=== PATIENT | female | born 1970 | race Caucasian/White ===

== ENCOUNTER → 2016-10-23 | Outpatient (CLI) | payer BC ==
[~2016-10-23] MED LIST: AMIL5TA PO; ATOR1TAB19 PO; CHLO25TA PO; CIPR500T89 PO; FLOM5CAP PO; KLOR1TAB69 PO; METF500T PO; NUCY75TA8 PO; OMEP20CA3 PO; PERCOCET PO; POTA10TAB PO; VENL100T PO; VENL150T PO
--- NOTE | 2016-10-23 16:07 | REP ---
PET/CT: History: Restaging lymphoma. Increasing right anterior chest wall discomfort. Comparison: Comparison PET-CT study is from March 21, 2016. TECHNIQUE: 77 minutes following the intravenous injection of a 8.4 mCi dose of F-18 FDG, three-dimensional PET scintigraphy is acquired from the skull base to the proximal thighs. Triplanar noncontrast CT scanning is acquired through the same anatomic range for attenuation correction, and image registration with scan parameters optimized to minimize radiation exposure to the patient. PET scintigraphy and CT datasets were fused and displayed on a workstation with multiplanar and projection display capability. PET/CT Findings: There is new hypermetabolic uptake in a left axillary lymph node. This measures 1.6 x 0.9 cm. It is larger than on prior PET/CT. The FDG accumulation is new. Maximum SUV value is 8.0. No other hypermetabolic axillary lymph node uptake is seen. No hilar or mediastinal hypermetabolic uptake is seen. Head and neck soft tissues are unremarkable. In the abdomen and pelvis, normal hepatic, splenic, gastrointestinal, and genitourinary FDG accumulation is seen. No abnormal hypermetabolic uptake is seen in the abdomen or pelvis. The patient is status post prior cholecystectomy. No pulmonary parenchymal nodule or mass lesion is observed. Impression: New finding of a suspicious hypermetabolic but small left axillary lymph node. No lymph nodes are visible in the axilla on recent mammography from July 17, 2016. Left axillary ultrasound could be performed in an attempt to localize this lymph node for needle biopsy if desired. Signed by Jonathan Guillen MD 10/23/2016 04:53 P
== END ==
LOC: M RAD 09:27
PROVIDERS: ATTEND Nurse Practitioner Family
DX: R07.89 Other chest pain (principal); Z85.79 Personal history of other malignant neoplasms of lymphoid, hematopoietic and related tissues
CPT/HCPCS: 78815; A9552

== ENCOUNTER → 2016-11-04 | Outpatient (REF) | payer BC ==
[2016-11-04 18:16] LABS: INR 0.89
== END ==
LOC: M LAB REF 17:26
PROVIDERS: ATTEND Internal Medicine Medical Oncology
DX: C85.90 Non-Hodgkin lymphoma, unspecified, unspecified site (principal)

== ENCOUNTER → 2016-11-14 | Outpatient (CLI) | payer BC ==
[~2016-11-14] MED LIST changes: +ATOR1TAB21 PO; +CVS20TAB PO; +K-TA10TA2 PO; +LIDOCAINE 1% MDV 20ML VIAL As Ordered ONE; +METF850T PO; +ZOLO100T PO
--- NOTE | 2016-11-19 08:56 | REP ---
ULTRASOUND GUIDED LEFT AXILLARY LYMPH NODE BIOPSY: The procedure was performed under the direct supervision of Dr. Guillen. The patient has a history of a suspicious hypermetabolic but small left axillary lymph node seen on a previous PET scan performed on 10/23/2016. The risks and benefits of the procedure were explained to the patient and informed consent was obtained. The left axillary lymph node was localized using ultrasound guidance. The skin was prepped and draped in a sterile fashion. 1% Xylocaine was used as a local anesthetic. Using ultrasound guidance, a 13-gauge suction assisted Mammotome needle was inserted and six core biopsy samples were obtained. The patient tolerated the procedure well and there were no immediate complications. After the appropriate amount of monitored convalescence, the patient was discharged from the department. Reviewed by IRA Suh 11/19/2016 04:51 PEdited and Signed by Jonathan Guillen MD 11/20/2016 02:58 P
== END | disposition home or self-care (01) ==
LOC: M RADPRO 10:08
PROVIDERS: ATTEND Nurse Practitioner Family
DX: C82.90 Follicular lymphoma, unspecified, unspecified site (principal)

== ENCOUNTER → 2017-01-15 | Outpatient (CLI) | payer BC ==
[~2017-01-15] VITALS: Ht 154.9 cm; Wt 86.6 kg
[~2017-01-15] MED LIST changes: +CHLO125TA PO; -LIDOCAINE 1% MDV 20ML VIAL As Ordered ONE; +LIDOCAINE 2% INJ 100 MG/5 ML SDV (FOR ANES.) As Ordered ONE; +NS 1,000 ML IV SCH; +OMEP40CA2 PO; +PROPOFOL 200 MG/20 ML VIAL As Ordered ONE; +RAPA8CAP PO; +ZANTTAB PO; +ZOFR4SOL PO
--- NOTE | 2017-01-15 13:29 | ROOR ---
Patient Name: Jodi Francois Procedure Date: 01/15/2017 1:10 PM Date of : 1970 Age: 46 Room: [facility] Gender: Female Note Status: Finalized Procedure: Upper GI endoscopy Indications: Heartburn, Suspected esophageal reflux Providers: DO Fern Palomino MD: DARIA SOLIS MD Requesting Provider: Medicines: Propofol per Anesthesia Complications: No immediate complications. Procedure: Pre-Anesthesia Assessment: - Prior to the procedure, a History and Physical was performed, and patient medications and allergies were reviewed. The patient is competent. The risks and benefits of the procedure and the sedation options and risks were discussed with the patient. All questions were answered and informed consent was obtained. Patient identification and proposed procedure were verified by the physician, the nurse, the anesthesiologist and the poultry field service technician in the endoscopy suite. Mental Status Examination: alert and oriented. Airway Examination: normal oropharyngeal airway and neck mobility. Respiratory Examination: clear to auscultation. CV Examination: normal. Prophylactic Antibiotics: The patient does not require prophylactic antibiotics. Prior Anticoagulants: The patient has taken no previous anticoagulant or antiplatelet agents. ASA Grade Assessment: II - A patient with mild systemic disease. After reviewing the risks and benefits, the patient was deemed in satisfactory condition to undergo the procedure. The anesthesia plan was to use monitored anesthesia care (MAC). Immediately prior to administration of medications, the patient was re-assessed for adequacy to receive sedatives. The heart rate, respiratory rate, oxygen saturations, blood pressure, adequacy of pulmonary ventilation, and response to care were monitored throughout the procedure. The physical status of the patient was re-assessed after the procedure. The Endoscope was introduced through the mouth, and advanced to the second part of duodenum. The upper GI endoscopy was accomplished without difficulty. The patient tolerated the procedure well. Findings: A small hiatal hernia was present. The prepyloric region of the stomach was normal. Biopsies were taken with a cold forceps for Helicobacter pylori testing. The exam was otherwise without abnormality. Impression: - Small hiatal hernia. - Normal prepyloric region of the stomach. Biopsied. - The examination was otherwise normal. Recommendation: - Patient has a contact number available for emergencies. The signs and symptoms of potential delayed complications were discussed with the patient. Return to normal activities tomorrow. Written discharge instructions were provided to the patient. - Telephone my office for pathology results in 1 week. Jared Kothari DO 01/15/2017 1:29:14 PM This report has been signed electronically. Number of Addenda: 0 Note Initiated On: 01/15/2017 1:10 PM Estimated Blood Loss: Estimated blood loss was minimal.
[2017-01-15 14:10] VITALS: BP 120/57
== END | disposition home or self-care (01) ==
LOC: M OPP 12:07
PROVIDERS: ATTEND Surgery
DX: R12 Heartburn (principal); K44.9 Diaphragmatic hernia without obstruction or gangrene; R10.13 Epigastric pain; C85.90 Non-Hodgkin lymphoma, unspecified, unspecified site; Z92.21 Personal history of antineoplastic chemotherapy; E11.9 Type 2 diabetes mellitus without complications; F41.9 Anxiety disorder, unspecified; F32.9 Major depressive disorder, single episode, unspecified; Z78.0 Asymptomatic menopausal state; Z87.442 Personal history of urinary calculi; Z91.041 Radiographic dye allergy status; Z79.84 Long term (current) use of oral hypoglycemic drugs; Z79.899 Other long term (current) drug therapy

== ENCOUNTER 2017-02-09 15:01 | Emergency (ER) | payer BC ==
[~2017-02-09] VITALS: Ht 154.9 cm; Wt 89.8 kg
[~2017-02-09 15:01] MED LIST changes: -LIDOCAINE 2% INJ 100 MG/5 ML SDV (FOR ANES.) As Ordered ONE; -NS 1,000 ML IV SCH; -PROPOFOL 200 MG/20 ML VIAL As Ordered ONE
[2017-02-09] MEDS ORDERED: DEXI60CA PO (15:21)
[2017-02-09] MEDS ORDERED: NS 1,000 ML IV ONE (17:00)
[2017-02-09] MEDS ORDERED: KETOROLAC 30 MG/ML VIAL (J1885) IV ONE (17:00)
[2017-02-09] MEDS ORDERED: ONDANSETRON 4MG/2ML VIAL (J2405) IV ONE (17:00)
[2017-02-09 17:24] LABS: BASO % 0.3 % (0.0-1.0); EOS # 0.4 K/mm3 (0.0-0.50); EOS % 2.8 % (0.0-3.0); LARGE UNSTAINED CELL # 0.1 K/mm3 (0.0-0.4); LARGE UNSTAINED CELL % 0.5 % (0.0-4.0); LYMPH % 7.3 % (24.0-44.0); MEAN CORPUSCULAR HEMOGLOBIN 29.3 pg (27.0-33.0); MEAN CORPUSCULAR HGB CONC 34.3 g/dl (32.0-36.5); MEAN CORPUSCULAR VOLUME 85.2 fl (80.0-96.0); MONO # 0.4 K/mm3 (0.0-0.8); MONO % 2.8 % (0.0-5.0); NEUTROPHILS # 11.9 K/mm3 (1.8-7.7); NEUTROPHILS % 86.4 % (36.0-66.0); PLATELET COUNT, AUTOMATED 284 k/mm3 (150-450); RED CELL DISTRIBUTION WIDTH 12.7 % (11.5-14.5); WHITE BLOOD COUNT 13.8 K/mm3 (4.0-10.0)
[2017-02-09 17:31] LABS: CONTROL LINE UCG INT CTR LINE PRESENT
[2017-02-09 17:43] LABS: CALCIUM LEVEL 8.5 MG/DL (8.5-10.1); CREATININE FOR GFR 1.17 MG/DL (0.55-1.02); POTASSIUM SERUM 3.9 MEQ/L (3.5-5.1)
[2017-02-09] MEDS ORDERED: FLOM5CAP PO (18:20)
[2017-02-09] MEDS ORDERED: CIPR500T89 PO (18:20)
[2017-02-09] MEDS ORDERED: ZOFR4TAB3 PO (18:20)
[2017-02-09] MEDS ORDERED: PERC5TAB6 PO (18:20)
[2017-02-09 18:27] VITALS: BP 107/61
[2017-02-09] MEDS ORDERED: TAMSULOSIN 0.4 MG CAP PO ONE (18:30)
[2017-02-09] MEDS ORDERED: OXYCODONE/APAP 5MG/325MG(BULK FOR ED) 1 TABLET PO ONE (18:30)
[2017-02-09] MEDS ORDERED: CIPROFLOXACIN 500 MG TAB PO ONE (18:30)
--- NOTE | 2017-02-10 07:35 | REP ---
Clinical: Left flank pain. Findings: Mild left-sided acute obstructive uropathy with perinephric and periureteral stranding as well as hydroureteronephrosis is secondary to a 2.5 mm calculus in the distal left ureter (images 110 - 111). Significant bilateral medullary nephrocalcinosis noted. Hepatomegaly and fatty infiltration of the liver noted without focal hepatic lesion. Spleen, pancreas, and bilateral adrenal glands are normal. The patient is status post cholecystectomy. The enteric system is without obstruction or acute inflammatory process. There is a 4 cm fat containing periumbilical hernia. Normal terminal ileum and appendix identified in the right lower quadrant. Pelvis demonstrates normal bladder and age-appropriate uterus/adnexa. No free fluid. No free air. No adenopathy. Abdominal aorta without aneurysm. Surrounding musculoskeletal structures are intact. Lung bases are clear. Impression: 1. Mild acute left-sided obstructive uropathy with 2.5 mm calculus in the distal left ureter. Bilateral medullary nephrocalcinosis. 2. 4 cm fat containing periumbilical hernia. Signed by Carl Coates MD 02/10/2017 07:28 A
== END 2017-02-09 18:41 | disposition home or self-care (01) ==
LOC: M ED 17:04
DX: N20.1 Calculus of ureter (principal); F32.9 Major depressive disorder, single episode, unspecified; E11.9 Type 2 diabetes mellitus without complications; N25.89 Other disorders resulting from impaired renal tubular function; Z87.442 Personal history of urinary calculi; C85.90 Non-Hodgkin lymphoma, unspecified, unspecified site; K42.9 Umbilical hernia without obstruction or gangrene; Z79.84 Long term (current) use of oral hypoglycemic drugs; Z79.899 Other long term (current) drug therapy; Z91.041 Radiographic dye allergy status
CPT/HCPCS: 74176; 80048; 81001; 81025; 84703; 85025; 87086; 96374; 96375; 99283; J1885; J2405

== ENCOUNTER → 2018-09-08 | Outpatient (CLI) | payer BC | LOC: M PLARAD 08:48 | DX: C85.90 Non-Hodgkin lymphoma, unspecified, unspecified site (principal) | CPT/HCPCS: 78815 ==

== ENCOUNTER → 2018-12-29 | Outpatient (CLI) | payer BC ==
[~2018-12-29] MED LIST changes: -AMIL5TA PO; +AMIL5TAB4 PO; +ATEN50TA9 PO; +CIPR-249 PO; -CIPR500T89 PO; +DEXI60CA2 PO; +FLOM0.4C39 PO; -FLOM5CAP PO; +FLUO40CA PO; -METF500T PO; +METF500T13 PO; -METF850T PO; +METF850T4 PO; +NUCY75TA11 PO; -NUCY75TA8 PO; +PERC5TAB12 PO; +POTA10808 PO; -POTA10TAB PO; +ZOFR4TAB14 PO
--- NOTE | 2018-12-30 08:25 | REP ---
PET/CT: History: Restaging follicular lymphoma. Comparisons: Comparison PET/CTs are reviewed from September 08, 2018 and October 21, 2017. TECHNIQUE: 49 minutes following the intravenous injection of a 9.69 mCi dose of F-18 FDG, three-dimensional PET scintigraphy is acquired from the skull base to the proximal thighs. Triplanar noncontrast CT scanning is acquired through the same anatomic range for attenuation correction, and image registration with scan parameters optimized to minimize radiation exposure to the patient. PET scintigraphy and CT datasets were fused and displayed on a workstation with multiplanar and projection display capability. PET/CT Findings: The two largest of the previously noted left axillary and left subclavian hypermetabolic lymph nodes may be very slightly larger since the relatively recent prior study. Today these measure 3.1 x 2.0 cm and 3.2 x 2.0 cm. Previously these two lymph node dimensions were 3.4 x 1.7 and 2.9 x 1.8 cm. They remain hypermetabolic today, maximum standard uptake value 8.92. Hypermetabolic left subclavian adenopathy persists with maximum standard uptake value 7.2 today. Previously, SUV value was 5.4. The previously noted slightly hypermetabolic lymph node in the right axilla is not apparent today. No hypermetabolic adenopathy is seen in the head and neck soft tissues. No intrathoracic hypermetabolic adenopathy is seen. No abnormal hypermetabolic uptake is seen in the upper abdomen. In the pelvis, previously noted right iliac hypermetabolic adenopathy persists. Morphologically, the most rostral of these looks slightly larger measuring 1.8 x 1.4 cm, previously 1.6 x 1.2 cm. Its maximum standard uptake value is 8.39, previously maximum SUV value is 12.7. The more inferior enlarged lymph node remains hypermetabolic and unchanged in size. Maximum SUV value is 8.15. There is a small focus of soft tissue uptake in or adjacent to the right piriformis muscle. Maximum standard uptake value is 4.4. No observable mass or lymph node is seen. This was present previously and thought to be a normal variant skeletal muscle uptake since there was no observable mass or node. Its presence in the same location today raises a concern of a additional tiny focus of disease. Impression: Several of the involved lymph nodes which were noted previously may be very slightly larger since the relatively recent prior study. They remain hypermetabolic. Electronically Signed by Jonathan Guillen MD 12/30/2018 09:51 A
== END ==
LOC: M PLARAD 13:14
PROVIDERS: ATTEND Internal Medicine Hematology & Oncology
DX: C82.90 Follicular lymphoma, unspecified, unspecified site (principal)
CPT/HCPCS: 78815; A9552

== ENCOUNTER → 2019-04-29 | Outpatient (CLI) | payer BC ==
[~2019-04-29] MED LIST changes: +AMOX875T2 PO; -CHLO25TA PO; -CVS20TAB PO; -OMEP20CA3 PO; +OMEP20CA4 PO; +OMEP20TA9 PO; -RAPA8CAP PO; +RAPA8CAP4 PO; -VENL150T PO; +VENL150T14 PO; +ZANT150T40 PO; -ZANTTAB PO
--- NOTE | 2019-05-04 11:37 | RADONC ---
RADIATION ONCOLOGY CONSULTATION DATE: 04/29/2019 CHART NUMBER: [id number] DIAGNOSIS: Non-Hodgkin's follicular lymphoma. STAGE: IV. ECOG PERFORMANCE STATUS: 0 CONSULTATION NOTE: Ms. Francois is a delightful 48-year-old white female with a long history of a grade 2 follicular non-Hodgkin's lymphoma who is presenting to us today for discussion of possible palliative radiation therapy to her left axilla. HISTORY OF PRESENT ILLNESS: The patient's history dates back to December 2010 when she was initially diagnosed with a moderately differentiated non-Hodgkin's follicular lymphoma. At that time she presented with bulky cervical lymphadenopathy. A bone marrow biopsy done 03/14/2011 showed positive B-cell population consistent with involvement by follicular lymphoma. The patient was treated with R-CHOP chemotherapy. This was followed by maintenance rituximab for 2 years. Maintenance rituximab was completed in September 2013 and the patient was found to be in complete remission. The patient remained in remission until a PET scan done in September 2016 showed a small hypermetabolic focus in the left axilla. Biopsy of the left axillary lymph node done 11/20/2016 revealed recurrent grade 2 follicular lymphoma. The patient was asymptomatic with no bulky disease. She has therefore been observed. A restaging PET scan done 09/08/2018 was undertaken and showed progressive axillary hypermetabolic adenopathy. There was also a mild right axillary lymphadenopathy and a right internal iliac pelvic lymphadenopathy, which was hypermetabolic. Repeat PET scan done 12/29/2018 showed that the left axillary and subclavian hypermetabolic lymph node region might be very slightly larger when compared with the one in August. The lymph node in the right axilla was not visible on the new PET scan. So basically, the patient is being presented to me for a slight increase in her axillary region. The patient is asymptomatic and reports that in June a new PET scan is scheduled. PAST MEDICAL HISTORY: The patient's past medical history is positive for kidney stones, a cholecystectomy and tonsillectomy. She had two C-sections. SOCIAL HISTORY: The patient has never smoked cigarettes. She does not drink alcohol. FAMILY HISTORY: The patient's family history is negative for lymphoma or other malignancies. REVIEW OF SYSTEMS: The patient's review of systems is noncontributory. She denies nausea, vomiting, fevers, chills, night sweats, diplopia, headaches, anxiety or depression, anorexia, weight loss, visual disturbances, chest pain, urinary or bowel difficulties, bone pain, or neurological problems. PHYSICAL EXAMINATION: The patient is a well-developed, well-nourished white female in no acute distress. HEENT exam is normocephalic, atraumatic. Extraocular movements are intact. There is no palpable cervical, supraclavicular, infraclavicular or inguinal lymphadenopathy. There is no right-sided axillary lymphadenopathy. There is what appears to be 3 cm mobile left axillary lymph node, which is firm but nontender. Lungs are clear to auscultation and percussion. Heart has a regular rate and rhythm. Abdomen is benign with no hepatosplenomegaly, masses, or tenderness. Skeletal examination reveals no tenderness to pressure or percussion of the bony skeleton. Extremities reveal no clubbing, cyanosis, or edema. Neurologic exam is grossly intact, as is the remainder of the physical examination. ASSESSMENT: I had a very lengthy discussion with this patient and her . She is aware that the role of radiation is palliative at this point. Indeed there are other sites of disease for which she is being followed. I did let her know that the dose of radiation would be quite low and I expect a very high chance of local control. She should respond nicely with minimal side effects. As I said, the dose is very low and the axillary area should cause her no problems with treatment. I also discussed a very long history of this disease and the fact that we could treat this at anytime. Indeed, this is not a curative treatment and we are here purely for quality of life. The patient and her wish to hold off on treatment at this point and would rather wait until June when a new PET scan is undertaken. I have given the patient and her family my cell phone number as well as office number. I let them know we can jump in at anytime to deliver radiation if she should develop symptoms or simply change her mind and want treatment. In light of the fact that she is asymptomatic at this time, and she has had this disease for 8 years, I think her desire to wait the next few weeks is reasonable. I have tentatively set her up for a follow-up consultation in my office for the end of June following her PET scan. Once again, she has been instructed to contact me should she become symptomatic or wish to initiate radiation. In the meantime, she will keep her close follow-up with her medical oncologist, Dr. Zonia Myers. cc: Zonia Myers MD
== END ==
LOC: M ONCR 12:53
PROVIDERS: ATTEND Radiology Radiation Oncology
DX: C82.90 Follicular lymphoma, unspecified, unspecified site (principal)

== ENCOUNTER → 2019-07-06 | Outpatient (CLI) | payer BC ==
--- NOTE | 2019-07-06 15:31 | REP ---
PET/CT: HISTORY: Restaging lymphoma. COMPARISONS: Comparison is made with previous PET/CT, the most recent which is from December 29, 2018. TECHNIQUE: 50 minutes following the intravenous injection of a 8.74 mCi dose of F-18 FDG, three-dimensional PET scintigraphy is acquired from the skull base to the proximal thighs. Triplanar noncontrast CT scanning is acquired through the same anatomic range for attenuation correction, and image registration with scan parameters optimized to minimize radiation exposure to the patient. PET scintigraphy and CT datasets were fused and displayed on a workstation with multiplanar and projection display capability. PET/CT FINDINGS: Head and neck soft tissues remain unremarkable. There is fairly bulky hypermetabolic uptake in the left axillary lymphadenopathy. This lymphadenopathy extends upward to the subclavicular level. Maximum standard uptake value ranges up to 11.5. It appears mildly increased in size from the most recent prior PET/CT study 12/29/2018. There is no abnormal intrathoracic hypermetabolic uptake. There is hypermetabolic left periaortic retroperitoneal adenopathy with maximum standard uptake value of 4.0 in a lymph node measuring 1.4 cm. In addition, there are multiple small mesenteric lymph nodes in the small bowel mesentery. These are slightly larger than on prior study. One or two of these appear hypermetabolic. The most active shows a maximum standard uptake value of 4.44. This lymph node measures 1.2 cm. There is a slightly larger, 16 mm lymph node which is not definitely hypermetabolic. There is right internal iliac lymphadenopathy along the right posterior pelvic sidewall. This is similar to the prior study. Maximum standard uptake value in these javier foci ranges up to 12.91. There is a small hypermetabolic nodule again seen along the course of the piriformis muscle on the right with maximum standard uptake value 8.49. IMPRESSION: There is evidence of gradual progression in adenopathy in the axilla and subclavian nodes on the left, in the small bowel mesenteric and left periaortic lymph nodes. The right pelvic adenopathy remains hypermetabolic and morphologically unchanged. Electronically Signed by Jonathan Guillen MD 07/06/2019 04:09 P
== END ==
LOC: M PLARAD 10:24
PROVIDERS: ATTEND Internal Medicine Hematology & Oncology
DX: C82.94 Follicular lymphoma, unspecified, lymph nodes of axilla and upper limb (principal)

== ENCOUNTER → 2019-07-14 | Outpatient (CLI) | payer BC ==
--- NOTE | 2019-07-15 13:54 | RADONC ---
RADIATION ONCOLOGY PROGRESS NOTE DATE: 07/14/2019 CHART #: [id number] DIAGNOSIS: Non-Hodgkin's follicular lymphoma. STAGE: IV. ECOG PERFORMANCE STATUS: 0. PROGRESS NOTE: Ms. Francois is a delightful 48-year-old white female with a long history of grade 2 follicular non-Hodgkin's lymphoma over the past 8 years who initially presented to me on 04/29/2019 for consideration of palliative radiation therapy to her left axilla in attempt to achieve local control in that area. At that point, she had been treated with R-CHOP chemotherapy and was noted to appear to be in clinical remission except for the axillary region. When I saw the patient, she was scheduled to have a PET scan and requested that we do absolutely nothing until the PET scan is done and she is able to speak with her medical oncologist, Dr. Zonia Myers. Since my last consultation, the patient did have her PET scan on 07/06/2019 which now shows evidence of gradual progression of the adenopathy in the axilla and nodes on the left which were the reason for our initial consultation. Of note, however, there is some slight progression of left periaortic retroperitoneal adenopathy as well. There is also a hypermetabolic foci with a SUV value of 12.91 in the right internal iliac region. Due to scheduling issues, the patient has not yet spoken with Dr. Myers about this PET scan and any future plans. She is scheduled to see Dr. Myers on 07/16/2019. REVIEW OF SYSTEMS: The patient's review of systems is noncontributory. Denies nausea, vomiting, fevers, chills, night sweats, diplopia, headaches, anxiety or depression, anorexia, weight loss, visual disturbances, chest pain, urinary or bowel difficulties, bone pain, or neurological problems. PHYSICAL EXAMINATION: The patient's physical exam remains unchanged. The patient is a well-developed, well-nourished white female in no acute distress. HEENT: Exam is normocephalic, atraumatic. Extraocular movements are intact. There is no palpable cervical, supraclavicular, infraclavicular or inguinal lymphadenopathy present. There continues to be no right-sided axillary lymphadenopathy. There is still a mobile left axillary lymph node which I do not appreciate much change in. The patient's lungs are clear to auscultation and percussion. Heart has a regular rate and rhythm. Her abdomen is benign with no hepatosplenomegaly, masses or tenderness. Skeletal examination reveals no tenderness to pressure or percussion of the bony skeleton. Extremities: Reveal no clubbing, cyanosis or edema. Neurologic exam is grossly intact as is the remainder of the examination. Once again, I let the patient know that we are available to her and I did discuss the potential benefits as well as possible acute and chronic sequelae of external beam radiation therapy. The patient is scheduled to see Dr. Myers on Friday at 2 o'clock. I let the patient know I am available and I can see her with Dr. Myers if she would like or she can walk right across the stover when she sees Dr. Myers and come in and see me at anytime. If she wishes to undergo radiation, I can then schedule her for simulation and initiation of treatment planning. In light of the progression in other sites, we await Dr. Myers's expert opinion. There is only slight progression at this time and the dose of radiation would be quite low and should not be very toxic. Therefore, we are open to discussion with regards to her various options. Once again, the patient is scheduled to see her medical oncologist on Friday and will come over and see me following that or during that visit. Further discussion will be undertaken at that time.
== END ==
LOC: M ONCR 13:53
PROVIDERS: ATTEND Radiology Radiation Oncology
DX: C85.90 Non-Hodgkin lymphoma, unspecified, unspecified site (principal)

== ENCOUNTER → 2019-08-02 | Outpatient (CLI) | payer BC ==
[~2019-08-02] MED LIST changes: +INCR1INH INH; +LIDOCAINE 1% MDV 20ML VIAL As Ordered ONE; -OMEP40CA2 PO; +OMEP40CA97 PO
[2019-08-02 14:24] VITALS: BP 131/71
--- NOTE | 2019-08-03 16:59 | REP ---
Ultrasound-guided left axillary lymph node biopsy This procedure was performed by IRA Cantu, under the direct supervision of Dr. Sweeney. The patient has a history of fairly bulky hypermetabolic uptake in the left axilla region on a PET scan dated 07/06/2019. The risks and the benefits of the procedure were explained to the patient and informed consent was obtained both verbally and written. Directly prior to the start of the procedure, a formal time out was completed in the procedure room. The left axilla lymph node was localized using ultrasound guidance. The skin was prepped and draped in a sterile fashion. 6 ml of 1% lidocaine was used as a local anesthetic. Using ultrasound guidance a 19/20 gauge coaxial needle biopsy system was inserted and advanced to the lymph node. Eight core biopsy samples were obtained and sent to the lab for further analysis. The patient tolerated the procedure well and there were no immediate complications. After the appropriate amount of monitored convalescence the patient was discharged from the department. Reviewed by IRA Cantu 08/02/2019 02:49 P Electronically Signed by Jared Sweeney MD 08/03/2019 04:51 P
== END ==
LOC: M IRPRO 12:37
PROVIDERS: ATTEND Internal Medicine Hematology & Oncology
DX: C82.94 Follicular lymphoma, unspecified, lymph nodes of axilla and upper limb (principal)

== ENCOUNTER 2019-12-20 05:56 | Day surgery (SDC) | payer BC ==
[~2019-12-20] VITALS: Ht 154.9 cm; Wt 91.6 kg
[~2019-12-20 05:56] MED LIST changes: -LIDOCAINE 1% MDV 20ML VIAL As Ordered ONE; +OMEP1CAP73 PO; -OMEP20CA4 PO; +ONDA4TAB6 PO; +PEPC1TAB5 PO
[2019-12-20] MEDS ORDERED: LR 1,000 ML IV ONE (06:00)
[2019-12-20] MEDS ORDERED: LIDOCAINE 1% MDV 20ML VIAL SQ PRN (06:00)
[2019-12-20] MEDS ORDERED: ceFAZolin SOD 2 GM in IV 1 EA IV ONE (06:00)
[2019-12-20 06:23] LABS: HEMATOCRIT 39.4 % (36.0-47.0); HEMOGLOBIN 12.7 g/dl (12.0-15.5); MEAN CORPUSCULAR HEMOGLOBIN 26.7 pg (27.0-33.0); MEAN CORPUSCULAR HGB CONC 32.2 g/dl (32.0-36.5); MEAN CORPUSCULAR VOLUME 82.8 fl (80.0-96.0); PLATELET COUNT, AUTOMATED 301 10^3/uL (150-450); RED BLOOD COUNT 4.76 10^6/uL (4.00-5.40); WHITE BLOOD COUNT 6.6 10^3/uL (4.0-10.0)
[2019-12-20 06:51] LABS: BLOOD UREA NITROGEN 17 MG/DL (7-18); CALCIUM LEVEL 9.1 MG/DL (8.5-10.1); CARBON DIOXIDE LEVEL 26 MEQ/L (21-32); CHLORIDE LEVEL 106 MEQ/L (98-107); CREATININE FOR GFR 0.97 MG/DL (0.55-1.30); GLOMERULAR FILTRATION RATE > 60.0 (>58); GLUCOSE, FASTING 165 MG/DL (70-100); POTASSIUM SERUM 4.2 MEQ/L (3.5-5.1); SODIUM LEVEL 139 MEQ/L (136-145)
[2019-12-20] MEDS ORDERED: LIDOCAINE 2% INJ 100 MG/5 ML SDV (FOR ANES.) As Ordered ONE (07:02)
[2019-12-20] MEDS ORDERED: ONDANSETRON 4MG/2ML VIAL (J2405) As Ordered ONE (07:02)
[2019-12-20] MEDS ORDERED: KETOROLAC 60 MG/2 ML VIAL (J1885) As Ordered ONE (07:02)
[2019-12-20] MEDS ORDERED: dexameTHASONE 4 MG/ML 1ML VIAL (J1100) As Ordered ONE (07:02)
[2019-12-20] MEDS ORDERED: propofoL 200 MG/20 ML VIAL As Ordered ONE (07:02)
[2019-12-20] MEDS ORDERED: ROCURONIUM BROMIDE 50 MG/5 ML VIAL As Ordered ONE (07:02)
[2019-12-20] MEDS ORDERED: MIDAZOLAM INJ 2 MG/2 ML VIAL (J2250) As Ordered ONE (07:05)
[2019-12-20] MEDS ORDERED: fentaNYL 250 MCG/5 ML INJECTION (J3010) As Ordered ONE (07:05)
[2019-12-20] MEDS ORDERED: BUPIVACAINE/EPIN 0.25% 30 ML VIAL As Ordered ONE (07:14)
[2019-12-20] MEDS ORDERED: ACETAMINOPHEN 1000MG 100ML IV BTL (OFIRMEV) (J0131 PER 10MG) As Ordered ONE (07:47)
[2019-12-20] MEDS ORDERED: SUGAMMADEX SODIUM 500 MG/5 ML VIAL (BRIDION) As Ordered ONE (07:51)
[2019-12-20] MEDS ORDERED: LACRILUBE (AKWA TEARS) OPHTH OINT 3.5 GM As Ordered ONE (08:11)
[2019-12-20] MEDS ORDERED: oxyCODONE 5MG TAB PO PRN (09:30)
[2019-12-20] MEDS ORDERED: ONDANSETRON 4MG/2ML VIAL (J2405) IV PRN (09:30)
[2019-12-20] MEDS ORDERED: HYDROMORPHONE HCL 0.5 MG/ 0.5 ML SYRINGE (J1170 PER 1) IV PRN (09:30)
[2019-12-20] MEDS ORDERED: fentaNYL 100 MCG/2 ML INJECTION (J3010) IV PRN (09:30)
[2019-12-20] MEDS ORDERED: LR 1,000 ML IV SCH (09:30)
[2019-12-20] MEDS ORDERED: NORCO, ANEXSIA 5/325MG TABLET (HYDROcodone/ACETAMINOPHEN) PO PRN (09:30)
[2019-12-20] MEDS ORDERED: METOCLOPRAMIDE INJ 10MG/2ML VIAL (J2765) As Ordered ONE (10:04)
[2019-12-20] MEDS ORDERED: METOCLOPRAMIDE INJ 10MG/2ML VIAL (J2765) IV PRN (10:30)
[2019-12-20 11:45] VITALS: BP 141/65
--- NOTE | 2019-12-21 12:44 | RO ---
DATE OF PROCEDURE: 12/20/2019 PREOPERATIVE DIAGNOSES: Incarcerated incisional and umbilical hernias. POSTOPERATIVE DIAGNOSES: Incarcerated incisional and umbilical hernias. PROCEDURE: Robotic repair of incarcerated incisional and umbilical hernias. SURGEON: Jared Kothari DO ASSIST: None. ANESTHESIA: General. ESTIMATED BLOOD LOSS (EBL): 5. COMPLICATION: None. INDICATION FOR PROCEDURE: The patient is a 49-year-old female status post laparoscopic cholecystectomy and laparoscopic abdominal exploration with lymph node biopsies. Presents with pain around her umbilicus with a large hernia. She was found to have two separate defects on her CT scan right next to each other in the midline periumbilically. Recommendation is to pursue repair. Risks and benefits of the procedure not limited but including bleeding, infection, hernia recurrence, hernia formation, damage to surrounding structures, need for further surgery discussed in detail with the patient. Informed consent was obtained, and procedure was planned. DESCRIPTION OF PROCEDURE: The patient brought back to operating room #7. After sufficient sedation, the abdomen was sterilely prepped and draped. Next, time-out was done to confirm proper patient and proper procedure. Following that, 8 mm incision made in the left lower quadrant, Veress needle inserted, and the abdomen was insufflated to 15 mmHg. Veress needle was then removed. An 8 mm Optiview robotic port was used to gain access to the abdomen. Once the abdomen was entered, the hernia was identified at the umbilicus with a large amount of omentum within it. Another port was then placed epigastric just to the left of midline. Another port in the right upper quadrant. The robot was then connected to the ports. Next, from the console, the omentum was first dissected free and reduced. Once that was completed, a horizontal incision was made through the peritoneal surface superior to that defect. Upon entering the preperitoneal space, there were three hernias identified superior to the one at the umbilicus that are then reduced. These three were all dissected free and reduced. Continuing with dissection inferiorly through the preperitoneal plane, I was able to dissect free the entire hernia sac that was at the umbilicus, as well. Once that was completed, the preperitoneal space was completely dissected free. A 0 Stratafix suture was used to reapproximate the fascia along the midline, encompassing all four of those hernia defects. Once that was completed, 2-0 V-Loc was used to close the defect in the peritoneum from where the umbilical hernia was. Once that was closed, a 5 cm round ProGrip mesh was placed into the preperitoneal space and gently smoothed out to cover the fascia. The 2-0 V-Loc was then used to close the rest of the peritoneal defect, closing the rest of the preperitoneal space. Once that was completed, the abdomen was desufflated. Skin incisions were closed with 4-0 Vicryl subcuticular sutures. The abdomen cleaned and dried. Steri-Strips, 4x4, and tape were applied, thus ending the procedure.
== END 2019-12-20 12:45 | disposition home or self-care (01) ==
LOC: M SDC 05:56
PROVIDERS: ATTEND Surgery
DX: K43.0 Incisional hernia with obstruction, without gangrene (principal); K42.0 Umbilical hernia with obstruction, without gangrene; F41.9 Anxiety disorder, unspecified; F32.9 Major depressive disorder, single episode, unspecified; E11.9 Type 2 diabetes mellitus without complications; I10 Essential (primary) hypertension; K21.9 Gastro-esophageal reflux disease without esophagitis; N25.89 Other disorders resulting from impaired renal tubular function; Z85.72 Personal history of non-Hodgkin lymphomas; Z92.21 Personal history of antineoplastic chemotherapy; F03.90 Unspecified dementia, unspecified severity, without behavioral disturbance, psychotic disturbance, mood disturbance, and anxiety; Z91.041 Radiographic dye allergy status; Z79.899 Other long term (current) drug therapy; Z79.84 Long term (current) use of oral hypoglycemic drugs; Z79.891 Long term (current) use of opiate analgesic
CPT/HCPCS: 36415; 49653; 49655; 80048; 85027; C1781; J0131; J0690; J1100; J1885; J2250; J2405; J2765; J3010

== ENCOUNTER → 2019-12-28 | Outpatient (CLI) | payer BC ==
--- NOTE | 2019-12-28 17:02 | REP ---
PET/CT: History: Restaging follicular lymphoma. Comparisons: Comparison PET-CT study July 06, 2019 and December 29, 2018. TECHNIQUE: 62 minutes following the intravenous injection of a 8.77 mCi dose of F-18 FDG, three-dimensional PET scintigraphy is acquired from the skull base to the proximal thighs. Triplanar noncontrast CT scanning is acquired through the same anatomic range for attenuation correction, and image registration with scan parameters optimized to minimize radiation exposure to the patient. PET scintigraphy and CT datasets were fused and displayed on a workstation with multiplanar and projection display capability. PET/CT Findings: Compared to the most recent prior study of July 06, 2019, there is improvement noted in the size and avidity of the left axillary and left supraclavicular lymphadenopathy. Maximum standard uptake value in the left supraclavicular nodes is 8.08. Maximum SUV value in the left axillary adenopathy ranges up to 7.07. Previously 8.92. The axillary nodes are smaller. There is very slightly increased uptake in a small left periaortic lymph node, maximum SUV 2.13. Previously 4.01. Left small bowel mesenteric lymph node remains hypermetabolic, 3.20. Previously 4.44. There is mild javier hypermetabolic uptake in common iliac nodes, 4.75 and 5.05. There is right internal iliac adenopathy which remains hypermetabolic, maximum standard uptake value 10.08. Previously 8.15. There is a focus of hypermetabolic uptake again seen in the right piriformis muscle with similar avidity, 4.22 versus previously 4.39. No new hypermetabolic javier focus is seen. The patient appears to be status post recent surgical correction of umbilical hernia. There is some postoperative hypermetabolic uptake in the anterior abdominal wall at the herniorrhaphy site, maximum standard uptake value 4.60. This may be postoperative change. Impression: The left axillary adenopathy is smaller and somewhat less avid. There is slightly decreased avidity in a left periaortic and in mesenteric lymph node. Otherwise hypermetabolic javier uptake is essentially unchanged from the most recent prior study. Electronically Signed by Jonathan Guillen MD 12/29/2019 07:49 A
== END ==
LOC: M PLARAD 10:16
PROVIDERS: ATTEND Internal Medicine Hematology
DX: C82.94 Follicular lymphoma, unspecified, lymph nodes of axilla and upper limb (principal)
CPT/HCPCS: 78815; A9552

== ENCOUNTER 2020-01-19 15:29 | Emergency (ER) | payer BC ==
[~2020-01-19] VITALS: Ht 154.9 cm; Wt 89.6 kg
[2020-01-19 15:29] VITALS: BP 151/70
[~2020-01-19 15:29] MED LIST changes: +KLOR10TA76 PO
[2020-01-19] MEDS ORDERED: JANU100T (15:36)
[2020-01-19] MEDS ORDERED: CEPH500C (15:36)
[2020-01-19] MEDS ORDERED: PRED20TA PO (16:41)
[2020-01-20] MEDS ORDERED: HYDR-3713 (13:14)
== END 2020-01-19 16:43 | disposition home or self-care (01) ==
LOC: M ED 15:29
DX: J02.0 Streptococcal pharyngitis (principal); C82.90 Follicular lymphoma, unspecified, unspecified site; I10 Essential (primary) hypertension; E78.5 Hyperlipidemia, unspecified; F03.90 Unspecified dementia, unspecified severity, without behavioral disturbance, psychotic disturbance, mood disturbance, and anxiety; F32.9 Major depressive disorder, single episode, unspecified; K21.9 Gastro-esophageal reflux disease without esophagitis; Z79.84 Long term (current) use of oral hypoglycemic drugs; Z79.899 Other long term (current) drug therapy

== ENCOUNTER 2020-01-20 13:02 | Emergency (ER) | payer BC ==
[~2020-01-20] VITALS: Ht 154.9 cm; Wt 88.0 kg
[~2020-01-20 13:02] MED LIST changes: +CEPH500C; +JANU100T; +PRED20TA PO
[2020-01-20 13:03] VITALS: BP 136/71
[2020-01-20] MEDS ORDERED: HYDR-3713 (13:14)
== END 2020-01-20 13:46 | disposition home or self-care (01) ==
LOC: M ED 13:02
DX: J02.0 Streptococcal pharyngitis (principal); Z91.041 Radiographic dye allergy status; Z79.84 Long term (current) use of oral hypoglycemic drugs; Z79.899 Other long term (current) drug therapy

== ENCOUNTER → 2020-03-14 | Outpatient (CLI) | payer BC ==
[~2020-03-14] MED LIST changes: +HYDR-3713
--- NOTE | 2020-03-14 17:37 | REP ---
Clinical: Nephrolithiasis. Technique: Single supine view of the abdomen and pelvis. Findings: Bilateral intrarenal calculi are identified (left greater than right) having suggestions for underlying medullary nephrocalcinosis/sponge kidney. A 1 cm ovoid calcification is identified overlying the left side of the sacrum which is of uncertain etiology or clinical significance and may represent ingested material as this is not identified on recent CT dated 01/27/2020. 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 Ovoid calcification in the left jack pelvis of uncertain clinical significance. Electronically Signed by Carl Coates MD 03/14/2020 05:27 P
== END ==
LOC: M RAD 15:35
PROVIDERS: ATTEND Urology
DX: N20.0 Calculus of kidney (principal)

== ENCOUNTER → 2020-06-29 | Outpatient (CLI) | payer BC ==
[~2020-06-29] MED LIST changes: +MYRB50TA PO; +READI-CAT 2 As Ordered ONE
--- NOTE | 2020-07-12 08:37 | REP ---
NONCONTRAST CHEST CT CLINICAL: History of lymphoma. TECHNIQUE: Axial noncontrast images from the thoracic inlet to the upper abdomen with coronal and sagittal reformations. COMPARISON: None available. FINDINGS: The bilateral lung lam are well-aerated and clear. No consolidation, nodule, or mass lesion is appreciated. No effusion or pneumothorax identified. Tracheobronchial tree is patent. Evaluation of the mediastinum demonstrates normal thoracic aorta, pulmonary vasculature, and heart/pericardium. No mediastinal or hilar adenopathy is appreciated. Solitary left axillary lymph node measuring 18 mm and solitary right axillary lymph node measuring 15 mm are identified and nonspecific. Surrounding musculoskeletal structures are intact and without acute osseous abnormality. IMPRESSION: * Solitary bilateral axillary lymph nodes measuring 17 and 18 mm in diameter are otherwise nonspecific in appearance. No further mediastinal, hilar, or thoracic adenopathy appreciated. * No acute pleural parenchymal process. MTDD
--- NOTE | 2020-07-18 08:37 | REP ---
CONTRAST ENHANCED CT OF THE ABDOMEN AND PELVIS CLINICAL: History of non-Hodgkin's lymphoma. TECHNIQUE: Axial contrast enhanced images from the lung bases to the pubic symphysis using oral (per protocol) and 100 mL Isovue-370 intravenous contrast material with coronal and sagittal reformations. COMPARISON: 01/27/2020. FINDINGS: Diffuse fatty infiltration to the liver again noted. Spleen, pancreas, and bilateral adrenal glands are normal. Evidence for prior cholecystectomy. The kidneys demonstrate medullary calcifications consistent with medullary sponge kidney and without perinephric stranding, or hydroureteronephrosis. The enteric system is without obstruction or acute inflammatory process. Mesenteric adenopathy is again noted and essentially unchanged. Largest lymph nodes within the small bowel mesentery measure up to approximately 17 mm. Pelvis demonstrates normal bladder and age appropriate uterus/adnexa. No pelvic fluid or ascites. No free air. Abdominal aorta without aneurysm. Musculoskeletal structures are intact and without interosseous abnormality. IMPRESSION: * Mesenteric lymph nodes measuring up to approximately 17 mm essentially unchanged from prior examination. * Hepatosteatosis. * Medullary sponge kidney. MTDD
== END ==
LOC: M RAD 11:02
PROVIDERS: ATTEND Internal Medicine Hematology
DX: C85.90 Non-Hodgkin lymphoma, unspecified, unspecified site (principal); K76.0 Fatty (change of) liver, not elsewhere classified; Q61.5 Medullary cystic kidney

== ENCOUNTER 2020-10-24 12:43 | Emergency (ER) | payer BC ==
[~2020-10-24] VITALS: Ht 154.9 cm; Wt 89.3 kg
[~2020-10-24 12:43] MED LIST changes: -READI-CAT 2 As Ordered ONE
--- OUTSIDE RECORDS SUMMARY | 2020-10-24 12:51 | CCD | Continuity of Care Document ---
Author Author Jodi RODRIGUEZ M.D. Organization Unknown Address [address] [address] Phone [phone] Problems Active Problems Provider Date Type 2 diabetes mellitus Ryna Rodriguez M.D. Onset: 08/13 Hyperlipidemia Ryan Rodriguez M.D. Onset: 3 Malignant lymphoma of intrapelvic lymph nodes Walker Rodriguez M.D. Onset: 08/31/2013 Acidosis Ryan Rodriguez M.D. Onset: 3 Note: renal tubular Medullary sponge kidney Ryan Rodriguez M.D. Onset: 01/15 Social History Type Date Description Comments Sex Unknown Tobacco Use Start: Unknown Patient has never smoked Allergies, Adverse Reactions, Alerts Active Allergies Reaction Severity Comments Date NKDA 06/17/2014 IVP Urticaria 12/06/2013 Medications Active Medications SIG Qnty Indications Ordering Provide r Date Atenolol-Chlorthalidone 50-25mg Ta blets Take 1/2 Tablet By Mouth Once Daily 45tabs Ayaz Rodriguez M.D. 06/12/2020 Oxycodone-Acetaminophen 5-325mg Ta blets take one tablet by mouth every eight hours as needed for pain (max daily dose three) [id number] 30tabs Ryan Rodriguez M.D. 020 Januvia 100mg Tablets 1 by mouth every day 90tabs Ryan Rodriguez M.D. 01/12/20 20 Famotidine 20mg Tablets 1 by mouth twice a day 60tabs Ryan Rodriguez M.D. 10/25/19 20 Ondansetron HCL 4mg Tablets take one tablet by mouth every 6 hours as needed for nausea 90tabs Ryan Rodriguez M.D. 06/28/[address] take one capsule by mouth every day 90Ryan Chowdary M.D. 03/11 Atorvastatin Calcium 20mg Tablets Take One Tablet By Mouth Every Day Ryan Haas M.D . 01/02/2016 Metformin HCL 850mg Tablets take one tablet by mouth three times a day Walker Haas M.D. 06/17/2014 Potassium Citrate 10 Meq (1080 mg) Tablets ER 2 po bid 90Ryan Hodges M.D. 11/14 Rapaflo 8mg Capsules 1 po qd prn Unknown Amiloride HCL 5mg Tablets 1 p o qd Unknown Potassium Chloride ER 10Meq Capsul es ER 1 by mouth every day Unknown Myrbetriq 50mg Tablets ER 24HR 1 by mouth every day Unknown Medications Administered in Office Medication SIG Qnty Indications Ordering Provider Date Injection (SC)/(Im) Injection Ryan Rodriguez M.D. 01/19/2020 Immunizations CPT Code Status Date Vaccine Lot # 27836 Given 06/21/2020 Influenza Virus Vaccine, Quadrivalent, Slit Virus, Im Use 3Y & Up [id number] 61721 Given 07/10/2018 Influenza Virus Vaccine, Quadrivalent, Slit Virus, Im Use 3Y & Up [id number] 24345 Given 06/25/2017 Influenza Virus Vaccine, Quadrivalent, Slit Virus, Im Use 3Y & Up [id number] 65230 Given 07/01/2016 Influenza Virus Vaccine, Quadrivalent, Slit Virus, Im Use 3Y & Up 41395 Given 07/01/2016 Influenza Virus Vaccine, Quadrivalent, Slit Virus, Im Use 3Y & Up [id number] 97657 Given 07/11/2015 Influenza Virus Vac. Split Virus Individuals 3 Years And Above [id number] 47877 Given 07/15/2014 Influenza Virus Vac. Split Virus Individuals 3 Years And Above [id number] Vital Signs Date Vital Result Comment 08/07/2020 3:56pm BP Systolic 124 mmHg BP Diastolic 76 mmHg Body Temperature 97.6 F Heart Rate 92 /min Respiratory Rate 16 /min Height 61 inches 5'1" Weight 199.00 lb [place] Body Weight 105 lb BMI (Body Mass Index) 37.6 kg/m2 O2 % BldC Oximetry 99 % 04/26/2020 3:13pm BP Systolic 124 mmHg BP Diastolic 80 mmHg Body Temperature 97.9 F Heart Rate 80 /min Respiratory Rate 14 /min Height 61 inches 5'1" Weight 193.00 lb [place] Body Weight 105 lb BMI (Body Mass Index) 36.5 kg/m2 O2 % BldC Oximetry 97 % Results Test Acquired Date Facility Test Result H/L Range Note CBC With Auto Differential OB 10/20/2020 [facility]) [phone] White Blood Count 7.0 10 Normal 4.0-10.0 Red Blood Count 4.78 10 Normal 4.00-5.40 Hemoglobin 12.7 g/dL Normal 12.0-15.5 Hematocrit 39.1 % Normal 36.0-47.0 Mean Corpuscular Volume 81.8 fl Normal 80.0-96.0 Mean Corpuscular Hemoglobin 26.6 pg Low 27.0-33.0 Mean Corpuscular HGB Conc 32.5 g/dL Normal 32.0-36.5 Red Cell Distribution Width 14.3 % Normal 11.5-14.5 Platelet Count, Automated 300 10 Normal 150-450 Neutrophils % 59.3 % Normal 36.0-66.0 Lymph % 29.2 % Normal 24.0-44.0 [place] % 7.3 % High 0.0-5.0 Eos % 3.0 % Normal 0.0-3.0 Baso % 0.6 % Normal 0.0-1.0 Immature Granulocyte % 0.6 % Normal 0-3.0 Nucleated Red Blood Cell % 0.0 % Normal 0-0 Neutrophils # 4.2 10 Normal 1.5-8.5 Lymph # 2.1 10 Normal 1.5-5.0 [place] # 0.5 10 Normal 0.0-0.8 Eos # 0.2 10 Normal 0.0-0.5 Baso # 0.0 10 Normal 0.0-0.2 Comprehensive Metabolic Profil 10/20/2020 [facility]) [phone] Glucose, Fasting 105 mg/dL High 70-100 Blood Urea Nitrogen 15 mg/dL Normal 7-18 Creatinine For GFR 0.96 mg/dL Normal 0.55-1.30 Glomerular Filtration Rate > 60.0 Normal >51 1 Sodium Level 139 mEq/L Normal 136-145 Potassium Serum 4.1 mEq/L Normal 3.5-5.1 Chloride Level 109 mEq/L High 98-107 Carbon Dioxide Level 21 mEq/L Normal 21-32 Anion Gap 9 mEq/L Normal 8-16 Calcium Level 9.1 mg/dL Normal 8.5-10.1 Ast/Sgot 47 U/L High 7-37 Alt/SGPT 66 U/L Normal 12-78 Alkaline Phosphatase 123 U/L High 45-117 Bilirubin,Total 0.6 mg/dL Normal 0.2-1.0 Total Protein 6.9 GM/DL Normal 6.4-8.2 Albumin 4.0 GM/DL Normal 3.2-5.2 Albumin/Globulin Ratio 1.4 Normal 1.2-2.2 Laboratory test finding 10/20/2020 [facility] (Interface) [phone] LDH Lactate Dehydrogenase 135 U/L Normal 84-246 Immunoglobulin G,A,M 10/20/2020 [facility] ( Interface) [phone] Immunoglobulin A 47.3 mg/dL Low 70-400 Immunoglobulin G 291 mg/dL Low [phone] Immunoglobulin M 12.7 mg/dL Low 40-230 Laboratory test finding 07/27/2020 [facility] Hemoglobin A1c 6.9 % High 4.50-6.20 CMP 07/27/2020 [facility] Glu 128 mg/dL High 70 - 110 2 BUN 12 mg/dL 8 - 23 Creat 0.8 mg/dL 0.5 - 1.0 BUN/Creatinine Ratio 15.5 CALC Na 140 mmol/L 136 - 145 K 4.5 mmol/L 3.5 - 5.1 CL 105.0 mmol/L 98.0 - 107.0 Co2 21.4 mmol/L Low 22.0 - 29.0 CA 9.6 mg/dL 8.6 - 10.2 TP 5.9 g/dL Low 6.6 - 8.7 Alb 4.3 g/dL 3.4 - 4.8 A/G Ratio 2.8 CALC Globulin 1.6 CALC Alp 118.9 U/L 35 - 129 Alt (SGPT) 43 U/L High 0 - 41 Ast (Sgot) 34 U/L 0 - 40 Tbili 0.44 mg/dL 0.0 - 1.2 Osmolality-Calculated 280.7 CALC Anion Gap 18 mmol/L eGFR 100 # Calc 3 eGFR Non-Afr. [place] 86 # Calc 4 Lipid Panel 07/27/2020 [facility] Chol 160 mg/dL 0 - 200 Trig 154 mg/dL 40 - 200 HDL 42 mg/dL Low 45 - 65 LDL_C 87 Calc 75 - 129 Cho/HDL Ratio 3.8 Calc Immunoglobulin G,A,M 07/06/2020 [facility]) [phone] Immunoglobulin A 47.0 mg/dL Low 70-400 Immunoglobulin G 311 mg/dL Low [phone] Immunoglobulin M 22.6 mg/dL Low 40-230 CBC With Differential 07/06/2020 [facility]) [phone] White Blood Count 7.7 10 Normal 4.0-10.0 Red Blood Count 4.77 10 Normal 4.00-5.40 Hemoglobin 12.7 g/dL Normal 12.0-15.5 Hematocrit 39.9 % Normal 36.0-47.0 Mean Corpuscular Volume 83.6 fl Normal 80.0-96.0 Mean Corpuscular Hemoglobin 26.6 pg Low 27.0-33.0 Mean Corpuscular HGB Conc 31.8 g/dL Low 32.0-36.5 Red Cell Distribution Width 14.0 % Normal 11.5-14.5 Platelet Count, Automated 298 10 Normal 150-450 Neutrophils % 57.4 % Normal 36.0-66.0 Lymph % 31.1 % Normal 24.0-44.0 [place] % 7.7 % High 0.0-5.0 Eos % 3.0 % Normal 0.0-3.0 Baso % 0.4 % Normal 0.0-1.0 Immature Granulocyte % 0.4 % Normal 0-3.0 Nucleated Red Blood Cell % 0.0 % Normal 0-0 Neutrophils # 4.4 10 Normal 1.5-8.5 Lymph # 2.4 10 Normal 1.5-5.0 [place] # 0.6 10 Normal 0.0-0.8 Eos # 0.2 10 Normal 0.0-0.5 Baso # 0.0 10 Normal 0.0-0.2 Comprehensive Metabolic Profil 07/06/2020 [facility]) [phone] Glucose, Fasting 116 mg/dL High 70-100 Blood Urea Nitrogen 17 mg/dL Normal 7-18 Creatinine For GFR 0.89 mg/dL Normal 0.55-1.30 Glomerular Filtration Rate > 60.0 Normal >58 5 Sodium Level 138 mEq/L Normal 136-145 Potassium Serum 3.9 mEq/L Normal 3.5-5.1 Chloride Level 108 mEq/L High 98-107 Carbon Dioxide Level 25 mEq/L Normal 21-32 Anion Gap 5 mEq/L Low 8-16 Calcium Level 9.0 mg/dL Normal 8.5-10.1 Ast/Sgot 40 U/L High 7-37 Alt/SGPT 50 U/L Normal 12-78 Alkaline Phosphatase 113 U/L Normal 45-117 Bilirubin,Total 0.6 mg/dL Normal 0.2-1.0 Total Protein 7.0 GM/DL Normal 6.4-8.2 Albumin 3.9 GM/DL Normal 3.2-5.2 Albumin/Globulin Ratio 1.3 Normal 1.2-2.2 Laboratory test finding 07/06/2020 [facility] (Interface) [phone] LDH Lactate Dehydrogenase 143 U/L Normal 84-246 1 Units are mL/min/1.73 m2 Chronic Kidney Disease Staging per NKF: Stage I & II GFR >=60 Normal to Mildly Decreased Stage III GFR 30-59 Moderately Decreased Stage IV GFR 15-29 Severely Decreased Stage V GFR <15 Very Little GFR Left ESRD GFR <15 on DOUBLE HEAD MACHINE OPERATOR 2 CHRONIC KIDNEY DISEASE STAGI NG PER NKF: MALE GFR INTERPRETATION: 20-49 YRS: >60 mL/min Normal 50-59 YRS: >56 mL/min Normal 60-69 YRS: >49 mL/min Normal 70-79 YRS: >42 mL/min Normal 80 and above >35 mL/min Normal FEMALE GRF INTERPRETATION: 20-39 YRS: >60 mL/min Normal 40-49 YRS: >58 mL/min Normal 50-59 YRS: >51 mL/min Normal 60-69 YRS: >45 mL/min Normal 70-79 YRS: >39 mL/min Normal 80 and above >32 mL/min NormalCLASSIFICATION CHOLESTEROL FOR ADULTS CHILDREN/ADOLESCENTS* DESIRABLE: <200 MG/DL <170 MG/DL BORDER-LINE HIGH RISK: 200-239 MG/DL 170-199 MG/DL HIGH RISK: >240 MG/DL >200 MG/DL CLASS. FOR PRIMARY LDL CHOL PREVENTION: LDL CHOL-CHILD/ADOLESCENTS* DESIRABLE: <130 MG/DL <110 MG/DL BORDERLINE-HIGH RISK: 130-159 MG/DL 110-129 MG/DL HIGH RISK: >160 MG/DL >130 MG/DL *CHILDREN AND ADOLESCENTS REPRESENTS INDIVIDUALA AGED 2-19 YEARS EXCLUSIVE. 3 CKD-EPI 4 CKD-EPI 5 Units are mL/min/1.73 m2 Chronic Kidney Disease Staging per NKF: Stage I & II GFR >=60 Normal to Mildly Decreased Stage III GFR 30-59 Moderately Decreased Stage IV GFR 15-29 Severely Decreased Stage V GFR <15 Very Little GFR Left ESRD GFR <15 on DOUBLE HEAD MACHINE OPERATOR Procedures Description No Information Available Medical Devices Description No Information Available Encounters Type Date Location Provider Dx Diagnosis Office Visit 08/07/2020 4:00p [facility] Ryan Rodriguez M. D. E11.9 Type 2 diabetes mellitus without complications E78.5 Hyperlipidemia, unspecified Office Visit 04/26/2020 3:20p [facility] Ryan Rodriguez M. D. E11.9 Type 2 diabetes mellitus without complications E78.5 Hyperlipidemia, unspecified Assessments Date Code Description Provider 08/07/2020 E11.9 Type 2 diabetes mellitus without complications Ryan Rodriguez M.D. 08/07/2020 E78.5 Hyperlipidemia, unspecified [facility] Ryan peguero M.D. 07/27/2020 E11.9 Type 2 diabetes mellitus without complications Ryan Rodriguez M.D. 07/27/2020 E11.9 Type 2 diabetes mellitus without complications Laboratory [place] Schedule 07/27/2020 E78.5 Hyperlipidemia, unspecified [facility] Ryan peguero M.D. 06/21/2020 Z23 Encounter for immunization Ryan Matthews M.D. 04/26/2020 E11.9 Type 2 diabetes mellitus without complications Ryan Rodriguez M.D. 04/26/2020 E78.5 Hyperlipidemia, unspecified [facility] Ryan peguero M.D. Plan of Treatment Future Appointment(s):* 11/02/2020 9:00 am - Laboratory [place] Schedule at [facility] * 11/07/2020 3:40 pm - Ryan Rodriguez M.D. at [facility] Functional Status Description No Information Available Mental Status Description No Information Available Referrals Description No Information Available
--- OUTSIDE RECORDS SUMMARY | 2020-10-24 12:51 | CCD | Continuity of Care Document ---
Author Author Jodi RODRIGUEZ M.D. Organization Unknown Address [address] [address] Phone [phone] Problems Active Problems Provider Date Type 2 diabetes mellitus Ryan Rodriguez M.D. Onset: 08/13 Hyperlipidemia Ryan Rodriguez [...] needed for pain (max daily dose three) [id number] 30tabs Ryan Rodriguez M.D. 020 Januvia 100mg [...] by mouth three times a day Walker aHas M.D. 06/17/2014 Potassium Citrate 10 Meq (1080 [...] CPT Code Status Date Vaccine Lot # [id number] Given 06/21/2020 Influenza Virus Vaccine, Quadrivalent, Slit Virus, Im Use 3Y & Up [id number] 09168 Given 07/10/2018 Influenza Virus Vaccine, Quadrivalent, Slit Virus, Im Use 3Y & Up [id number] 05039 Given 06/25/2017 Influenza Virus Vaccine, Quadrivalent, Slit Virus, Im Use 3Y & Up [id number] 80129 Given 07/01/2016 Influenza Virus Vaccine, Quadrivalent, Slit Virus, Im Use 3Y & Up 07652 Given 07/01/2016 Influenza Virus Vaccine, Quadrivalent, Slit Virus, Im Use 3Y & Up [id number] 15773 Given 07/11/2015 Influenza Virus Vac. Split Virus Individuals 3 Years And Above [id number] 33925 Given 07/15/2014 Influenza Virus Vac. Split Virus Individuals 3 Years And Above [id number] Vital Signs Date Vital Result Comment 08/07/2020 3:56pm BP Systolic 124 mmHg BP Diastolic 76 mmHg Body Temperature 97.6 F Heart Rate 92 /min Respiratory Rate 16 /min Height 61 inches 5'1" Weight 199.00 lb [place] Body Weight 105 lb BMI (Body Mass Index) 37.6 kg/m2 O2 % BldC Oximetry 99 % 04/26/2020 3:13pm BP Systolic 124 mmHg BP Diastolic 80 mmHg Body Temperature 97.9 F Heart Rate 80 /min Respiratory Rate 14 /min Height 61 inches 5'1" Weight 193.00 lb [place] Body Weight 105 lb BMI (Body Mass Index) 36.5 kg/m2 O2 % BldC Oximetry 97 % Results Test Acquired Date Facility Test Result H/L Range Note CBC With Auto Differential OB 10/20/2020 [facility]) [phone] White Blood Count 7.0 10 Normal 4.0-10.0 [...] 36.0-66.0 Lymph % 29.2 % Normal 24.0-44.0 [place] % 7.3 % High 0.0-5.0 Eos % 3.0 % Normal 0.0-3.0 Baso % 0.6 % Normal 0.0-1.0 Immature Granulocyte % 0.6 % Normal 0-3.0 Nucleated Red Blood Cell % 0.0 % Normal 0-0 Neutrophils # 4.2 10 Normal 1.5-8.5 Lymph # 2.1 10 Normal 1.5-5.0 [place] # 0.5 10 Normal 0.0-0.8 Eos # 0.2 10 Normal 0.0-0.5 Baso # 0.0 10 Normal 0.0-0.2 Comprehensive Metabolic Profil 10/20/2020 [facility]) [phone] Glucose, Fasting 105 mg/dL High 70-100 Blood [...] Ratio 1.4 Normal 1.2-2.2 Laboratory test finding 07/27/2020 [facility] [place] Hem[place] A1c 6.9 % High 4.50-6.20 CMP [...] eGFR 100 # Calc 3 eGFR Non-Afr. [place] 86 # Calc 4 Lipid Panel 07/27/2020 [facility] Chol 160 mg/dL 0 - 200 Trig 154 mg/dL 40 - 200 HDL 42 mg/dL Low 45 - 65 LDL_C 87 Calc 75 - 129 Cho/HDL Ratio 3.8 Calc Immunoglobulin G,A,M 07/06/2020 [facility]) [phone] Immunoglobulin A 47.0 mg/dL Low 70-400 Immunoglobulin G 311 mg/dL Low [phone] Immunoglobulin M 22.6 mg/dL Low 40-230 CBC With Differential 07/06/2020 [facility]) [phone] White Blood Count 7.7 10 Normal 4.0-10.0 [...] 36.0-66.0 Lymph % 31.1 % Normal 24.0-44.0 [place] % 7.7 % High 0.0-5.0 Eos % 3.0 % Normal 0.0-3.0 Baso % 0.4 % Normal 0.0-1.0 Immature Granulocyte % 0.4 % Normal 0-3.0 Nucleated Red Blood Cell % 0.0 % Normal 0-0 Neutrophils # 4.4 10 Normal 1.5-8.5 Lymph # 2.4 10 Normal 1.5-5.0 [place] # 0.6 10 Normal 0.0-0.8 Eos # 0.2 10 Normal 0.0-0.5 Baso # 0.0 10 Normal 0.0-0.2 Comprehensive Metabolic Profil 07/06/2020 [facility]) [phone] Glucose, Fasting 116 mg/dL High 70-100 Blood [...] 1.3 Normal 1.2-2.2 Laboratory test [facility] [phone] LDH Lactate Dehydrogenase 143 U/L Normal 84-246 Laboratory test finding 04/20/2020 [facility] [place] Hemoglobin A1c 6.8 % High 4.50-6.20 CMP 04/20/2020 [facility] Glu 132 mg/dL High 70 - 110 BUN 14 mg/dL 8 - 23 Creat 0.9 mg/dL 0.5 - 1.0 BUN/Creatinine Ratio 15.9 CALC Na 139 mmol/L 136 - 145 K 4.2 mmol/L 3.5 - 5.1 CL 102.9 mmol/L 98.0 - 107.0 Co2 21.3 mmol/L Low 22.0 - 29.0 CA 9.6 mg/dL 8.6 - 10.2 TP 6.4 g/dL Low 6.6 - 8.7 Alb 4.5 g/dL 3.4 - 4.8 A/G Ratio 2.3 CALC Globulin 2.0 CALC Alp 118.8 U/L 35 - 129 Alt (SGPT) 36 U/L 0 - 41 Ast (Sgot) 22 U/L 0 - 40 Tbili 0.51 mg/dL 0.0 - 1.2 Osmolality-Calculated 279.5 CALC Anion Gap 19 mmol/L eGFR 86 # Calc 6 eGFR Non-Afr. Georgian 75 # Calc 7 Lipid Panel 04/20/2020 [facility] Chol 153 mg/dL 0 - 200 Trig 157 mg/dL 40 - 200 HDL 40 mg/dL Low 45 - 65 LDL_C 82 Calc 75 - 129 Cho/HDL Ratio 3.8 CALC 1 Units are mL/min/1.73 m2 Chronic Kidney Disease Staging per NKF: Stage I & II GFR >=60 Normal to Mildly Decreased Stage III GFR 30-59 Moderately Decreased Stage IV GFR 15-29 Severely Decreased Stage V GFR <15 Very Little GFR Left ESRD GFR <15 on CHEMICAL ETCH OPERATOR 2 CHRONIC KIDNEY DISEASE STAGI NG [...] Little GFR Left ESRD GFR <15 on CHEMICAL ETCH OPERATOR 6 CKD-EPI 7 CKD-EPI Procedures Description No Information Available Medical Devices Description No Information Available Encounters Type Date Location Provider Dx Diagnosis Office Visit 08/07/2020 4:00p [facility] Ryan Rodriguez M. D. E11.9 Type 2 diabetes mellitus without complications E78.5 Hyperlipidemia, unspecified Office Visit 04/26/2020 3:20p [facility] Ryan Rodriguez M. D. E11.9 Type 2 diabetes mellitus without complications E78.5 Hyperlipidemia, unspecified Assessments Date Code Description Provider 08/07/2020 E11.9 Type 2 diabetes mellitus without complications Ryan Rodriguez M.D. 08/07/2020 E78.5 Hyperlipidemia, unspecified [facility] Ryan peguero M.D. 07/27/2020 E11.9 Type 2 diabetes mellitus without complications Ryan Rodriguez M.D. 07/27/2020 E11.9 Type 2 diabetes mellitus without complications Laboratory [place] 07/27/2020 E78.5 Hyperlipidemia, unspecified [facility] Ryna peguero M.D. 06/21/2020 Z23 Encounter for immunization Ryan Matthews M.D. 04/26/2020 E11.9 Type 2 diabetes mellitus without complications Ryan Rodriguez M.D. 04/26/2020 E78.5 Hyperlipidemia, unspecified [facility] Ryan peguero M.D. 04/20/2020 E11.9 Type 2 diabetes mellitus without complications Ryan Rodriguez M.D. 04/20/2020 E11.9 Type 2 diabetes mellitus without complications Laboratory [place] Schedule 04/20/2020 E78.5 Hyperlipidemia, unspecified [facility] Ryan peguero M.D. Plan of Treatment Future Appointment(s):* 11/02/2020 9:00 am - Laboratory [place] Schedule at [facility] * 11/07/2020 3:40 pm - Ryan Rodriguez M.D. at [facility] Functional Status Description No Information Available Mental Status Description No Information Available Referrals Description No Information Available
--- OUTSIDE RECORDS SUMMARY | 2020-10-24 12:51 | CCD | Continuity of Care Document ---
Author Author Jodi TOWNSEND PA Organization Unknown Address [address] [place] [address] [address] [place] [address] Phone [phone] Care Team Providers Care Assistant Store Manager Trainee Name Role Phone Ryan Rodriguez M.D. AUTM [phone] Maximino Dean M.D. AUTM [phone] Problems Active Problems Provider Date Ureteric stone Joe Hwang MD Onset: 12/2012 Kidney stone Joe Hwang MD Onset: 06/13 Hydronephrosis DIOMEDES Farooq MD Onset: 06/29/2015 Renal colic DIOMEDES Farooq MD Onset: 06/29/2015 Social History Type Date Description Comments Sex Unknown Tobacco Use Reviewed: 10/19/20 Never Smoked Cigarettes Smoking Status Reviewed: 10/19/20 Never Smoked Cigarettes Tobacco Use Start: Unknown Never Smoked Cigars Tobacco Use Start: Unknown Never Smoked A Pipe ETOH Use Patient denies alcohol use Allergies, Adverse Reactions, Alerts Active Allergies Reaction Severity Comments Date Contrast Dye 03/09/2013 Medications Active Medications SIG Qnty Indications Ordering Provide r Date Myrbetriq 50mg Tablets ER 24HR 1 by mouth every day 30tabs R35.0 Adolph Chan MD 05/03/2020 Atorvastatin Calcium 10mg Tablets Unknown Metformin HCL 500mg Tablets b id Unknown Ondansetron HCL 4mg Tablets 1 tab sl every 6 hours as needed nausea Unknown 0 000 Amiloride HCL 5mg Tablets 1 by mouth every day Unknown Dexilant 60mg Capsules DR Unknown Klor-Con M10 10Meq Tablets ER Unknown Rapaflo 8mg Capsules one by mouth every day after dinner Unknown Atenolol-Chlorthalidone 50-25mg Ta blets Take 1/2 Tablet By Mouth Once Daily Unknown Famotidine Unknown Januvia Unknown Potassium Citrate Granules 50grams twice daily by mouth Unknown History Medications Vesicare 5mg Tablets 1 by mouth every day 90tabs N32.81 Adolph Chan MD 08/18/2020 - 021 Immunizations Description No Information Available Vital Signs Date Vital Result Comment 10/19/2020 3:41pm Height 61 inches 5'1" Weight 190.00 lb Weight 86.184 kg BMI (Body Mass Index) 35.9 kg/m2 BP Systolic 119 mmHg BP Diastolic 83 mmHg Heart Rate 76 /min 05/03/2020 3:18pm Height 61 inches 5'1" Weight 195.00 lb Weight 88.452 kg BMI (Body Mass Index) 36.8 kg/m2 BP Systolic 105 mmHg BP Diastolic 72 mmHg Heart Rate 87 /min Body Temperature 95.4 F Results Test Acquired Date Facility Test Result H/L Range Note Laboratory test finding 10/19/2020 Laboratory [facility] [place] [address] [phone] Urine Culture SPECIMEN DESCRIP <SEE NOTE> 1 230 Ua Routine 10/19/2020 [facility] REF TO DR ADDRESS ON ORDER FOR (252)- - Ua Glucose Negative Ua Protein Negative Ua Nitrite Negative Ua Leuko Trace Ua Blood Negative Ua Color Not Entered Ua Ketones Negative Ua Clarity Not Entered Ua Specific [place] 1.015 1.003-1.030 Ua PH 6.5 5.0-7.5 Ua Bilirubin Negative Ua Urobilinogen 0.2 E.U./dL 0.0-1.0 1 SPECIMEN DESCRIPTION URINE, COLLECTION METHOD NOT SPECIFIED CULTURE RESULTS NO GROWTH REPORT STATUS FINAL 10/20/2020 Procedures Description No Information Available Medical Devices Description No Information Available Encounters Type Date Location Provider Dx Diagnosis Office Visit 10/19/2020 3:45p [facility] JOSÉ MIGUEL Esparza N32.81 Overactive bladder N20.0 Calculus of kidney R82.998 Other abnormal findings in u rine Office Visit 08/11/2020 12:00p [facility] Adolph Chan MD N32.81 Overactive bladder Office Visit 05/03/2020 3:30p [facility] Adolph Chan MD N39.43 Post-void dribbling N95.2 Postmenopausal atrophic vagi nitis R35.0 Frequency of micturition Assessments Date Code Description Provider 10/19/2020 N32.81 Overactive bladder JOSÉ MIGUEL Zaragoza 10/19/2020 N20.0 Calculus of kidney JOSÉ MIGUEL Zaragoza 10/19/2020 R82.998 Other abnormal findings in urine JOSÉ MIGUEL Patel 08/18/2020 N32.81 Overactive bladder Adloph Chan MD 08/11/2020 N32.81 Overactive bladder Adolph Chan MD 05/03/2020 N39.43 Post-void dribbling Adolph richmond MD 05/03/2020 N95.2 Postmenopausal atrophic vaginiti s Adolph Chan MD 05/03/2020 R35.0 Frequency of micturition Adolph Chan MD Plan of Treatment Future Appointment(s):* 04/19/2021 3:45 pm - JOSÉ MIGUEL Patel at [facility] * 03/22/2021 3:20 pm - Carlos Alberto Chen MD at [facility] 10/19/2020 - JOSÉ MIGUEL Patel* N32.81 Overactive bladder* Comments:* She has not had a significant improvement in her urinary symptomsWe discussed tertiary treatment options including Botox, InterStim and PTNS. She is unsure if she is interested in any third line therapies at this time.We also discussed geovanna nging her medications She prefers to continue the myrbetriq and stop the vesicare.I also gave her pelvic floor exercises and information. She will be followed up in 6 months. She will call sooner if she would like to change medications, interested in third line agents or wishes to schedule a video visit with * N20.0 Calculus of kidney* Comments:* Per her records she has a history of medullary sponge kidney.She has an appointment with Dr. Chen in March and should keep this appointment. * R82.998 Other abnormal findings in urine* Comments:* Urine sent for culture. Treat based on results * All * Comments:* Call with any questions, concerns or problems prior to follow up. I recommend that she follow-up with her primary care physician regarding her epigastric discomfort. If she develops worsening pain, chest pain or shortness of breath she needs to go to the ER. Patient verbalizes understanding * Follow up:* 6 months Functional Status Functional Condition Comment Date Status Negative for Bipap 08/11/2020 Inactive Negative for C-Pap 08/11/2020 Inactive Negative for Oxygen Therapy 08/11/2020 Inac tive Mental Status Description No Information Available Referrals Description No Information Available
--- OUTSIDE RECORDS SUMMARY | 2020-10-24 12:52 | CCD | Continuity of Care Document ---
Author Author Jodi CHAN MD Organization Unknown Address [address] [place] [address] Phone [phone] Care Team Providers Care Toe Puller Name Role Phone Ryan Rodriguez M.D. AUTM [phone] Maximino Dean M.D. AUTM [phone] Problems Active Problems Provider Date Ureteric stone Joe Hwang MD Onset: 12/2012 Kidney stone Joe Hwang MD Onset: 06/13 Hydronephrosis DIOMEDES Farooq MD Onset: 06/29/2015 Renal colic DIOMEDES Farooq MD Onset: 06/29/2015 Social History Type Date Description Comments Sex Unknown Tobacco Use Reviewed: 08/11/20 Never Smoked Cigarettes Smoking Status Reviewed: 08/11/20 Never Smoked Cigarettes Tobacco Use Start: Unknown Never Smoked Cigars Tobacco Use Start: Unknown Never Smoked A Pipe ETOH Use Patient denies alcohol use Allergies, Adverse Reactions, Alerts Active Allergies Reaction Severity Comments Date Contrast Dye 03/09/2013 Medications Active Medications SIG Qnty Indications Ordering Provide r Date Vesicare 5mg Tablets 1 by mouth every day 90tabs N32.81 Adolph Chan MD 08/18/2020 Myrbetriq 50mg Tablets ER 24HR 1 by mouth every day 30tabs R35.0 Adolph Chan MD 05/03/2020 Atorvastatin Calcium 10mg Tablets Unknown Metformin HCL 500mg Tablets b id Unknown Ondansetron HCL 4mg Tablets 1 tab sl every 6 hours as needed nausea Unknown 000 Amiloride HCL 5mg Tablets 1 by mouth every day Unknown Dexilant 60mg Capsules DR Unknown Klor-Con M10 10Meq Tablets ER Unknown Rapaflo 8mg Capsules one by mouth every day after dinner Unknown Atenolol-Chlorthalidone 50-25mg Ta blets Take 1/2 Tablet By Mouth Once Daily Unknown Famotidine Unknown Januvia Unknown Potassium Citrate Granules 50grams twice daily by mouth Unknown Immunizations Description No Information Available Vital Signs Date Vital Result Comment 05/03/2020 3:18pm Height 61 inches 5'1" Weight 195.00 lb Weight 88.452 kg BMI (Body Mass Index) 36.8 kg/m2 BP Systolic 105 mmHg BP Diastolic 72 mmHg Heart Rate 87 /min Body Temperature 95.4 F 03/20/2020 2:56pm Height 61 inches 5'1" Weight 200.00 lb Weight 90.720 kg BMI (Body Mass Index) 37.8 kg/m2 Body Temperature 96.3 F Results Test Acquired Date Facility Test Result H/L Range Note 230 Ua Routine 03/20/2020 [facility] REF TO DR ADDRESS ON ORDER FOR (315)- - Ua Glucose Negative Ua Protein Negative Ua Nitrite Negative Ua Leuko Trace Ua Blood Negative Ua Color Not Entered Ua Ketones Negative Ua Clarity Not Entered Ua Specific [place] 1.025 1.003-1.030 Ua PH 7.0 5.0-7.5 Ua Bilirubin Negative Ua Urobilinogen 0.2 E.U./dL 0.0-1.0 Procedures Description No Information Available Medical Devices Description No Information Available Encounters Type Date Location Provider Dx Diagnosis Office Visit 08/11/2020 12:00p [facility] Adolph Chan MD N32.81 Overactive bladder Office Visit 05/03/2020 3:30p 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 Carlos Alberto Chen MD N20.0 Calculus of kidney Assessments Date Code Description Provider 08/18/2020 N32.81 Overactive bladder Adolph Chan MD 08/11/2020 N32.81 Overactive bladder Adolph Chan MD 05/03/2020 N39.43 Post-void dribbling Adolph richmond MD 05/03/2020 N95.2 Postmenopausal atrophic vaginiti s Adolph Chan MD 05/03/2020 R35.0 Frequency of micturition Adolph Chan MD 03/20/2020 N20.0 Calculus of kidney Carlos Alberto anton MD Plan of Treatment Future Appointment(s):* 10/19/2020 3:45 pm - JOSÉ MIGUEL Patel at [facility] * 03/22/2021 3:20 pm - Carlos Alberto Chen MD at [facility]/ .. Urology 08/18/2020 - Adolph Chan MD* N32.81 Overactive bladder* New Medication:* Vesicare 5 mg - 1 by mouth every day * Comments:* She has seen modest improvement using Myrbetriq. We discussed adding another medication. I will start her on Vesicare. If she sees improved efficacy on dual therapy will keep her on this regimen. If she has intolerable side effects or poor efficacy then she should be counseled on advanced therapies for overactive bladder. Functional Status Functional Condition Comment Date Status Negative for Bipap 08/11/2020 Inactive Negative for C-Pap 08/11/2020 Inactive Negative for Oxygen Therapy 08/11/2020 Inac tive Mental Status Description No Information Available Referrals Description No Information Available
--- OUTSIDE RECORDS SUMMARY | 2020-10-24 12:52 | CCD | Continuity of Care Document ---
Author Author Jodi RODRIGUEZ M.D. Organization Unknown Address [address] [address] Phone [phone] Problems Active Problems Provider Date Type 2 [...] needed for pain (max daily dose three) [id number] 30tabs Ryan Rodriguez M.D. 020 Januvia 100mg [...] Take One Tablet By Mouth Every Day 90Ryan Hodges M.D . 01/02/2016 Metformin HCL 850mg Tablets take one tablet by mouth three times a day 90Walker Hodges M.D. 06/17/2014 Potassium Citrate 10 Meq (1080 mg) Tablets ER 2 po bid 90taRyan Quinones M.D. 11/14 Rapaflo 8mg Capsules 1 po [...] CPT Code Status Date Vaccine Lot # [id number] Given 06/21/2020 Influenza Virus Vaccine, Quadrivalent, Slit Virus, Im Use 3Y & Up [id number] 28648 Given 07/10/2018 Influenza Virus Vaccine, Quadrivalent, Slit Virus, Im Use 3Y & Up [id number] 15980 Given 06/25/2017 Influenza Virus Vaccine, Quadrivalent, Slit Virus, Im Use 3Y & Up [id number] 75296 Given 07/01/2016 Influenza Virus Vaccine, Quadrivalent, Slit Virus, Im Use 3Y & Up 39644 Given 07/01/2016 Influenza Virus Vaccine, Quadrivalent, Slit Virus, Im Use 3Y & Up [id number] 22421 Given 07/11/2015 Influenza Virus Vac. Split Virus Individuals 3 Years And Above [id number] 90638 Given 07/15/2014 Influenza Virus Vac. Split Virus Individuals 3 Years And Above [id number] Vital Signs Date Vital Result Comment 08/07/2020 3:56pm BP Systolic 124 mmHg BP Diastolic 76 mmHg Body Temperature 97.6 F Heart Rate 92 /min Respiratory Rate 16 /min Height 61 inches 5'1" Weight 199.00 lb [facility] Body Weight 105 lb BMI (Body Mass Index) 37.6 kg/m2 O2 % BldC Oximetry 99 % 04/26/2020 3:13pm BP Systolic 124 mmHg BP Diastolic 80 mmHg Body Temperature 97.9 F Heart Rate 80 /min Respiratory Rate 14 /min Height 61 inches 5'1" Weight 193.00 lb [facility] Body Weight 105 lb BMI (Body Mass Index) 36.5 kg/m2 O2 % BldC Oximetry 97 % Results Test Acquired Date Facility Test Result H/L Range Note Laboratory test finding 07/27/2020 [facility] Hemoglobin A1c 6.9 % High 4.50-6.20 CMP 07/27/2020 [facility] Glu 128 mg/dL High 70 - 110 1 BUN 12 mg/dL 8 - 23 Creat [...] Gap 18 mmol/L eGFR 100 # Calc 2 eGFR Non-Afr. Tanzanian 86 # Calc 3 Lipid Panel 07/27/2020 [facility] Chol 160 mg/dL 0 - 200 Trig 154 mg/dL 40 - 200 HDL 42 mg/dL Low 45 - 65 LDL_C 87 Calc 75 - 129 Cho/HDL Ratio 3.8 Calc Immunoglobulin G,A,M 07/06/2020 [facility] ( Interface) [phone] Immunoglobulin A 47.0 mg/dL Low 70-400 Immunoglobulin G 311 mg/dL Low [phone] Immunoglobulin M 22.6 mg/dL Low 40-230 CBC With Differential 07/06/2020 [facility] (Interface) [phone] White Blood Count 7.7 10 Normal 4.0-10.0 [...] 36.0-66.0 Lymph % 31.1 % Normal 24.0-44.0 [place] % 7.7 % High 0.0-5.0 Eos % 3.0 % Normal 0.0-3.0 Baso % 0.4 % Normal 0.0-1.0 Immature Granulocyte % 0.4 % Normal 0-3.0 Nucleated Red Blood Cell % 0.0 % Normal 0-0 Neutrophils # 4.4 10 Normal 1.5-8.5 Lymph # 2.4 10 Normal 1.5-5.0 [place] # 0.6 10 Normal 0.0-0.8 Eos # 0.2 10 Normal 0.0-0.5 Baso # 0.0 10 Normal 0.0-0.2 Comprehensive Metabolic Profil 07/06/2020 [facility] ([facility]) [phone] Glucose, Fasting 116 mg/dL High 70-100 Blood Urea Nitrogen 17 mg/dL Normal 7-18 Creatinine For GFR 0.89 mg/dL Normal 0.55-1.30 Glomerular Filtration Rate > 60.0 Normal >58 4 Sodium Level 138 mEq/L Normal 136-145 Potassium [...] 1.3 Normal 1.2-2.2 Laboratory test finding 07/06/2020 [facility] (Interface) [phone] LDH Lactate Dehydrogenase 143 U/L Normal 84-246 Laboratory test finding 04/20/2020 [facility] Hemoglobin A1c 6.8 % High 4.50-6.20 CMP [...] Gap 19 mmol/L eGFR 86 # Calc 5 eGFR Non-Afr. [place] 75 # Calc 6 Lipid Panel 04/20/2020 [facility] Chol 153 mg/dL 0 - 200 Trig 157 mg/dL 40 - 200 HDL 40 mg/dL Low 45 - 65 LDL_C 82 Calc 75 - 129 Cho/HDL Ratio 3.8 CALC CBC With Differential 04/05/2020 [facility] (Interface) [phone] White Blood Count 7.7 10 Normal 4.0-10.0 Red Blood Count 4.71 10 Normal 4.00-5.40 Hemoglobin 12.7 g/dL Normal 12.0-15.5 Hematocrit 39.3 % Normal 36.0-47.0 Mean Corpuscular Volume 83.4 fl Normal 80.0-96.0 Mean Corpuscular Hemoglobin 27.0 pg Normal 27.0-33.0 Mean Corpuscular HGB Conc 32.3 g/dL Normal 32.0-36.5 Red Cell Distribution Width 14.6 % High 11.5-14.5 Platelet Count, Automated 304 10 Normal 150-450 Neutrophils % 59.5 % Normal 36.0-66.0 Lymph % 28.0 % Normal 24.0-44.0 [place] % 8.6 % High 0.0-5.0 Eos % 2.5 % Normal 0.0-3.0 Baso % 0.7 % Normal 0.0-1.0 Immature Granulocyte % 0.7 % Normal 0-3.0 Nucleated Red Blood Cell % 0.0 % Normal 0-0 Neutrophils # 4.6 10 Normal 1.5-8.5 Lymph # 2.2 10 Normal 1.5-5.0 [place] # 0.7 10 Normal 0.0-0.8 Eos # 0.2 10 Normal 0.0-0.5 Baso # 0.1 10 Normal 0.0-0.2 Comprehensive Metabolic Profil 04/05/2020 [facility] (Interface) [phone] Glucose, Fasting 122 mg/dL High 70-100 Blood Urea Nitrogen 16 mg/dL Normal 7-18 Creatinine For GFR 0.94 mg/dL Normal 0.55-1.30 Glomerular Filtration Rate > 60.0 Normal >58 7 Sodium Level 141 mEq/L Normal 136-145 Potassium Serum 4.1 mEq/L Normal 3.5-5.1 Chloride Level 109 mEq/L High 98-107 Carbon Dioxide Level 24 mEq/L Normal 21-32 Anion Gap 8 mEq/L Normal 8-16 Calcium Level 9.4 mg/dL Normal 8.5-10.1 Ast/Sgot 37 U/L Normal 7-37 Alt/SGPT 54 U/L Normal 12-78 Alkaline Phosphatase 110 U/L Normal 45-117 Bilirubin,Total 0.7 mg/dL Normal 0.2-1.0 Total Protein 6.9 GM/DL Normal 6.4-8.2 Albumin 3.8 GM/DL Normal 3.2-5.2 Albumin/Globulin Ratio 1.2 Normal 1.2-2.2 Laboratory test finding 04/05/2020 [facility] (Interface) [phone] Beta 2 Microglobulin 1.9 mg/L Normal 0.6-2.4 8 1 CHRONIC KIDNEY DISEASE STAGI NG PER NKF: [...] ADOLESCENTS REPRESENTS INDIVIDUALA AGED 2-19 YEARS EXCLUSIVE. 2 CKD-EPI 3 CKD-EPI 4 Units are mL/min/1.73 m2 Chronic Kidney Disease Staging per NKF: Stage I & II GFR >=60 Normal to Mildly Decreased Stage III GFR 30-59 Moderately Decreased Stage IV GFR 15-29 Severely Decreased Stage V GFR <15 Very Little GFR Left ESRD GFR <15 on FORM BUILDER HELPER 5 CKD-EPI 6 CKD-EPI 7 Units are mL/min/1.73 m2 Chronic Kidney Disease Staging per NKF: Stage I & II GFR >=60 Normal to Mildly Decreased Stage III GFR 30-59 Moderately Decreased Stage IV GFR 15-29 Severely Decreased Stage V GFR <15 Very Little GFR Left ESRD GFR <15 on FORM BUILDER HELPER 8 Siemens Immulite 2000 Immuno chemiluminometric assay (ICMA) . Values obtained with different assay methods or kits cannot be used interchangeably. Results cannot be interpreted as absolute evidence of the presence or absence of malignant disease. Performed at: [address] [id number] 61 Tar Distillation Supervisor: Kevin Ascencio MD, Phone: [phone] Procedures Description No Information Available Medical Devices Description No Information Available Encounters Type Date Location Provider Dx Diagnosis Office Visit 08/07/2020 4:00p [facility] Ryan Rodriguez M. D. E11.9 Type 2 diabetes mellitus without complications E78.5 Hyperlipidemia, unspecified Office Visit 04/26/2020 3:20p [facility] Ryan Rodriguez M. D. E11.9 Type 2 diabetes mellitus without complications E78.5 Hyperlipidemia, unspecified Assessments Date Code Description Provider 08/07/2020 E11.9 Type 2 diabetes mellitus without complications Ryan Rodriguez M.D. 08/07/2020 E78.5 Hyperlipidemia, unspecified [facility] Ryan peguero M.D. 07/27/2020 E11.9 Type 2 diabetes mellitus without complications Ryan Rodriguez M.D. 07/27/2020 E11.9 Type 2 diabetes mellitus without complications Laboratory [place] Schedule 07/27/2020 E78.5 Hyperlipidemia, unspecified [facility] Ryan peguero M.D. 06/21/2020 Z23 Encounter for immunization Ryan Matthews M.D. 04/26/2020 E11.9 Type 2 diabetes mellitus without complications Ryan Rodriguez M.D. 04/26/2020 E78.5 Hyperlipidemia, unspecified [facility] Ryan peguero M.D. 04/20/2020 E11.9 Type 2 diabetes mellitus without complications Ryan Rodriguez M.D. 04/20/2020 E11.9 Type 2 diabetes mellitus without complications Laboratory [place] Schedule 04/20/2020 E78.5 Hyperlipidemia, unspecified [facility] Ryan peguero M.D. Plan of Treatment Future Appointment(s):* 11/02/2020 9:00 am - Laboratory [facility] at [facility] * 11/07/2020 3:40 pm - Ryan Rodriguez M.D. at [facility] Functional Status Description No Information Available Mental Status Description No Information Available Referrals Description No Information Available
--- OUTSIDE RECORDS SUMMARY | 2020-10-24 12:52 | CCD | Continuity of Care Document ---
Author Author Jodi CHAN MD Organization Unknown Address [address] [place] [address] Phone [phone] Care Team Providers Care Asphalt Machine Operator Name Role Phone Ryan Rodriguez M.D. AUTM [phone] Maximino Dean M.D. AUTM [phone] Problems Active Problems Provider Date Ureteric stone [...] Negative Ua Clarity Not Entered Ua Specific [place] 1.025 1.003-1.030 Ua PH 7.0 5.0-7.5 Ua Bilirubin Negative Ua Urobilinogen 0.2 E.U./dL 0.0-1.0 Procedures Description No Information Available Medical Devices Description No Information Available Encounters Type Date Location Provider Dx Diagnosis Office Visit 05/03/2020 3:30p [facility] miguelangel Chan MD N39.43 Post-void dribbling N95.2 Postmenopausal atrophic vagi nitis R35.0 Frequency of micturition Office Visit 03/20/2020 3:10p [facility]/ [facility] Urol miguelangel Chen MD N20.0 Calculus of kidney Assessments Date Code Description Provider 05/03/2020 N39.43 Post-void dribbling Adolph richmond MD 05/03/2020 N95.2 Postmenopausal atrophic vaginiti s Adolph Chan MD 05/03/2020 R35.0 Frequency of micturition Adolph Chan MD 03/20/2020 N20.0 Calculus of kidney Carlos Alberto anton MD Plan of Treatment Future Appointment(s):* 03/22/2021 3:20 pm - Carlos Alberto Chen MD at [facility]/ [facility] Urology 05/03/2020 - Adolph Chan MD* N39.43 Post-void dribbling* Comments:* We discussed that this could be vaginal voiding, and I recommended a wide legged voiding posture and tipping her pelvis forward to take care of it if this is the case. Could also be that her post void dribbling is due to OAB. The OAB care pathway was reviewed with the patient today. Behavioral therapies were discussed. These include minimizing irritating beverages such as coffee, tea and soda; good bowel management; and timing of any relevant medications such as diuretics. The role of pelvic floor PT was reviewed and a handout was provided. We discussed that pelvic floor PT provides a very low risk therapeutic option to manage overactive bladder, while avoiding potential side effects of other therapies. Medications were also discussed. Anticholinergics can cause dry mouth, constipation, dry eye, blurry vision, and have also been shown to increase her risk of dementia when used in the long-term. Alpha adrenergics (Myrbetriq) have the potential side effects of headache/sensation of sinus congestion, as well as a low risk of mildly elevating blood pressure. It was recommended that the patient check their blood pressure while on this medication. A relevant handout was provided today. She would like to try Myrbetriq * N95.2 Postmenopausal atrophic vaginitis* Comments:* She admits to some vaginal dryness but denies any dyspareunia or bother related to it. 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
--- OUTSIDE RECORDS SUMMARY | 2020-10-24 12:52 | CCD | Continuity of Care Document ---
Author Author Jodi RODRIGUEZ M.D. Organization Unknown Address [address] [address] Phone [phone] Problems Active Problems Provider Date Type 2 [...] needed for pain (max daily dose three) [id number] 30tabs Ryan Rodriguez M.D. 020 Januvia 100mg Tablets 1 by mouth every day 90tabs Ryan Rodriguez M.D. 01/12/20 20 Famotidine 20mg Tablets 1 by mouth twice a day 60tabs Ryan Rodriguez M.D. 10/25/19 20 Ondansetron HCL 4mg Tablets Take One Tablet By Mouth Every 6 Hours as Needed For Nausea 90tabs Ryan Rodriguez M.D. 06/28/[address] take one capsule by mouth every day 90Ryan Chowdary M.D. 03/11 Atorvastatin Calcium 20mg Tablets Take One Tablet By Mouth Every Day 90Ryan Hodges M.D . 01/02/2016 Metformin HCL 850mg Tablets Take One Tablet By Mouth Three Times A Day 90Walker Hodges M.D. 06/17/2014 Potassium Citrate 10 Meq (1080 mg) Tablets ER 2 po bid 90taRyan Quinones M.D. 11/14 Rapaflo 8mg Capsules 1 po qd prn Unknown Amiloride HCL 5mg Tablets 1 p o qd Unknown Potassium Chloride ER 10Meq Capsul es ER 1 by mouth every day Unknown Medications Administered in Office Medication SIG Qnty Indications Ordering Provider Date Injection (SC)/(Im) Injection Ryan Rodriguez M.D. 01/19/2020 Immunizations CPT Code Status Date Vaccine Lot # [id number] Given 06/21/2020 Influenza Virus Vaccine, Quadrivalent, Slit Virus, Im Use 3Y & Up [id number] 23824 Given 07/10/2018 Influenza Virus Vaccine, Quadrivalent, Slit Virus, Im Use 3Y & Up [id number] 05685 Given 06/25/2017 Influenza Virus Vaccine, Quadrivalent, Slit Virus, Im Use 3Y & Up [id number] 63311 Given 07/01/2016 Influenza Virus Vaccine, Quadrivalent, Slit Virus, Im Use 3Y & Up 39500 Given 07/01/2016 Influenza Virus Vaccine, Quadrivalent, Slit Virus, Im Use 3Y & Up [id number] 51638 Given 07/11/2015 Influenza Virus Vac. Split Virus Individuals 3 Years And Above [id number] 66801 Given 07/15/2014 Influenza Virus Vac. Split Virus Individuals 3 Years And Above [id number] Vital Signs Date Vital Result Comment 04/26/2020 3:13pm BP Systolic 124 mmHg BP Diastolic 80 mmHg Body Temperature 97.9 F Heart Rate 80 /min Respiratory Rate 14 /min Height 61 inches 5'1" Weight 193.00 lb [facility] Body Weight 105 lb BMI (Body Mass Index) 36.5 kg/m2 O2 % BldC Oximetry 97 % 01/26/2020 11:27am BP Systolic 128 mmHg BP Diastolic 82 mmHg Body Temperature 97.5 F Heart Rate 70 /min Respiratory Rate 14 /min Height 61 inches 5'1" [facility] Body Weight 105 lb O2 % BldC Oximetry 98 % Results Test Acquired Date Facility Test Result H/L Range Note Laboratory test finding 07/27/2020 [facility] Hemoglobin A1c 6.9 % High 4.50-6.20 [...] eGFR 100 # Calc 2 eGFR Non-Afr. Fijian 86 # Calc 3 Lipid Panel 07/27/2020 [facility] Chol 160 mg/dL 0 - 200 Trig 154 mg/dL 40 - 200 HDL 42 mg/dL Low 45 - 65 LDL_C 87 Calc 75 - 129 Cho/HDL Ratio 3.8 Calc Immunoglobulin G,A,M 07/06/2020 [facility] ( Interface) [phone] Immunoglobulin A 47.0 mg/dL Low 70-400 Immunoglobulin G 311 mg/dL Low [phone] Immunoglobulin M 22.6 mg/dL Low 40-230 CBC With Differential 07/06/2020 [facility] (Interface) [phone] White Blood Count 7.7 10 Normal 4.0-10.0 [...] 36.0-66.0 Lymph % 31.1 % Normal 24.0-44.0 [place] % 7.7 % High 0.0-5.0 Eos % 3.0 % Normal 0.0-3.0 Baso % 0.4 % Normal 0.0-1.0 Immature Granulocyte % 0.4 % Normal 0-3.0 Nucleated Red Blood Cell % 0.0 % Normal 0-0 Neutrophils # 4.4 10 Normal 1.5-8.5 Lymph # 2.4 10 Normal 1.5-5.0 [place] # 0.6 10 Normal 0.0-0.8 Eos # 0.2 10 Normal 0.0-0.5 Baso # 0.0 10 Normal 0.0-0.2 Comprehensive Metabolic Profil 07/06/2020 [facility] ([facility]) [phone] Glucose, Fasting 116 mg/dL High 70-100 Blood [...] 1.3 Normal 1.2-2.2 Laboratory test finding 07/06/2020 [facility] (Interface) [phone] LDH Lactate Dehydrogenase 143 U/L Normal 84-246 Laboratory test finding 04/20/2020 [facility] Hemoglobin A1c 6.8 % High 4.50-6.20 CMP [...] eGFR 86 # Calc 5 eGFR Non-Afr. Fijian 75 # Calc 6 Lipid Panel 04/20/2020 [facility] Chol 153 mg/dL 0 - 200 Trig 157 mg/dL 40 - 200 HDL 40 mg/dL Low 45 - 65 LDL_C 82 Calc 75 - 129 Cho/HDL Ratio 3.8 CALC CBC With Differential 04/05/2020 [facility] (Interface) [phone] White Blood Count 7.7 10 Normal 4.0-10.0 [...] 36.0-66.0 Lymph % 28.0 % Normal 24.0-44.0 [place] % 8.6 % High 0.0-5.0 Eos % 2.5 % Normal 0.0-3.0 Baso % 0.7 % Normal 0.0-1.0 Immature Granulocyte % 0.7 % Normal 0-3.0 Nucleated Red Blood Cell % 0.0 % Normal 0-0 Neutrophils # 4.6 10 Normal 1.5-8.5 Lymph # 2.2 10 Normal 1.5-5.0 [place] # 0.7 10 Normal 0.0-0.8 Eos # 0.2 10 Normal 0.0-0.5 Baso # 0.1 10 Normal 0.0-0.2 Comprehensive Metabolic Profil 04/05/2020 [facility] (Interface) [phone] Glucose, Fasting 122 mg/dL High 70-100 Blood [...] 1.2 Normal 1.2-2.2 Laboratory test finding 04/05/2020 [facility] (Interface) [phone] Beta 2 Microglobulin 1.9 mg/L Normal 0.6-2.4 [...] Little GFR Left ESRD GFR <15 on CAGE OPERATOR 5 CKD-EPI 6 CKD-EPI 7 Units are mL/min/1.73 m2 Chronic Kidney Disease Staging per NKF: Stage I & II GFR >=60 Normal to Mildly Decreased Stage III GFR 30-59 Moderately Decreased Stage IV GFR 15-29 Severely Decreased Stage V GFR <15 Very Little GFR Left ESRD GFR <15 on CAGE OPERATOR 8 Siemens Immulite 2000 Immuno chemiluminometric assay (ICMA) . Values obtained with different assay methods or kits cannot be used interchangeably. Results cannot be interpreted as absolute evidence of the presence or absence of malignant disease. Performed at: [address] [id number] Nuclear Test Technician: Kevin Ascencio MD, Phone: [phone] Procedures Description No Information Available Medical Devices Description No Information Available Encounters Type Date Location Provider Dx Diagnosis Office Visit 08/07/2020 4:00p [facility] Ryan Rodriguez M. D. E11.9 Type 2 diabetes mellitus without complications E78.5 Hyperlipidemia, unspecified Office Visit 04/26/2020 3:20p [facility] Ryan Rodriguez M. D. E11.9 Type 2 diabetes mellitus without complications E78.5 Hyperlipidemia, unspecified Assessments Date Code Description Provider 08/07/2020 E11.9 Type 2 diabetes mellitus without complications Ryan Rodriguez M.D. 08/07/2020 E78.5 Hyperlipidemia, unspecified [facility] Ryan peguero M.D. 07/27/2020 E11.9 Type 2 diabetes mellitus without complications Ryan Rodriguez M.D. 07/27/2020 E11.9 Type 2 diabetes mellitus without complications Laboratory [place] Schedule 07/27/2020 E78.5 Hyperlipidemia, unspecified [facility] Ryan peguero M.D. 06/21/2020 Z23 Encounter for immunization Ryan Matthews M.D. 04/26/2020 E11.9 Type 2 diabetes mellitus without complications Ryan Rodriguez M.D. 04/26/2020 E78.5 Hyperlipidemia, unspecified [facility] Ryan peguero M.D. 04/20/2020 E11.9 Type 2 diabetes mellitus without complications Ryan Rodriguez M.D. 04/20/2020 E11.9 Type 2 diabetes mellitus without complications Laboratory [place] Schedule 04/20/2020 E78.5 Hyperlipidemia, [facility] [facility] Plan of Treatment No Information Available Functional Status Description No Information Available Mental Status Description No Information Available Referrals Description No Information Available
--- OUTSIDE RECORDS SUMMARY | 2020-10-24 12:52 | CCD | Continuity of Care Document ---
Author Author Jodi Reis [facility] Unknown Address [address] [facility] [address] [place] [address] Phone [phone] Problems Active Problems Provider Date Type 2 [...] needed for pain (max daily dose three) [id number] 30tabs Ryan Rodriguez M.D. 020 Keflex 500mg Capsules 1 by mouth three times a day 30caps Ryan Rodriguez M.D. 01/18/20 20 Januvia 100mg Tablets 1 by mouth every day 90tabs Ryan Rodriguez M.D. 01/12/20 20 Famotidine 20mg Tablets 1 by mouth twice a day 60tabs Ryan Rodriguez M.D. 01/13/20 20 Ondansetron HCL 4mg Tablets Take One Tablet By Mouth Every 6 Hours as Needed For Nausea 90Ryan Hodges M.D. 06/28/[address] take [...] CPT Code Status Date Vaccine Lot # [id number] Given 06/21/2020 Influenza Virus Vaccine, Quadrivalent, Slit Virus, Im Use 3Y & Up [id number] 75879 Given 07/10/2018 Influenza Virus Vaccine, Quadrivalent, Slit Virus, Im Use 3Y & Up [id number] 49685 Given 06/25/2017 Influenza Virus Vaccine, Quadrivalent, Slit Virus, Im Use 3Y & Up [id number] 83787 Given 07/01/2016 Influenza Virus Vaccine, Quadrivalent, Slit Virus, Im Use 3Y & Up 83294 Given 07/01/2016 Influenza Virus Vaccine, Quadrivalent, Slit Virus, Im Use 3Y & Up [id number] 24197 Given 07/11/2015 Influenza Virus Vac. Split Virus Individuals 3 Years And Above [id number] 78191 Given 07/15/2014 Influenza Virus Vac. Split Virus Individuals 3 Years And Above [id number] Vital Signs Date Vital Result Comment 04/26/2020 3:13pm BP Systolic 124 mmHg BP Diastolic 80 mmHg Body Temperature 97.9 F Heart Rate 80 /min Respiratory Rate 14 /min Height 61 inches 5'1" Weight 193.00 lb [place] Body Weight 105 lb BMI (Body Mass Index) 36.5 kg/m2 O2 % BldC Oximetry 97 % 01/26/2020 11:27am BP Systolic 128 mmHg BP Diastolic 82 mmHg Body Temperature 97.5 F Heart Rate 70 /min Respiratory Rate 14 /min Height 61 inches 5'1" [place] Body Weight 105 lb O2 % BldC Oximetry 98 % Results Test Acquired Date Facility Test Result H/L Range Note Laboratory test finding 07/27/2020 [facility] Hemoglobin A1c 6.9 % [...] eGFR 100 # Calc 2 eGFR Non-Afr. Gabonese 86 # Calc 3 Lipid Panel 07/27/2020 [facility] Chol 160 mg/dL 0 - 200 Trig 154 mg/dL 40 - 200 HDL 42 mg/dL Low 45 - 65 LDL_C 87 Calc 75 - 129 Cho/HDL Ratio 3.8 Calc Immunoglobulin G,A,M 07/06/2020 [facility] ( Interface) [phone] Immunoglobulin A 47.0 mg/dL Low 70-400 Immunoglobulin G 311 mg/dL Low [phone] Immunoglobulin M 22.6 mg/dL Low 40-230 CBC With Differential 07/06/2020 [facility] (Interface) [phone] White Blood Count 7.7 10 Normal 4.0-10.0 [...] 36.0-66.0 Lymph % 31.1 % Normal 24.0-44.0 [place] % 7.7 % High 0.0-5.0 Eos % 3.0 % Normal 0.0-3.0 Baso % 0.4 % Normal 0.0-1.0 Immature Granulocyte % 0.4 % Normal 0-3.0 Nucleated Red Blood Cell % 0.0 % Normal 0-0 Neutrophils # 4.4 10 Normal 1.5-8.5 Lymph # 2.4 10 Normal 1.5-5.0 [place] # 0.6 10 Normal 0.0-0.8 Eos # 0.2 10 Normal 0.0-0.5 Baso # 0.0 10 Normal 0.0-0.2 Comprehensive Metabolic Profil 07/06/2020 [facility] ([facility]) [phone] Glucose, Fasting 116 mg/dL High 70-100 Blood [...] 1.3 Normal 1.2-2.2 Laboratory test finding 07/06/2020 [facility] (Interface) [phone] LDH Lactate Dehydrogenase 143 U/L Normal 84-246 Laboratory test finding 04/20/2020 [facility] Hemoglobin A1c 6.8 % High 4.50-6.20 CMP [...] eGFR 86 # Calc 5 eGFR Non-Afr. [place]e 75 # Calc 6 Lipid Panel 04/20/2020 [facility] Chol 153 mg/dL 0 - 200 Trig 157 mg/dL 40 - 200 HDL 40 mg/dL Low 45 - 65 LDL_C 82 Calc 75 - 129 Cho/HDL Ratio 3.8 CALC CBC With Differential 04/05/2020 [facility] (Interface) [phone] White Blood Count 7.7 10 Normal 4.0-10.0 [...] 36.0-66.0 Lymph % 28.0 % Normal 24.0-44.0 [place] % 8.6 % High 0.0-5.0 Eos % 2.5 % Normal 0.0-3.0 Baso % 0.7 % Normal 0.0-1.0 Immature Granulocyte % 0.7 % Normal 0-3.0 Nucleated Red Blood Cell % 0.0 % Normal 0-0 Neutrophils # 4.6 10 Normal 1.5-8.5 Lymph # 2.2 10 Normal 1.5-5.0 [place] # 0.7 10 Normal 0.0-0.8 Eos # 0.2 10 Normal 0.0-0.5 Baso # 0.1 10 Normal 0.0-0.2 Comprehensive Metabolic Profil 04/05/2020 [facility] (Interface) [phone] Glucose, Fasting 122 mg/dL High 70-100 Blood [...] 1.2 Normal 1.2-2.2 Laboratory test finding 04/05/2020 [facility] (Interface) [phone] Beta 2 Microglobulin 1.9 mg/L Normal 0.6-2.4 [...] Little GFR Left ESRD GFR <15 on LIGHT ARM[employer]ED [employer] 5 CKD-EPI 6 CKD-EPI 7 Units are mL/min/1.73 m2 Chronic Kidney Disease Staging per NKF: Stage I & II GFR >=60 Normal to Mildly Decreased Stage III GFR 30-59 Moderately Decreased Stage IV GFR 15-29 Severely Decreased Stage V GFR <15 Very Little GFR Left ESRD GFR <15 on LIGHT ARMORED [employer]ER 8 Siemens Immulite 2000 Immuno chemiluminometric assay (ICMA) . Values obtained with different assay methods or kits cannot be used interchangeably. Results cannot be interpreted as absolute evidence of the presence or absence of malignant disease. Performed at: [address] [id number] Technical Maintenance Specialist: Kevin Ascencio MD, Phone: [phone] Procedures Description No Information Available Medical Devices Description No Information Available Encounters Type Date Location Provider Dx Diagnosis Office Visit 04/26/2020 3:20p [place] [facility] Ryan Rodriguez M. D. E11.9 Type 2 diabetes mellitus without complications E78.5 Hyperlipidemia, unspecified Assessments Date Code Description Provider 07/27/2020 E11.9 Type 2 diabetes mellitus without complications Ryan Rodriguez M.D. 07/27/2020 E11.9 Type 2 diabetes mellitus without complications Laboratory [place] Schedule 07/27/2020 E78.5 Hyperlipidemia, unspecified [facility] Ryan peguero M.D. 06/21/2020 Z23 Encounter for immunization Ryan Matthews M.D. 04/26/2020 E11.9 Type 2 diabetes mellitus without complications Rayn Rodriguez M.D. 04/26/2020 E78.5 Hyperlipidemia, unspecified [facility] Ryan peguero M.D. 04/20/2020 E11.9 Type 2 diabetes mellitus without complications Ryan Rodriguez M.D. 04/20/2020 E11.9 Type 2 diabetes mellitus without complications Laboratory [place] Schedule 04/20/2020 E78.5 Hyperlipidemia, unspecified [facility] Ryan peguero M.D. Plan of Treatment Future Appointment(s):* 08/07/2020 4:00 pm - Ryan Rodriguez M.D. at [facility] Functional Status Description No Information Available Mental Status Description No Information Available Referrals Description No Information Available
--- OUTSIDE RECORDS SUMMARY | 2020-10-24 12:52 | CCD | Continuity of Care Document ---
Author Author Jodi RODRIGUEZ M.D. Organization Unknown Address [address] [address] Phone [phone] Problems Active Problems Provider Date Type 2 [...] needed for pain (max daily dose three) [id number] 30tabs Ryan Rodriguez M.D. 020 Januvia 100mg [...] Ordering Provider Date Injection (SC)/(Im) Injection Ryan oRdriguez M.D. 01/19/2020 Immunizations CPT Code Status Date Vaccine Lot # [id number] Given 06/21/2020 Influenza Virus Vaccine, Quadrivalent, Slit Virus, Im Use 3Y & Up [id number] 70534 Given 07/10/2018 Influenza Virus Vaccine, Quadrivalent, Slit Virus, Im Use 3Y & Up [id number] 58041 Given 06/25/2017 Influenza Virus Vaccine, Quadrivalent, Slit Virus, Im Use 3Y & Up [id number] 95175 Given 07/01/2016 Influenza Virus Vaccine, Quadrivalent, Slit Virus, Im Use 3Y & Up 40403 Given 07/01/2016 Influenza Virus Vaccine, Quadrivalent, Slit Virus, Im Use 3Y & Up [id number] 51873 Given 07/11/2015 Influenza Virus Vac. Split Virus Individuals 3 Years And Above [id number] 24076 Given 07/15/2014 Influenza Virus Vac. Split Virus Individuals 3 Years And Above [id number] Vital Signs Date Vital Result Comment 08/07/2020 3:56pm BP Systolic 124 mmHg BP Diastolic 76 mmHg Body Temperature 97.6 F Heart Rate 92 /min Respiratory Rate 16 /min Height 61 inches 5'1" Weight 199.00 lb [place] Body Weight 105 lb BMI (Body Mass Index) 37.6 kg/m2 O2 % BldC Oximetry 99 % 04/26/2020 3:13pm BP Systolic 124 mmHg BP Diastolic 80 mmHg Body Temperature 97.9 F Heart Rate 80 /min Respiratory Rate 14 /min Height 61 inches 5'1" Weight 193.00 lb [place] Body Weight 105 lb BMI (Body Mass Index) 36.5 kg/m2 O2 % BldC Oximetry 97 % Results Test Acquired Date Facility Test Result H/L Range Note CBC With Auto Differential OB 10/20/2020 [facility] (Interface) [phone] White Blood Count 7.0 10 Normal 4.0-10.0 [...] 36.0-66.0 Lymph % 29.2 % Normal 24.0-44.0 [place] % 7.3 % High 0.0-5.0 Eos % 3.0 % Normal 0.0-3.0 Baso % 0.6 % Normal 0.0-1.0 Immature Granulocyte % 0.6 % Normal 0-3.0 Nucleated Red Blood Cell % 0.0 % Normal 0-0 Neutrophils # 4.2 10 Normal 1.5-8.5 Lymph # 2.1 10 Normal 1.5-5.0 [place] # 0.5 10 Normal 0.0-0.8 Eos # 0.2 10 Normal 0.0-0.5 Baso # 0.0 10 Normal 0.0-0.2 Laboratory test finding 07/27/2020 [facility] [...] eGFR 100 # Calc 2 eGFR Non-Afr. [place] 86 # Calc 3 Lipid Panel 07/27/2020 [facility] Chol 160 mg/dL 0 - 200 Trig 154 mg/dL 40 - 200 HDL 42 mg/dL Low 45 - 65 LDL_C 87 Calc 75 - 129 Cho/HDL Ratio 3.8 Calc Immunoglobulin G,A,M 07/06/2020 [facility] ( Interface) [phone] Immunoglobulin A 47.0 mg/dL Low 70-400 Immunoglobulin G 311 mg/dL Low [phone] Immunoglobulin M 22.6 mg/dL Low 40-230 CBC With Differential 07/06/2020 [facility] (Interface) [phone] White Blood Count 7.7 10 Normal 4.0-10.0 [...] 36.0-66.0 Lymph % 31.1 % Normal 24.0-44.0 [place] % 7.7 % High 0.0-5.0 Eos % 3.0 % Normal 0.0-3.0 Baso % 0.4 % Normal 0.0-1.0 Immature Granulocyte % 0.4 % Normal 0-3.0 Nucleated Red Blood Cell % 0.0 % Normal 0-0 Neutrophils # 4.4 10 Normal 1.5-8.5 Lymph # 2.4 10 Normal 1.5-5.0 [place] # 0.6 10 Normal 0.0-0.8 Eos # 0.2 10 Normal 0.0-0.5 Baso # 0.0 10 Normal 0.0-0.2 Comprehensive Metabolic Profil 07/06/2020 [facility] (Interface) [phone] Glucose, Fasting 116 mg/dL High 70-100 Blood [...] 1.3 Normal 1.2-2.2 Laboratory test finding 07/06/2020 [facility] (Interface) [phone] LDH Lactate Dehydrogenase 143 U/L Normal 84-246 Laboratory test finding 04/20/2020 [facility] Hemoglobin A1c 6.8 % High 4.50-6.20 CMP [...] eGFR 86 # Calc 5 eGFR Non-Afr. [place] 75 # Calc 6 Lipid Panel 04/20/2020 [facility] Chol 153 mg/dL 0 - 200 Trig 157 mg/dL 40 - 200 HDL 40 mg/dL Low 45 - 65 LDL_C 82 Calc 75 - 129 Cho/HDL Ratio 3.8 CALC 1 CHRONIC KIDNEY DISEASE STAGI NG PER [...] Little GFR Left ESRD GFR <15 on [employer] FO[employer] 5 CKD-EPI 6 CKD-EPI Procedures Description No Information Available Medical Devices Description No Information Available Encounters Type Date Location Provider Dx Diagnosis Office Visit 08/07/2020 4:00p [place] [facility] Ryan Rodriguez M. D. E11.9 Type 2 diabetes mellitus without complications E78.5 Hyperlipidemia, unspecified Office Visit 04/26/2020 3:20p [place] [facility] Ryan Rodriguez M. D. E11.9 Type 2 diabetes mellitus without complications E78.5 Hyperlipidemia, unspecified Assessments Date Code Description Provider 08/07/2020 E11.9 Type 2 diabetes mellitus without complications Ryan Rodriguez M.D. 08/07/2020 E78.5 Hyperlipidemia, unspecified [facility] Ryan peguero M.D. 07/27/2020 E11.9 Type 2 diabetes mellitus without complications Ryan Rodriguez M.D. 07/27/2020 E11.9 Type 2 diabetes mellitus without complications Laboratory [place] Schedule 07/27/2020 E78.5 [facility]lipidemia, [facility] 06/21/2020 Z23 Encounter for immunization Ryan Matthews M.D. 04/26/2020 E11.9 Type 2 diabetes mellitus without complications Ryan Rodriguez M.D. 04/26/2020 E78.5 [place], unspecified [facility] Ryan peguero M.D. 04/20/2020 E11.9 Type 2 diabetes mellitus without complications Ryan Rodriguez M.D. 04/20/2020 E11.9 Type 2 diabetes mellitus without complications Laboratory [place] Schedule 04/20/2020 E78.5 Hyperlipidemia, unspecified [facility] Ryan peguero M.D. Plan of Treatment Future Appointment(s):* 11/02/2020 9:00 am - Laboratory [place] Schedule at [facility] [place] * 11/07/2020 3:40 pm - Ryan Rodriguez M.D. at [place] [facility] Functional Status Description No Information Available Mental Status Description No Information Available Referrals Description No Information Available
--- OUTSIDE RECORDS SUMMARY | 2020-10-24 12:52 | CCD | Continuity of Care Document ---
Author Author Jodi Reis [facility] Unknown Address [address] [facility] [address] [place] [address] Phone [phone] Problems Active Problems Provider Date Type 2 [...] needed for pain (max daily dose three) [id number] 30tabs Ryan Rodriguez M.D. 020 Keflex 500mg [...] CPT Code Status Date Vaccine Lot # [id number] Given 06/21/2020 Influenza Virus Vaccine, Quadrivalent, Slit Virus, Im Use 3Y & Up [id number] 55547 Given 07/10/2018 Influenza Virus Vaccine, Quadrivalent, Slit Virus, Im Use 3Y & Up [id number] 55579 Given 06/25/2017 Influenza Virus Vaccine, Quadrivalent, Slit Virus, Im Use 3Y & Up [id number] 40442 Given 07/01/2016 Influenza Virus Vaccine, Quadrivalent, Slit Virus, Im Use 3Y & Up 72248 Given 07/01/2016 Influenza Virus Vaccine, Quadrivalent, Slit Virus, Im Use 3Y & Up [id number] 49880 Given 07/11/2015 Influenza Virus Vac. Split Virus Individuals 3 Years And Above [id number] 70897 Given 07/15/2014 Influenza Virus Vac. Split Virus Individuals 3 Years And Above [id number] Vital Signs Date Vital Result Comment 04/26/2020 3:13pm BP Systolic 124 mmHg BP Diastolic 80 mmHg Body Temperature 97.9 F Heart Rate 80 /min Respiratory Rate 14 /min Height 61 inches 5'1" Weight 193.00 lb [place] Body Weight 105 lb BMI (Body Mass Index) 36.5 kg/m2 O2 % BldC Oximetry 97 % 01/26/2020 11:27am BP Systolic 128 mmHg BP Diastolic 82 mmHg Body Temperature 97.5 F Heart Rate 70 /min Respiratory Rate 14 /min Height 61 inches 5'1" [place] Body Weight 105 lb O2 % BldC Oximetry 98 % Results Test Acquired Date Facility Test Result H/L Range Note Immunoglobulin G,A,M [facility] [phone] Immunoglobulin A 47.0 mg/dL Low 70-400 Immunoglobulin G 311 mg/dL Low 681-1648 Immunoglobulin M 22.6 mg/dL Low 40-230 CBC With Differential 07/06/2020 [facility]) [phone] White Blood Count 7.7 10 Normal 4.0-10.0 [...] 36.0-66.0 Lymph % 31.1 % Normal 24.0-44.0 [place] % 7.7 % High 0.0-5.0 Eos % 3.0 % Normal 0.0-3.0 Baso % 0.4 % Normal 0.0-1.0 Immature Granulocyte % 0.4 % Normal 0-3.0 Nucleated Red Blood Cell % 0.0 % Normal 0-0 Neutrophils # 4.4 10 Normal 1.5-8.5 Lymph # 2.4 10 Normal 1.5-5.0 [place] # 0.6 10 Normal 0.0-0.8 Eos # 0.2 10 Normal 0.0-0.5 Baso # 0.0 10 Normal 0.0-0.2 Comprehensive Metabolic Profil 07/06/2020 [facility]) [phone] Glucose, Fasting 116 mg/dL High 70-100 Blood Urea Nitrogen 17 mg/dL Normal 7-18 Creatinine For GFR 0.89 mg/dL Normal 0.55-1.30 Glomerular Filtration Rate > 60.0 Normal >58 1 Sodium Level 138 mEq/L Normal 136-145 Potassium [...] 1.3 Normal 1.2-2.2 Laboratory test finding 07/06/2020 [facility] (Interface) [phone] LDH Lactate Dehydrogenase 143 U/L Normal 84-246 Laboratory test finding 04/20/2020 [facility] Hemoglobin A1c 6.8 % High 4.50-6.20 CMP 04/20/2020 [facility] Glu 132 mg/dL High 70 - 110 2 BUN 14 mg/dL 8 - 23 Creat [...] Gap 19 mmol/L eGFR 86 # Calc 3 eGFR Non-Afr. [place] 75 # Calc 4 Lipid Panel 04/20/2020 [facility] Chol 153 mg/dL 0 - 200 Trig 157 mg/dL 40 - 200 HDL 40 mg/dL Low 45 - 65 LDL_C 82 Calc 75 - 129 Cho/HDL Ratio 3.8 CALC CBC With Differential 04/05/2020 [facility] (Interface) [phone] White Blood Count 7.7 10 Normal 4.0-10.0 [...] 36.0-66.0 Lymph % 28.0 % Normal 24.0-44.0 [place] % 8.6 % High 0.0-5.0 Eos % 2.5 % Normal 0.0-3.0 Baso % 0.7 % Normal 0.0-1.0 Immature Granulocyte % 0.7 % Normal 0-3.0 Nucleated Red Blood Cell % 0.0 % Normal 0-0 Neutrophils # 4.6 10 Normal 1.5-8.5 Lymph # 2.2 10 Normal 1.5-5.0 [place] # 0.7 10 Normal 0.0-0.8 Eos # 0.2 10 Normal 0.0-0.5 Baso # 0.1 10 Normal 0.0-0.2 Comprehensive Metabolic Profil 04/05/2020 [facility] (Interface) [phone] Glucose, Fasting 122 mg/dL High 70-100 Blood Urea Nitrogen 16 mg/dL Normal 7-18 Creatinine For GFR 0.94 mg/dL Normal 0.55-1.30 Glomerular Filtration Rate > 60.0 Normal >58 5 Sodium Level 141 mEq/L Normal 136-145 Potassium [...] 1.2 Normal 1.2-2.2 Laboratory test finding 04/05/2020 [facility] (Interface) [phone] Beta 2 Microglobulin 1.9 mg/L Normal 0.6-2.4 6 1 Units are mL/min/1.73 m2 Chronic Kidney Disease Staging per NKF: Stage I & II GFR >=60 Normal to Mildly Decreased Stage III GFR 30-59 Moderately Decreased Stage IV GFR 15-29 Severely Decreased Stage V GFR <15 Very Little GFR Left ESRD GFR <15 on PROJECT ASST 2 CHRONIC KIDNEY DISEASE STAGI NG PER [...] Little GFR Left ESRD GFR <15 on PROJECT ASST 6 Siemens Immulite 2000 Immuno chemiluminometric assay (ICMA) . Values obtained with different assay methods or kits cannot be used interchangeably. Results cannot be interpreted as absolute evidence of the presence or absence of malignant disease. Performed at: [address] [id number] School Director: Kevin Ascencio MD, Phone: [phone] Procedures Description No Information Available Medical Devices Description No Information Available Encounters Type Date Location Provider Dx Diagnosis Office Visit 04/26/2020 3:20p [place] [facility] Ryan Rodriguez M. D. E11.9 Type 2 diabetes mellitus without complications E78.5 Hyperlipidemia, unspecified Assessments Date Code Description Provider 06/21/2020 Z23 Encounter for immunization Ryan Matthews M.D. 04/26/2020 E11.9 Type 2 diabetes mellitus without complications Ryan Rodriguez M.D. 04/26/2020 E78.5 Hyperlipidemia, unspecified [facility] Ryan peguero M.D. 04/20/2020 E11.9 Type 2 diabetes mellitus without complications Ryan Rodriguez M.D. 04/20/2020 E11.9 Type 2 diabetes mellitus without complications Laboratory [place] Schedule 04/20/2020 E78.5 Hyperlipidemia, unspecified [facility] Ryan peguero M.D. Plan of Treatment Future Appointment(s):* 08/07/2020 4:00 pm - Ryan Rodriguez M.D. at [facility] Functional Status Description No Information Available Mental Status Description No Information Available Referrals Description No Information Available
--- OUTSIDE RECORDS SUMMARY | 2020-10-24 12:54 | CCD ---
Author Author [facility] Organization [facility] Address Unknown Phone Unavailable Care Team Providers Care Paper Bundler Name Role Phone GONZALES, W PAPO PA Unavailable Unavailable GONZALES, W PAPO PA Unavailable Unavailable GONZALES, W PAPO PA Unavailable Unavailable GONZALES, W PAPO PA Unavailable Unavailable GONZALES, W PAPO PA Unavailable Unavailable GONZALES, W PAPO PA Unavailable Unavailable GONZALES, W PAPO PA Unavailable Unavailable GONZALES, W PAPO PA Unavailable Unavailable GONZALES, W PAPO PA Unavailable Unavailable GONZALES, W PAPO PA Unavailable Unavailable GONZALES, W PAPO PA Unavailable Unavailable GONZALES, W PAPO PA Unavailable Unavailable GONZALES, W PAPO PA Unavailable Unavailable GONZALES, W PAPO PA Unavailable Unavailable GONZALES, W PAPO PA Unavailable Unavailable GONZALES, W PAPO PA Unavailable Unavailable GONZALES, W PAPO PA Unavailable Unavailable GONZALES, W PAPO PA Unavailable Unavailable GONZALES, W PAPO PA Unavailable Unavailable GONZALES, W PAPO PA Unavailable Unavailable GONZALES, W PAPO PA Unavailable Unavailable GONZALES, W PAPO PA Unavailable Unavailable GONZALES, W PAPO PA Unavailable Unavailable GONZALES, W PAPO PA Unavailable Unavailable GONZALES, W PAPO PA Unavailable Unavailable GONZALES, W PAPO PA Unavailable Unavailable GONZALES, W PAPO PA Unavailable Unavailable GONZALES, W PAPO PA Unavailable Unavailable GONZALES, W PAPO PA Unavailable Unavailable GONZALES, W PAPO PA Unavailable Unavailable GONZALES, W PAPO PA Unavailable Unavailable GONZALES, W PAPO PA Unavailable Unavailable GONZALES, W PAPO PA Unavailable Unavailable GONZALES, W PAPO PA Unavailable Unavailable GONZALES, W PAPO PA Unavailable Unavailable GONZALES, W PAPO PA Unavailable Unavailable GONZALES, W PAPO PA Unavailable Unavailable GONZALES, W PAPO PA Unavailable Unavailable GONZALES, W PAPO PA Unavailable Unavailable GONZALES, W PAPO PA Unavailable Unavailable GONZALES, W PAPO PA Unavailable Unavailable GONZALES, W PAPO PA Unavailable Unavailable GONZALES, W PAPO PA Unavailable Unavailable GONZALES, W PAPO PA Unavailable Unavailable GONZALES, W PAPO PA Unavailable Unavailable GONZALES, W PAPO PA Unavailable Unavailable Zenobia SEQUEIRA MD Unavailable Unavailable Zenobia SEQUEIRA MD Unavailable Unavailable Zenobia SEQUEIRA MD Unavailable Unavailable Zenobia SEQUEIRA MD Unavailable Unavailable Zenobia SEQUEIRA MD Unavailable Unavailable Zenobia SEQUEIRA MD Unavailable Unavailable Zenobia SEQUEIRA MD Unavailable Unavailable Zenobia SEQUEIRA MD Unavailable Unavailable Zenobia SEQUEIRA MD Unavailable Unavailable Zenobia SEQUEIRA MD Unavailable Unavailable Zenobia SEQUEIRA MD Unavailable Unavailable Zenobia SEQUEIRA MD Unavailable Unavailable Zenobia SEQUEIRA MD Unavailable Unavailable Zenobia SEQUEIRA MD Unavailable Unavailable Zenobia SEQUEIRA MD Unavailable Unavailable Zenobia SEQUEIRA MD Unavailable Unavailable Zenobia SEQUEIRA MD Unavailable Unavailable Zenobia SEQUEIRA MD Unavailable Unavailable Zenobia SEQUEIRA MD Unavailable Unavailable Zenobia SEQUEIRA MD Unavailable Unavailable Zenobia SEQUEIRA MD Unavailable Unavailable Zenobia SEQUEIRA MD Unavailable Unavailable Zenobia SEQUEIRA MD Unavailable Unavailable Zenobia SEQUEIRA MD Unavailable Unavailable Zenobia SEQUEIRA MD Unavailable Unavailable Zenobia SEQUEIRA MD Unavailable Unavailable Zenobia SEQUEIRA MD Unavailable Unavailable Zenobia SEQUEIRA MD Unavailable Unavailable Zenobia SEQUEIRA MD Unavailable Unavailable Zenobia SEQUEIRA MD Unavailable Unavailable JUDITHOHZenobia Sawyer MD Unavailable Unavailable Zenobia SEQUEIRA MD Unavailable Unavailable JUDITHOHZenobia Sawyer MD Unavailable Unavailable Zenobia SEQUEIRA MD Unavailable Unavailable Zenobia SEQUEIRA MD Unavailable Unavailable Zenobia SEQUEIRA MD Unavailable Unavailable Zenobia SEQUEIRA MD Unavailable Unavailable Zenobia SEQUEIRA MD Unavailable Unavailable Zenobia SEQUEIRA MD Unavailable Unavailable Zenobia SEQUEIRA MD Unavailable Unavailable Zenobia SEQUEIRA MD Unavailable Unavailable Zenobia SEQUEIRA MD Unavailable Unavailable Zenobia SEQUEIRA MD Unavailable Unavailable Zenobia SEQUEIRA MD Unavailable Unavailable JUDITHOHZenobia Sawyer MD Unavailable Unavailable JUDITHOHZenobia Sawyer MD Unavailable Unavailable JUDITHOHZenobia Sawyer MD Unavailable Unavailable Elroy RODRIGUEZ MD Unavailable Unavailable Elroy RODRIGUEZ MD Unavailable Unavailable Elroy RODRIGUEZ MD Unavailable Unavailable Elroy RODRIGUEZ MD Unavailable Unavailable Elroy RODRIGUEZ MD Unavailable Unavailable Elroy RODRIGUEZ MD Unavailable Unavailable Elroy RODRIGUEZ MD Unavailable Unavailable Elroy RODRIGUEZ MD Unavailable Unavailable Elroy RODRIGUEZ MD Unavailable Unavailable Elroy RODRIGUEZ MD Unavailable Unavailable Elroy RODRIGUEZ MD Unavailable Unavailable Elroy RODRIGUEZ MD Unavailable Unavailable Elroy RODRIGUEZ MD Unavailable Unavailable Elroy RODRIGUEZ MD Unavailable Unavailable Elroy RODRIGUEZ MD Unavailable Unavailable Elroy RODRIGUEZ MD Unavailable Unavailable Elroy RODRIGUEZ MD Unavailable Unavailable Elroy RODRIGUEZ MD Unavailable Unavailable Elroy RODRIGUEZ MD Unavailable Unavailable Elroy RODRIGUEZ MD Unavailable Unavailable Elroy RODRIGUEZ MD Unavailable Unavailable Elroy RODRIGUEZ MD Unavailable Unavailable Elroy RODRIGUEZ MD Unavailable Unavailable Elroy RODRIGUEZ MD Unavailable Unavailable Elroy RODRIGUEZ MD Unavailable Unavailable Elroy RODRIGUEZ MD Unavailable Unavailable Elroy RODRIGUEZ MD Unavailable Unavailable Elroy RODRIGUEZ MD Unavailable Unavailable Elroy RODRIGUEZ MD Unavailable Unavailable Elroy RODRIGUEZ MD Unavailable Unavailable Elroy RODRIGUEZ MD Unavailable Unavailable Elroy RODRIGUEZ MD Unavailable Unavailable Elroy RODRIGUEZ MD Unavailable Unavailable Elroy RODRIGUEZ MD Unavailable Unavailable Elroy RODRIGUEZ MD Unavailable Unavailable Elroy RODRIGUEZ MD Unavailable Unavailable Elroy RODRIGUEZ MD Unavailable Unavailable Elroy RODRIGUEZ MD Unavailable Unavailable Elroy RODRIGUEZ MD Unavailable Unavailable Elroy RODRIGUEZ MD Unavailable Unavailable Elroy RODRIGUEZ MD Unavailable Unavailable Elroy RODRIGUEZ MD Unavailable Unavailable Elroy RODRIGUEZ MD Unavailable Unavailable Elroy RODRIGUEZ MD Unavailable Unavailable Elroy RODRIGUEZ MD Unavailable Unavailable Elroy RODRIGUEZ MD Unavailable Unavailable Elroy RODRIGUEZ MD Unavailable Unavailable Elroy RODRIGUEZ MD Unavailable Unavailable Elroy RODRIGUEZ MD Unavailable Unavailable Elroy RODRIGUEZ MD Unavailable Unavailable Elroy RODRIGUEZ MD Unavailable Unavailable Elroy RODRIGUEZ MD Unavailable Unavailable Elroy RODRIGUEZ MD Unavailable Unavailable Elroy RODRIGUEZ MD Unavailable Unavailable Elroy RODRIGUEZ MD Unavailable Unavailable Elroy RODRIGUEZ MD Unavailable Unavailable Elroy RODRIGUEZ MD Unavailable Unavailable Elroy RODRIGUEZ MD Unavailable Unavailable Elroy RODRIGUEZ MD Unavailable Unavailable Elroy RODRIGUEZ MD Unavailable Unavailable Elroy RODRIGUEZ MD Unavailable Unavailable Elroy RODRIGUEZ MD Unavailable Unavailable Elroy RODRIGUEZ MD Unavailable Unavailable Elroy RODRIGUEZ MD Unavailable Unavailable Elroy RODRIGUEZ MD Unavailable Unavailable Elroy RODRIGUEZ MD Unavailable Unavailable Elroy RODRIGUEZ MD Unavailable Unavailable Elroy RODRIGUEZ MD Unavailable Unavailable Elroy RODRIGUEZ MD Unavailable Unavailable Elroy RODRIGUEZ MD Unavailable Unavailable Elroy RODRIGUEZ MD Unavailable Unavailable Elroy RODRIGUEZ MD Unavailable Unavailable Elryo RODRIGUEZ MD Unavailable Unavailable Elroy RODRIGUEZ MD Unavailable Unavailable Elroy RODRIGUEZ MD Unavailable Unavailable Kukulski, Julianna Brandi PA Unavailable Unavailable Kukulski, Julianna Brandi PA Unavailable Unavailable Kukulski, Julianna Brandi PA Unavailable Unavailable Kukulski, Julianna Brandi PA Unavailable Unavailable Kukulski, Julianna Brandi PA Unavailable Unavailable Kukulski, Julianna Brandi PA Unavailable Unavailable Kukulski, Julianna Brandi PA Unavailable Unavailable Kukulski, Julianna Brandi PA Unavailable Unavailable Kukulski, Julianna Brandi PA Unavailable Unavailable Kukulski, Julianna Brandi PA Unavailable Unavailable Kukulski, Julianna Brandi PA Unavailable Unavailable Kukulski, Julianna Brandi PA Unavailable Unavailable Kukulski, Julianna Brandi PA Unavailable Unavailable Kukulski, Julianna Brandi PA Unavailable Unavailable Kukulski, Julianna Brandi PA Unavailable Unavailable Kukulski, Julianna Brandi PA Unavailable Unavailable Kukulski, Julianna Brandi PA Unavailable Unavailable Kukulski, Julianna Brandi PA Unavailable Unavailable Kukulski, Julianna Brandi PA Unavailable Unavailable Kukulski, Julianna Brandi PA Unavailable Unavailable Kukulski, Julianna Brandi PA Unavailable Unavailable Kukulski, Julianna Brandi PA Unavailable Unavailable Kukulski, Julianna Brandi PA Unavailable Unavailable Kukulski, Julianna Brandi PA Unavailable Unavailable Kukulski, Julianna Brandi PA Unavailable Unavailable Kukulski, Julianna Brandi PA Unavailable Unavailable Kukulski, Julianna Brandi PA Unavailable Unavailable Kukulski, Julianna Brandi PA Unavailable Unavailable Kukulski, Julianna Brandi PA Unavailable Unavailable Kukulskarmen, Julianna VALDEZ Unavailable Unavailable Kukulskarmen, Julianna VALDEZ Unavailable Unavailable Kukulski, Julianna VALDEZ Unavailable Unavailable ALBALA, Ashly JOHNSON MD Unavailable Unavailable ALBALA, Ashly JOHNSON MD Unavailable Unavailable ALBALA, Ashly JOHNSON MD Unavailable Unavailable ALBALA, Ashly JOHNSON MD Unavailable Unavailable ALBALA, Ashly JOHNSON MD Unavailable Unavailable ALBALA, Ashly JOHNSON MD Unavailable Unavailable ALBALA, Ashly JOHNSON MD Unavailable Unavailable ALBALA, Ashly JOHNSON MD Unavailable Unavailable ALBALA, Ashly JOHNSON MD Unavailable Unavailable ALBALA, Ashly JOHNSON MD Unavailable Unavailable ALBALA, Ashly JOHNSON MD Unavailable Unavailable ALBALA, Ashly JOHNSON MD Unavailable Unavailable ALBALA, Ashly JOHNSON MD Unavailable Unavailable ALBALA, Ashly JOHNSON MD Unavailable Unavailable ALBALA, Ashly JOHNSON MD Unavailable Unavailable ALBALA, Ashly JOHNSON MD Unavailable Unavailable ALBALA, Ashly JOHNSON MD Unavailable Unavailable ALBALA, Ashly JOHNSON MD Unavailable Unavailable ALBALA, Ashly JOHNSON MD Unavailable Unavailable ALBALA, Ashly JOHNSON MD Unavailable Unavailable ALBALA, Ashly JOHNSON MD Unavailable Unavailable ALBALA, Ashly JOHNSON MD Unavailable Unavailable ALBALA, Ashly JOHNSON MD Unavailable Unavailable ALBALA, Ashly JOHNSON MD Unavailable Unavailable ALBALA, Ashly JOHNSON MD Unavailable Unavailable ALBALA, Ashly JOHNSON MD Unavailable Unavailable ALBALA, Ashly JOHNSON MD Unavailable Unavailable ALBALA, Ashly JOHNSON MD Unavailable Unavailable ALBALA, Ashly JOHNSON MD Unavailable Unavailable ALBALA, Ashly JOHNSON MD Unavailable Unavailable ALBALA, Ashly JOHNSON MD Unavailable Unavailable ALBALA, Ashly JOHNSON MD Unavailable Unavailable ALBALA, Ashly JOHNSON MD Unavailable Unavailable ALBALA, Ashly JOHNSON MD Unavailable Unavailable ALBALA, Ashly JOHNSON MD Unavailable Unavailable ALBALA, Ashly JOHNSON MD Unavailable Unavailable ALBALA, Ashly JOHNSON MD Unavailable Unavailable ALBALA, Ashly JOHNSON MD Unavailable Unavailable ALBALA, Ashly JOHNSON MD Unavailable Unavailable ALBALA, Ashly JOHNSON MD Unavailable Unavailable ALBALA, Ashly JOHNSON MD Unavailable Unavailable ALBALA, Ashly JOHNSON MD Unavailable Unavailable ALBALA, Ashly JOHNSON MD Unavailable Unavailable ALBALA, Ashyl JOHNSON MD Unavailable Unavailable ALBALA, Ashly JOHNSON MD Unavailable Unavailable ALBALA, Ashly JOHNSON MD Unavailable Unavailable ALBALA, Ashly JOHNSON MD Unavailable Unavailable ALBALA, Ashly JOHNSON MD Unavailable Unavailable ALBALA, Ashly JOHNSON MD Unavailable Unavailable ALBALA, Ashly JOHNSON MD Unavailable Unavailable ALBALA, Ashly JOHNSON MD Unavailable Unavailable ALBALA, Ashly JOHNSON MD Unavailable Unavailable ALBALA, Ashly JOHNSON MD Unavailable Unavailable ALBALA, Ashly JOHNSON MD Unavailable Unavailable ALBALA, Ashly JOHNSON MD Unavailable Unavailable ALBALA, Ashly JOHNSON MD Unavailable Unavailable ALBALA, Ashly JOHNSON MD Unavailable Unavailable ALBALA, Ashly JOHNSON MD Unavailable Unavailable ALBALA, Ashly JOHNSON MD Unavailable Unavailable ALBALA, Ashly JOHNSON MD Unavailable Unavailable ALBALA, Ashly JOHNSON MD Unavailable Unavailable ALBALA, Ashly JOHNSON MD Unavailable Unavailable ALBALA, Ashly JOHNSON MD Unavailable Unavailable ALBALA, Ashly JOHNSON MD Unavailable Unavailable ALBALA, Ashly JOHNSON MD Unavailable Unavailable ALBALA, Ashly JOHNSON MD Unavailable Unavailable ALBALA, Ashly JOHNSON MD Unavailable Unavailable ALBALA, Ashly JOHNSON MD Unavailable Unavailable ALBALA, Ashly JOHNSON MD Unavailable Unavailable ALBALA, Ashly JOHNSON MD Unavailable Unavailable ALBALA, Ashly JOHNSON MD Unavailable Unavailable ALBALA, Ashly JOHNSON MD Unavailable Unavailable ALBALA, Ashly JOHNSON MD Unavailable Unavailable ALBALA, Ashly JOHNSON MD Unavailable Unavailable ALBALA, Ashly JOHNSON MD Unavailable Unavailable ALBALA, Ashly JOHNSON MD Unavailable Unavailable ALBALA, Ashly JOHNSON MD Unavailable Unavailable ALBALA, Ashly JOHNSON MD Unavailable Unavailable ALBALA, Ashly JOHNSON MD Unavailable Unavailable ALBALA, Ashly JOHNSON MD Unavailable Unavailable ALBALA, Ashly JOHNSON MD Unavailable Unavailable ALBALA, Ashly JOHNSON MD Unavailable Unavailable ALBALA, Ashly JOHNSON MD Unavailable Unavailable ALBALA, Ashly JOHNSON MD Unavailable Unavailable ALBALA, Ashly JOHNSON MD Unavailable Unavailable ALBALA, Ashly JOHNSON MD Unavailable Unavailable ALBALA, Ashly JOHNSON MD Unavailable Unavailable ALBALA, Ashly JOHNSON MD Unavailable Unavailable ALBALA, Ashly JOHNSON MD Unavailable Unavailable ALBALA, Ashly JOHNSON MD Unavailable Unavailable Elroy RODRIGUEZ MD Unavailable Unavailable Elroy RODRIGUEZ MD Unavailable Unavailable Elroy RODRIGUEZ MD Unavailable Unavailable Elroy RODRIGUEZ MD Unavailable Unavailable Elroy RODRIGUEZ MD Unavailable Unavailable Elroy RODRIGUEZ MD Unavailable Unavailable Elroy RODRIGUEZ MD Unavailable Unavailable Elroy RODRIGUEZ MD Unavailable Unavailable Elroy RODRIGUEZ MD Unavailable Unavailable Elroy RODRIGUEZ MD Unavailable Unavailable Elroy RODRIGUEZ MD Unavailable Unavailable Elroy RODRIGUEZ MD Unavailable Unavailable Elroy RODRIGUEZ MD Unavailable Unavailable Elroy RODRIGUEZ MD Unavailable Unavailable Elroy RODRIGUEZ MD Unavailable Unavailable Elroy RODRIGUEZ MD Unavailable Unavailable Elroy RODRIGUEZ MD Unavailable Unavailable Elroy RODRIGUEZ MD Unavailable Unavailable Elroy RODRIGUEZ MD Unavailable Unavailable Elroy RODRIGUEZ MD Unavailable Unavailable Elroy RODRIGUEZ MD Unavailable Unavailable Elroy RODRIGUEZ MD Unavailable Unavailable Elroy RODRIGUEZ MD Unavailable Unavailable Elroy RODRIGUEZ MD Unavailable Unavailable Elroy RODRIGUEZ MD Unavailable Unavailable Elroy RODRIGUEZ MD Unavailable Unavailable Elroy RODRIGUEZ MD Unavailable Unavailable Elroy RODRIGUEZ MD Unavailable Unavailable Elroy RODRIGUEZ MD Unavailable Unavailable Elroy RODRIGUEZ MD Unavailable Unavailable Elroy RODRIGUEZ MD Unavailable Unavailable Elroy RODRIGUEZ MD Unavailable Unavailable Elroy RODRIGUEZ MD Unavailable Unavailable WILL, H RYAN MD Unavailable Unavailable WILL, H RYAN MD Unavailable Unavailable WILL, H RYAN MD Unavailable Unavailable WILL, H RYAN MD Unavailable Unavailable WILL, H RYAN MD Unavailable Unavailable WILL, H RYAN MD Unavailable Unavailable WILL, H RYAN MD Unavailable Unavailable WILL, H RYAN MD Unavailable Unavailable WILL, H RYAN MD Unavailable Unavailable WILL, H RYAN MD Unavailable Unavailable WILL, H RYAN MD Unavailable Unavailable WILL, H RYAN MD Unavailable Unavailable WILL, H RYAN MD Unavailable Unavailable WILL, H RYAN MD Unavailable Unavailable WILL, H RYAN MD Unavailable Unavailable WILL, H RYAN MD Unavailable Unavailable WILL, H RYAN MD Unavailable Unavailable WILL, H RYAN MD Unavailable Unavailable WILL, H RYAN MD Unavailable Unavailable WILL, H RYAN MD Unavailable Unavailable WILL, H RYAN MD Unavailable Unavailable WILL, H RYAN MD Unavailable Unavailable WILL, H RYAN MD Unavailable Unavailable WILL, H RYAN MD Unavailable Unavailable WILL, H RYAN MD Unavailable Unavailable WILL, H RYAN MD Unavailable Unavailable WILL, H RYAN MD Unavailable Unavailable WILL, H RYAN MD Unavailable Unavailable WILL, H RYAN MD Unavailable Unavailable WILL, H RYAN MD Unavailable Unavailable WILL, H RYAN MD Unavailable Unavailable WILL, H RYAN MD Unavailable Unavailable WILL, H RYAN MD Unavailable Unavailable WILL, H RYAN MD Unavailable Unavailable WILL, H RYAN MD Unavailable Unavailable WILL, H RYAN MD Unavailable Unavailable WILL, H RYAN MD Unavailable Unavailable WILL, H RYAN MD Unavailable Unavailable WILL, H RYAN MD Unavailable Unavailable WILL, H RYAN MD Unavailable Unavailable WILL, H RYAN MD Unavailable Unavailable WILL, H RYAN MD Unavailable Unavailable Adolph Chan MD Unavailable Unavailable Adolph Chan MD Unavailable Unavailable Adolph Chan MD Unavailable Unavailable Adolph Chan MD Unavailable Unavailable Adolph Chan MD Unavailable Unavailable Adolph Chan MD Unavailable Unavailable Adolph Chan MD Unavailable Unavailable Adolph Chan MD Unavailable Unavailable Adolph Chan MD Unavailable Unavailable Adolph Chan MD Unavailable Unavailable NarAdolph lewis MD Unavailable Unavailable Adolph Chan MD Unavailable Unavailable Adolph Chan MD Unavailable Unavailable Adolph Chan MD Unavailable Unavailable Adolph Chan MD Unavailable Unavailable Adolph Chan MD Unavailable Unavailable Adolph Chan MD Unavailable Unavailable Adolph Chan MD Unavailable Unavailable Adolph Chan MD Unavailable Unavailable Adolph Chan MD Unavailable Unavailable Adolph Chan MD Unavailable Unavailable Adolph Chan MD Unavailable Unavailable Adolph Chan MD Unavailable Unavailable Adolph Chan MD Unavailable Unavailable Adolph Chan MD Unavailable Unavailable Narins, Durant MD Unavailable Unavailable Narins, Adolph MD Unavailable Unavailable Narins, Adolph MD Unavailable Unavailable Narins, Adolph MD Unavailable Unavailable Narins, Adolph MD Unavailable Unavailable Narins, Adolph MD Unavailable Unavailable Narins, Durant MD Unavailable Unavailable Narins, Adolph MD Unavailable Unavailable Narins, Adolph MD Unavailable Unavailable Narins, Durant MD Unavailable Unavailable Narins, Durant MD Unavailable Unavailable Narins, Durant MD Unavailable Unavailable Narins, Adolph MD Unavailable Unavailable Narins, Durant MD Unavailable Unavailable Narins, Durant MD Unavailable Unavailable Narins, Adolph MD Unavailable Unavailable Narins, Durant MD Unavailable Unavailable Narins, Durant MD Unavailable Unavailable Narins, Adolph MD Unavailable Unavailable Narins, Durant MD Unavailable Unavailable BRYDEN, A YVES DO Unavailable Unavailable BRYDEN, A YVES DO Unavailable Unavailable BRYDEN, A YVES DO Unavailable Unavailable BRYDEN, A YVES DO Unavailable Unavailable BRYDEN, A YVES DO Unavailable Unavailable BRYDEN, A YVES DO Unavailable Unavailable BRYDEN, A YVES DO Unavailable Unavailable BRYDEN, A YVES DO Unavailable Unavailable BRYDEN, A YVES DO Unavailable Unavailable BRYDEN, A YVES DO Unavailable Unavailable BRYDEN, A YVES DO Unavailable Unavailable BRYDEN, A YVES DO Unavailable Unavailable BRYDEN, A YVES DO Unavailable Unavailable BRYDEN, A YVES DO Unavailable Unavailable BRYDEN, A YVES DO Unavailable Unavailable BRYDEN, A YVES DO Unavailable Unavailable BRYDEN, A YVES DO Unavailable Unavailable BRYDEN, A YVES DO Unavailable Unavailable BRYDEN, A YVES DO Unavailable Unavailable BRYDEN, A YVES DO Unavailable Unavailable BRYDEN, A YVES DO Unavailable Unavailable BRYDEN, A YVES DO Unavailable Unavailable BRYDEN, A YVES DO Unavailable Unavailable BRYDEN, A YVES DO Unavailable Unavailable BRYDEN, A YVES DO Unavailable Unavailable BRYDEN, A YVES DO Unavailable Unavailable BRYDEN, A YVES DO Unavailable Unavailable Re-disclosure Warning The records that you are about to access may contain information from federally-assisted alcohol or drug abuse programs. If such information is present, then the following federally mandated warning applies: This information has been disclosed to you from records protected by federal confidentiality rules (42 CFR part 2). The federal rules prohibit you from making any further disclosure of this information unless further disclosure is expressly permitted by the written consent of the person to whom it pertains or as otherwise permitted by 42 CFR part 2. A general authorization for the release of medical or other information is NOT sufficient for this purpose. The Federal rules restrict any use of the information to criminally investigate or prosecute any alcohol or drug abuse patient.The records that you are about to access may contain highly sensitive health information, the redisclosure of which is protected by Article 27-F of the [facility] Public Health law. If you continue you may have access to information: Regarding HIV / AIDS; Provided by facilities licensed or operated by the [facility] Office of Mental Health; or Provided by the [facility] Office for People With Developmental Disabilities. If such information is present, then the following [facility] mandated warning applies: This information has been disclosed to you from confidential records which are protected by state law. State law prohibits you from making any further disclosure of this information without the specific written consent of the person to whom it pertains, or as otherwise permitted by law. Any unauthorized further disclosure in violation of state law may result in a fine or custodial sentence or both. A general authorization for the release of medical or other information is NOT sufficient authorization for further disc losure. Family History Family Member Name Family Member Gender Family Member Status Date o f Status Description Data Source(s) Unknown Male Problem [facility] ([facility], ) Unknown Female Problem [facility] ([facility] [place] Unknown Female Problem [facility] [place] Encounters Encounter Providers Location Date Indications Data Source(s ) Outpatient 03/28/2021 12:00:00 AM [facility] Outpatient Attender: Brandi Macias/ Narinder.MKeyonnaP. [facility]rolog y 10/19/2020 02:45:00 PM EST [facility] Outpatient Attender: Adolph Macias/ JadynPKeyonna Urolog y 08/11/2020 12:00:00 PM EDT [facility] ([facility] Outpatient Attender: RYAN RODRIGUEZ MD [facility] 04:00:00 PM EDT [facility] ([facility] Outpatient Attender: Adolph Macias/ JadynPKeyonna Urolog y 05/03/2020 03:30:00 PM EDT [facility] ([facility] [place] Outpatient Attender: RYAN Campos Office 03:20:00 PM EDT [facility] ([facility] Outpatient Referrer: RYAN RODRIGUEZ MD 04/05/2020 03:35:00 PM EDT [facility] Outpatient Referrer: RYAN RODRIGUEZ MD 03/28/2020 05:47:00 AM EDT [facility] Outpatient Referrer: RYAN RODRIGUEZ MD 03/28/2020 05:46:00 AM EDT [facility] Outpatient Attender: GUILLE SEQUEIRA MD [id number] 03/22/2020 12: 00:00 AM EDT [facility] Attender: ALEX Macias/ [facility] 03/20/2020 03:10:00 PM EDT [facility] ([facility] [place] Referrer: RYAN RODRIGUEZ MD 01/27/2020 11:49:00 AM EDT [facility] Outpatient Referrer: RYAN RODRIGUEZ MD 01/27/2020 11:48:00 AM EDT [facility] Outpatient Referrer: RYAN RODRIGUEZ MD 01/27/2020 09:39:00 AM EDT [facility] Outpatient Referrer: RYAN RODRIGUEZ MD 01/26/2020 11:50:00 AM EDT [facility] Outpatient Attender: RYAN Campos Office 11:30:00 AM EDT [facility] ([facility] Out[facility] Attender: RYAN Campos Office 05/2020 10:00:00 AM EDT [facility] ([facility] Out[facility] Attender: RYAN Campos Office 04/2020 03:00:00 PM EDT [facility] [facility] Outpatient Attender: RYAN Campos Office 10/2019 03:40:00 PM EDT [facility] ([facility] Outpatient Attender: RYAN Campos Office 01:00:00 PM EST [facility] ([facility] Outpatient Attender: YVES Shipman/Kiley/Lamont/William aldana 11/16/2019 09:10:00 AM EST [facility] ([facility] Outpatient Attender: RYAN RODRIGUEZ MD [place] Office 03:00:00 PM EST [facility] ([facility] OutpatientOFFICE/OUTPATIENT VISIT, EST 10/28/2019 Attender: NATHANIEL VALDEZ 10/28/2019 06:28:41 PM EST 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 IIV4 06/21/2020 02:33:00 PM EDT completed [facility] ([facility] Medications Medication Brand Name Start Date Product Form Dose Route Admi nistrative Instructions Pharmacy Instructions Status Indications Reaction Description Data Source(s) Metformin hydrochloride 850 MG Oral Tablet METFORMIN HCL 08/27/2020 12:00:00 AM EST tablet 90 TAKE ONE TABLET BY MOUTH THREE TIMES A DAY MAXIMUM DAILY DOSE = 3 TAKE ONE TABLET BY MOUTH THREE TIMES A DAY MAXIMUM LEONA LY DOSE = 3 SOLD: 10/23/2020 [facility] 60 mg 08/27/2020 12:00:00 AM EST capsule,biphase delayed releas 90 TAKE ONE CAPSULE BY MOUTH EVERY DAY TAKE ONE CAPSULE BY MOUTH EVERY DAY SOLD: 08/27/2020 [facility] Metformin hydrochloride 850 MG Oral Tablet METFORMIN HCL 08/27/2020 12:00:00 AM EST tablet 90 TAKE ONE TABLET BY MOUTH THREE TIMES A DAY MAXIMUM DAILY DOSE = 3 TAKE ONE TABLET BY MOUTH THREE TIMES A DAY MAXIMUM LEONA LY DOSE = 3 SOLD: 08/27/2020 [facility] Metformin hydrochloride 850 MG Oral Tablet METFORMIN HCL 08/27/2020 12:00:00 AM EST tablet 90 TAKE ONE TABLET BY MOUTH THREE TIMES A DAY MAXIMUM DAILY DOSE = 3 TAKE ONE TABLET BY MOUTH THREE TIMES A DAY MAXIMUM LEONA LY DOSE = 3 SOLD: 09/26/2020 [facility] 5 mg 08/19/2020 12:00:00 AM EST tablet 90 TAKE ONE TABLET BY MOUTH EVERY DAY TAKE ONE TABLET BY MOUTH EVERY DAY SOLD: 08/24/2020 [facility] solifenacin succinate 5 MG Oral Tablet [VESICARE] Vesicare 08/18/2020 12:00:00 AM EST ORAL completed [facility] ([facility] [place]) 4 mg 08/08/2020 12:00:00 AM EDT tablet 90 TAKE ONE TABLET BY MOUTH EVERY 6 HOURS NEEDED FOR NAUSEA TAKE ONE TABLET BY MOUTH EVERY 6 HOURS A S NEEDED FOR NAUSEA SOLD: 08/10/2020 [facility] 50-25 mg 06/12/2020 12:00:00 AM EDT tablet 45 TAKE 1/2 TABLET BY MOUTH ONCE DAILY TAKE 1/2 TABLET BY MOUTH ONCE DAILY SOLD: 06/14/2020 [facility] 50-25 mg 06/12/2020 12:00:00 AM EDT tablet 45 TAKE 1/2 TABLET BY MOUTH ONCE DAILY TAKE 1/2 TABLET BY MOUTH ONCE DAILY SOLD: 09/16/2020 [facility] Atenolol 50 MG / Chlorthalidone 25 MG Oral Tablet Atenolol-C hlorthalidone 06/12/2020 12:00:00 AM EDT active [facility] ([facility] 10 mEq (1,080 mg) 06/01/2020 12:00:00 AM EDT tablet extended release 120 TAKE TWO TABLETS BY MOUTH TWICE A DAY WITH MEALS TAKE TWO TABLETS BY MOUTH TWICE A DAY WITH MEALS SOLD: 06/01/2020 [facility] 10 mEq (1,080 mg) 06/01/2020 12:00:00 AM EDT tablet extended release 120 TAKE TWO TABLETS BY MOUTH TWICE A DAY WITH MEALS TAKE TWO TABLETS BY MOUTH TWICE A DAY WITH MEALS SOLD: 09/26/2020 [facility] 10 mEq (1,080 mg) 06/01/2020 12:00:00 AM EDT tablet extended release 120 TAKE TWO TABLETS BY MOUTH TWICE A DAY WITH MEALS TAKE TWO TABLETS BY MOUTH TWICE A DAY WITH MEALS SOLD: 08/08/2020 [facility] 50 mg 05/04/2020 12:00:00 AM EDT tablet extended release 24 hr 30 TAKE ONE TABLET BY MOUTH EVERY DAY TAKE ONE TABLET BY MOUTH EVERY DAY SOLD: 07/02/2020 [facility] 50 mg 05/04/2020 12:00:00 AM EDT tablet extended release 24 hr 30 TAKE ONE TABLET BY MOUTH EVERY DAY TAKE ONE TABLET BY MOUTH EVERY DAY SOLD: 10/23/2020 [facility] 50 mg 05/04/2020 12:00:00 AM EDT tablet extended release 24 hr 30 TAKE ONE TABLET BY MOUTH EVERY DAY TAKE ONE TABLET BY MOUTH EVERY DAY SOLD: 05/04/2020 [facility] 50 mg 05/04/2020 12:00:00 AM EDT tablet extended release 24 hr 30 TAKE ONE TABLET BY MOUTH EVERY DAY TAKE ONE TABLET BY MOUTH EVERY DAY SOLD: 07/31/2020 [facility] 50 mg 05/04/2020 12:00:00 AM EDT tablet extended release 24 hr 30 TAKE ONE TABLET BY MOUTH EVERY DAY TAKE ONE TABLET BY MOUTH EVERY DAY SOLD: 08/27/2020 [facility] 50 mg 05/04/2020 12:00:00 AM EDT tablet extended release 24 hr 30 TAKE ONE TABLET BY MOUTH EVERY DAY TAKE ONE TABLET BY MOUTH EVERY DAY SOLD: 09/26/2020 [facility] 50 mg 05/04/2020 12:00:00 AM EDT tablet extended release 24 hr 30 TAKE ONE TABLET BY MOUTH EVERY DAY TAKE ONE TABLET BY MOUTH EVERY DAY SOLD: 06/01/2020 [facility] 24 HR mirabegron 50 MG Extended Release Oral Tablet [Myrbetr iq] Myrbetriq 05/03/2020 12:00:00 AM EDT ORAL active [facility] ([facility] [place]) Famotidine 20 MG Oral Tablet FAMOTIDINE 04/27/2020 12:00:00 AM EDT tab let 60 TAKE ONE TABLET BY MOUTH TWICE A DAY TAKE ONE TABLET BY MOUTH TWICE A DAY SOLD: 08/27/2020 [facility] 20 mg 04/27/2020 12:00:00 AM EDT tablet 60 TAKE ONE TABLET BY MOUTH TWICE A DAY TAKE ONE TABLET BY MOUTH TWICE A DAY SOLD: 04/29/2020 [facility] 20 mg 04/27/2020 12:00:00 AM EDT tablet 60 TAKE ONE TABLET BY MOUTH TWICE A DAY TAKE ONE TABLET BY MOUTH TWICE A DAY SOLD: 06/24/2020 [facility] 20 mg 04/27/2020 12:00:00 AM EDT tablet 60 TAKE ONE TABLET BY MOUTH TWICE A DAY TAKE ONE TABLET BY MOUTH TWICE A DAY SOLD: 05/24/2020 [facility] 20 mg 04/27/2020 12:00:00 AM EDT tablet 60 TAKE ONE TABLET BY MOUTH TWICE A DAY TAKE ONE TABLET BY MOUTH TWICE A DAY SOLD: 10/09/2020 [facility] 20 mg 04/27/2020 12:00:00 AM EDT tablet 60 TAKE ONE TABLET BY MOUTH TWICE A DAY TAKE ONE TABLET BY MOUTH TWICE A DAY SOLD: 07/31/2020 [facility] 5 mg 04/10/2020 12:00:00 AM EDT tablet 30 TAKE ONE TABLET BY MOUTH EVERY DAY TAKE ONE TABLET BY MOUTH EVERY DAY SOLD: 08/27/2020 [facility] 5 mg 04/10/2020 12:00:00 AM EDT tablet 30 TAKE ONE TABLET BY MOUTH EVERY DAY TAKE ONE TABLET BY MOUTH EVERY DAY SOLD: 05/15/2020 [facility] 5 mg 04/10/2020 12:00:00 AM EDT tablet 30 TAKE ONE TABLET BY MOUTH EVERY DAY TAKE ONE TABLET BY MOUTH EVERY DAY SOLD: 04/10/2020 [facility] 5 mg 04/10/2020 12:00:00 AM EDT tablet 30 TAKE ONE TABLET BY MOUTH EVERY DAY TAKE ONE TABLET BY MOUTH EVERY DAY SOLD: 06/14/2020 [facility] 5 mg 04/10/2020 12:00:00 AM EDT tablet 30 TAKE ONE TABLET BY MOUTH EVERY DAY TAKE ONE TABLET BY MOUTH EVERY DAY SOLD: 09/26/2020 [facility] 5 mg 04/10/2020 12:00:00 AM EDT tablet 30 TAKE ONE TABLET BY MOUTH EVERY DAY TAKE ONE TABLET BY MOUTH EVERY DAY SOLD: 10/23/2020 [facility] 5 mg 04/10/2020 12:00:00 AM EDT tablet 30 TAKE ONE TABLET BY MOUTH EVERY DAY TAKE ONE TABLET BY MOUTH EVERY DAY SOLD: 07/12/2020 [facility] Amiloride Hydrochloride 5 MG Oral Tablet aMILoride HCl 5 MG Oral Tablet (MIDAMOR) aMILoride HCl 5 MG Oral Tablet (MIDAMOR) 03/22/2020 12:00:00 AM EDT 5 mg Oral active Take 1 tablet by mouth d [facility] Potassium Chloride Hiral ER 10 MEQ Oral Tablet Extended Release (K-DUR) 79533-522-93 03/22/2020 12:00:00 AM EDT 20 meq Oral activ e Take 2 tablets by mouth Two times daily with [facility] potassium citrate 10 MEQ Extended Releas e Oral Tablet Potassium Citrate ER 10 MEQ (1080 MG) Oral Tablet Extended Release (UROCIT-K) Potassium Citrate ER 10 MEQ (1080 MG) Oral Tablet Extended Release (UROCIT-K) 03/22/2020 12:00:00 AM EDT 20 meq Oral active Nephrolithiasis Take 2 tablets by mouth Two times daily with [facility] Nephrolithiasis 10 mEq 03/22/2020 12:00:00 AM EDT tablet,ER particles/cry stals 120 TAKE TWO TABLETS BY MOUTH TWICE A DAY TAKE TWO TABLETS BY MOUTH TWICE A DAY SOLD: 05/24/2020 [facility] 10 mEq 03/22/2020 12:00:00 AM EDT tablet,ER particles/cry stals 120 TAKE TWO TABLETS BY MOUTH TWICE A DAY TAKE TWO TABLETS BY MOUTH TWICE A DAY SOLD: 09/16/2020 [facility] 10 mEq 03/22/2020 12:00:00 AM EDT tablet,ER particles/cry stals 120 TAKE TWO TABLETS BY MOUTH TWICE A DAY TAKE TWO TABLETS BY MOUTH TWICE A DAY SOLD: 03/24/2020 [facility] 850 mg 03/18/2020 12:00:00 AM EDT tablet 90 TAKE ONE TABLET BY MOUTH THREE TIMES A DAY TAKE ONE TABLET BY MOUTH THREE TIMES A DAY SOLD: 03/18/2020 [facility] 850 mg 03/18/2020 12:00:00 AM EDT tablet 90 TAKE ONE TABLET BY MOUTH THREE TIMES A DAY TAKE ONE TABLET BY MOUTH THREE TIMES A DAY SOLD: 05/27/2020 [facility] 850 mg 03/18/2020 12:00:00 AM EDT tablet 90 TAKE ONE TABLET BY MOUTH THREE TIMES A DAY TAKE ONE TABLET BY MOUTH THREE TIMES A DAY SOLD: 05/01/2020 [facility] Metformin hydrochloride 850 MG Oral Tablet METFORMIN HCL 03/18/2020 12:00:00 AM EDT tablet 90 TAKE ONE TABLET BY MOUTH THR EE TIMES A DAY TAKE ONE TABLET BY MOUTH THREE TIMES A DAY SOLD: 07/31/2020 [facility] Metformin hydrochloride 850 MG Oral Tablet METFORMIN HCL 03/18/2020 12:00:00 AM EDT tablet 90 TAKE ONE TABLET BY MOUTH THR EE TIMES A DAY TAKE ONE TABLET BY MOUTH THREE TIMES A DAY SOLD: 06/24/2020 [facility] atorvastatin 20 MG Oral Tablet ATORVASTATIN CALCIUM 02/14/2020 1 2:00:00 AM EDT tablet 90 TAKE ONE TABLET BY MOUTH EVERY D AY TAKE ONE TABLET BY MOUTH EVERY DAY SOLD: 05/15/2020 [facility] atorvastatin 20 MG Oral Tablet ATORVASTATIN CALCIUM 02/14/2020 1 2:00:00 AM EDT tablet 90 TAKE ONE TABLET BY MOUTH EVERY D AY TAKE ONE TABLET BY MOUTH EVERY DAY SOLD: 02/19/2020 [facility] atorvastatin 20 MG Oral Tablet ATORVASTATIN CALCIUM 02/14/2020 1 2:00:00 AM EDT tablet 90 TAKE ONE TABLET BY MOUTH EVERY D AY TAKE ONE TABLET BY MOUTH EVERY DAY SOLD: 08/27/2020 [facility] 5-325 mg 01/26/2020 12:00:00 AM EDT tablet 30 TAKE ONE TABLET BY MOUTH EVERY 8 HOURS NEEDED FOR PAIN MAXIMUM DAILY DOSE = 3 TAKE ONE TABLET BY MOUTH EVERY 8 HOURS NEEDED FOR PAIN MAXIMUM DAILY DOSE = 3 SOLD: 01/26/2020 [facility] Acetaminophen 325 MG / Oxycodone Hydrochloride 5 MG Or al Tablet Oxycodone-Acetaminophen 01/26/2020 12:00:00 AM EDT ORAL active [facility] ([facility] Injection (SC)/(Im) 01/19/2020 12:00:00 AM EDT completed [facility] ([facility] Medication administered onsite 20 mg 01/19/2020 12:00:00 AM EDT tablet 10 TAKE TWO TABLETS BY MOUTH EVERY DAY TAKE TWO TABLETS BY MOUTH EVERY DAY SOLD: 01/19/2020 [facility] Cephalexin 500 MG Oral Capsule [Keflex] Keflex 01/18/2020 12:00:0 0 AM EDT ORAL active [facility] ([facility] 500 mg 01/18/2020 12:00:00 AM EDT capsule 30 TAKE ONE CAPSULE BY MOUTH THREE TIMES A DAY TAKE ONE CAPSULE BY MOUTH THREE TIMES A DAY SOLD: 01/18/2020 [facility] 100 mg 01/13/2020 12:00:00 AM EDT tablet 90 TAKE ONE TABLET BY MOUTH EVERY DAY TAKE ONE TABLET BY MOUTH EVERY DAY SOLD: 10/04/2020 [facility] 100 mg 01/13/2020 12:00:00 AM EDT tablet 90 TAKE ONE TABLET BY MOUTH EVERY DAY TAKE ONE TABLET BY MOUTH EVERY DAY SOLD: 04/10/2020 [facility] 100 mg 01/13/2020 12:00:00 AM EDT tablet 90 TAKE ONE TABLET BY MOUTH EVERY DAY TAKE ONE TABLET BY MOUTH EVERY DAY SOLD: 07/12/2020 [facility] 100 mg 01/13/2020 12:00:00 AM EDT tablet 90 TAKE ONE TABLET BY MOUTH EVERY DAY TAKE ONE TABLET BY MOUTH EVERY DAY SOLD: 01/14/2020 [facility] sitagliptin 100 MG Oral Tablet [Januvia] Januvia 01/12/2020 12:00: 00 AM EDT ORAL active [facility] ([facility] 5-325 mg 12/17/2019 12:00:00 AM EST tablet 10 TAKE ONE TABLET BY MOUTH EVERY 6 HOURS NEEDED FOR PAIN AFTER SURGERY MAXIMUM DAILY DOSE = 4 TAKE ONE TABLET BY MOUTH EVERY 6 HOURS NEEDED FOR PAIN AFTER SURGERY MAXIMUM DAILY DOSE = 4 SOLD: 12/19/2019 [facility] Acetaminophen 325 MG / Hydrocodone Bitartrate 5 MG Oral Tabl et [Mahnomen] Mahnomen 12/14/2019 12:00:00 AM EST ORAL completed [facility]ENT ([facility] ) 137 mcg (0.1 %) 10/28/2019 12:00:00 AM EST aerosol,spray 30 SPRAY TWO SPRAYS IN EACH NOSTRIL EVERY 12 HOURS NEEDED SPRAY TWO SPRAYS IN EACH NOSTRIL EVERY 12 HOURS NEEDED SOLD: 10/28/2019 [facility] benzonatate 100 MG Oral Capsule BENZONATATE 10/28/2019 12:00:00 AM EST capsule 30 TAKE ONE CAPSULE BY MOUTH THREE TIMES A DAY TAKE ONE CAPSULE BY MOUTH THREE TIMES A DAY SOLD: 10/28/2019 [facility] benzonatate 100 MG Oral Capsule [Tessalo n Perles] Tessalon Perles 100 mg capsule Tessalon Perles 100 mg capsule 10/28/2019 12:00:00 AM EST 1 completed , Take 1 capsule orally Three times a day 10/28/2019 [facility] ([facility]) 20 mg 10/28/2019 12:00:00 AM EST tablet 10 TAKE TWO TABLETS BY MOUTH EVERY DAY TAKE TWO TABLETS BY MOUTH EVERY DAY SOLD: 10/28/2019 [facility] azelastine 137 mcg (0.1 %) nasal spray aerosol 10/28/2019 12:00:00 AM EST 2 completed , Take 2 aeros ol, spray with pump (mL) nasally Every 12 hours as needed 10/28/2019 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[facility]) Prednisone 20 MG Oral Tablet predniSONE 20 mg tablet predniS ONE 20 mg tablet 10/28/2019 12:00:00 AM EST 2 completed , Take 2 tablet orally Every day 10/28/2019 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[facility]) 20 mg 10/27/2019 12:00:00 AM EST tablet 60 TAKE ONE TABLET BY MOUTH TWICE A DAY TAKE ONE TABLET BY MOUTH TWICE A DAY SOLD: 04/17/2020 [facility] Famotidine 20 MG Oral Tablet FAMOTIDINE 10/27/2019 12:00:00 AM EST tab let 60 TAKE ONE TABLET BY MOUTH TWICE A DAY TAKE ONE TABLET BY MOUTH TWICE A DAY SOLD: 02/19/2020 [facility] Famotidine 20 MG Oral Tablet FAMOTIDINE 10/27/2019 12:00:00 AM EST tab let 60 TAKE ONE TABLET BY MOUTH TWICE A DAY TAKE ONE TABLET BY MOUTH TWICE A DAY SOLD: 12/22/2019 [facility] Famotidine 20 MG Oral Tablet FAMOTIDINE 10/27/2019 12:00:00 AM EST tab let 60 TAKE ONE TABLET BY MOUTH TWICE A DAY TAKE ONE TABLET BY MOUTH TWICE A DAY SOLD: 10/28/2019 [facility] 20 mg 10/27/2019 12:00:00 AM EST tablet 60 TAKE ONE TABLET BY MOUTH TWICE A DAY TAKE ONE TABLET BY MOUTH TWICE A DAY SOLD: 11/23/2019 [facility] 20 mg 10/27/2019 12:00:00 AM EST tablet 60 TAKE ONE TABLET BY MOUTH TWICE A DAY TAKE ONE TABLET BY MOUTH TWICE A DAY SOLD: 01/24/2020 [facility] Famotidine 20 MG Oral Tablet Famotidine 10/25/2019 12:00:00 AM EST ORAL active [facility] ([facility] 850 mg 10/08/2019 12:00:00 AM EST tablet 90 TAKE ONE TABLET BY MOUTH THREE TIMES A DAY MAXIMUM DAILY DOSE = 3 TAKE ONE TABLET BY MOUTH THREE TIMES A D AY MAXIMUM DAILY DOSE = 3 SOLD: 12/10/2019 [facility] 850 mg 10/08/2019 12:00:00 AM EST tablet 90 TAKE ONE TABLET BY MOUTH THREE TIMES A DAY MAXIMUM DAILY DOSE = 3 TAKE ONE TABLET BY MOUTH THREE TIMES A D AY MAXIMUM DAILY DOSE = 3 SOLD: 10/11/2019 [facility] 850 mg 10/08/2019 12:00:00 AM EST tablet 90 TAKE ONE TABLET BY MOUTH THREE TIMES A DAY MAXIMUM DAILY DOSE = 3 TAKE ONE TABLET BY MOUTH THREE TIMES A D AY MAXIMUM DAILY DOSE = 3 SOLD: 01/09/2020 [facility] 850 mg 10/08/2019 12:00:00 AM EST tablet 90 TAKE ONE TABLET BY MOUTH THREE TIMES A DAY MAXIMUM DAILY DOSE = 3 TAKE ONE TABLET BY MOUTH THREE TIMES A D AY MAXIMUM DAILY DOSE = 3 SOLD: 11/23/2019 [facility] 850 mg 10/08/2019 12:00:00 AM EST tablet 90 TAKE ONE TABLET BY MOUTH THREE TIMES A DAY MAXIMUM DAILY DOSE = 3 TAKE ONE TABLET BY MOUTH THREE TIMES A D AY MAXIMUM DAILY DOSE = 3 SOLD: 02/19/2020 [facility] 5-325 mg 09/17/2019 12:00:00 AM EST tablet 14 TAKE ONE TABLET BY MOUTH EVERY 4 HOURS NEEDED MAXIMUM DAILY DOSE = 6 TAKE ONE TABLET BY MOUTH EVERY 4 HOURS NEEDED MAXIMUM DAILY DOSE = 6 SOLD: 09/20/2019 [facility] 60 mg 09/02/2019 12:00:00 AM EST capsule,biphase delayed releas 30 TAKE ONE CAPSULE BY MOUTH EVERY DAY TAKE ONE CAPSULE BY MOUTH EVERY DAY SOLD: 01/02/2020 [facility] 60 mg 09/02/2019 12:00:00 AM EST capsule,biphase delayed releas 30 TAKE ONE CAPSULE BY MOUTH EVERY DAY TAKE ONE CAPSULE BY MOUTH EVERY DAY SOLD: 07/02/2020 [facility] 60 mg 09/02/2019 12:00:00 AM EST capsule,biphase delayed releas 30 TAKE ONE CAPSULE BY MOUTH EVERY DAY TAKE ONE CAPSULE BY MOUTH EVERY DAY SOLD: 06/05/2020 [facility] 60 mg 09/02/2019 12:00:00 AM EST capsule,biphase delayed releas 30 TAKE ONE CAPSULE BY MOUTH EVERY DAY TAKE ONE CAPSULE BY MOUTH EVERY DAY SOLD: 10/24/2019 [facility] 60 mg 09/02/2019 12:00:00 AM EST capsule,biphase delayed releas 30 TAKE ONE CAPSULE BY MOUTH EVERY DAY TAKE ONE CAPSULE BY MOUTH EVERY DAY SOLD: 04/01/2020 [facility] 60 mg 09/02/2019 12:00:00 AM EST capsule,biphase delayed releas 30 TAKE ONE CAPSULE BY MOUTH EVERY DAY TAKE ONE CAPSULE BY MOUTH EVERY DAY SOLD: 07/31/2020 [facility] 60 mg 09/02/2019 12:00:00 AM EST capsule,biphase delayed releas 30 TAKE ONE CAPSULE BY MOUTH EVERY DAY TAKE ONE CAPSULE BY MOUTH EVERY DAY SOLD: 02/01/2020 [facility] 60 mg 09/02/2019 12:00:00 AM EST capsule,biphase delayed releas 30 TAKE ONE CAPSULE BY MOUTH EVERY DAY TAKE ONE CAPSULE BY MOUTH EVERY DAY SOLD: 11/23/2019 [facility] 60 mg 09/02/2019 12:00:00 AM EST capsule,biphase delayed releas 30 TAKE ONE CAPSULE BY MOUTH EVERY DAY TAKE ONE CAPSULE BY MOUTH EVERY DAY SOLD: 09/27/2019 [facility] 60 mg 09/02/2019 12:00:00 AM EST capsule,biphase delayed releas 30 TAKE ONE CAPSULE BY MOUTH EVERY DAY TAKE ONE CAPSULE BY MOUTH EVERY DAY SOLD: 05/01/2020 [facility] 60 mg 09/02/2019 12:00:00 AM EST capsule,biphase delayed releas 30 TAKE ONE CAPSULE BY MOUTH EVERY DAY TAKE ONE CAPSULE BY MOUTH EVERY DAY SOLD: 03/07/2020 [facility] 60 mg 09/02/2019 12:00:00 AM EST capsule,biphase delayed releas 30 TAKE ONE CAPSULE BY MOUTH EVERY DAY TAKE ONE CAPSULE BY MOUTH EVERY DAY SOLD: 09/02/2019 [facility] 4 mg 06/28/2019 12:00:00 AM EDT tablet 90 TAKE ONE TABLET BY MOUTH EVERY 6 HOURS NEEDED FOR NAUSEA TAKE ONE TABLET BY MOUTH EVERY 6 HOURS A S NEEDED FOR NAUSEA SOLD: 12/27/2019 [facility] 50-25 mg 06/08/2019 12:00:00 AM EDT tablet 15 TAKE 1/2 TABLET BY MOUTH ONCE DAILY TAKE 1/2 TABLET BY MOUTH ONCE DAILY SOLD: 11/14/2019 [facility] 50-25 mg 06/08/2019 12:00:00 AM EDT tablet 15 TAKE 1/2 TABLET BY MOUTH ONCE DAILY TAKE 1/2 TABLET BY MOUTH ONCE DAILY SOLD: 02/11/2020 [facility] 50-25 mg 06/08/2019 12:00:00 AM EDT tablet 15 TAKE 1/2 TABLET BY MOUTH ONCE DAILY TAKE 1/2 TABLET BY MOUTH ONCE DAILY SOLD: 12/10/2019 [facility] 50-25 mg 06/08/2019 12:00:00 AM EDT tablet 15 TAKE 1/2 TABLET BY MOUTH ONCE DAILY TAKE 1/2 TABLET BY MOUTH ONCE DAILY SOLD: 01/09/2020 [facility] 50-25 mg 06/08/2019 12:00:00 AM EDT tablet 15 TAKE 1/2 TABLET BY MOUTH ONCE DAILY TAKE 1/2 TABLET BY MOUTH ONCE DAILY SOLD: 10/16/2019 [facility] 50-25 mg 06/08/2019 12:00:00 AM EDT tablet 15 TAKE 1/2 TABLET BY MOUTH ONCE DAILY TAKE 1/2 TABLET BY MOUTH ONCE DAILY SOLD: 04/10/2020 [facility] 50-25 mg 06/08/2019 12:00:00 AM EDT tablet 15 TAKE 1/2 TABLET BY MOUTH ONCE DAILY TAKE 1/2 TABLET BY MOUTH ONCE DAILY SOLD: 03/13/2020 [facility] 50-25 mg 06/08/2019 12:00:00 AM EDT tablet 15 TAKE 1/2 TABLET BY MOUTH ONCE DAILY TAKE 1/2 TABLET BY MOUTH ONCE DAILY SOLD: 05/15/2020 [facility] 50-25 mg 06/08/2019 12:00:00 AM EDT tablet 15 TAKE 1/2 TABLET BY MOUTH ONCE DAILY TAKE 1/2 TABLET BY MOUTH ONCE DAILY SOLD: 09/11/2019 [facility] 850 mg 06/07/2019 12:00:00 AM EDT tablet 90 TAKE ONE TABLET BY MOUTH THREE TIMES A DAY TAKE ONE TABLET BY MOUTH THREE TIMES A DAY SOLD: 09/11/2019 [facility] cetirizine hydrochloride 10 MG Oral Tablet [Zyrtec] Zy rTEC 10 mg tablet ZyrTEC 10 mg tablet 04/02/2019 12:00:00 AM EDT 1 completed 10/28/2019 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[facility]) Flonase Allergy Relief 50 mcg/actuation nasal spray,suspensi on 04/02/2019 12:00:00 AM EDT 2 completed 2019 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[facility]) 10 mEq 03/26/2019 12:00:00 AM EDT tablet extended release 120 TAKE TWO TABLETS BY MOUTH TWICE A DAY TAKE TWO TABLETS BY MOUTH TWICE A DAY SOLD: 11/14/2019 [facility] 10 mEq 03/26/2019 12:00:00 AM EDT tablet extended release 120 TAKE TWO TABLETS BY MOUTH TWICE A DAY TAKE TWO TABLETS BY MOUTH TWICE A DAY SOLD: 12/22/2019 [facility] 10 mEq (1,080 mg) 03/26/2019 12:00:00 AM EDT tablet extended release 120 TAKE TWO TABLETS BY MOUTH TWICE A DAY TAKE TWO TABLETS BY MOUTH TWICE A DAY SOLD: 10/16/2019 [facility] 5 mg 03/26/2019 12:00:00 AM EDT tablet 30 TAKE ONE TABLET BY MOUTH EVERY DAY TAKE ONE TABLET BY MOUTH EVERY DAY SOLD: 10/24/2019 [facility] 5 mg 03/26/2019 12:00:00 AM EDT tablet 30 TAKE ONE TABLET BY MOUTH EVERY DAY TAKE ONE TABLET BY MOUTH EVERY DAY SOLD: 12/22/2019 [facility] 10 mEq (1,080 mg) 03/26/2019 12:00:00 AM EDT tablet extended release 120 TAKE TWO TABLETS BY MOUTH TWICE A DAY TAKE TWO TABLETS BY MOUTH TWICE A DAY SOLD: 03/01/2020 [facility] 5 mg 03/26/2019 12:00:00 AM EDT tablet 30 TAKE ONE TABLET BY MOUTH EVERY DAY TAKE ONE TABLET BY MOUTH EVERY DAY SOLD: 09/18/2019 [facility] 10 mEq (1,080 mg) 03/26/2019 12:00:00 AM EDT tablet extended release 120 TAKE TWO TABLETS BY MOUTH TWICE A DAY TAKE TWO TABLETS BY MOUTH TWICE A DAY SOLD: 12/27/2019 [facility] Potassium Chloride 10 MEQ Extended Relea se Oral Tablet [Klor-Con] KLOR-CON 10 10 MEQ tablet KLOR-CON 10 10 MEQ tablet 03/26/2019 12:00:00 AM EDT 20 meq Oral aborted Take 2 tablets by mouth Two Times Daily [facility] potassium citrate 10 MEQ Extended Releas e Oral Tablet potassium citrate (UROCIT- K) 10 MEQ (1080 MG) SR tablet potassium citrate (UROCIT-K) 10 MEQ (108 0 MG) SR tablet 03/26/2019 12:00:00 AM EDT 20 meq Oral aborted Nep hrolithiasis Take 2 tablets by mouth Two Times Daily [facility] Nephrolithiasis Amiloride Hydrochloride 5 MG Oral Tablet amiloride (PR DAMOR) 5 MG tablet amiloride (MIDAMOR) 5 MG tablet 03/26/2019 12:00:00 AM EDT 5 mg O ral aborted Take 1 tablet by mouth daily [facility] 5 mg 03/26/2019 12:00:00 AM EDT tablet 30 TAKE ONE TABLET BY MOUTH EVERY DAY TAKE ONE TABLET BY MOUTH EVERY DAY SOLD: 03/13/2020 [facility] 5 mg 03/26/2019 12:00:00 AM EDT tablet 30 TAKE ONE TABLET BY MOUTH EVERY DAY TAKE ONE TABLET BY MOUTH EVERY DAY SOLD: 11/23/2019 [facility] 5 mg 03/26/2019 12:00:00 AM EDT tablet 30 TAKE ONE TABLET BY MOUTH EVERY DAY TAKE ONE TABLET BY MOUTH EVERY DAY SOLD: 02/11/2020 [facility] atorvastatin 20 MG Oral Tablet ATORVASTATIN CALCIUM 02/18/2019 1 2:00:00 AM EDT tablet 30 TAKE ONE TABLET BY MOUTH EVERY D AY TAKE ONE TABLET BY MOUTH EVERY DAY SOLD: 10/11/2019 [facility] atorvastatin 20 MG Oral Tablet ATORVASTATIN CALCIUM 02/18/2019 1 2:00:00 AM EDT tablet 30 TAKE ONE TABLET BY MOUTH EVERY D AY TAKE ONE TABLET BY MOUTH EVERY DAY SOLD: 11/14/2019 [facility] atorvastatin 20 MG Oral Tablet ATORVASTATIN CALCIUM 02/18/2019 1 2:00:00 AM EDT tablet 30 TAKE ONE TABLET BY MOUTH EVERY D AY TAKE ONE TABLET BY MOUTH EVERY DAY SOLD: 09/07/2019 [facility] atorvastatin 20 MG Oral Tablet ATORVASTATIN CALCIUM 02/18/2019 1 2:00:00 AM EDT tablet 30 TAKE ONE TABLET BY MOUTH EVERY D AY TAKE ONE TABLET BY MOUTH EVERY DAY SOLD: 12/10/2019 [facility] atorvastatin 20 MG Oral Tablet ATORVASTATIN CALCIUM 02/18/2019 1 2:00:00 AM EDT tablet 30 TAKE ONE TABLET BY MOUTH EVERY D AY TAKE ONE TABLET BY MOUTH EVERY DAY SOLD: 01/09/2020 [facility] 150 mg 12/16/2018 12:00:00 AM EST tablet 60 TAKE ONE TABLET BY MOUTH TWICE A DAY MAXIMUM DAILY DOSE = 2 TAKE ONE TABLET BY MOUTH TWICE A DAY MAX IMUM DAILY DOSE = 2 SOLD: 09/27/2019 [facility] Polymyxin B 24885 UNT/ML / Trimethoprim 1 MG/ML Ophthalmic Solution [Polytrim] Polytrim 10,000 unit-1 mg/mL eye drops Polytrim 10,000 unit-1 mg/mL eye drops 07/08/2018 12:00:00 AM EDT completed 10/28/2019 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[facility]) Cephalexin 500 MG Oral Tablet cephALEXin 500 mg tablet cephA LEXin 500 mg tablet 07/08/2018 12:00:00 AM EDT 1 completed 10/28/2019 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[facility]) Insurance Providers Payer name Policy type / Coverage type Policy ID Covered libertarian ID Covered libertarian's relationship to diaz Policy Diaz Plan Information [employer] JULY CHAUDHRY PPO [phone] [id number] [employer] [place] [id number] [id number] EXCELLUS C [id number] Spouse [id number] [id number] BCBS B [id number] P [id number] ID [id number] Other In surance [id number] [employer] [id number] Blue Cross/Shield [id number] [place] [id number] VY [id number] [place] Commercial [id number] Family Dependent [id number] [place] PPO 302/307 [id number] ID IDENTIFICATION [id number] Other In surance [id number] [place] [id number] VY [id number] [place] [id number] Family Dependent [id number] [place] PPO 302/307 [id number] HU2 [id number] [employer] Health Maintenance Organization (HMO) [id number] Self [id number] [place] Commercial Family Dependent [place] Self [place] Commercial [place]CELL[place] C [id number] Spouse [id number] [employer] Commercial Family Dependent [place] PPO 302/307 [id number] HU2 [id number] BLUE CROSS O [id number] SP [id number] [place] BCBS B [id number] P VYW EXCE[employer]US BCBS B [id number] S VYW EXCELLUS BCBS [id number] Spo VYW [place] PPO 302/307 [id number] HU2 [id number] BLUE CROSS O [id number] SP [id number] BLUE CROSS [place] 1 [id number] VY [id number] SELFPAY 5 UNAVAILABLE 1 UNAVAILA BLE [place]BS [place] O [id number] U Problems, Conditions, and Diagnoses Code Display Name Description Problem Type Effective Dates Data Source(s) H61.23 Impacted cerumen, bilateral Impacted cer umen, bilateral (H61.23) 10/28/2019 [id number] 10/28/2019 06:28:41 PM EST 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[facility]) R09.81 Nasal congestion Nasal congestion (R09.81) 10/28/2019 [id number] 10/28/2019 06:28:41 PM EST 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[facility]) K43.9 Ventral hernia without obstruction or ga ngrene Ventral hernia without obstruction or gangrene (K43.9) 10/28/2019 [id number] 10/28/2019 06:28:4 1 PM EST 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[facility]) J02.9 Acute pharyngitis, unspecified Acute pha ryngitis, unspecified (J02.9) 10/28/2019 [id number] 04/02/2019 09:44:25 AM EDT - 10/28/2019 12:00:00 AM EST 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[facility]) J06.9 Acute upper respiratory infection, unspe cified Acute upper respiratory infection, unspecified (J06.9) 10/28/2019 [id number] 04/02/2019 09 :44:25 AM EDT - 10/28/2019 12:00:00 AM EST 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[facility]) L03.211 Cellulitis of face Cellulitis of face (L03.211) [id number] 07/08/2018 07:31:56 PM EDT - 10/28/2019 12:00:00 AM EST 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[facility]) H00.025 Hordeolum internum left lower eyelid Hor deolum internum left lower eyelid (H00.025) 10/28/2019 [id number] 07/08/2018 07:31:56 PM EDT - 10/28/2019 12:00:00 AM EST 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[facility]) Surgeries/Procedures Procedure Description Date Indications Data Source(s) Injection (SC)/(Im) 01/19/2020 12:00:00 AM EDT [facility] ([facility] Lap Repair Vent Umb Spig Epig W/ Mesh, Incarcerated 12/20/2019 12:00:00 AM EDT [facility] ([facility] Lap Repair Incisional Hernia W/ Mesh, Incarcerated 12/20/2019 12:00:00 AM EDT [facility] ([facility] ) Electrocardiogram Complete 12/08/2019 12:00:00 AM EST [facility] ([facility] SVC PRV OFFICE REG SCHEDD EVN WKEND/HOLIDAY HRS 2019 12:00:00 AM EST 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 Name Value Range Interpretation Code Description Data Shannan rce(s) Supporting Document(s) Immunoglobulin G 291 mg/dL [phone] Below low normal [facility] ([facility] Immunoglobulin A 47.3 mg/dL 70-400 Below low normal [facility] ([facility] Immunoglobulin M 12.7 mg/dL 40-230 Below low normal [facility] ([facility] ID Date Data Source [id number] 10/20/2020 01:51:00 PM EST [facility] ([facility] Name Value Range Interpretation Code Description Data Shannan rce(s) Supporting Document(s) Lactate dehydrogenase [Enzymatic activity/volume] in Serum o r Plasma 135 U/L 84-246 Normal (applies to non-numeric results) [facility] ([facility] ID Date Data Source [id number] 10/20/2020 01:51:00 PM EST [facility] ([facility] Name Value Range Interpretation Code Description Data Shannan rce(s) Supporting Document(s) Glucose, Fasting 105 mg/dL 70-100 Above high normal M [facility] ([facility] Glomerular Filtration Rate Laboratory test result Normal (applies to non- numeric results) [facility] ([facility] ) <content>Units are mL/min/1.73 m2</content>
<content></content>
<content>Chronic Kidney Disease Staging per NKF:</content>
<content></content>
<content>Stage I & II GFR >=60 Normal to Mildly Decreased</content>
<content>Stage III GFR 30-59 Moderately Decreased</content>
<content>Stage IV GFR 15-29 Severely Decreased</content>
<content>Stage V GFR <15 Very Little GFR Left</content>
<content>ESRD GFR <15 on SALES COMMISSIONS ANALYST</content>
<content></content> Blood Urea Nitrogen 15 mg/dL 7-18 Normal (applies to non-nume ava results) [facility] Creatinine For GFR 0.96 mg/dL 0.55-1.30 Normal (applies to non -numeric results) [facility] ([facility] Sodium Level 139 meq/L 136-145 Normal (applies to non-numeric res ults) [facility] ([facility] Chloride Level 109 meq/L 98-107 Above high normal [facility] ([facility] Potassium Serum 4.1 meq/L 3.5-5.1 Normal (applies to non-numeric results) [facility] ([facility] Carbon Dioxide Level 21 meq/L 21-32 Normal (applies to non-num crystal results) [facility] Calcium Level 9.1 mg/dL 8.5-10.1 Normal (applies to non-numeric re sults) [facility] Anion Gap 9 meq/L 8-16 Normal (applies to non-numeric resul ts) [facility] ([facility] Alkaline Phosphatase 123 U/L 45-117 Above high normal [facility] ([facility] Alt/SGPT 66 U/L 12-78 Normal (applies to non-numeric resul ts) [facility] ([facility] Ast/Sgot 47 U/L 7-37 Above high normal [facility] ([facility] Total Protein 6.9 GM/DL 6.4-8.2 Normal (applies to non-numeric re sults) [facility] ([facility] Bilirubin,Total 0.6 mg/dL 0.2-1.0 Normal (applies to non-numeric results) [facility] Albumin 4.0 GM/DL 3.2-5.2 Normal (applies to non-numeric resul ts) [facility] Albumin/Globulin Ratio 1.4 1.2-2.2 Normal (applies to non-n umeric results) [facility] ID Date Data Source [id number] 10/20/2020 01:51:00 PM EST [facility] ([facility] Name Value Range Interpretation Code Description Data Shannan rce(s) Supporting Document(s) Red Blood Count 4.78 10 4.00-5.40 Normal (applies to non-numeric results) [facility] ([facility] White Blood Count 7.0 10 4.0-10.0 Normal (applies to non-numeri c results) [facility] Hemoglobin 12.7 g/dL 12.0-15.5 Normal (applies to non-numeric resul ts) [facility] ([facility] Mean Corpuscular Volume 81.8 fl 80.0-96.0 Normal ( applies to non-numeric results) [facility] ([facility] ) Hematocrit 39.1 % 36.0-47.0 Normal (applies to non-numeric resul ts) [facility] ([facility] Red Cell Distribution Width 14.3 % 11.5-14.5 Norm al (applies to non-numeric results) [facility] ([facility] ) Mean Corpuscular HGB Conc 32.5 g/dL 32.0-36.5 Normal (applies to non-numeric results) [facility] ([facility] ) Mean Corpuscular Hemoglobin 26.6 pg 27.0-33.0 Below low normal [facility] ([facility] Lymph % 29.2 % 24.0-44.0 Normal (applies to non-numeric resul ts) [facility] ([facility] Platelet Count, Automated 300 10 150-450 Normal (applies to non-numeric results) [facility] ([facility] ) Neutrophils % 59.3 % 36.0-66.0 Normal (applies to non-numeric re sults) [facility] ([facility] Eos % 3.0 % 0.0-3.0 Normal (applies to non-numeric resul ts) [facility] ([facility] [place] % 7.3 % 0.0-5.0 Above high normal [facility] ([facility] Baso % 0.6 % 0.0-1.0 Normal (applies to non-numeric resul ts) [facility] ([facility] Lymph # 2.1 10 1.5-5.0 Normal (applies to non-numeric resul ts) [facility] ([facility] Neutrophils # 4.2 10 1.5-8.5 Normal (applies to non-numeric re sults) [facility] ([facility] Nucleated Red Blood Cell % 0.0 % 0-0 Normal (applies to n on-numeric results) [facility] ([facility] Immature Granulocyte % 0.6 % 0-3.0 Normal (applies to non-n umeric results) [facility] ([facility] Baso # 0.0 10 0.0-0.2 Normal (applies to non-numeric resul ts) [facility] ([facility] Eos # 0.2 10 0.0-0.5 Normal (applies to non-numeric resul ts) [facility] ([facility] [place] # 0.5 10 0.0-0.8 Normal (applies to non-numeric resul ts) [facility] ([facility] ID Date Data Source [id number] 10/19/2020 04:34:00 PM EST [facility] ([facility] Name Value Range Interpretation Code Description Data Shannan rce(s) Supporting Document(s) Bacteria identified in Urine by Culture Laboratory test result [facility] ([facility] [place]) SPECIMEN DESCRIPTION URINE, COLLE CTION METHOD NOT SPECIFIED CULTURE RESULTS NO GROWTH REPORT STATUS FINAL 10/20/2020 ID Date Data Source [id number] 10/20/2020 03:01:52 PM EST [facility] [place] - CORE SPECIMEN DESCRIPTION URINE, COLLE CTION METHOD NOT SPECIFIEDCULTURE RESULTS NO GROWTHREPORT STATUS FINAL 10/20/2020 Name Value Range Interpretation Code Description Data Shannan rce(s) Supporting Document(s) ID Date Data Source [id number] 10/19/2020 03:50:00 PM EST [facility] ([facility]) Name Value Range Interpretation Code Description Data Shannan rce(s) Supporting Document(s) Protein [Presence] in Urine by Test strip Laboratory test result [facility] ([facility] [place]) Glucose [Presence] in Urine Laboratory test result [facility] ([facility] [place]) Ua Nitrite Laboratory test result [facility] ([facility]) Ua Leuko Laboratory test result [facility] ([facility] [place]) Blood [Presence] in Urine by Visual Laboratory test result [facility] ([facility]) Ketones [Presence] in Urine by Test strip Laboratory test result [facility] ([facility]) Color of Urine Laboratory test result [facility] ([facility]) Clarity of Urine Laboratory test result [facility] ([facility] [place]) pH of Urine by Test strip 6.5 5.0-7.5 [facility] ([facility] [place]) Ua Specific [place] 1.015 1.003-1.030 [facility] ([facility]) Bilirubin.total [Presence] in Urine by Test strip Laboratory test res ult [facility] ([facility] [place]) Urobilinogen [Mass/volume] in Urine by Test strip 0.2 E.U./dL 0.0-1.0 [facility] ([facility] [place]) ID Date Data Source [id number] 07/27/2020 09:24:00 AM EDT [facility] ([facility] Name Value Range Interpretation Code Description Data Shannan rce(s) Supporting Document(s) Chol 160 mg/dL 0-200 [facility] CHRONIC KIDNEY DISEASE STAGING PER NKF: MALE GFR INTERPRETATION: 20-49 YRS: [...] DESIRABLE: <130 MG/DL <110 MG/DL BORDERLINE-HIGH RISK: 130- 159 MG/DL 110-129 MG/DL HIGH RISK: >160 MG/DL >130 MG/DL *CHILDREN AND ADOLESCENTS REPRESENTS INDIVIDUALA AGED 2-19 YEARS EXCLUSIVE. Trig 154 mg/dL 40-200 [facility] CHRONIC KIDNEY DISEASE STAGING PER NKF: MALE GFR INTERPRETATION: 20-49 YRS: [...] DESIRABLE: <130 MG/DL <110 MG/DL BORDERLINE-HIGH RISK: 130- 159 MG/DL 110-129 MG/DL HIGH RISK: >160 MG/DL >130 MG/DL *CHILDREN AND ADOLESCENTS REPRESENTS INDIVIDUALA AGED 2-19 YEARS EXCLUSIVE. Cholesterol in HDL [Mass/volume] in Serum or Plasma 42 mg/dL 45-65 Below low normal [facility] ([facility] CHRONIC KIDNEY DISEASE STAGING PER NKF: MALE GFR INTERPRETATION: 20-49 YRS: [...] DESIRABLE: <130 MG/DL <110 MG/DL BORDERLINE-HIGH RISK: 130- 159 MG/DL 110-129 MG/DL HIGH RISK: >160 MG/DL >130 MG/DL *CHILDREN AND ADOLESCENTS REPRESENTS INDIVIDUALA AGED 2-19 YEARS EXCLUSIVE. Cho/HDL Ratio 3.8 Calc [facility] ([facility] CHRONIC KIDNEY DISEASE STAGING PER NKF: MALE GFR INTERPRETATION: 20-49 YRS: [...] DESIRABLE: <130 MG/DL <110 MG/DL BORDERLINE-HIGH RISK: 130- 159 MG/DL 110-129 MG/DL HIGH RISK: >160 MG/DL >130 MG/DL *CHILDREN AND ADOLESCENTS REPRESENTS INDIVIDUALA AGED 2-19 YEARS EXCLUSIVE. LDL_C 87 Calc 75-129 [facility] CHRONIC KIDNEY DISEASE STAGING PER NKF: MALE GFR INTERPRETATION: 20-49 YRS: [...] DESIRABLE: <130 MG/DL <110 MG/DL BORDERLINE-HIGH RISK: 130- 159 MG/DL 110-129 MG/DL HIGH RISK: >160 MG/DL >130 MG/DL *CHILDREN AND ADOLESCENTS REPRESENTS INDIVIDUALA AGED 2-19 YEARS EXCLUSIVE. ID Date Data Source [id number] 07/27/2020 09:24:00 AM [facility] ([facility] Name Value Range Interpretation Code Description Data Shannan rce(s) Supporting Document(s) Glu 128 mg/dL 70-110 Above high normal [facility] ([facility] CHRONIC KIDNEY DISEASE STAGING PER NKF: MALE GFR INTERPRETATION: 20-49 YRS: [...] DESIRABLE: <130 MG/DL <110 MG/DL BORDERLINE-HIGH RISK: 130- 159 MG/DL 110-129 MG/DL HIGH RISK: >160 MG/DL >130 MG/DL *CHILDREN AND ADOLESCENTS REPRESENTS INDIVIDUALA AGED 2-19 YEARS EXCLUSIVE. BUN 12 mg/dL 8-23 [facility] ([facility] CHRONIC KIDNEY DISEASE STAGING PER NKF: MALE GFR INTERPRETATION: 20-49 YRS: [...] DESIRABLE: <130 MG/DL <110 MG/DL BORDERLINE-HIGH RISK: 130- 159 MG/DL 110-129 MG/DL HIGH RISK: >160 MG/DL >130 MG/DL *CHILDREN AND ADOLESCENTS REPRESENTS INDIVIDUALA AGED 2-19 YEARS EXCLUSIVE. Creat 0.8 mg/dL 0.5-1.0 [facility] CHRONIC KIDNEY DISEASE STAGING PER NKF: MALE GFR INTERPRETATION: 20-49 YRS: [...] DESIRABLE: <130 MG/DL <110 MG/DL BORDERLINE-HIGH RISK: 130- 159 MG/DL 110-129 MG/DL HIGH RISK: >160 MG/DL >130 MG/DL *CHILDREN AND ADOLESCENTS REPRESENTS INDIVIDUALA AGED 2-19 YEARS EXCLUSIVE. K 4.5 mmol/L 3.5-5.1 [facility] ([facility] CHRONIC KIDNEY DISEASE STAGING PER NKF: MALE GFR INTERPRETATION: 20-49 YRS: [...] DESIRABLE: <130 MG/DL <110 MG/DL BORDERLINE-HIGH RISK: 130- 159 MG/DL 110-129 MG/DL HIGH RISK: >160 MG/DL >130 MG/DL *CHILDREN AND ADOLESCENTS REPRESENTS INDIVIDUALA AGED 2-19 YEARS EXCLUSIVE. Na 140 mmol/L 136-145 [facility] CHRONIC KIDNEY DISEASE STAGING PER NKF: MALE GFR INTERPRETATION: 20-49 YRS: [...] DESIRABLE: <130 MG/DL <110 MG/DL BORDERLINE-HIGH RISK: 130- 159 MG/DL 110-129 MG/DL HIGH RISK: >160 MG/DL >130 MG/DL *CHILDREN AND ADOLESCENTS REPRESENTS INDIVIDUALA AGED 2-19 YEARS EXCLUSIVE. BUN/Creatinine Ratio 15.5 CALC [facility] ([facility] CHRONIC KIDNEY DISEASE STAGING PER NKF: MALE GFR INTERPRETATION: 20-49 YRS: [...] DESIRABLE: <130 MG/DL <110 MG/DL BORDERLINE-HIGH RISK: 130- 159 MG/DL 110-129 MG/DL HIGH RISK: >160 MG/DL >130 MG/DL *CHILDREN AND ADOLESCENTS REPRESENTS INDIVIDUALA AGED 2-19 YEARS EXCLUSIVE. Co2 21.4 mmol/L 22.0-29.0 Below low normal [facility] ([facility] CHRONIC KIDNEY DISEASE STAGING PER NKF: MALE GFR INTERPRETATION: 20-49 YRS: [...] DESIRABLE: <130 MG/DL <110 MG/DL BORDERLINE-HIGH RISK: 130- 159 MG/DL 110-129 MG/DL HIGH RISK: >160 MG/DL >130 MG/DL *CHILDREN AND ADOLESCENTS REPRESENTS INDIVIDUALA AGED 2-19 YEARS EXCLUSIVE. CL 105.0 mmol/L 98.0-107.0 [facility] CHRONIC KIDNEY DISEASE STAGING PER NKF: MALE GFR INTERPRETATION: 20-49 YRS: [...] DESIRABLE: <130 MG/DL <110 MG/DL BORDERLINE-HIGH RISK: 130- 159 MG/DL 110-129 MG/DL HIGH RISK: >160 MG/DL >130 MG/DL *CHILDREN AND ADOLESCENTS REPRESENTS INDIVIDUALA AGED 2-19 YEARS EXCLUSIVE. CA 9.6 mg/dL 8.6-10.2 [facility] ([facility] CHRONIC KIDNEY DISEASE STAGING PER NKF: MALE GFR INTERPRETATION: 20-49 YRS: [...] DESIRABLE: <130 MG/DL <110 MG/DL BORDERLINE-HIGH RISK: 130- 159 MG/DL 110-129 MG/DL HIGH RISK: >160 MG/DL >130 MG/DL *CHILDREN AND ADOLESCENTS REPRESENTS INDIVIDUALA AGED 2-19 YEARS EXCLUSIVE. Alb 4.3 g/dL 3.4-4.8 [facility] CHRONIC KIDNEY DISEASE STAGING PER NKF: MALE GFR INTERPRETATION: 20-49 YRS: [...] DESIRABLE: <130 MG/DL <110 MG/DL BORDERLINE-HIGH RISK: 130- 159 MG/DL 110-129 MG/DL HIGH RISK: >160 MG/DL >130 MG/DL *CHILDREN AND ADOLESCENTS REPRESENTS INDIVIDUALA AGED 2-19 YEARS EXCLUSIVE. TP 5.9 g/dL 6.6-8.7 Below low normal [facility] ( [facility] CHRONIC KIDNEY DISEASE STAGING PER NKF: MALE GFR INTERPRETATION: 20-49 YRS: [...] DESIRABLE: <130 MG/DL <110 MG/DL BORDERLINE-HIGH RISK: 130- 159 MG/DL 110-129 MG/DL HIGH RISK: >160 MG/DL >130 MG/DL *CHILDREN AND ADOLESCENTS REPRESENTS INDIVIDUALA AGED 2-19 YEARS EXCLUSIVE. Alt (SGPT) 43 U/L 0-41 Above high normal [facility] ([facility] CHRONIC KIDNEY DISEASE STAGING PER NKF: MALE GFR INTERPRETATION: 20-49 YRS: [...] DESIRABLE: <130 MG/DL <110 MG/DL BORDERLINE-HIGH RISK: 130- 159 MG/DL 110-129 MG/DL HIGH RISK: >160 MG/DL >130 MG/DL *CHILDREN AND ADOLESCENTS REPRESENTS INDIVIDUALA AGED 2-19 YEARS EXCLUSIVE. Globulin 1.6 CALC [facility] ([facility] CHRONIC KIDNEY DISEASE STAGING PER NKF: MALE GFR INTERPRETATION: 20-49 YRS: [...] DESIRABLE: <130 MG/DL <110 MG/DL BORDERLINE-HIGH RISK: 130- 159 MG/DL 110-129 MG/DL HIGH RISK: >160 MG/DL >130 MG/DL *CHILDREN AND ADOLESCENTS REPRESENTS INDIVIDUALA AGED 2-19 YEARS EXCLUSIVE. Alp 118.9 U/L 35-129 [facility] CHRONIC KIDNEY DISEASE STAGING PER NKF: MALE GFR INTERPRETATION: 20-49 YRS: [...] DESIRABLE: <130 MG/DL <110 MG/DL BORDERLINE-HIGH RISK: 130- 159 MG/DL 110-129 MG/DL HIGH RISK: >160 MG/DL >130 MG/DL *CHILDREN AND ADOLESCENTS REPRESENTS INDIVIDUALA AGED 2-19 YEARS EXCLUSIVE. A/G Ratio 2.8 CALC [facility] ([facility] CHRONIC KIDNEY DISEASE STAGING PER NKF: MALE GFR INTERPRETATION: 20-49 YRS: [...] DESIRABLE: <130 MG/DL <110 MG/DL BORDERLINE-HIGH RISK: 130- 159 MG/DL 110-129 MG/DL HIGH RISK: >160 MG/DL >130 MG/DL *CHILDREN AND ADOLESCENTS REPRESENTS INDIVIDUALA AGED 2-19 YEARS EXCLUSIVE. Tbili 0.44 mg/dL 0.0-1.2 [facility] ([facility] CHRONIC KIDNEY DISEASE STAGING PER NKF: MALE GFR INTERPRETATION: 20-49 YRS: [...] DESIRABLE: <130 MG/DL <110 MG/DL BORDERLINE-HIGH RISK: 130- 159 MG/DL 110-129 MG/DL HIGH RISK: >160 MG/DL >130 MG/DL *CHILDREN AND ADOLESCENTS REPRESENTS INDIVIDUALA AGED 2-19 YEARS EXCLUSIVE. Ast (Sgot) 34 U/L 0-40 [facility] ([facility] CHRONIC KIDNEY DISEASE STAGING PER NKF: MALE GFR INTERPRETATION: 20-49 YRS: [...] DESIRABLE: <130 MG/DL <110 MG/DL BORDERLINE-HIGH RISK: 130- 159 MG/DL 110-129 MG/DL HIGH RISK: >160 MG/DL >130 MG/DL *CHILDREN AND ADOLESCENTS REPRESENTS INDIVIDUALA AGED 2-19 YEARS EXCLUSIVE. Osmolality-Calculated 280.7 CALC [facility] ([facility] CHRONIC KIDNEY DISEASE STAGING PER NKF: MALE GFR INTERPRETATION: 20-49 YRS: [...] DESIRABLE: <130 MG/DL <110 MG/DL BORDERLINE-HIGH RISK: 130- 159 MG/DL 110-129 MG/DL HIGH RISK: >160 MG/DL >130 MG/DL *CHILDREN AND ADOLESCENTS REPRESENTS INDIVIDUALA AGED 2-19 YEARS EXCLUSIVE. Anion Gap 18 mmol/L [facility] CHRONIC KIDNEY DISEASE STAGING PER NKF: MALE GFR INTERPRETATION: 20-49 YRS: [...] DESIRABLE: <130 MG/DL <110 MG/DL BORDERLINE-HIGH RISK: 130- 159 MG/DL 110-129 MG/DL HIGH RISK: >160 MG/DL >130 MG/DL *CHILDREN AND ADOLESCENTS REPRESENTS INDIVIDUALA AGED 2-19 YEARS EXCLUSIVE. eGFR 100 # [facility] ( [facility] CHRONIC KIDNEY DISEASE STAGING PER NKF: MALE GFR INTERPRETATION: 20-49 YRS: [...] DESIRABLE: <130 MG/DL <110 MG/DL BORDERLINE-HIGH RISK: 130- 159 MG/DL 110-129 MG/DL HIGH RISK: >160 MG/DL >130 MG/DL *CHILDREN AND ADOLESCENTS REPRESENTS INDIVIDUALA AGED 2-19 YEARS EXCLUSIVE. eGFR Non-Afr. Iranian 86 # [facility] ([facility] CHRONIC KIDNEY DISEASE STAGING PER NKF: MALE GFR INTERPRETATION: 20-49 YRS: [...] DESIRABLE: <130 MG/DL <110 MG/DL BORDERLINE-HIGH RISK: 130- 159 MG/DL 110-129 MG/DL HIGH RISK: >160 MG/DL >130 MG/DL *CHILDREN AND ADOLESCENTS REPRESENTS INDIVIDUALA AGED 2-19 YEARS EXCLUSIVE. ID Date Data Source [id number] 07/27/2020 09:24:00 AM EDT [facility] ([facility] Name Value Range Interpretation Code Description Data Shannan rce(s) Supporting Document(s) Hemoglobin A1c/Hemoglobin.total in Blood 6.9 % 4.50-6.20 Above high normal [facility] ([facility] ID Date Data Source [id number] 07/06/2020 03:33:00 PM EDT [facility] ([facility] Name Value Range Interpretation Code Description Data Shannan rce(s) Supporting Document(s) Immunoglobulin G 311 mg/dL [phone] Below low normal [facility] ([facility] Immunoglobulin A 47.0 mg/dL 70-400 Below low normal [facility] ([facility] Immunoglobulin M 22.6 mg/dL 40-230 Below low normal [facility] ([facility] ID Date Data Source [id number] 07/06/2020 01:39:00 PM EDT [facility] ([facility] Name Value Range Interpretation Code Description Data Shannan rce(s) Supporting Document(s) Lactate dehydrogenase [Enzymatic activity/volume] in Serum o r Plasma 143 U/L 84-246 Normal (applies to non-numeric results) [facility] ([facility] ID Date Data Source [id number] 07/06/2020 01:39:00 PM EDT [facility] ([facility] Name Value Range Interpretation Code Description Data Shannan rce(s) Supporting Document(s) Glucose, Fasting 116 mg/dL 70-100 Above high normal M [facility] ([facility] Creatinine For GFR 0.89 mg/dL 0.55-1.30 Normal (applies to non -numeric results) [facility] ([facility] Blood Urea Nitrogen 17 mg/dL 7-18 Normal (applies to non-nume ava results) [facility] ([facility] [facility] Glomerular Filtration Rate Laboratory test result Normal (applies to non- numeric results) [facility] ([facility] ) <content>Units are mL/min/1.73 m2</content>
<content></content>
<content>Chronic Kidney Disease Staging per NKF:</content>
<content></content>
<content>Stage I & II GFR >=60 Normal to Mildly Decreased</content>
<content>Stage III GFR 30-59 Moderately Decreased</content>
<content>Stage IV GFR 15-29 Severely Decreased</content>
<content>Stage V GFR <15 Very Little GFR Left</content>
<content>ESRD GFR <15 on SALES COMMISSIONS ANALYST</content>
<content></content> Chloride Level 108 meq/L 98-107 Above high normal [facility] ([facility] Sodium Level 138 meq/L 136-145 Normal (applies to non-numeric res ults) [facility] ([facility] Potassium Serum 3.9 meq/L 3.5-5.1 Normal (applies to non-numeric results) [facility] ([facility] Anion Gap 5 meq/L 8-16 Below low normal [facility] ( [facility] Carbon Dioxide Level 25 meq/L 21-32 Normal (applies to non-num crystal results) [facility] ([facility] Calcium Level 9.0 mg/dL 8.5-10.1 Normal (applies to non-numeric re sults) [facility] ([facility] Bilirubin,Total 0.6 mg/dL 0.2-1.0 Normal (applies to non-numeric results) [facility] ([facility] Alkaline Phosphatase 113 U/L 45-117 Normal (applies to non-num crystal results) [facility] ([facility] Ast/Sgot 40 U/L 7-37 Above high normal [facility] ([facility] Alt/SGPT 50 U/L 12-78 Normal (applies to non-numeric resul ts) [facility] ([facility] Total Protein 7.0 GM/DL 6.4-8.2 Normal (applies to non-numeric re sults) [facility] ([facility] Albumin/Globulin Ratio 1.3 1.2-2.2 Normal (applies to non-n umeric results) [facility] ([facility] Albumin 3.9 GM/DL 3.2-5.2 Normal (applies to non-numeric resul ts) [facility] ([facility] ID Date Data Source [id number] 07/06/2020 01:39:00 PM EDT [facility] ([facility] Name Value Range Interpretation Code Description Data Shannan rce(s) Supporting Document(s) White Blood Count 7.7 10 4.0-10.0 Normal (applies to non-numeri c results) [facility] ([facility] Hematocrit 39.9 % 36.0-47.0 Normal (applies to non-numeric resul ts) [facility] ([facility] Red Blood Count 4.77 10 4.00-5.40 Normal (applies to non-numeric results) [facility] ([facility] Mean Corpuscular Volume 83.6 fl 80.0-96.0 Normal ( applies to non-numeric results) [facility] ([facility] ) Hemoglobin 12.7 g/dL 12.0-15.5 Normal (applies to non-numeric resul ts) [facility] ([facility] Mean Corpuscular Hemoglobin 26.6 pg 27.0-33.0 Below low normal [facility] ([facility] Mean Corpuscular HGB Conc 31.8 g/dL 32.0-36.5 Below low normal [facility] ([facility] Neutrophils % 57.4 % 36.0-66.0 Normal (applies to non-numeric re sults) [facility] ([facility] Red Cell Distribution Width 14.0 % 11.5-14.5 Norm al (applies to non-numeric results) [facility] ([facility] ) Platelet Count, Automated 298 10 150-450 Normal (applies to non-numeric results) [facility] ([facility] ) Lymph % 31.1 % 24.0-44.0 Normal (applies to non-numeric resul ts) [facility] ([facility] [place] % 7.7 % 0.0-5.0 Above high normal [facility] ([facility] Eos % 3.0 % 0.0-3.0 Normal (applies to non-numeric resul ts) [facility] ([facility] Nucleated Red Blood Cell % 0.0 % 0-0 Normal (applies to n on-numeric results) [facility] ([facility] Baso % 0.4 % 0.0-1.0 Normal (applies to non-numeric resul ts) [facility] ([facility] Immature Granulocyte % 0.4 % 0-3.0 Normal (applies to non-n umeric results) [facility] ([facility] Neutrophils # 4.4 10 1.5-8.5 Normal (applies to non-numeric re sults) [facility] ([facility] Lymph # 2.4 10 1.5-5.0 Normal (applies to non-numeric resul ts) [facility] ([facility] [place] # 0.6 10 0.0-0.8 Normal (applies to non-numeric resul ts) [facility] ([facility] Eos # 0.2 10 0.0-0.5 Normal (applies to non-numeric resul ts) [facility] ([facility] Baso # 0.0 10 0.0-0.2 Normal (applies to non-numeric resul ts) [facility] ([facility] ID Date Data Source [id number] 04/20/2020 08:51:00 AM EDT [facility] ([facility] Name Value Range Interpretation Code Description Data Shannan rce(s) Supporting Document(s) Hemoglobin A1c/Hemoglobin.total in Blood 6.8 % 4.50-6.20 Above high normal [facility] ([facility] ID Date Data Source [id number] 04/20/2020 08:49:00 AM EDT [facility] ([facility] Name Value Range Interpretation Code Description Data Shannan rce(s) Supporting Document(s) Trig 157 mg/dL 40-200 [facility] ([facility] CHRONIC KIDNEY DISEASE STAGING PER NKF: MALE GFR INTERPRETATION: 20-49 YRS: [...] ADOLESCENTS REPRESENTS INDIVIDUALA AGED 2-19 YEARS EXCLUSIVE. Chol 153 mg/dL 0-200 [facility] CHRONIC KIDNEY DISEASE STAGING PER NKF: MALE GFR INTERPRETATION: 20-49 YRS: [...] ADOLESCENTS REPRESENTS INDIVIDUALA AGED 2-19 YEARS EXCLUSIVE. Cholesterol in HDL [Mass/volume] in Serum or Plasma 40 mg/dL 45-65 Below low normal [facility] ([facility] ) CHRONIC KIDNEY DISEASE STAGING PER NKF: MALE GFR INTERPRETATION: 20-49 YRS: [...] DESIRABLE: <130 MG/DL <110 MG/DL BORDERLINE-HIGH RISK: 130- 159 MG/DL 110-129 MG/DL HIGH RISK: >160 MG/DL >130 MG/DL *CHILDREN AND ADOLESCENTS REPRESENTS INDIVIDUALA AGED 2-19 YEARS EXCLUSIVE. LDL_C 82 Calc 75-129 [facility] ([facility] CHRONIC KIDNEY DISEASE STAGING PER NKF: MALE GFR INTERPRETATION: 20-49 YRS: [...] DESIRABLE: <130 MG/DL <110 MG/DL BORDERLINE-HIGH RISK: 130- 159 MG/DL 110-129 MG/DL HIGH RISK: >160 MG/DL >130 MG/DL *CHILDREN AND ADOLESCENTS REPRESENTS INDIVIDUALA AGED 2-19 YEARS EXCLUSIVE. Cho/HDL Ratio 3.8 CALC [facility] ([facility] CHRONIC KIDNEY DISEASE STAGING PER NKF: MALE GFR INTERPRETATION: 20-49 YRS: [...] DESIRABLE: <130 MG/DL <110 MG/DL BORDERLINE-HIGH RISK: 130- 159 MG/DL 110-129 MG/DL HIGH RISK: >160 MG/DL >130 MG/DL *CHILDREN AND ADOLESCENTS REPRESENTS INDIVIDUALA AGED 2-19 YEARS EXCLUSIVE. ID Date Data Source [id number] 04/20/2020 08:49:00 AM EDT [facility] ([facility] Name Value Range Interpretation Code Description Data Shannan rce(s) Supporting Document(s) Glu 132 mg/dL 70-110 Above high normal [facility] ([facility] CHRONIC KIDNEY DISEASE STAGING PER NKF: MALE GFR INTERPRETATION: 20-49 YRS: [...] DESIRABLE: <130 MG/DL <110 MG/DL BORDERLINE-HIGH RISK: 130- 159 MG/DL 110-129 MG/DL HIGH RISK: >160 MG/DL >130 MG/DL *CHILDREN AND ADOLESCENTS REPRESENTS INDIVIDUALA AGED 2-19 YEARS EXCLUSIVE. BUN 14 mg/dL 8-23 [facility] ([facility] CHRONIC KIDNEY DISEASE STAGING PER NKF: MALE GFR INTERPRETATION: 20-49 YRS: [...] DESIRABLE: <130 MG/DL <110 MG/DL BORDERLINE-HIGH RISK: 130- 159 MG/DL 110-129 MG/DL HIGH RISK: >160 MG/DL >130 MG/DL *CHILDREN AND ADOLESCENTS REPRESENTS INDIVIDUALA AGED 2-19 YEARS EXCLUSIVE. Creat 0.9 mg/dL 0.5-1.0 [facility] CHRONIC KIDNEY DISEASE STAGING PER NKF: MALE GFR INTERPRETATION: 20-49 YRS: [...] DESIRABLE: <130 MG/DL <110 MG/DL BORDERLINE-HIGH RISK: 130- 159 MG/DL 110-129 MG/DL HIGH RISK: >160 MG/DL >130 MG/DL *CHILDREN AND ADOLESCENTS REPRESENTS INDIVIDUALA AGED 2-19 YEARS EXCLUSIVE. K 4.2 mmol/L 3.5-5.1 [facility] ([facility] CHRONIC KIDNEY DISEASE STAGING PER NKF: MALE GFR INTERPRETATION: 20-49 YRS: [...] DESIRABLE: <130 MG/DL <110 MG/DL BORDERLINE-HIGH RISK: 130- 159 MG/DL 110-129 MG/DL HIGH RISK: >160 MG/DL >130 MG/DL *CHILDREN AND ADOLESCENTS REPRESENTS INDIVIDUALA AGED 2-19 YEARS EXCLUSIVE. Na 139 mmol/L 136-145 [facility] CHRONIC KIDNEY DISEASE STAGING PER NKF: MALE GFR INTERPRETATION: 20-49 YRS: [...] DESIRABLE: <130 MG/DL <110 MG/DL BORDERLINE-HIGH RISK: 130- 159 MG/DL 110-129 MG/DL HIGH RISK: >160 MG/DL >130 MG/DL *CHILDREN AND ADOLESCENTS REPRESENTS INDIVIDUALA AGED 2-19 YEARS EXCLUSIVE. BUN/Creatinine Ratio 15.9 CALC [facility] ([facility] CHRONIC KIDNEY DISEASE STAGING PER NKF: MALE GFR INTERPRETATION: 20-49 YRS: [...] DESIRABLE: <130 MG/DL <110 MG/DL BORDERLINE-HIGH RISK: 130- 159 MG/DL 110-129 MG/DL HIGH RISK: >160 MG/DL >130 MG/DL *CHILDREN AND ADOLESCENTS REPRESENTS INDIVIDUALA AGED 2-19 YEARS EXCLUSIVE. CL 102.9 mmol/L 98.0-107.0 [facility] ([facility] CHRONIC KIDNEY DISEASE STAGING PER NKF: MALE GFR INTERPRETATION: 20-49 YRS: [...] DESIRABLE: <130 MG/DL <110 MG/DL BORDERLINE-HIGH RISK: 130- 159 MG/DL 110-129 MG/DL HIGH RISK: >160 MG/DL >130 MG/DL *CHILDREN AND ADOLESCENTS REPRESENTS INDIVIDUALA AGED 2-19 YEARS EXCLUSIVE. Co2 21.3 mmol/L 22.0-29.0 Below low normal [facility] ([facility] CHRONIC KIDNEY DISEASE STAGING PER NKF: MALE GFR INTERPRETATION: 20-49 YRS: [...] DESIRABLE: <130 MG/DL <110 MG/DL BORDERLINE-HIGH RISK: 130- 159 MG/DL 110-129 MG/DL HIGH RISK: >160 MG/DL >130 MG/DL *CHILDREN AND ADOLESCENTS REPRESENTS INDIVIDUALA AGED 2-19 YEARS EXCLUSIVE. Alb 4.5 g/dL 3.4-4.8 [facility] CHRONIC KIDNEY DISEASE STAGING PER NKF: MALE GFR INTERPRETATION: 20-49 YRS: [...] DESIRABLE: <130 MG/DL <110 MG/DL BORDERLINE-HIGH RISK: 130- 159 MG/DL 110-129 MG/DL HIGH RISK: >160 MG/DL >130 MG/DL *CHILDREN AND ADOLESCENTS REPRESENTS INDIVIDUALA AGED 2-19 YEARS EXCLUSIVE. CA 9.6 mg/dL 8.6-10.2 [facility] ([facility] CHRONIC KIDNEY DISEASE STAGING PER NKF: MALE GFR INTERPRETATION: 20-49 YRS: [...] DESIRABLE: <130 MG/DL <110 MG/DL BORDERLINE-HIGH RISK: 130- 159 MG/DL 110-129 MG/DL HIGH RISK: >160 MG/DL >130 MG/DL *CHILDREN AND ADOLESCENTS REPRESENTS INDIVIDUALA AGED 2-19 YEARS EXCLUSIVE. TP 6.4 g/dL 6.6-8.7 Below low normal [facility] ( [facility] CHRONIC KIDNEY DISEASE STAGING PER NKF: MALE GFR INTERPRETATION: 20-49 YRS: [...] DESIRABLE: <130 MG/DL <110 MG/DL BORDERLINE-HIGH RISK: 130- 159 MG/DL 110-129 MG/DL HIGH RISK: >160 MG/DL >130 MG/DL *CHILDREN AND ADOLESCENTS REPRESENTS INDIVIDUALA AGED 2-19 YEARS EXCLUSIVE. A/G Ratio 2.3 CALC [facility] CHRONIC KIDNEY DISEASE STAGING PER NKF: MALE GFR INTERPRETATION: 20-49 YRS: [...] DESIRABLE: <130 MG/DL <110 MG/DL BORDERLINE-HIGH RISK: 130- 159 MG/DL 110-129 MG/DL HIGH RISK: >160 MG/DL >130 MG/DL *CHILDREN AND ADOLESCENTS REPRESENTS INDIVIDUALA AGED 2-19 YEARS EXCLUSIVE. Globulin 2.0 CALC [facility] ([facility] CHRONIC KIDNEY DISEASE STAGING PER NKF: MALE GFR INTERPRETATION: 20-49 YRS: [...] DESIRABLE: <130 MG/DL <110 MG/DL BORDERLINE-HIGH RISK: 130- 159 MG/DL 110-129 MG/DL HIGH RISK: >160 MG/DL >130 MG/DL *CHILDREN AND ADOLESCENTS REPRESENTS INDIVIDUALA AGED 2-19 YEARS EXCLUSIVE. Alt (SGPT) 36 U/L 0-41 [facility] ([facility] CHRONIC KIDNEY DISEASE STAGING PER NKF: MALE GFR INTERPRETATION: 20-49 YRS: [...] DESIRABLE: <130 MG/DL <110 MG/DL BORDERLINE-HIGH RISK: 130- 159 MG/DL 110-129 MG/DL HIGH RISK: >160 MG/DL >130 MG/DL *CHILDREN AND ADOLESCENTS REPRESENTS INDIVIDUALA AGED 2-19 YEARS EXCLUSIVE. Alp 118.8 U/L 35-129 [facility] CHRONIC KIDNEY DISEASE STAGING PER NKF: MALE GFR INTERPRETATION: 20-49 YRS: [...] DESIRABLE: <130 MG/DL <110 MG/DL BORDERLINE-HIGH RISK: 130- 159 MG/DL 110-129 MG/DL HIGH RISK: >160 MG/DL >130 MG/DL *CHILDREN AND ADOLESCENTS REPRESENTS INDIVIDUALA AGED 2-19 YEARS EXCLUSIVE. Tbili 0.51 mg/dL 0.0-1.2 [facility] ([facility] CHRONIC KIDNEY DISEASE STAGING PER NKF: MALE GFR INTERPRETATION: 20-49 YRS: [...] DESIRABLE: <130 MG/DL <110 MG/DL BORDERLINE-HIGH RISK: 130- 159 MG/DL 110-129 MG/DL HIGH RISK: >160 MG/DL >130 MG/DL *CHILDREN AND ADOLESCENTS REPRESENTS INDIVIDUALA AGED 2-19 YEARS EXCLUSIVE. Ast (Sgot) 22 U/L 0-40 [facility] ([facility] CHRONIC KIDNEY DISEASE STAGING PER NKF: MALE GFR INTERPRETATION: 20-49 YRS: [...] DESIRABLE: <130 MG/DL <110 MG/DL BORDERLINE-HIGH RISK: 130- 159 MG/DL 110-129 MG/DL HIGH RISK: >160 MG/DL >130 MG/DL *CHILDREN AND ADOLESCENTS REPRESENTS INDIVIDUALA AGED 2-19 YEARS EXCLUSIVE. Osmolality-Calculated 279.5 CALC [facility] ([facility] CHRONIC KIDNEY DISEASE STAGING PER NKF: MALE GFR INTERPRETATION: 20-49 YRS: [...] DESIRABLE: <130 MG/DL <110 MG/DL BORDERLINE-HIGH RISK: 130- 159 MG/DL 110-129 MG/DL HIGH RISK: >160 MG/DL >130 MG/DL *CHILDREN AND ADOLESCENTS REPRESENTS INDIVIDUALA AGED 2-19 YEARS EXCLUSIVE. eGFR 86 # [facility] ( [facility] CKD-EPI Anion Gap 19 mmol/L [facility] ([facility] CHRONIC KIDNEY DISEASE STAGING PER NKF: MALE GFR INTERPRETATION: 20-49 YRS: [...] DESIRABLE: <130 MG/DL <110 MG/DL BORDERLINE-HIGH RISK: 130- 159 MG/DL 110-129 MG/DL HIGH RISK: >160 MG/DL >130 MG/DL *CHILDREN AND ADOLESCENTS REPRESENTS INDIVIDUALA AGED 2-19 YEARS EXCLUSIVE. eGFR Non-Afr. Iranian 75 # [facility] ([facility] CKD-EPI ID Date Data Source [id number] 04/05/2020 01:35:00 PM EDT [facility] ([facility] Name Value Range Interpretation Code Description Data Shannan rce(s) Supporting Document(s) [id number] [Mass/volume] in Serum or Plasma 1.9 mg/L 0.6-2.4 Normal (applies to non-numeric results) [facility] ([facility] Siemens Immulite 2000 Immunochemiluminom etric assay (ICMA) . Values obtained with different assay methods or kits cannot be used interchangeably. Results cannot be interpreted as absolute evidence of the presence or absence of malignant disease. Performed at: [address] [id number] Observation Nurse: Kevin Ascencio MD, Phone: [phone] ID Date Data Source [id number] 04/05/2020 01:35:00 PM EDT [facility] ([facility] Name Value Range Interpretation Code Description Data Shannan rce(s) Supporting Document(s) Blood Urea Nitrogen 16 mg/dL 7-18 Normal (applies to non-nume ava results) [facility] ([facility] Glucose, Fasting 122 mg/dL 70-100 Above high normal M EDENT ([facility] Sodium Level 141 meq/L 136-145 Normal (applies to non-numeric res ults) [facility] ([facility] Creatinine For GFR 0.94 mg/dL 0.55-1.30 Normal (applies to non -numeric results) [facility] ([facility] Glomerular Filtration Rate Laboratory test result Normal (applies to non- numeric results) [facility] <content>Units are mL/min/1.73 m2</content>
<content></content>
<content>Chronic Kidney Disease Staging per NKF:</content>
<content></content>
<content>Stage I & II GFR >=60 Normal to Mildly Decreased</content>
<content>Stage III GFR 30- 59 Moderately Decreased</content>
<content>Stage IV GFR 15-29 Severely Decreased</content>
<content>Stage V GFR <15 Very Little GFR Left</content>
<content>ESRD GFR <15 on SALES COMMISSIONS ANALYST</content>
<content></content> Carbon Dioxide Level 24 meq/L 21-32 Normal (applies to non-num crystal results) [facility] ([facility] Potassium Serum 4.1 meq/L 3.5-5.1 Normal (applies to non-numeric results) [facility] ([facility] Chloride Level 109 meq/L 98-107 Above high normal [facility] ([facility] Calcium Level 9.4 mg/dL 8.5-10.1 Normal (applies to non-numeric re sults) [facility] ([facility] Alt/SGPT 54 U/L 12-78 Normal (applies to non-numeric resul ts) [facility] ([facility] Ast/Sgot 37 U/L 7-37 Normal (applies to non-numeric resul ts) [facility] ([facility] Anion Gap 8 meq/L 8-16 Normal (applies to non-numeric resul ts) [facility] ([facility] Bilirubin,Total 0.7 mg/dL 0.2-1.0 Normal (applies to non-numeric results) [facility] Alkaline Phosphatase 110 U/L 45-117 Normal (applies to non-num crystal results) [facility] ([facility] Total Protein 6.9 GM/DL 6.4-8.2 Normal (applies to non-numeric re sults) [facility] Albumin 3.8 GM/DL 3.2-5.2 Normal (applies to non-numeric resul ts) [facility] Albumin/Globulin Ratio 1.2 1.2-2.2 Normal (applies to non-n umeric results) [facility] ([facility] ID Date Data Source [id number] 04/05/2020 01:35:00 PM EDT [facility] ([facility] Name Value Range Interpretation Code Description Data Shannan rce(s) Supporting Document(s) Hemoglobin 12.7 g/dL 12.0-15.5 Normal (applies to non-numeric resul ts) [facility] White Blood Count 7.7 10 4.0-10.0 Normal (applies to non-numeri c results) [facility] Red Blood Count 4.71 10 4.00-5.40 Normal (applies to non-numeric results) [facility] Mean Corpuscular Hemoglobin 27.0 pg 27.0-33.0 Norm al (applies to non-numeric results) [facility] Mean Corpuscular Volume 83.4 fl 80.0-96.0 Normal ( applies to non-numeric results) [facility] ([facility] Hematocrit 39.3 % 36.0-47.0 Normal (applies to non-numeric resul ts) [facility] ([facility] Red Cell Distribution Width 14.6 % 11.5-14.5 Above high normal [facility] ([facility] Mean Corpuscular HGB Conc 32.3 g/dL 32.0-36.5 Normal (applies to non-numeric results) [facility] ([facility] Platelet Count, Automated 304 10 150-450 Normal (applies to non-numeric results) [facility] ([facility] ) Neutrophils % 59.5 % 36.0-66.0 Normal (applies to non-numeric re sults) [facility] ([facility] Eos % 2.5 % 0.0-3.0 Normal (applies to non-numeric resul ts) [facility] ([facility] Lymph % 28.0 % 24.0-44.0 Normal (applies to non-numeric resul ts) [facility] ([facility] [place] % 8.6 % 0.0-5.0 Above high normal [facility] ([facility] Baso % 0.7 % 0.0-1.0 Normal (applies to non-numeric resul ts) [facility] ([facility] Immature Granulocyte % 0.7 % 0-3.0 Normal (applies to non-n umeric results) [facility] ([facility] Nucleated Red Blood Cell % 0.0 % 0-0 Normal (applies to n on-numeric results) [facility] ([facility] [place] # 0.7 10 0.0-0.8 Normal (applies to non-numeric resul ts) [facility] ([facility] Eos # 0.2 10 0.0-0.5 Normal (applies to non-numeric resul ts) [facility] ([facility] Neutrophils # 4.6 10 1.5-8.5 Normal (applies to non-numeric re sults) [facility] ([facility] Lymph # 2.2 10 1.5-5.0 Normal (applies to non-numeric resul ts) [facility] ([facility] Baso # 0.1 10 0.0-0.2 Normal (applies to non-numeric resul ts) [facility] ([facility] ID Date Data Source [id number] 03/22/2020 11:21:24 AM EDT [facility] Name Value Range Interpretation Code Description Data Shannan rce(s) Supporting Document(s) Progress Note [facility] [id number] [file] [id number] ID Date Data Source [id number] 03/20/2020 03:11:00 PM EDT [facility] ([facility] [place] Name Value Range Interpretation Code Description Data Shannan rce(s) Supporting Document(s) Glucose [Presence] in Urine Laboratory test result [facility] ([facility]) Protein [Presence] in Urine by Test strip Laboratory test result [facility] ([facility]) Ua Nitrite Laboratory test result [facility] ([facility]) Ua Leuko Laboratory test result [facility] ([facility]) Blood [Presence] in Urine by Visual Laboratory test result [facility] ([facility] [place]) Color of Urine Laboratory test result [facility] ([facility] [place]) Ketones [Presence] in Urine by Test strip Laboratory test result [facility] ([facility] [place]) Clarity of Urine Laboratory test result [facility] ([facility] [place]) Ua Specific Foley 1.025 1.003-1.030 MEDE NT ([facility]) pH of Urine by Test strip 7.0 5.0-7.5 [facility] ([facility]) Bilirubin.total [Presence] in Urine by Test strip Laboratory test res ult [facility] ([facility]) Urobilinogen [Mass/volume] in Urine by Test strip 0.2 E.U./dL 0.0-1.0 [facility] ([facility] [place]) ID Date Data Source [id number] 01/27/2020 12:00:00 AM EDT [facility] Ryan Rodriguez MD Patient Name: JUST[facility] Date of : [address] [address] Date of Exam: 01/27/2020#: Fax: [phone] EXAM: CT ABDOMEN & PELVIS WITHOUT CONTRASTCLINICAL INFORMATION: History of renal calculi.The latest prior for comparison is 02/09/2017.Low dose [address] scanning of the abdomen and pelvis wasobtained without the administration of intravenous contrast.The lung bases are clear and unchanged.There is diffuse low density seen throughout the hepatic parenchyma,essentially unchanged from the prior exam. Surgical clips are again seenin the gallbladder fossa from previous cholecystectomy. The spleen,pancreas, and adrenal glands are unremarkable.Once again, seen in the kidneys, calcifications are seen scatteredbilaterally at the level of the corticomedullary junction. This may haveincreased slightly from the prior exam. There is no obstructivephenomenon. The abdominal aorta and paraaortic regions are unchanged.Seen in the mesentery anterior to the transverse colon, there is a fattyinfiltration which represents a change from the prior exam. The ventralrent seen previously is not identifiable today. There is no free fluid orfree air in the abdomen. The bowel loops and the mesenteries are otherwiseunchanged.CT PELVIS:There is no mass or adenopathy. There is no free fluid or free air. Thebowel loops and the mesenteries are within normal limits.Bone window technique throughout the examination shows no significantchange in the appearance of the osseous structures.IMPRESSION:1. Bilateral renal calcifications consistent with medullary sponge kidney. This should be correlated clinically.2. There is diffuse fatty infiltration of the liver.3. Fatty infiltration involving the mesentery as described above.Etiology uncertain. This could be secondary to chronic fibrotic mesenterychange or mildly acute inflammatory change possibly from appendigitisepiploica. Consider followup if relevant.4. Other findings as ryland cribed above.Accredited by the [employer] in [place].MAYA Gonzalez/Eleazar you for referring NICOLE PATHAK to our office. Electronically Signed - MARIA E WOLFE DO 01/27/20 16:25 Name Value Range Interpretation Code Description Data Shannan rce(s) Supporting Document(s) ID Date Data Source [id number] 01/26/2020 01:48:00 PM EDT [facility] ([facility] Name Value Range Interpretation Code Description Data Shannan rce(s) Supporting Document(s) Appearance of Urine Laboratory test result [facility] ([facility] Color Urine Laboratory test result M [facility] ([facility] Glucose Urine Laboratory test result [facility] ([facility] Specific Foley 1.015 1.00-1.03 [facility] ([facility] PH Urine 6.5 5.0-8.0 [facility] Bilirubin.total [Presence] in Urine by Test strip Laboratory test res ult [facility] ([facility] Blood Urine Laboratory test result M [facility] ([facility] Ketones Laboratory test result [facility] ([facility] Nitrite Laboratory test result [facility] ([facility] Urobilinogen 0.2 EU/dl 0.2-1.0 [facility] Protein Urine Laboratory test result [facility] ([facility] Leukocytes Laboratory test result [facility] ([facility] ID Date Data Source [id number] 01/04/2020 10:29:00 AM EDT [facility] ([facility] Name Value Range Interpretation Code Description Data Shannan rce(s) Supporting Document(s) [id number] [Mass/volume] in Serum or Plasma 1.8 mg/L 0.6-2.4 Normal (applies to non-numeric results) [facility] Siemens Immulite 2000 Immunochemiluminom etric assay (ICMA) . Values obtained with different assay methods or kits cannot be used interchangeably. Results cannot be interpreted as absolute evidence of the presence or absence of malignant disease. Performed at: [address] [id number] Observation Nurse: Kevin Ascencio MD, Phone: [phone] ID Date Data Source [id number] 01/04/2020 10:29:00 AM EDT [facility] ([facility] Name Value Range Interpretation Code Description Data Shannan rce(s) Supporting Document(s) Immunoglobulin A 44.8 mg/dL 70-400 Below low normal [facility] ([facility] Immunoglobulin G 296 mg/dL [phone] Below low normal [facility] ([facility] Immunoglobulin M 15.3 mg/dL 40-230 Below low normal [facility] ([facility] ID Date Data Source [id number] 01/04/2020 10:29:00 AM EDT [facility] ([facility] Name Value Range Interpretation Code Description Data Shannan rce(s) Supporting Document(s) Lactate dehydrogenase [Enzymatic activity/volume] in Serum o r Plasma 128 U/L 84-246 Normal (applies to non-numeric results) [facility] ([facility] ID Date Data Source [id number] 01/04/2020 10:29:00 AM EDT [facility] ([facility] Name Value Range Interpretation Code Description Data Shannan rce(s) Supporting Document(s) Glucose, Fasting 196 mg/dL 70-100 Above high normal M [facility] ( [facility] Blood Urea Nitrogen 16 mg/dL 7-18 Normal (applies to non-nume ava results) [facility] ([facility] Creatinine For GFR 0.91 mg/dL 0.55-1.30 Normal (applies to non -numeric results) [facility] Glomerular Filtration Rate Laboratory test result Normal (applies to non- numeric results) [facility] ([facility] ) <content>Units are mL/min/1.73 m2</content>
<content></content>
<content>Chronic Kidney Disease Staging per NKF:</content>
<content></content>
<content>Stage I & II GFR >=60 Normal to Mildly Decreased</content>
<content>Stage III GFR 30-59 Moderately Decreased</content>
<content>Stage IV GFR 15-29 Severely Decreased</content>
<content>Stage V GFR <15 Very Little GFR Left</content>
<content>ESRD GFR <15 on SALES COMMISSIONS ANALYST</content>
<content></content> Potassium Serum 3.8 meq/L 3.5-5.1 Normal (applies to non-numeric results) [facility] Sodium Level 139 meq/L 136-145 Normal (applies to non-numeric res ults) [facility] ([facility] Chloride Level 109 meq/L 98-107 Above high normal [facility] ([facility] Carbon Dioxide Level 23 meq/L 21-32 Normal (applies to non-num crystal results) [facility] ([facility] Anion Gap 7 meq/L 8-16 Below low normal [facility] ( [facility] Calcium Level 9.2 mg/dL 8.5-10.1 Normal (applies to non-numeric re sults) [facility] ([facility] Ast/Sgot 43 U/L 7-37 Above high normal [facility] ([facility] Alt/SGPT 78 U/L 12-78 Normal (applies to non-numeric resul ts) [facility] ([facility] Bilirubin,Total 0.5 mg/dL 0.2-1.0 Normal (applies to non-numeric results) [facility] ([facility] Alkaline Phosphatase 126 U/L 45-117 Above high normal [facility] ([facility] Total Protein 7.0 GM/DL 6.4-8.2 Normal (applies to non-numeric re sults) [facility] ([facility] Albumin 3.8 GM/DL 3.2-5.2 Normal (applies to non-numeric resul ts) [facility] ([facility] Albumin/Globulin Ratio 1.19 1.00-1.93 Normal (applies to non-numeric results) [facility] ([facility] ID Date Data Source [id number] 01/04/2020 10:29:00 AM EDT [facility] ([facility] Name Value Range Interpretation Code Description Data Shannan rce(s) Supporting Document(s) Neutrophils % 56.6 % 36.0-66.0 Normal (applies to non-numeric re sults) [facility] ([facility] Lymph % 31.3 % 24.0-44.0 Normal (applies to non-numeric resul ts) [facility] ([facility] [place] % 6.1 % 0.0-5.0 Above high normal [facility] ([facility] Baso % 0.6 % 0.0-1.0 Normal (applies to non-numeric resul ts) [facility] ([facility] Eos % 4.8 % 0.0-3.0 Above high normal [facility] ([facility] Neutrophils # 3.8 10 1.5-8.5 Normal (applies to non-numeric re sults) [facility] ([facility] Immature Granulocyte % 0.6 % 0-3.0 Normal (applies to non-n umeric results) [facility] ([facility] Lymph # 2.1 10 1.5-5.0 Normal (applies to non-numeric resul ts) [facility] ([facility] [place] # 0.4 10 0.0-0.8 Normal (applies to non-numeric resul ts) [facility] ([facility] Eos # 0.3 10 0.0-0.5 Normal (applies to non-numeric resul ts) [facility] ([facility] Baso # 0.0 10 0.0-0.2 Normal (applies to non-numeric resul ts) [facility] ([facility] ID Date Data Source [id number] 01/04/2020 10:29:00 AM EDT [facility] ([facility] Name Value Range Interpretation Code Description Data Shannan rce(s) Supporting Document(s) White Blood Count 6.7 10 4.0-10.0 Normal (applies to non-numeri c results) [facility] ([facility] Red Blood Count 4.89 10 4.00-5.40 Normal (applies to non-numeric results) [facility] ([facility] Hemoglobin 13.1 g/dL 12.0-15.5 Normal (applies to non-numeric resul ts) [facility] ([facility] Mean Corpuscular Volume 83.4 fl 80.0-96.0 Normal ( applies to non-numeric results) [facility] ([facility] ) Hematocrit 40.8 % 36.0-47.0 Normal (applies to non-numeric resul ts) [facility] ([facility] Mean Corpuscular Hemoglobin 26.8 pg 27.0-33.0 Below low normal [facility] ([facility] Mean Corpuscular HGB Conc 32.1 g/dL 32.0-36.5 Normal (applies to non-numeric results) [facility] ([facility] ) Red Cell Distribution Width 14.0 % 11.5-14.5 Norm al (applies to non-numeric results) [facility] ([facility] ) Platelet Count, Automated 273 10 150-450 Normal (applies to non-numeric results) [facility] ([facility] ) Nucleated Red Blood Cell % 0.0 % 0-0 Normal (applies to n on-numeric results) [facility] ([facility] ID Date Data Source [id number] 01/04/2020 09:35:00 AM EDT [facility] ([facility] Name Value Range Interpretation Code Description Data Shannan rce(s) Supporting Document(s) Alb 10 mg/L 1-30 [facility] Creatinine, Urine 100 mg/dL 10-300 [facility] ([facility] A/C Ratio Laboratory test result [facility] ([facility] ID Date Data Source [id number] 01/04/2020 09:32:00 AM EDT [facility] ([facility] Name Value Range Interpretation Code Description Data Shannan rce(s) Supporting Document(s) Hemoglobin A1c/Hemoglobin.total in Blood 7.5 % 4.50-6.20 Above high normal [facility] ([facility] ID Date Data Source [id number] 01/04/2020 09:31:00 AM EDT [facility] ([facility] Name Value Range Interpretation Code Description Data Shannan rce(s) Supporting Document(s) Chol 174 mg/dL 0-200 [facility] CLASSIFICATION CHOLESTEROL FO R ADULTS CHILDREN/ADOLESCENTS* DESIRABLE: <200 MG/DL <170 MG/DL BORDER-LINE HIGH RISK: 200-239 MG/DL 170-199 MG/DL HIGH RISK: >240 MG/DL >200 MG/DL CLASS. FOR PRIMARY LDL CHOL PREVENTION: LDL CHOL-CHILD/ADOLESCENTS* DESIRABLE: <130 MG/DL <110 MG/DL BORDERLINE-HIGH RISK: 130-159 MG/DL 110-129 MG/DL HIGH RISK: >160 MG/DL >130 MG/DL *CHILDREN AND ADOLESCENTS REPRESENTS INDIVIDUALA AGED 2-19 YEARS EXCLUSIVE. Trig 192 mg/dL 40-200 [facility] CLASSIFICATION CHOLESTEROL FO R ADULTS CHILDREN/ADOLESCENTS* DESIRABLE: <200 MG/DL <170 MG/DL BORDER-LINE HIGH RISK: 200-239 MG/DL 170-199 MG/DL HIGH RISK: >240 MG/DL >200 MG/DL CLASS. FOR PRIMARY LDL CHOL PREVENTION: LDL CHOL-CHILD/ADOLESCENTS* DESIRABLE: <130 MG/DL <110 MG/DL BORDERLINE-HIGH RISK: 130-159 MG/DL 110-129 MG/DL HIGH RISK: >160 MG/DL >130 MG/DL *CHILDREN AND ADOLESCENTS REPRESENTS INDIVIDUALA AGED 2-19 YEARS EXCLUSIVE. Prostate specific Ag [Mass/volume] in Serum or Plasma 38 mg/dL 45-65 Below low normal [facility] ([facility] ) CLASSIFICATION CHOLESTEROL FO R ADULTS CHILDREN/ADOLESCENTS* DESIRABLE: <200 MG/DL <170 MG/DL BORDER-LINE HIGH RISK: 200-239 MG/DL 170-199 MG/DL HIGH RISK: >240 MG/DL >200 MG/DL CLASS. FOR PRIMARY LDL CHOL PREVENTION: LDL CHOL-CHILD/ADOLESCENTS* DESIRABLE: <130 MG/DL <110 MG/DL BORDERLINE-HIGH RISK: 130-159 MG/DL 110-129 MG/DL HIGH RISK: >160 MG/DL >130 MG/DL *CHILDREN AND ADOLESCENTS REPRESENTS INDIVIDUALA AGED 2-19 YEARS EXCLUSIVE. Cho/HDL Ratio 4.6 CALC [facility] ([facility] CLASSIFICATION CHOLESTEROL FO R ADULTS CHILDREN/ADOLESCENTS* DESIRABLE: <200 MG/DL <170 MG/DL BORDER-LINE HIGH RISK: 200-239 MG/DL 170-199 MG/DL HIGH RISK: >240 MG/DL >200 MG/DL CLASS. FOR PRIMARY LDL CHOL PREVENTION: LDL CHOL-CHILD/ADOLESCENTS* DESIRABLE: <130 MG/DL <110 MG/DL BORDERLINE-HIGH RISK: 130-159 MG/DL 110-129 MG/DL HIGH RISK: >160 MG/DL >130 MG/DL *CHILDREN AND ADOLESCENTS REPRESENTS INDIVIDUALA AGED 2-19 YEARS EXCLUSIVE. LDL_C 97 Calc 75-129 [facility] ([facility] CLASSIFICATION CHOLESTEROL FO R ADULTS CHILDREN/ADOLESCENTS* DESIRABLE: <200 MG/DL <170 MG/DL BORDER-LINE HIGH RISK: 200-239 MG/DL 170-199 MG/DL HIGH RISK: >240 MG/DL >200 MG/DL CLASS. FOR PRIMARY LDL CHOL PREVENTION: LDL CHOL-CHILD/ADOLESCENTS* DESIRABLE: <130 MG/DL <110 MG/DL BORDERLINE-HIGH RISK: 130-159 MG/DL 110-129 MG/DL HIGH RISK: >160 MG/DL >130 MG/DL *CHILDREN AND ADOLESCENTS REPRESENTS INDIVIDUALA AGED 2-19 YEARS EXCLUSIVE. ID Date Data Source [id number] 12/20/2019 07:02:00 AM EDT [facility] ([facility] Name Value Range Interpretation Code Description Data Shannan rce(s) Supporting Document(s) Glucose [Mass/volume] in Capillary blood by Glucometer 158 mg/dL 70-105 Above high normal [facility] ([facility] ) ID Date Data Source [id number] 12/20/2019 07:02:00 AM EDT [facility] ([facility]) Name Value Range Interpretation Code Description Data Shannan rce(s) Supporting Document(s) Glucose [Mass/volume] in Capillary blood by Glucometer 158 mg/dL 70-105 Above high normal [facility] ([facility], ) ID Date Data Source [id number] 12/20/2019 06:09:00 AM EDT [facility] ([facility] Name Value Range Interpretation Code Description Data Shannan rce(s) Supporting Document(s) Glucose, Fasting 165 mg/dL 70-100 Above high normal M [facility] ([facility] Blood Urea Nitrogen 17 mg/dL 7-18 Normal (applies to non-nume ava results) [facility] ([facility] Creatinine For GFR 0.97 mg/dL 0.55-1.30 Normal (applies to non -numeric results) [facility] ([facility] Glomerular Filtration Rate Laboratory test result Normal (applies to non- numeric results) [facility] ([facility] ) <content>Units are mL/min/1.73 m2</content>
<content></content>
<content>Chronic Kidney Disease Staging per NKF:</content>
<content></content>
<content>Stage I & II GFR >=60 Normal to Mildly Decreased</content>
<content>Stage III GFR 30- 59 Moderately Decreased</content>
<content>Stage IV GFR 15-29 Severely Decreased</content>
<content>Stage V GFR <15 Very Little GFR Left</content>
<content>ESRD GFR <15 on SALES COMMISSIONS ANALYST</content>
<content></content> Potassium Serum 4.2 meq/L 3.5-5.1 Normal (applies to non-numeric results) [facility] ([facility] Sodium Level 139 meq/L 136-145 Normal (applies to non-numeric res ults) [facility] ([facility] Chloride Level 106 meq/L 98-107 Normal (applies to non-numeric r esults) [facility] Anion Gap 7 meq/L 8-16 Below low normal [facility] ( [facility] Carbon Dioxide Level 26 meq/L 21-32 Normal (applies to non-num crystal results) [facility] Calcium Level 9.1 mg/dL 8.5-10.1 Normal (applies to non-numeric re sults) [facility] ID Date Data Source [id number] 12/20/2019 06:09:00 AM EDT [facility] ([facility] Name Value Range Interpretation Code Description Data Shannan rce(s) Supporting Document(s) White Blood Count 6.6 10 4.0-10.0 Normal (applies to non-numeri c results) [facility] ([facility] Hemoglobin 12.7 g/dL 12.0-15.5 Normal (applies to non-numeric resul ts) [facility] ([facility] Hematocrit 39.4 % 36.0-47.0 Normal (applies to non-numeric resul ts) [facility] Red Blood Count 4.76 10 4.00-5.40 Normal (applies to non-numeric results) [facility] Mean Corpuscular HGB Conc 32.2 g/dL 32.0-36.5 Normal (applies to non-numeric results) [facility] ([facility] ) Mean Corpuscular Volume 82.8 fl 80.0-96.0 Normal ( applies to non-numeric results) [facility] ([facility] ) Mean Corpuscular Hemoglobin 26.7 pg 27.0-33.0 Below low normal [facility] ([facility] Red Cell Distribution Width 13.5 % 11.5-14.5 Norm al (applies to non-numeric results) [facility] Nucleated Red Blood Cell % 0.0 % 0-0 Normal (applies to n on-numeric results) [facility] ([facility] Platelet Count, Automated 301 10 150-450 Normal (applies to non-numeric results) [facility] ([facility] ) ID Date Data Source [id number] 12/20/2019 06:09:00 AM EDT [facility] ([facility]) Name Value Range Interpretation Code Description Data Shannan rce(s) Supporting Document(s) Blood Urea Nitrogen 17 mg/dL 7-18 Normal (applies to non-nume ava results) [facility] ([facility]) Glucose, Fasting 165 mg/dL 70-100 Above high normal [facility] Sodium Level 139 meq/L 136-145 Normal (applies to non-numeric res ults) [facility] ([facility]) Glomerular Filtration Rate > 60.0 Normal (applies to n on-numeric results) [facility] ([facility]) <content>Units are mL/min/1.73 m2</content>
<content></content>
<content>Chronic Kidney Disease Staging per NKF:</content>
<content></content>
<content>Stage I & II GFR >=60 Normal to Mildly Decreased</content>
<content>Stage III GFR 30- 59 Moderately Decreased</content>
<content>Stage IV GFR 15-29 Severely Decreased</content>
<content>Stage V GFR <15 Very Little GFR Left</content>
<content>ESRD GFR <15 on SALES COMMISSIONS ANALYST</content>
<content></content> Creatinine For GFR 0.97 mg/dL 0.55-1.30 Normal (applies to non -numeric results) [facility]) Carbon Dioxide Level 26 meq/L 21-32 Normal (applies to non-num crystal results) [facility]) Chloride Level 106 meq/L 98-107 Normal (applies to non-numeric r esults) [facility]) Potassium Serum 4.2 meq/L 3.5-5.1 Normal (applies to non-numeric results) [facility]) Calcium Level 9.1 mg/dL 8.5-10.1 Normal (applies to non-numeric re sults) [facility]) Anion Gap 7 meq/L 8-16 Below low normal [facility]) ID Date Data Source [id number] 12/20/2019 06:09:00 AM EDT [facility]) Name Value Range Interpretation Code Description Data Shannan rce(s) Supporting Document(s) Hemoglobin 12.7 g/dL 12.0-15.5 Normal (applies to non-numeric resul ts) [facility]) Red Blood Count 4.76 10 4.00-5.40 Normal (applies to non-numeric results) [facility]) White Blood Count 6.6 10 4.0-10.0 Normal (applies to non-numeri c results) [facility]) Mean Corpuscular Hemoglobin 26.7 pg 27.0-33.0 Below low normal [facility]) Mean Corpuscular Volume 82.8 fl 80.0-96.0 Normal ( applies to non-numeric results) [facility]) Hematocrit 39.4 % 36.0-47.0 Normal (applies to non-numeric resul ts) [facility]) Mean Corpuscular HGB Conc 32.2 g/dL 32.0-36.5 Normal (applies to non-numeric results) [facility]) Platelet Count, Automated 301 10 150-450 Normal (applies to non-numeric results) [facility] ([facility]) Red Cell Distribution Width 13.5 % 11.5-14.5 Norm al (applies to non-numeric results) [facility] ([facility], ) Nucleated Red Blood Cell % 0.0 % 0-0 Normal (applies to n on-numeric results) [facility] ([facility]) ID Date Data Source [id number] 11/10/2019 01:08:00 PM EST [facility] ([facility] Name Value Range Interpretation Code Description Data Shannan rce(s) Supporting Document(s) Lactate dehydrogenase [Enzymatic activity/volume] in Serum o r Plasma 132 U/L 84-246 Normal (applies to non-numeric results) [facility] ([facility] ID Date Data Source [id number] 11/10/2019 01:08:00 PM EST [facility] Name Value Range Interpretation Code Description Data Shannan rce(s) Supporting Document(s) Glucose, Fasting 117 mg/dL 70-100 Above high normal [facility] Creatinine For GFR 1.02 mg/dL 0.55-1.30 Normal (applies to non -numeric results) [facility] Blood Urea Nitrogen 17 mg/dL 7-18 Normal (applies to non-nume ava results) [facility] ([facility] Glomerular Filtration Rate Laboratory test result Normal (applies to non- numeric results) [facility] ([facility] ) <content>Units are mL/min/1.73 m2</content>
<content></content>
<content>Chronic Kidney Disease Staging per NKF:</content>
<content></content>
<content>Stage I & II GFR >=60 Normal to Mildly Decreased</content>
<content>Stage III GFR 30-59 Moderately Decreased</content>
<content>Stage IV GFR 15-29 Severely Decreased</content>
<content>Stage V GFR <15 Very Little GFR Left</content>
<content>ESRD GFR <15 on SALES COMMISSIONS ANALYST</content>
<content></content> Potassium Serum 4.1 meq/L 3.5-5.1 Normal (applies to non-numeric results) [facility] ([facility] Sodium Level 140 meq/L 136-145 Normal (applies to non-numeric res ults) [facility] ([facility] Chloride Level 107 meq/L 98-107 Normal (applies to non-numeric r esults) [facility] ([facility] Calcium Level 9.4 mg/dL 8.5-10.1 Normal (applies to non-numeric re sults) [facility] ([facility] Carbon Dioxide Level 25 meq/L 21-32 Normal (applies to non-num crystal results) [facility] ([facility] Anion Gap 8 meq/L 8-16 Normal (applies to non-numeric resul ts) [facility] ([facility] Ast/Sgot 30 U/L 7-37 Normal (applies to non-numeric resul ts) [facility] ([facility] Alt/SGPT 59 U/L 12-78 Normal (applies to non-numeric resul ts) [facility] ([facility] Alkaline Phosphatase 120 U/L 45-117 [facility] Bilirubin,Total 0.6 mg/dL 0.2-1.0 Normal (applies to non-numeric results) [facility] [facility] Total Protein 7.0 GM/DL 6.4-8.2 Normal (applies to non-numeric re sults) [facility] ([facility] Albumin 3.8 GM/DL 3.2-5.2 Normal (applies to non-numeric resul ts) [facility] ([facility] Albumin/Globulin Ratio 1.19 1.00-1.93 Normal (applies to non-numeric results) [facility] ID Date Data Source [id number] 11/10/2019 01:08:00 PM EST [facility] ([facility] Name Value Range Interpretation Code Description Data Shannan rce(s) Supporting Document(s) [place] % 8.5 % 0.0-5.0 Above high normal [facility] ([facility] Neutrophils % 62.0 % 36.0-66.0 Normal (applies to non-numeric re sults) [facility] ([facility] Lymph % 25.7 % 24.0-44.0 Normal (applies to non-numeric resul ts) [facility] ([facility] Baso % 0.4 % 0.0-1.0 Normal (applies to non-numeric resul ts) [facility] ([facility] Immature Granulocyte % 0.9 % 0-3.0 Normal (applies to non-n umeric results) [facility] ([facility] Eos % 2.5 % 0.0-3.0 Normal (applies to non-numeric resul ts) [facility] ([facility] Lymph # 2.4 10 1.5-5.0 Normal (applies to non-numeric resul ts) [facility] ([facility] Neutrophils # 5.7 10 1.5-8.5 Normal (applies to non-numeric re sults) [facility] ([facility] [place] # 0.8 10 0.0-0.8 Normal (applies to non-numeric resul ts) [facility] ([facility] Eos # 0.2 10 0.0-0.5 Normal (applies to non-numeric resul ts) [facility] ([facility] Baso # 0.0 10 0.0-0.2 Normal (applies to non-numeric resul ts) [facility] ([facility] ID Date Data Source [id number] 11/10/2019 01:08:00 PM EST [facility] ([facility] Name Value Range Interpretation Code Description Data Shannan rce(s) Supporting Document(s) White Blood Count 9.2 10 4.0-10.0 Normal (applies to non-numeri c results) [facility] ([facility] Red Blood Count 4.86 10 4.00-5.40 Normal (applies to non-numeric results) [facility] ([facility] Mean Corpuscular Volume 84.8 fl 80.0-96.0 Normal ( applies to non-numeric results) [facility] ([facility] Hematocrit 41.2 % 36.0-47.0 Normal (applies to non-numeric resul ts) [facility] ([facility] Mean Corpuscular Hemoglobin 26.5 pg 27.0-33.0 Below low normal [facility] ([facility] Hemoglobin 12.9 g/dL 12.0-15.5 Normal (applies to non-numeric resul ts) [facility] ([facility] Mean Corpuscular HGB Conc 31.3 g/dL 32.0-36.5 Below low normal [facility] ([facility] Platelet Count, Automated 310 10 150-450 Normal (applies to non-numeric results) [facility] ([facility] Red Cell Distribution Width 13.6 % 11.5-14.5 Norm al (applies to non-numeric results) [facility] ([facility] Nucleated Red Blood Cell % 0.0 % 0-0 Normal (applies to n on-numeric results) [facility] ([facility] ID Date Data Source [id number] 09/14/2019 11:38:00 AM EST [facility] ([facility] Name Value Range Interpretation Code Description Data Shannan rce(s) Supporting Document(s) Chol 173 mg/dL 0-200 [facility] ([facility] CLASSIFICATION CHOLESTEROL FO R ADULTS CHILDREN/ADOLESCENTS* DESIRABLE: <200 MG/DL <170 MG/DL BORDER-LINE HIGH RISK: 200-239 MG/DL 170-199 MG/DL HIGH RISK: >240 MG/DL >200 MG/DL CLASS. FOR PRIMARY LDL CHOL PREVENTION: LDL CHOL-CHILD/ADOLESCENTS* DESIRABLE: <130 MG/DL <110 MG/DL BORDERLINE-HIGH RISK: 130-159 MG/DL 110-129 MG/DL HIGH RISK: >160 MG/DL >130 MG/DL *CHILDREN AND ADOLESCENTS REPRESENTS INDIVIDUALA AGED 2-19 YEARS EXCLUSIVE. CHRONIC KIDNEY DISEASE STAGING PER NKF: MALE GFR INTERPRETATION: 20-49 YRS: [...] mL/min Normal 80 and above >32 mL/min Normal Trig 183 mg/dL 40-200 [facility] ([facility] CLASSIFICATION CHOLESTEROL FO R ADULTS CHILDREN/ADOLESCENTS* DESIRABLE: <200 MG/DL <170 MG/DL BORDER-LINE HIGH RISK: 200-239 MG/DL 170-199 MG/DL HIGH RISK: >240 MG/DL >200 MG/DL CLASS. FOR PRIMARY LDL CHOL PREVENTION: LDL CHOL-CHILD/ADOLESCENTS* DESIRABLE: <130 MG/DL <110 MG/DL BORDERLINE-HIGH RISK: 130-159 MG/DL 110-129 MG/DL HIGH RISK: >160 MG/DL >130 MG/DL *CHILDREN AND ADOLESCENTS REPRESENTS INDIVIDUALA AGED 2-19 YEARS EXCLUSIVE. CHRONIC KIDNEY DISEASE STAGING PER NKF: MALE GFR INTERPRETATION: 20-49 YRS: [...] mL/min Normal 80 and above >32 mL/min Normal Prostate specific Ag [Mass/volume] in Serum or Plasma 41 mg/dL 45-65 Below low normal [facility] ([facility] CLASSIFICATION CHOLESTEROL FO R ADULTS CHILDREN/ADOLESCENTS* DESIRABLE: <200 MG/DL <170 MG/DL BORDER-LINE HIGH RISK: 200-239 MG/DL 170-199 MG/DL HIGH RISK: >240 MG/DL >200 MG/DL CLASS. FOR PRIMARY LDL CHOL PREVENTION: LDL CHOL-CHILD/ADOLESCENTS* DESIRABLE: <130 MG/DL <110 MG/DL BORDERLINE-HIGH RISK: 130-159 MG/DL 110-129 MG/DL HIGH RISK: >160 MG/DL >130 MG/DL *CHILDREN AND ADOLESCENTS REPRESENTS INDIVIDUALA AGED 2-19 YEARS EXCLUSIVE. CHRONIC KIDNEY DISEASE STAGING PER NKF: MALE GFR INTERPRETATION: 20-49 YRS: [...] mL/min Normal 80 and above >32 mL/min Normal Cho/HDL Ratio 4.3 Calc [facility] ([facility] CLASSIFICATION CHOLESTEROL FO R ADULTS CHILDREN/ADOLESCENTS* DESIRABLE: <200 MG/DL <170 MG/DL BORDER-LINE HIGH RISK: 200-239 MG/DL 170-199 MG/DL HIGH RISK: >240 MG/DL >200 MG/DL CLASS. FOR PRIMARY LDL CHOL PREVENTION: LDL CHOL-CHILD/ADOLESCENTS* DESIRABLE: <130 MG/DL <110 MG/DL BORDERLINE-HIGH RISK: 130-159 MG/DL 110-129 MG/DL HIGH RISK: >160 MG/DL >130 MG/DL *CHILDREN AND ADOLESCENTS REPRESENTS INDIVIDUALA AGED 2-19 YEARS EXCLUSIVE. CHRONIC KIDNEY DISEASE STAGING PER NKF: MALE GFR INTERPRETATION: 20-49 YRS: [...] mL/min Normal 80 and above >32 mL/min Normal LDL_C 96 Calc 75-129 [facility] ([facility] CLASSIFICATION CHOLESTEROL FO R ADULTS CHILDREN/ADOLESCENTS* DESIRABLE: <200 MG/DL <170 MG/DL BORDER-LINE HIGH RISK: 200-239 MG/DL 170-199 MG/DL HIGH RISK: >240 MG/DL >200 MG/DL CLASS. FOR PRIMARY LDL CHOL PREVENTION: LDL CHOL-CHILD/ADOLESCENTS* DESIRABLE: <130 MG/DL <110 MG/DL BORDERLINE-HIGH RISK: 130-159 MG/DL 110-129 MG/DL HIGH RISK: >160 MG/DL >130 MG/DL *CHILDREN AND ADOLESCENTS REPRESENTS INDIVIDUALA AGED 2-19 YEARS EXCLUSIVE. CHRONIC KIDNEY DISEASE STAGING PER NKF: MALE GFR INTERPRETATION: 20-49 YRS: [...] mL/min Normal 80 and above >32 mL/min Normal ID Date Data Source [id number] 09/14/2019 11:38:00 AM EST [facility] ([facility] Name Value Range Interpretation Code Description Data Shannan rce(s) Supporting Document(s) BUN 15 mg/dL 8-23 [facility] CLASSIFICATION CHOLESTEROL FO R ADULTS CHILDREN/ADOLESCENTS* DESIRABLE: <200 MG/DL <170 MG/DL BORDER-LINE HIGH RISK: 200-239 MG/DL 170-199 MG/DL HIGH RISK: >240 MG/DL >200 MG/DL CLASS. FOR PRIMARY LDL CHOL PREVENTION: LDL CHOL-CHILD/ADOLESCENTS* DESIRABLE: <130 MG/DL <110 MG/DL BORDERLINE-HIGH RISK: 130-159 MG/DL 110-129 MG/DL HIGH RISK: >160 MG/DL >130 MG/DL *CHILDREN AND ADOLESCENTS REPRESENTS INDIVIDUALA AGED 2-19 YEARS EXCLUSIVE. CHRONIC KIDNEY DISEASE STAGING PER NKF: MALE GFR INTERPRETATION: 20-49 YRS: [...] mL/min Normal 80 and above >32 mL/min Normal Glu 135 mg/dL 70-110 Above high normal [facility] ([facility] CLASSIFICATION CHOLESTEROL FO R ADULTS CHILDREN/ADOLESCENTS* DESIRABLE: <200 MG/DL <170 MG/DL BORDER-LINE HIGH RISK: 200-239 MG/DL 170-199 MG/DL HIGH RISK: >240 MG/DL >200 MG/DL CLASS. FOR PRIMARY LDL CHOL PREVENTION: LDL CHOL-CHILD/ADOLESCENTS* DESIRABLE: <130 MG/DL <110 MG/DL BORDERLINE-HIGH RISK: 130-159 MG/DL 110-129 MG/DL HIGH RISK: >160 MG/DL >130 MG/DL *CHILDREN AND ADOLESCENTS REPRESENTS INDIVIDUALA AGED 2-19 YEARS EXCLUSIVE. CHRONIC KIDNEY DISEASE STAGING PER NKF: MALE GFR INTERPRETATION: 20-49 YRS: [...] mL/min Normal 80 and above >32 mL/min Normal Creat 0.8 mg/dL 0.5-1.0 [facility] ([facility] CLASSIFICATION CHOLESTEROL FO R ADULTS CHILDREN/ADOLESCENTS* DESIRABLE: <200 MG/DL <170 MG/DL BORDER-LINE HIGH RISK: 200-239 MG/DL 170-199 MG/DL HIGH RISK: >240 MG/DL >200 MG/DL CLASS. FOR PRIMARY LDL CHOL PREVENTION: LDL CHOL-CHILD/ADOLESCENTS* DESIRABLE: <130 MG/DL <110 MG/DL BORDERLINE-HIGH RISK: 130-159 MG/DL 110-129 MG/DL HIGH RISK: >160 MG/DL >130 MG/DL *CHILDREN AND ADOLESCENTS REPRESENTS INDIVIDUALA AGED 2-19 YEARS EXCLUSIVE. CHRONIC KIDNEY DISEASE STAGING PER NKF: MALE GFR INTERPRETATION: 20-49 YRS: [...] mL/min Normal 80 and above >32 mL/min Normal BUN/Creatinine Ratio 17.4 CALC [facility] ([facility] CLASSIFICATION CHOLESTEROL FO R ADULTS CHILDREN/ADOLESCENTS* DESIRABLE: <200 MG/DL <170 MG/DL BORDER-LINE HIGH RISK: 200-239 MG/DL 170-199 MG/DL HIGH RISK: >240 MG/DL >200 MG/DL CLASS. FOR PRIMARY LDL CHOL PREVENTION: LDL CHOL-CHILD/ADOLESCENTS* DESIRABLE: <130 MG/DL <110 MG/DL BORDERLINE-HIGH RISK: 130-159 MG/DL 110-129 MG/DL HIGH RISK: >160 MG/DL >130 MG/DL *CHILDREN AND ADOLESCENTS REPRESENTS INDIVIDUALA AGED 2-19 YEARS EXCLUSIVE. CHRONIC KIDNEY DISEASE STAGING PER NKF: MALE GFR INTERPRETATION: 20-49 YRS: [...] mL/min Normal 80 and above >32 mL/min Normal Na 138 mmol/L 136-145 [facility] ([facility] CLASSIFICATION CHOLESTEROL FO R ADULTS CHILDREN/ADOLESCENTS* DESIRABLE: <200 MG/DL <170 MG/DL BORDER-LINE HIGH RISK: 200-239 MG/DL 170-199 MG/DL HIGH RISK: >240 MG/DL >200 MG/DL CLASS. FOR PRIMARY LDL CHOL PREVENTION: LDL CHOL-CHILD/ADOLESCENTS* DESIRABLE: <130 MG/DL <110 MG/DL BORDERLINE-HIGH RISK: 130-159 MG/DL 110-129 MG/DL HIGH RISK: >160 MG/DL >130 MG/DL *CHILDREN AND ADOLESCENTS REPRESENTS INDIVIDUALA AGED 2-19 YEARS EXCLUSIVE. CHRONIC KIDNEY DISEASE STAGING PER NKF: MALE GFR INTERPRETATION: 20-49 YRS: [...] mL/min Normal 80 and above >32 mL/min Normal CL 101.4 mmol/L 98.0-107.0 [facility] CLASSIFICATION CHOLESTEROL FO R ADULTS CHILDREN/ADOLESCENTS* DESIRABLE: <200 MG/DL <170 MG/DL BORDER-LINE HIGH RISK: 200-239 MG/DL 170-199 MG/DL HIGH RISK: >240 MG/DL >200 MG/DL CLASS. FOR PRIMARY LDL CHOL PREVENTION: LDL CHOL-CHILD/ADOLESCENTS* DESIRABLE: <130 MG/DL <110 MG/DL BORDERLINE-HIGH RISK: 130-159 MG/DL 110-129 MG/DL HIGH RISK: >160 MG/DL >130 MG/DL *CHILDREN AND ADOLESCENTS REPRESENTS INDIVIDUALA AGED 2-19 YEARS EXCLUSIVE. CHRONIC KIDNEY DISEASE STAGING PER NKF: MALE GFR INTERPRETATION: 20-49 YRS: [...] mL/min Normal 80 and above >32 mL/min Normal Co2 22.6 mmol/L 22.0-29.0 [facility] ([facility] CLASSIFICATION CHOLESTEROL FO R ADULTS CHILDREN/ADOLESCENTS* DESIRABLE: <200 MG/DL <170 MG/DL BORDER-LINE HIGH RISK: 200-239 MG/DL 170-199 MG/DL HIGH RISK: >240 MG/DL >200 MG/DL CLASS. FOR PRIMARY LDL CHOL PREVENTION: LDL CHOL-CHILD/ADOLESCENTS* DESIRABLE: <130 MG/DL <110 MG/DL BORDERLINE-HIGH RISK: 130-159 MG/DL 110-129 MG/DL HIGH RISK: >160 MG/DL >130 MG/DL *CHILDREN AND ADOLESCENTS REPRESENTS INDIVIDUALA AGED 2-19 YEARS EXCLUSIVE. CHRONIC KIDNEY DISEASE STAGING PER NKF: MALE GFR INTERPRETATION: 20-49 YRS: [...] mL/min Normal 80 and above >32 mL/min Normal CA 9.4 mg/dL 8.6-10.2 [facility] ([facility] CLASSIFICATION CHOLESTEROL FO R ADULTS CHILDREN/ADOLESCENTS* DESIRABLE: <200 MG/DL <170 MG/DL BORDER-LINE HIGH RISK: 200-239 MG/DL 170-199 MG/DL HIGH RISK: >240 MG/DL >200 MG/DL CLASS. FOR PRIMARY LDL CHOL PREVENTION: LDL CHOL-CHILD/ADOLESCENTS* DESIRABLE: <130 MG/DL <110 MG/DL BORDERLINE-HIGH RISK: 130-159 MG/DL 110-129 MG/DL HIGH RISK: >160 MG/DL >130 MG/DL *CHILDREN AND ADOLESCENTS REPRESENTS INDIVIDUALA AGED 2-19 YEARS EXCLUSIVE. CHRONIC KIDNEY DISEASE STAGING PER NKF: MALE GFR INTERPRETATION: 20-49 YRS: [...] mL/min Normal 80 and above >32 mL/min Normal K 4.3 mmol/L 3.5-5.1 [facility] ([facility] CLASSIFICATION CHOLESTEROL FO R ADULTS CHILDREN/ADOLESCENTS* DESIRABLE: <200 MG/DL <170 MG/DL BORDER-LINE HIGH RISK: 200-239 MG/DL 170-199 MG/DL HIGH RISK: >240 MG/DL >200 MG/DL CLASS. FOR PRIMARY LDL CHOL PREVENTION: LDL CHOL-CHILD/ADOLESCENTS* DESIRABLE: <130 MG/DL <110 MG/DL BORDERLINE-HIGH RISK: 130-159 MG/DL 110-129 MG/DL HIGH RISK: >160 MG/DL >130 MG/DL *CHILDREN AND ADOLESCENTS REPRESENTS INDIVIDUALA AGED 2-19 YEARS EXCLUSIVE. CHRONIC KIDNEY DISEASE STAGING PER NKF: MALE GFR INTERPRETATION: 20-49 YRS: [...] mL/min Normal 80 and above >32 mL/min Normal Alb 4.4 g/dL 3.4-4.8 [facility] ([facility] CLASSIFICATION CHOLESTEROL FO R ADULTS CHILDREN/ADOLESCENTS* DESIRABLE: <200 MG/DL <170 MG/DL BORDER-LINE HIGH RISK: 200-239 MG/DL 170-199 MG/DL HIGH RISK: >240 MG/DL >200 MG/DL CLASS. FOR PRIMARY LDL CHOL PREVENTION: LDL CHOL-CHILD/ADOLESCENTS* DESIRABLE: <130 MG/DL <110 MG/DL BORDERLINE-HIGH RISK: 130-159 MG/DL 110-129 MG/DL HIGH RISK: >160 MG/DL >130 MG/DL *CHILDREN AND ADOLESCENTS REPRESENTS INDIVIDUALA AGED 2-19 YEARS EXCLUSIVE. CHRONIC KIDNEY DISEASE STAGING PER NKF: MALE GFR INTERPRETATION: 20-49 YRS: [...] mL/min Normal 80 and above >32 mL/min Normal TP 6.2 g/dL 6.6-8.7 Below low normal [facility] ( [facility] CLASSIFICATION CHOLESTEROL FO R ADULTS CHILDREN/ADOLESCENTS* DESIRABLE: <200 MG/DL <170 MG/DL BORDER-LINE HIGH RISK: 200-239 MG/DL 170-199 MG/DL HIGH RISK: >240 MG/DL >200 MG/DL CLASS. FOR PRIMARY LDL CHOL PREVENTION: LDL CHOL-CHILD/ADOLESCENTS* DESIRABLE: <130 MG/DL <110 MG/DL BORDERLINE-HIGH RISK: 130-159 MG/DL 110-129 MG/DL HIGH RISK: >160 MG/DL >130 MG/DL *CHILDREN AND ADOLESCENTS REPRESENTS INDIVIDUALA AGED 2-19 YEARS EXCLUSIVE. CHRONIC KIDNEY DISEASE STAGING PER NKF: MALE GFR INTERPRETATION: 20-49 YRS: [...] mL/min Normal 80 and above >32 mL/min Normal A/G Ratio 2.4 CALC [facility] ([facility] CLASSIFICATION CHOLESTEROL FO R ADULTS CHILDREN/ADOLESCENTS* DESIRABLE: <200 MG/DL <170 MG/DL BORDER-LINE HIGH RISK: 200-239 MG/DL 170-199 MG/DL HIGH RISK: >240 MG/DL >200 MG/DL CLASS. FOR PRIMARY LDL CHOL PREVENTION: LDL CHOL-CHILD/ADOLESCENTS* DESIRABLE: <130 MG/DL <110 MG/DL BORDERLINE-HIGH RISK: 130-159 MG/DL 110-129 MG/DL HIGH RISK: >160 MG/DL >130 MG/DL *CHILDREN AND ADOLESCENTS REPRESENTS INDIVIDUALA AGED 2-19 YEARS EXCLUSIVE. CHRONIC KIDNEY DISEASE STAGING PER NKF: MALE GFR INTERPRETATION: 20-49 YRS: [...] mL/min Normal 80 and above >32 mL/min Normal Globulin 1.8 CALC [facility] ([facility] CLASSIFICATION CHOLESTEROL FO R ADULTS CHILDREN/ADOLESCENTS* DESIRABLE: <200 MG/DL <170 MG/DL BORDER-LINE HIGH RISK: 200-239 MG/DL 170-199 MG/DL HIGH RISK: >240 MG/DL >200 MG/DL CLASS. FOR PRIMARY LDL CHOL PREVENTION: LDL CHOL-CHILD/ADOLESCENTS* DESIRABLE: <130 MG/DL <110 MG/DL BORDERLINE-HIGH RISK: 130-159 MG/DL 110-129 MG/DL HIGH RISK: >160 MG/DL >130 MG/DL *CHILDREN AND ADOLESCENTS REPRESENTS INDIVIDUALA AGED 2-19 YEARS EXCLUSIVE. CHRONIC KIDNEY DISEASE STAGING PER NKF: MALE GFR INTERPRETATION: 20-49 YRS: [...] mL/min Normal 80 and above >32 mL/min Normal Alt (SGPT) 36 U/L 0-41 [facility] ([facility] CLASSIFICATION CHOLESTEROL FO R ADULTS CHILDREN/ADOLESCENTS* DESIRABLE: <200 MG/DL <170 MG/DL BORDER-LINE HIGH RISK: 200-239 MG/DL 170-199 MG/DL HIGH RISK: >240 MG/DL >200 MG/DL CLASS. FOR PRIMARY LDL CHOL PREVENTION: LDL CHOL-CHILD/ADOLESCENTS* DESIRABLE: <130 MG/DL <110 MG/DL BORDERLINE-HIGH RISK: 130-159 MG/DL 110-129 MG/DL HIGH RISK: >160 MG/DL >130 MG/DL *CHILDREN AND ADOLESCENTS REPRESENTS INDIVIDUALA AGED 2-19 YEARS EXCLUSIVE. CHRONIC KIDNEY DISEASE STAGING PER NKF: MALE GFR INTERPRETATION: 20-49 YRS: [...] mL/min Normal 80 and above >32 mL/min Normal Alp 125.8 U/L 35-129 [facility] CLASSIFICATION CHOLESTEROL FO R ADULTS CHILDREN/ADOLESCENTS* DESIRABLE: <200 MG/DL <170 MG/DL BORDER-LINE HIGH RISK: 200-239 MG/DL 170-199 MG/DL HIGH RISK: >240 MG/DL >200 MG/DL CLASS. FOR PRIMARY LDL CHOL PREVENTION: LDL CHOL-CHILD/ADOLESCENTS* DESIRABLE: <130 MG/DL <110 MG/DL BORDERLINE-HIGH RISK: 130-159 MG/DL 110-129 MG/DL HIGH RISK: >160 MG/DL >130 MG/DL *CHILDREN AND ADOLESCENTS REPRESENTS INDIVIDUALA AGED 2-19 YEARS EXCLUSIVE. CHRONIC KIDNEY DISEASE STAGING PER NKF: MALE GFR INTERPRETATION: 20-49 YRS: [...] mL/min Normal 80 and above >32 mL/min Normal Ast (Sgot) 30 U/L 0-40 [facility] ([facility] CLASSIFICATION CHOLESTEROL FO R ADULTS CHILDREN/ADOLESCENTS* DESIRABLE: <200 MG/DL <170 MG/DL BORDER-LINE HIGH RISK: 200-239 MG/DL 170-199 MG/DL HIGH RISK: >240 MG/DL >200 MG/DL CLASS. FOR PRIMARY LDL CHOL PREVENTION: LDL CHOL-CHILD/ADOLESCENTS* DESIRABLE: <130 MG/DL <110 MG/DL BORDERLINE-HIGH RISK: 130-159 MG/DL 110-129 MG/DL HIGH RISK: >160 MG/DL >130 MG/DL *CHILDREN AND ADOLESCENTS REPRESENTS INDIVIDUALA AGED 2-19 YEARS EXCLUSIVE. CHRONIC KIDNEY DISEASE STAGING PER NKF: MALE GFR INTERPRETATION: 20-49 YRS: [...] mL/min Normal 80 and above >32 mL/min Normal Tbili 0.56 mg/dL 0.0-1.2 [facility] ([facility] CLASSIFICATION CHOLESTEROL FO R ADULTS CHILDREN/ADOLESCENTS* DESIRABLE: <200 MG/DL <170 MG/DL BORDER-LINE HIGH RISK: 200-239 MG/DL 170-199 MG/DL HIGH RISK: >240 MG/DL >200 MG/DL CLASS. FOR PRIMARY LDL CHOL PREVENTION: LDL CHOL-CHILD/ADOLESCENTS* DESIRABLE: <130 MG/DL <110 MG/DL BORDERLINE-HIGH RISK: 130-159 MG/DL 110-129 MG/DL HIGH RISK: >160 MG/DL >130 MG/DL *CHILDREN AND ADOLESCENTS REPRESENTS INDIVIDUALA AGED 2-19 YEARS EXCLUSIVE. CHRONIC KIDNEY DISEASE STAGING PER NKF: MALE GFR INTERPRETATION: 20-49 YRS: [...] mL/min Normal 80 and above >32 mL/min Normal Osmolality-Calculated 278.2 CALC [facility] ([facility] CLASSIFICATION CHOLESTEROL FO R ADULTS CHILDREN/ADOLESCENTS* DESIRABLE: <200 MG/DL <170 MG/DL BORDER-LINE HIGH RISK: 200-239 MG/DL 170-199 MG/DL HIGH RISK: >240 MG/DL >200 MG/DL CLASS. FOR PRIMARY LDL CHOL PREVENTION: LDL CHOL-CHILD/ADOLESCENTS* DESIRABLE: <130 MG/DL <110 MG/DL BORDERLINE-HIGH RISK: 130-159 MG/DL 110-129 MG/DL HIGH RISK: >160 MG/DL >130 MG/DL *CHILDREN AND ADOLESCENTS REPRESENTS INDIVIDUALA AGED 2-19 YEARS EXCLUSIVE. CHRONIC KIDNEY DISEASE STAGING PER NKF: MALE GFR INTERPRETATION: 20-49 YRS: [...] mL/min Normal 80 and above >32 mL/min Normal eGFR Non-Afr. Iranian 87 # [facility] ([facility] CLASSIFICATION CHOLESTEROL FO R ADULTS CHILDREN/ADOLESCENTS* DESIRABLE: <200 MG/DL <170 MG/DL BORDER-LINE HIGH RISK: 200-239 MG/DL 170-199 MG/DL HIGH RISK: >240 MG/DL >200 MG/DL CLASS. FOR PRIMARY LDL CHOL PREVENTION: LDL CHOL-CHILD/ADOLESCENTS* DESIRABLE: <130 MG/DL <110 MG/DL BORDERLINE-HIGH RISK: 130-159 MG/DL 110-129 MG/DL HIGH RISK: >160 MG/DL >130 MG/DL *CHILDREN AND ADOLESCENTS REPRESENTS INDIVIDUALA AGED 2-19 YEARS EXCLUSIVE. CHRONIC KIDNEY DISEASE STAGING PER NKF: MALE GFR INTERPRETATION: 20-49 YRS: [...] mL/min Normal 80 and above >32 mL/min Normal eGFR 100 # [facility] ( [facility] CLASSIFICATION CHOLESTEROL FO R ADULTS CHILDREN/ADOLESCENTS* DESIRABLE: <200 MG/DL <170 MG/DL BORDER-LINE HIGH RISK: 200-239 MG/DL 170-199 MG/DL HIGH RISK: >240 MG/DL >200 MG/DL CLASS. FOR PRIMARY LDL CHOL PREVENTION: LDL CHOL-CHILD/ADOLESCENTS* DESIRABLE: <130 MG/DL <110 MG/DL BORDERLINE-HIGH RISK: 130-159 MG/DL 110-129 MG/DL HIGH RISK: >160 MG/DL >130 MG/DL *CHILDREN AND ADOLESCENTS REPRESENTS INDIVIDUALA AGED 2-19 YEARS EXCLUSIVE. CHRONIC KIDNEY DISEASE STAGING PER NKF: MALE GFR INTERPRETATION: 20-49 YRS: [...] mL/min Normal 80 and above >32 mL/min Normal Anion Gap 18 mmol/L [facility] ([facility] CLASSIFICATION CHOLESTEROL FO R ADULTS CHILDREN/ADOLESCENTS* DESIRABLE: <200 MG/DL <170 MG/DL BORDER-LINE HIGH RISK: 200-239 MG/DL 170-199 MG/DL HIGH RISK: >240 MG/DL >200 MG/DL CLASS. FOR PRIMARY LDL CHOL PREVENTION: LDL CHOL-CHILD/ADOLESCENTS* DESIRABLE: <130 MG/DL <110 MG/DL BORDERLINE-HIGH RISK: 130-159 MG/DL 110-129 MG/DL HIGH RISK: >160 MG/DL >130 MG/DL *CHILDREN AND ADOLESCENTS REPRESENTS INDIVIDUALA AGED 2-19 YEARS EXCLUSIVE. CHRONIC KIDNEY DISEASE STAGING PER NKF: MALE GFR INTERPRETATION: 20-49 YRS: [...] mL/min Normal 80 and above >32 mL/min Normal ID Date Data Source [id number] 09/14/2019 11:38:00 AM EST [facility] ([facility] Name Value Range Interpretation Code Description Data Shannan rce(s) Supporting Document(s) Hemoglobin A1c/Hemoglobin.total in Blood 7.1 % 4.50-6.20 Above high normal [facility] ([facility] Procedure Social History Code Duration Value Status Description Data Source(s ) Smoking 10/19/2020 12:00:00 AM EST Never Smoked Cigarettes com pleted Never Smoked Cigarettes [facility] ([facility] [place] Alcohol intake 03/22/2020 12:00:00 AM EDT Not Asked completed [facility] Smoking 03/22/2020 12:00:00 AM EDT Never smoker completed Never s [facility] Smoking 10/28/2019 12:00:00 AM EST Never smoker completed Never s janiya 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[facility]) Vital Signs ID Date Data Source [id number] Name Value Range Interpretation Code Description Data Source(s) Heart rate 76 /min 76 /min [facility] ([facility] [place] Diastolic blood pressure 83 mm[Hg] 83 mm[Hg] [facility] ([facility] [place] Systolic blood pressure 119 mm[Hg] 119 mm[Hg] M [facility] ([facility] [place] Body mass index (BMI) [Ratio] 35.9 kg/m2 35.9 k g/m2 [facility] ([facility] [place] Body weight 86.184 kg 86.184 kg [facility] ([facility] [place] Body weight 190.00 [lb_av] 190.00 [lb_av] MEDEN T ([facility] [place]) Body height 61 [in_i] 61 [in_i] [facility] ([facility] [place] 5'1" Oxygen saturation in Arterial blood by Pulse oximetry 99 % 99 % MEDENT ([facility] Body mass index (BMI) [Ratio] 37.6 kg/m2 37.6 k g/m2 MEDENT ([facility] [place] body weight 105 [lb_av] 105 [lb_av] MEDEN T ([facility] Body weight 199.00 [lb_av] 199.00 [lb_av] MEDEN T ([facility] Body height 61 [in_i] 61 [in_i] MEDENT ([facility] 5'1" Respiratory rate 16 /min 16 /min MED[facility] ( [facility] Heart rate 92 /min 92 /min MED[facility] ([facility] Body temperature 97.6 [degF] 97.6 [degF] MEDENT ([facility] Diastolic blood pressure 76 mm[Hg] 76 mm[Hg] MED[facility] ([facility] Systolic blood pressure 124 mm[Hg] 124 mm[Hg] M EDENT ([facility] Body temperature 95.4 [degF] 95.4 [degF] MED[facility] ([facility] [place] Heart rate 87 /min 87 /min [facility] ([facility] [place] Diastolic blood pressure 72 mm[Hg] 72 mm[Hg] MED[facility] ([facility] [place] Systolic blood pressure 105 mm[Hg] 105 mm[Hg] M EDENT ([facility] [place] Body mass index (BMI) [Ratio] 36.8 kg/m2 36.8 k g/m2 MED[facility] ([facility] Body weight 88.452 kg 88.452 kg [facility] ([facility] Body weight 195.00 [lb_av] 195.00 [lb_av] MEDEN T ([facility]) Body height 61 [in_i] 61 [in_i] MED[facility] ([facility] 5'1" Diastolic blood pressure 80 mm[Hg] 80 mm[Hg] MEDENT ([facility] Systolic blood pressure 124 mm[Hg] 124 mm[Hg] M EDENT ([facility] [facility] Oxygen saturation in Arterial blood by Pulse oximetry 97 % 97 % [facility] ([facility] Body mass index (BMI) [Ratio] 36.5 kg/m2 36.5 k g/m2 [facility] ([facility] Gonzales body weight 105 [lb_av] 105 [lb_av] MED[facility] T ([facility] Body weight 193.00 [lb_av] 193.00 [lb_av] [facility] T ([facility] Body height 61 [in_i] 61 [in_i] [facility] ([facility] 5'1" Respiratory rate 14 /min 14 /min [facility] ( [facility] Heart rate 80 /min 80 /min [facility] ([facility] Body temperature 97.9 [degF] 97.9 [degF] [facility] ([facility] Body temperature 96.3 [degF] 96.3 [degF] [facility] ([facility]) Body mass index (BMI) [Ratio] 37.8 kg/m2 37.8 k g/m2 [facility] ([facility]) Body weight 90.720 kg 90.720 kg [facility] ([facility] Body weight 200.00 [lb_av] 200.00 [lb_av] [facility] T ([facility]) Body height 61 [in_i] 61 [in_i] [facility] ([facility] 5'1" Oxygen saturation in Arterial blood by Pulse oximetry 98 % 98 % [facility] ([facility] Gonzales body weight 105 [lb_av] 105 [lb_av] MED[facility] T ([facility] Body height 61 [in_i] 61 [in_i] [facility] ([facility] 5'1" Respiratory rate 14 /min 14 /min [facility] ( [facility] Heart rate 70 /min 70 /min [facility] ([facility] Body temperature 97.5 [degF] 97.5 [degF] [facility] ([facility] Diastolic blood pressure 82 mm[Hg] 82 mm[Hg] [facility] ([facility] Systolic blood pressure 128 mm[Hg] 128 mm[Hg] M EDENT ([facility] Oxygen saturation in Arterial blood by Pulse oximetry 97 % 97 % [facility] ([facility] Body mass index (BMI) [Ratio] 36.7 kg/m2 36.7 k g/m2 [facility] ([facility] Body weight 194.00 [lb_av] 194.00 [lb_av] MEDEN T ([facility] Body height 61 [in_i] 61 [in_i] [facility] ([facility] 5'1" Respiratory rate 18 /min 18 /min [facility] ( [facility] Heart rate 104 /min 104 /min [facility] ([facility] Body temperature 97.7 [degF] 97.7 [degF] [facility] ([facility] Diastolic blood pressure 80 mm[Hg] 80 mm[Hg] [facility] ([facility] Systolic blood pressure 120 mm[Hg] 120 mm[Hg] M EDENT ([facility] Oxygen saturation in Arterial blood by Pulse oximetry 98 % 98 % [facility] ([facility] Body mass index (BMI) [Ratio] 37.3 kg/m2 37.3 k g/m2 [facility] ([facility] Body weight 197.31 [lb_av] 197.31 [lb_av] MED[facility] T ([facility] Body height 61 [in_i] 61 [in_i] [facility] ([facility] 5'1" Respiratory rate 14 /min 14 /min [facility] ( [facility] Heart rate 84 /min 84 /min [facility] ([facility] Body temperature 97.7 [degF] 97.7 [degF] [facility] ([facility] Diastolic blood pressure 74 mm[Hg] 74 mm[Hg] [facility] ([facility] Systolic blood pressure 116 mm[Hg] 116 mm[Hg] M EDENT ([facility] Oxygen saturation in Arterial blood by Pulse oximetry 98 % 98 % [facility] ([facility] Body mass index (BMI) [Ratio] 37.4 kg/m2 37.4 k g/m2 [facility] ([facility] Body weight 198.00 [lb_av] 198.00 [lb_av] MED[facility] T ([facility] Body height 61 [in_i] 61 [in_i] [facility] ([facility] 5'1" Respiratory rate 14 /min 14 /min [facility] ( [facility] Heart rate 90 /min 90 /min [facility] ([facility] Body temperature 98.3 [degF] 98.3 [degF] [facility] ([facility] Diastolic blood pressure 72 mm[Hg] 72 mm[Hg] [facility] ([facility] Systolic blood pressure 112 mm[Hg] 112 mm[Hg] M EDENT ([facility] Body weight 91.230 kg 91.230 kg [facility] ([facility], ) Body mass index (BMI) [Ratio] 38.0 kg/m2 38.0 k g/m2 [facility] ([facility], ) Body weight 201.12 [lb_av] 201.12 [lb_av] MED[facility] T ([facility]) Body height 61 [in_i] 61 [in_i] [facility] ([facility]) 5'1" Body temperature 97.5 [degF] 97.5 [degF] [facility] ([facility]) Diastolic blood pressure 82 mm[Hg] 82 mm[Hg] [facility] ([facility]) Systolic blood pressure 122 mm[Hg] 122 mm[Hg] [facility] Oxygen saturation in Arterial blood by Pulse oximetry 98 % 98 % [facility] ([facility] Body mass index (BMI) [Ratio] 38.9 kg/m2 38.9 k g/m2 [facility] ([facility] Body weight 206.00 [lb_av] 206.00 [lb_av] [facility] T ([facility] Body height 61 [in_i[facility] 61 [in_i] [facility] 5'1" Respiratory rate 16 /min 16 /min [facility] ( [facility] Heart rate 86 /min 86 /min [facility] ([facility] Body temperature 98.3 [degF] 98.3 [degF] [facility] ([facility] Diastolic blood pressure 80 mm[Hg] 80 mm[Hg] [facility] ([facility] Systolic blood pressure 120 mm[Hg] 120 mm[Hg] [facility] Body weight 93.555 kg 93.555 kg [facility] ([facility]) Body mass index (BMI) [Ratio] 39.0 kg/m2 39.0 k g/m2 [facility] ([facility]) Body weight 206.25 [lb_av] 206.25 [lb_av] [facility] T ([facility]) Body height 61 [in_i] 61 [in_i] [facility] ([facility]) 5'1" Diastolic blood pressure 78 mm[Hg] 78 mm[Hg] [facility] ([facility]) Systolic blood pressure 118 mm[Hg] 118 mm[Hg] M EDSTEF ([facility], ) Oxygen saturation in Arterial blood by Pulse oximetry 98 % 98 % [facility] ([facility] Body mass index (BMI) [Ratio] 38.2 kg/m2 38.2 k g/m2 [facility] ([facility] Body weight 202.00 [lb_av] 202.00 [lb_av] MED[facility] T ([facility] Body height 61 [in_i] 61 [in_i] [facility] ([facility] 5'1" Respiratory rate 14 /min 14 /min [facility] ( [facility] Heart rate 100 /min 100 /min [facility] ([facility] Body temperature 98.0 [degF] 98.0 [degF] [facility] ([facility] Diastolic blood pressure 84 mm[Hg] 84 mm[Hg] [facility] ([facility] Systolic blood pressure 118 mm[Hg] 118 mm[Hg] M EDENT ([facility] Inhaled oxygen concentration 21 % 21 % 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[facility]) Oxygen saturation in Arterial blood by Pulse oximetry 99 % 99 % 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[facility]) Body weight 203 [lb_av] 203 [lb_av] 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[facility]) Diastolic blood pressure 90 mm[Hg] 90 mm[Hg] 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[facility]) Systolic blood pressure 129 mm[Hg] 129 mm[Hg] C [facility] ([facility]) Heart rate 86 /min 86 /min 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[facility]) Body temperature 98.2 [degF] 98.2 [degF] SAEM BAUTISTA ([facility]) Heart rate 83 /min 83 /min [facility] ([facility] [place] Diastolic blood pressure 76 mm[Hg] 76 mm[Hg] [facility] ([facility] [place]) Systolic blood pressure 108 mm[Hg] 108 mm[Hg] M EDENT ([facility]) Body mass index (BMI) [Ratio] 37.8 kg/m2 37.8 k g/m2 [facility] ([facility]) Body weight 90.720 kg 90.720 kg [facility] ([facility] Body weight 200.00 [lb_av] 200.00 [lb_av] [facility] T ([facility]) Body height 61 [in_i] 61 [in_i] [facility] ([facility] [place] 5'1" Patient Treatment Plan of Care Planned Activity Planned Date Details Description Data Source (s) potassium citrate 10 MEQ Extended Release Oral Tablet 03/22/2020 12:00:00 AM [facility] Amiloride Hydrochloride 5 MG Oral Tablet 03/22/2020 12:00:00 AM [facility] Potassium Chloride Hiral ER 10 MEQ Oral Tablet Extended Release (K-DUR) 03/22/2020 12:00:00 AM [facility] potassium citrate 10 MEQ Extended Release Oral Tablet 03/26/2019 12:00:00 AM [facility] Potassium Chloride 10 MEQ Extended Release Oral Tablet [Klor-Con] 03/26/2019 12:00:00 AM [facility] Amiloride Hydrochloride 5 MG Oral Tablet 03/26/2019 12:00:00 AM [facility]
[2020-10-24] MEDS ORDERED: NS 1,000 ML IV ONE ×2 (13:30→14:45)
[2020-10-24] MEDS ORDERED: METOCLOPRAMIDE INJ 10MG/2ML VIAL (J2765 PER 1) IV ONE (13:30)
[2020-10-24] MEDS ORDERED: MORPHINE 4 MG/ML 1ML VIAL/SYRINGE (J2270) IV ONE ×2 (13:30→16:00)
--- OUTSIDE RECORDS SUMMARY | 2020-10-24 13:35 | CCD ---
Author Author [facility] Organization [facility] Address Unknown Phone Unavailable Care Team Providers Care Digital Controls Technical Officer Name Role Phone GONZALES, W PAPO PA [...] Unavailable GONZALES, W PAPO PA Unavailable Unavailable GONAZLES, W PAPO PA Unavailable Unavailable GONZALES, W [...] Unavailable Zenobia SEQUEIRA MD Unavailable Unavailable Zenobia ESQUEIRA MD Unavailable Unavailable Zenobia SEQUEIRA MD Unavailable [...] Julianna Brandi PA Unavailable Unavailable Kukulski, Julianna Branid PA Unavailable Unavailable Kukulski, Julianna Brandi PA [...] Unavailable Unavailable Elroy RODRIGUEZ MD Unavailable Unavailable Elory RODRIGUEZ MD Unavailable Unavailable Elroy RODRIGUEZ MD [...] Unavailable Adolph Chan MD Unavailable Unavailable Narins, [place] MD Unavailable Unavailable Narins, Adolph MD Unavailable Unavailable Narins, Adolph MD Unavailable Unavailable Narins, Adolph MD Unavailable Unavailable Narins, Adolph MD Unavailable Unavailable Narins, Adolph MD Unavailable Unavailable Narins, [place] MD Unavailable Unavailable Narins, Adolph MD Unavailable Unavailable Narins, Adolph MD Unavailable Unavailable Narins, [place] MD Unavailable Unavailable Narins, [place] MD Unavailable Unavailable Narins, [place] MD Unavailable Unavailable Narins, Adolph MD Unavailable Unavailable Narins, [place] MD Unavailable Unavailable Narins, [place] MD Unavailable Unavailable Narins, Adolph MD Unavailable Unavailable Narins, [place] MD Unavailable Unavailable Narins, [place] MD Unavailable Unavailable Narins, Adolph MD Unavailable Unavailable Narins, [place] MD Unavailable Unavailable BRYDEN, A YVES DO [...] is protected by Article 27-F of the [facility] Public Health law. If you continue you may have access to information: Regarding HIV / AIDS; Provided by facilities licensed or operated by the [facility] Office of Mental Health; or Provided by the [facility] Office for People With Developmental Disabilities. If such information is present, then the following [facility] mandated warning applies: This information has [...] law may result in a fine or mcfp sentence or both. A general authorization for the release of medical or other information is NOT sufficient authorization for further disc losure. Family History Family Member Name Family Member Gender Family Member Status Date o f Status Description Data Source(s) Unknown Male Problem [facility] ([facility], ) Unknown Female Problem [facility] ([facility] Unknown Female Problem [facility] ([facility] [place]) Encounters Encounter Providers Location Date Indications Data Source(s ) Outpatient 03/28/2021 12:00:[address] [facility] Outpatient Attender: Brandi Macias/ Narinder.MKeyonnaP. Urolog y 10/19/2020 02:45:00 PM EST [facility] Outpatient Attender: Adolph Macias/ JadynPKeyonna Urolog y 08/11/2020 12:00:00 PM EDT MED[facility] ([facility]) Outpatient Attender: RYAN RODRIGUEZ MD [facility] 04:00:00 PM EDT MED[facility] ([facility] Outpatient Attender: Adolph Macias/ JadynPKeyonna Urolog y 05/03/2020 03:30:00 PM EDT [facility] ([facility] Outpatient Attender: RYAN Campos Office 03:20:00 PM [...] 12: 00:00 AM EDT Calculus [facility] kidney [facility] Calculus of kidney Outpatient Attender: ALEX Macias/ Shantel [facility]rology 03/20/2020 03:10:00 PM EDT [facility] ([facility] Outpatient Referrer: RYAN RODRIGUEZ MD 01/27/2020 11:49:00 [...] Shipman/Kiley/Lamont/William aldana 11/16/2019 09:10:00 AM EST MED[facility] ([facility] Outpatient Attender: RYAN RODRIGUEZ MD [place] [facility] 03:00:00 PM EST MED[facility] ([facility] OutpatientOFFICE/OUTPATIENT VISIT, EST 10/28/2019 Attender: NATHANIEL VALDEZ 10/28/2019 06:28:41 PM EST 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[facility]) Outpatient Attender: RYAN RODRIGUEZ MD [place] [facility] 08/2019 02:40:00 PM EST MED[facility] ([facility] Immunizations Vaccine Date Status Description Data Source(s) New in 2012. IIV4 06/21/2020 02:33:00 PM EDT completed MEDENT ([facility] Medications Medication Brand Name [...] 12:00:00 AM EST ORAL completed [facility] ([facility]) 4 mg 08/08/2020 12:00:00 AM EDT tablet [...] 12:00:00 AM EDT ORAL active [facility] ([facility]) Famotidine 20 MG Oral Tablet FAMOTIDINE 04/27/2020 [...] active Take 1 tablet by mouth d [facility] Potassium Chloride Hiral ER 10 MEQ Oral Tablet Extended Release (K-DUR) 92029-566-65 03/22/2020 12:00:00 AM EDT 20 meq Oral activ e Take 2 tablets by mouth Two times daily with [facility] potassium citrate 10 MEQ Extended Releas e Oral Tablet Potassium Citrate ER 10 MEQ (1080 MG) Oral Tablet Extended Release (UROCIT-K) Potassium Citrate ER 10 MEQ (1080 MG) Oral Tablet Extended Release (UROCIT-K) 03/22/2020 12:00:00 AM EDT 20 meq Oral active Nephrolithiasis Take 2 tablets by mouth Two times daily with [facility] Nephrolithiasis 10 mEq 03/22/2020 12:00:00 AM EDT [...] 01/26/2020 12:00:00 AM EDT ORAL active MEDENT ([facility] Injection (SC)/(Im) 01/19/2020 12:00:00 AM EDT completed MED[facility] ([facility] Medication administered onsite 20 mg 01/19/2020 12:00:00 AM EDT tablet 10 TAKE TWO TABLETS BY MOUTH EVERY DAY TAKE TWO TABLETS BY MOUTH EVERY DAY SOLD: 01/19/2020 [facility] Cephalexin 500 MG Oral Capsule [Keflex] Keflex 01/18/2020 12:00:0 0 AM EDT ORAL active MEDENT ([facility] 500 mg 01/18/2020 12:00:00 [...] 12:00: 00 AM EDT ORAL active MEDENT ([facility] 5-325 mg 12/17/2019 12:00:00 AM EST tablet 10 TAKE ONE TABLET BY MOUTH EVERY 6 HOURS NEEDED FOR PAIN AFTER SURGERY MAXIMUM DAILY DOSE = 4 TAKE ONE TABLET BY MOUTH EVERY 6 HOURS NEEDED FOR PAIN AFTER SURGERY MAXIMUM DAILY DOSE = 4 SOLD: 12/19/2019 [facility] Acetaminophen 325 MG / Hydrocodone Bitartrate 5 MG Oral Tabl et [[place]] [place] 12/14/2019 12:00:00 AM EST ORAL completed MEDENT ([facility], ) 137 mcg (0.1 %) 10/28/2019 12:00:00 [...] orally Three times a day 10/28/2019 ARTMAKER ([facility]) 20 mg 10/28/2019 12:00:00 AM EST tablet 10 TAKE TWO TABLETS BY MOUTH EVERY DAY TAKE TWO TABLETS BY MOUTH EVERY DAY SOLD: 10/28/2019 [facility] azelastine 137 mcg (0.1 %) nasal spray aerosol 10/28/2019 12:00:00 AM EST 2 completed , Take 2 aeros ol, spray with pump (mL) nasally Every 12 hours as needed 10/28/2019 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[facility]) Prednisone 20 MG Oral Tablet predniSONE 20 mg tablet predniS ONE 20 mg tablet 10/28/2019 12:00:00 AM EST 2 completed , Take 2 tablet orally Every day 10/28/2019 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[facility]) 20 mg 10/27/2019 12:00:00 AM [...] AM EST ORAL active [facility] ([facility] 850 mg 10/08/2019 12:00:00 AM [...] 12:00:00 AM EDT 1 completed 10/28/2019 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[facility]) Flonase Allergy Relief 50 mcg/actuation nasal spray,suspensi on 04/02/2019 12:00:00 AM EDT 2 completed 2019 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[facility]) 10 mEq 03/26/2019 12:00:00 AM [...] 2 tablets by mouth Two Times Daily [facility] potassium citrate 10 MEQ Extended Releas e Oral Tablet potassium citrate (UROCIT- K) 10 MEQ (1080 MG) SR tablet potassium citrate (UROCIT-K) 10 MEQ (108 0 MG) SR tablet 03/26/2019 12:00:00 AM EDT 20 meq Oral aborted Nep hrolithiasis Take 2 tablets by mouth Two Times Daily [facility] Nephrolithiasis Amiloride Hydrochloride 5 MG Oral Tablet amiloride (AK DAMOR) 5 MG tablet amiloride (MIDAMOR) 5 MG tablet 03/26/2019 12:00:00 AM EDT 5 mg O ral aborted Take 1 tablet by mouth daily [facility] 5 mg 03/26/2019 12:00:00 AM EDT [...] SOLD: 09/27/2019 [facility] Polymyxin B 42780 UNT/ML / Trimethoprim 1 MG/ML Ophthalmic Solution [Polytrim] Polytrim 10,000 unit-1 mg/mL eye drops Polytrim 10,000 unit-1 mg/mL eye drops 07/08/2018 12:00:00 AM EDT completed 10/28/2019 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[facility]) Cephalexin 500 MG Oral Tablet cephALEXin 500 mg tablet cephA LEXin 500 mg tablet 07/08/2018 12:00:00 AM EDT 1 completed 10/28/2019 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[facility]) Insurance Providers Payer name Policy type / Coverage type Policy ID Covered libertarian ID Covered libertarian's relationship to diaz Policy Diaz Plan Information BCBS JULY CHAUDHRY PPO 302/307 [id number] [id number] [place] P[place] 302/307 [id number] HU2 [id number] EXCELLUS C [id number] Spouse [id number] EXCELLUS BCBS B [id number] P [id number] ID IDENTIFICATION [id number] Other In surance [id number] Excell[employer] Blue Cross [id number] Blue Cross/Shield [id number] [place] Medig[place] B [id number] [id number] [place] Commercial [id number] Family Dependent [id number] [place]BS [place] PPO 302/307 [id number] ID IDENTIFICATION [id number] Other In surance [id number] [place] Medig[place] B [id number] [id number] [place] Commercial [id number] Family Dependent [id number] [place]BS [place] PPO 302/307 [id number] [id number] Excellus BCBS Health Maintenance Organization (HMO) [id number] Self [id number] [place] Medigap [place] B [place] Commercial Family Dependent [place] Medigap Part B Self BC[place] Commercial EXCELLUS C [id number] Spouse [id number] Excell[employer] Blue Cross Commercial Family Dependent BCBS [place] PPO 302/307 [id number] HU2 [id number] BLUE CROSS O [id number] SP [id number] EXCELLUS BCBS B [id number] P VYW EXCELLUS BCBS B [id number] S VYW EXCELLUS BCBS [id number] Spo VYW BCBS [place] PPO 302/307 [id number] HU2 [id number] BLUE CROSS O [id number] SP [id number] BLUE CROSS [place] 1 [id number] [id number] SELFPAY 5 UNAVAILABLE 1 UNAVAILA BLE BCBS [place] O [id number] Problems, Conditions, and Diagnoses Code Display Name Description Problem Type Effective Dates Data Source(s) H61.23 Impacted cerumen, bilateral Impacted cer umen, bilateral (H61.23) 10/28/2019 [id number] 10/28/2019 06:28:41 PM EST 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[facility]) R09.81 Nasal congestion Nasal congestion (R09.81) 10/28/2019 [id number] 10/28/2019 06:28:41 PM EST 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[facility]) K43.9 Ventral hernia without obstruction or ga ngrene Ventral hernia without obstruction or gangrene (K43.9) 10/28/2019 [id number] 10/28/2019 06:28:4 1 PM EST 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[facility]) J02.9 Acute pharyngitis, unspecified Acute pha ryngitis, unspecified (J02.9) 10/28/2019 [id number] 04/02/2019 09:44:25 AM EDT - 10/28/2019 12:00:00 AM EST 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[facility]) J06.9 Acute upper respiratory infection, unspe cified Acute upper respiratory infection, unspecified (J06.9) 10/28/2019 [id number] 04/02/2019 09 :44:25 AM EDT - 10/28/2019 12:00:00 AM EST 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[facility]) L03.211 Cellulitis of face Cellulitis of face (L03.211) 020 [id number] 07/08/2018 07:31:56 PM EDT - 10/28/2019 12:00:00 AM EST 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[facility]) H00.025 Hordeolum internum left lower eyelid Hor deolum internum left lower eyelid (H00.025) 10/28/2019 [id number] 07/08/2018 07:31:56 PM EDT - 10/28/2019 12:00:00 AM EST 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[facility]) Surgeries/Procedures Procedure Description Date Indications Data Source(s) Injection (SC)/(Im) 01/19/2020 12:00:00 AM EDT MED[facility] ([facility] Lap Repair Vent Umb Spig Epig W/ Mesh, Incarcerated 12/20/2019 12:00:00 AM EDT MED[facility] ([facility] Lap Repair Incisional Hernia W/ Mesh, Incarcerated 12/20/2019 12:00:00 AM EDT MEDENT ([facility], ) Electrocardiogram Complete 12/08/2019 12:00:00 AM EST MED[facility] ([facility] SVC PRV OFFICE REG SCHEDD EVN WKEND/HOLIDAY HRS 2019 12:00:00 AM EST 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[facility]) RMVL IMPACTED CERUMEN SPX 1/BOTH EARS 10/28/2019 12:00 :00 AM EST 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[facility]) Results ID Date Data Source [id number] 10/20/2020 01:51:00 PM EST MEDENT ([facility] Name Value Range Interpretation Code Description Data Shannan rce(s) Supporting Document(s) Immunoglobulin G 291 mg/dL [phone] Below low normal ME DENT ([facility] Immunoglobulin A 47.3 mg/dL 70-400 Below low normal ME DENT ([facility] Immunoglobulin M 12.7 mg/dL 40-230 Below low normal ME [facility] ([facility] ID Date Data Source [id number] 10/20/2020 01:51:00 PM EST MEDENT ([facility] Name Value Range Interpretation Code Description Data Shannan rce(s) Supporting Document(s) Lactate dehydrogenase [Enzymatic activity/volume] in Serum o r Plasma 135 U/L 84-246 Normal (applies to non-numeric results) [facility] ([facility] ID Date Data Source [id number] 10/20/2020 01:51:00 PM EST MEDENT ([facility] Name Value Range Interpretation Code Description Data Shannan rce(s) Supporting Document(s) Glucose, Fasting 105 mg/dL 70-100 Above high normal M EDENT ([facility] Glomerular Filtration Rate Laboratory test result Normal (applies to non- numeric results) [facility] ([facility] ) <content>Units are mL/min/1.73 m2</content>
<content></content>
<content>Chronic Kidney Disease Staging per NKF:</content>
<content></content>
<content>Stage I & II GFR >=60 Normal to Mildly Decreased</content>
<content>Stage III GFR 30-59 Moderately Decreased</content>
<content>Stage IV GFR 15-29 Severely Decreased</content>
<content>Stage V GFR <15 Very Little GFR Left</content>
<content>ESRD GFR <15 on WATCH CRYSTAL EDGE GRINDER</content>
<content></content> Blood Urea Nitrogen 15 mg/dL 7-18 Normal (applies to non-nume ava results) [facility] ([facility] Creatinine For GFR 0.96 mg/dL 0.55-1.30 Normal (applies to non -numeric results) [facility] ([facility] Sodium Level 139 meq/L 136-145 Normal (applies to non-numeric res ults) [facility] ([facility] Chloride Level 109 meq/L 98-107 Above high normal MED ENT ([facility] Potassium Serum 4.1 meq/L 3.5-5.1 Normal (applies to non-numeric results) [facility] ([facility] Carbon Dioxide Level 21 meq/L 21-32 Normal (applies to non-num crystal results) [facility] Calcium Level 9.1 mg/dL 8.5-10.1 Normal (applies to non-numeric re sults) [facility] Anion Gap 9 meq/L 8-16 Normal (applies to non-numeric resul ts) [facility] ([facility] Alkaline Phosphatase 123 U/L 45-117 Above high normal [facility] ([facility] Alt/SGPT 66 U/L 12-78 Normal (applies to non-numeric resul ts) [facility] ([facility] Ast/Sgot 47 U/L 7-37 Above high normal [facility] ([facility] Total Protein 6.9 GM/DL 6.4-8.2 Normal (applies to non-numeric re sults) [facility] ([facility] Bilirubin,Total 0.6 mg/dL 0.2-1.0 Normal (applies to non-numeric results) [facility] Albumin 4.0 GM/DL 3.2-5.2 Normal (applies to non-numeric resul ts) [facility] ([facility] Albumin/Globulin Ratio 1.4 1.2-2.2 Normal (applies to non-n umeric results) [facility] ([facility] ID Date Data Source [id number] 10/20/2020 01:51:00 PM EST MEDENT ([facility] Name Value Range Interpretation Code Description Data Shannan rce(s) Supporting Document(s) Red Blood Count 4.78 10 4.00-5.40 Normal (applies to non-numeric results) [facility] ([facility] White Blood Count 7.0 10 4.0-10.0 Normal (applies to non-numeri c results) [facility] ([facility] Hemoglobin 12.7 g/dL 12.0-15.5 Normal (applies to non-numeric resul ts) [facility] ([facility] Mean Corpuscular Volume 81.8 fl 80.0-96.0 Normal ( applies to non-numeric results) [facility] ([facility] ) Hematocrit 39.1 % 36.0-47.0 Normal (applies to non-numeric resul ts) [facility] ([facility] Red Cell Distribution Width 14.3 % 11.5-14.5 Norm al (applies to non-numeric results) [facility] ([facility] ) Mean Corpuscular HGB Conc 32.5 g/dL 32.0-36.5 Normal (applies to non-numeric results) [facility] ([facility] ) Mean Corpuscular Hemoglobin 26.6 pg 27.0-33.0 Below low normal [facility] ([facility] Lymph % 29.2 % 24.0-44.0 Normal (applies to non-numeric resul ts) [facility] ([facility] Platelet Count, Automated 300 10 150-450 Normal (applies to non-numeric results) [facility] ([facility] ) Neutrophils % 59.3 % 36.0-66.0 Normal (applies to non-numeric re sults) [facility] ([facility] Eos % 3.0 % 0.0-3.0 Normal (applies to non-numeric resul ts) [facility] ([facility] [place] % 7.3 % 0.0-5.0 Above high normal MED[facility] ([facility] Baso % 0.6 % 0.0-1.0 Normal (applies to non-numeric resul ts) [facility] ([facility] Lymph # 2.1 10 1.5-5.0 Normal (applies to non-numeric resul ts) [facility] ([facility] Neutrophils # 4.2 10 [...] Normal (applies to non-numeric resul ts) [facility] ([facility] [place] # 0.5 10 0.0-0.8 Normal (applies to non-numeric resul ts) [facility] ([facility] ID Date Data Source [id number] 10/19/2020 04:34:00 PM EST [facility] ([facility]) Name Value Range Interpretation Code Description Data Shannan rce(s) Supporting Document(s) Bacteria identified in Urine by Culture Laboratory test result [facility] ([facility]) SPECIMEN DESCRIPTION URINE, COLLE CTION METHOD NOT SPECIFIED CULTURE RESULTS NO GROWTH REPORT STATUS FINAL 10/20/2020 ID Date Data Source [id number] 10/20/2020 03:01:52 PM EST [facility] - CORE SPECIMEN DESCRIPTION URINE, COLLE CTION METHOD NOT SPECIFIEDCULTURE RESULTS NO GROWTHREPORT STATUS FINAL 10/20/2020 Name Value Range Interpretation Code Description Data Shannan rce(s) Supporting Document(s) ID Date Data Source [id number] 10/19/2020 03:50:00 PM EST [facility] ([facility]) Name Value Range Interpretation Code Description Data Shannan rce(s) Supporting Document(s) Protein [Presence] in Urine by Test strip Laboratory test result [facility] ([facility] [place]) Glucose [Presence] in Urine Laboratory test result [facility] ([facility]) Ua Nitrite Laboratory test result ME DENT ([facility]) Ua Leuko Laboratory test result ME DENT ([facility]) Blood [Presence] in Urine by Visual Laboratory test result [facility] ([facility]) Ketones [Presence] in Urine by Test strip Laboratory test result [facility] ([facility]) Color of Urine Laboratory test result [facility] ([facility]) Clarity of Urine Laboratory test result [facility] ([facility] [place]) pH of Urine by Test strip 6.5 5.0-7.5 [facility] ([facility] [place]) Ua Specific [place] 1.015 1.003-1.030 MEDE NT ([facility]) Bilirubin.total [Presence] in Urine by Test strip Laboratory test res ult [facility] ([facility] [place]) Urobilinogen [Mass/volume] in Urine by Test strip 0.2 E.U./dL 0.0-1.0 [facility] ([facility] [place]) ID Date Data Source [id number] 07/27/2020 09:24:00 AM EDT CO[facility] ([facility] Name Value Range Interpretation Code Description Data Shannan rce(s) Supporting Document(s) Chol 160 mg/dL 0-200 [facility] CHRONIC KIDNEY DISEASE [...] YEARS EXCLUSIVE. Trig 154 mg/dL 40-200 [facility] CHRONIC KIDNEY DISEASE [...] YEARS EXCLUSIVE. Cho/HDL Ratio 3.8 Calc MEDENT ([facility] CHRONIC KIDNEY DISEASE STAGING [...] 2-19 YEARS EXCLUSIVE. ID Date Data Source [id number] 07/27/2020 09:24:00 AM JUNE GAMBOA ([facility] Name Value Range Interpretation Code Description Data Shannan rce(s) Supporting Document(s) Glu 128 mg/dL 70-110 Above high normal [facility] ([facility] CHRONIC KIDNEY DISEASE STAGING [...] YEARS EXCLUSIVE. BUN 12 mg/dL 8-23 [facility] ([facility] CHRONIC KIDNEY DISEASE [...] YEARS EXCLUSIVE. Na 140 mmol/L 136-145 [facility] CHRONIC KIDNEY DISEASE STAGING PER [...] YEARS EXCLUSIVE. BUN/Creatinine Ratio 15.5 CALC MEDENT ([facility] CHRONIC KIDNEY DISEASE STAGING [...] YEARS EXCLUSIVE. CA 9.6 mg/dL 8.6-10.2 MEDSTEF ([facility] CHRONIC KIDNEY DISEASE STAGING [...] YEARS EXCLUSIVE. A/G Ratio 2.8 CALC [facility] CHRONIC KIDNEY DISEASE [...] YEARS EXCLUSIVE. Tbili 0.44 mg/dL 0.0-1.2 [facility] ([facility] CHRONIC KIDNEY DISEASE [...] EXCLUSIVE. Ast (Sgot) 34 U/L 0-40 [facility] CHRONIC KIDNEY DISEASE STAGING PER [...] EXCLUSIVE. Anion Gap 18 mmol/L [facility] CHRONIC KIDNEY DISEASE STAGING [...] INDIVIDUALA AGED 2-19 YEARS EXCLUSIVE. eGFR Non-Afr. [place] 86 # [facility] ([facility] [...] 2-19 YEARS EXCLUSIVE. ID Date Data Source [id number] 07/27/2020 09:24:00 AM EDT MEDSTEF ([facility] Name Value Range Interpretation Code Description Data Shannan rce(s) Supporting Document(s) Hemoglobin A1c/Hemoglobin.total in Blood 6.9 % 4.50-6.20 Above high normal [facility] ([facility] ID Date Data Source [id number] 07/06/2020 03:33:00 PM EDT [facility] ([facility] Name Value Range Interpretation Code Description Data Shannan rce(s) Supporting Document(s) Immunoglobulin G 311 mg/dL [id number] Below low normal ME DENT ([facility] Immunoglobulin A 47.0 mg/dL 70-400 Below low normal ME [facility] ([facility] Immunoglobulin M 22.6 mg/dL 40-230 Below low normal [facility] ([facility] ID Date Data Source [id number] 07/06/2020 01:39:00 PM EDT [facility] ([facility] Name Value Range Interpretation Code Description Data Shannan rce(s) Supporting Document(s) Lactate dehydrogenase [Enzymatic activity/volume] in Serum o r Plasma 143 U/L 84-246 Normal (applies to non-numeric results) [facility] ([facility] ID Date Data Source [id number] 07/06/2020 01:39:00 PM EDT [facility] ([facility] Name Value Range Interpretation Code Description Data Shannan rce(s) Supporting Document(s) Glucose, Fasting 116 mg/dL 70-100 Above high normal M EDENT ([facility] Creatinine For GFR 0.89 mg/dL 0.55-1.30 Normal (applies to non -numeric results) [facility] ([facility] Blood Urea Nitrogen 17 mg/dL 7-18 Normal (applies to non-nume ava results) [facility] ([facility] Glomerular Filtration Rate Laboratory test result Normal (applies to non- numeric results) [facility] ([facility] ) <content>Units are mL/min/1.73 m2</content>
<content></content>
<content>Chronic Kidney Disease Staging per NKF:</content>
<content></content>
<content>Stage I & II GFR >=60 Normal to Mildly Decreased</content>
<content>Stage III GFR 30-59 Moderately Decreased</content>
<content>Stage IV GFR 15-29 Severely Decreased</content>
<content>Stage V GFR <15 Very Little GFR Left</content>
<content>ESRD GFR <15 on WATCH [employer]ER</content>
<content></content> Chloride Level 108 meq/L 98-107 Above high normal MED ENT ([facility] Sodium Level 138 meq/L 136-145 Normal (applies to non-numeric res ults) [facility] ([facility] Potassium Serum 3.9 meq/L 3.5-5.1 Normal (applies to non-numeric results) [facility] ([facility] Anion Gap 5 meq/L 8-16 Below low normal [facility] ( [facility] Carbon Dioxide Level 25 meq/L 21-32 Normal (applies to non-num crystal results) [facility] ([facility] Calcium Level 9.0 mg/dL 8.5-10.1 Normal (applies to non-numeric re sults) [facility] ([facility] Bilirubin,Total 0.6 mg/dL 0.2-1.0 Normal (applies to non-numeric results) [facility] ([facility] Alkaline Phosphatase 113 U/L 45-117 Normal (applies to non-num crystal results) [facility] ([facility] Ast/Sgot 40 U/L 7-37 Above high normal [facility] ([facility] Alt/SGPT 50 U/L 12-78 Normal (applies to non-numeric resul ts) [facility] ([facility] Total Protein 7.0 GM/DL 6.4-8.2 Normal (applies to non-numeric re sults) [facility] ([facility] Albumin/Globulin Ratio 1.3 1.2-2.2 Normal (applies to non-n umeric results) [facility] ([facility] Albumin 3.9 GM/DL 3.2-5.2 Normal (applies to non-numeric resul ts) [facility] ([facility] ID Date Data Source [id number] 07/06/2020 01:39:00 PM EDT [facility] ([facility] Name Value Range Interpretation Code Description Data Shannan rce(s) Supporting Document(s) White Blood Count 7.7 10 4.0-10.0 Normal (applies to non-numeri c results) [facility] ([facility] Hematocrit 39.9 % 36.0-47.0 Normal (applies to non-numeric resul ts) [facility] ([facility] Red Blood Count 4.77 10 4.00-5.40 Normal (applies to non-numeric results) [facility] ([facility] Mean Corpuscular Volume 83.6 [...] resul ts) [facility] ([facility] [place] % 7.7 % 0.0-5.0 Above high normal [facility] ([facility] Eos % 3.0 % 0.0-3.0 Normal (applies to non-numeric resul ts) [facility] ([facility] Nucleated Red Blood Cell % 0.0 % 0-0 Normal (applies to n on-numeric results) [facility] ([facility] Baso % 0.4 % 0.0-1.0 Normal (applies to non-numeric resul ts) [facility] ([facility] Immature Granulocyte % 0.4 % 0-3.0 Normal (applies to non-n umeric results) [facility] ([facility] Neutrophils # 4.4 10 1.5-8.5 Normal (applies to non-numeric re sults) [facility] ([facility] Lymph # 2.4 10 1.5-5.0 Normal (applies to non-numeric resul ts) [facility] ([facility] [place] # 0.6 10 0.0-0.8 Normal (applies to non-numeric resul ts) [facility] ([facility] Eos # 0.2 10 0.0-0.5 Normal (applies to non-numeric resul ts) [facility] ([facility] Baso # 0.0 10 0.0-0.2 Normal (applies to non-numeric resul ts) [facility] ([facility] ID Date Data Source [id number] 04/20/2020 08:51:00 AM EDT [facility] ([facility] Name Value Range Interpretation Code Description Data Shannan rce(s) Supporting Document(s) Hemoglobin A1c/Hemoglobin.total in Blood 6.8 % 4.50-6.20 Above high normal [facility] ([facility] ID Date Data Source [id number] 04/20/2020 08:49:00 AM EDT [facility] Name Value Range Interpretation Code Description Data Shannan rce(s) Supporting Document(s) Trig 157 mg/dL 40-200 [facility] ([facility] CHRONIC KIDNEY DISEASE [...] YEARS EXCLUSIVE. Cho/HDL Ratio 3.8 CALC [facility] ([facility] CHRONIC KIDNEY DISEASE STAGING [...] 2-19 YEARS EXCLUSIVE. ID Date Data Source [id number] 04/20/2020 08:49:00 AM EDT [facility] ([facility] Name Value Range Interpretation Code Description Data Shannan rce(s) Supporting Document(s) Glu 132 mg/dL 70-110 Above high normal [facility] ([facility] CHRONIC KIDNEY DISEASE STAGING [...] YEARS EXCLUSIVE. K 4.2 mmol/L 3.5-5.1 [facility] CHRONIC KIDNEY DISEASE STAGING PER [...] YEARS EXCLUSIVE. Na 139 mmol/L 136-145 [facility] CHRONIC KIDNEY DISEASE STAGING PER [...] YEARS EXCLUSIVE. BUN/Creatinine Ratio 15.9 CALC [facility] ([facility] CHRONIC KIDNEY DISEASE STAGING [...] YEARS EXCLUSIVE. CL 102.9 mmol/L 98.0-107.0 [facility] ([facility] CHRONIC KIDNEY DISEASE STAGING [...] 21.3 mmol/L 22.0-29.0 Below low normal [facility] ([facility] CHRONIC KIDNEY DISEASE STAGING [...] YEARS EXCLUSIVE. A/G Ratio 2.3 CALC [facility] CHRONIC KIDNEY DISEASE [...] P.C.) CKD-EPI Anion Gap 19 mmol/L [facility] ([facility] CHRONIC KIDNEY DISEASE STAGING [...] INDIVIDUALA AGED 2-19 YEARS EXCLUSIVE. eGFR Non-Afr. Canadian 75 # [facility] ([facility] CKD-EPI ID Date Data Source [id number] 04/05/2020 01:35:00 PM EDT [facility] ([facility] Name Value Range Interpretation Code Description Data Shannan rce(s) Supporting Document(s) [id number] [Mass/volume] in Serum or Plasma 1.9 mg/L 0.6-2.4 Normal (applies to non-numeric results) [facility] ([facility] Siemens Immulite 2000 Immunochemiluminom etric assay (ICMA) . Values obtained with different assay methods or kits cannot be used interchangeably. Results cannot be interpreted as absolute evidence of the presence or absence of malignant disease. Performed at: [address] [id number] [address] [employer] Helper: Kevin Ascencio MD, Phone: [phone] ID Date Data Source [id number] 04/05/2020 01:35:00 PM EDT [facility] ([facility] Name Value Range Interpretation Code Description Data Shannan rce(s) Supporting Document(s) Blood Urea Nitrogen 16 mg/dL 7-18 Normal (applies to non-nume ava results) [facility] ([facility] Glucose, Fasting 122 mg/dL 70-100 Above high normal M EDENT ([facility] Sodium Level 141 meq/L 136-145 Normal (applies to non-numeric res ults) [facility] ([facility] Creatinine For GFR 0.94 mg/dL 0.55-1.30 Normal (applies to non -numeric results) [facility] ([facility] Glomerular Filtration Rate Laboratory test result Normal (applies to non- numeric results) [facility] ([facility] ) <content>Units are mL/min/1.73 m2</content>
<content></content>
<content>Chronic Kidney Disease Staging per NKF:</content>
<content></content>
<content>Stage I & II GFR >=60 Normal to Mildly Decreased</content>
<content>Stage III GFR 30- 59 Moderately Decreased</content>
<content>Stage IV GFR 15-29 Severely Decreased</content>
<content>Stage V GFR <15 Very Little GFR Left</content>
<content>ESRD GFR <15 on W[employer]</content>
<content></content> Carbon Dioxide Level 24 meq/L 21-32 Normal (applies to non-num crystal results) [facility] ([facility] Potassium Serum 4.1 meq/L 3.5-5.1 Normal (applies to non-numeric results) [facility] ([facility] Chloride Level 109 meq/L 98-107 Above high normal MED ENT ([facility] Calcium Level 9.4 mg/dL 8.5-10.1 Normal (applies to non-numeric re sults) [facility] ([facility] Alt/SGPT 54 U/L 12-78 Normal (applies to non-numeric resul ts) [facility] ([facility] Ast/Sgot 37 U/L 7-37 Normal (applies to non-numeric resul ts) [facility] ([facility] Anion Gap 8 meq/L 8-16 Normal (applies to non-numeric resul ts) [facility] ([facility] Bilirubin,Total 0.7 mg/dL 0.2-1.0 Normal (applies to non-numeric results) [facility] Alkaline Phosphatase 110 U/L 45-117 Normal (applies to non-num crystal results) [facility] ([facility] Total Protein 6.9 GM/DL 6.4-8.2 Normal (applies to non-numeric re sults) [facility] ([facility] Albumin 3.8 GM/DL 3.2-5.2 Normal (applies to non-numeric resul ts) [facility] ([facility] Albumin/Globulin Ratio 1.2 1.2-2.2 Normal (applies to non-n umeric results) [facility] ([facility] ID Date Data Source [id number] 04/05/2020 01:35:00 PM EDT [facility] ([facility] Name Value Range Interpretation Code Description Data Shannan rce(s) Supporting Document(s) Hemoglobin 12.7 g/dL 12.0-15.5 Normal (applies to non-numeric resul ts) [facility] ([facility] White Blood Count 7.7 10 4.0-10.0 Normal (applies to non-numeri c results) [facility] ([facility] Red Blood Count 4.71 10 4.00-5.40 Normal (applies to non-numeric results) [facility] ([facility] Mean Corpuscular Hemoglobin 27.0 pg 27.0-33.0 Norm al (applies to non-numeric results) [facility] ([facility] ) Mean Corpuscular Volume 83.4 fl 80.0-96.0 Normal ( applies to non-numeric results) [facility] ([facility] Hematocrit 39.3 % 36.0-47.0 Normal (applies to non-numeric resul ts) [facility] ([facility] Red Cell Distribution Width 14.6 % 11.5-14.5 Above high normal [facility] ([facility] Mean Corpuscular HGB Conc 32.3 g/dL 32.0-36.5 Normal (applies to non-numeric results) [facility] ([facility] Platelet Count, Automated 304 10 150-450 Normal (applies to non-numeric results) [facility] ([facility] ) Neutrophils % 59.5 % 36.0-66.0 Normal (applies to non-numeric re sults) [facility] ([facility] Eos % 2.5 % 0.0-3.0 Normal (applies to non-numeric resul ts) [facility] ([facility] Lymph % 28.0 % 24.0-44.0 Normal (applies to non-numeric resul ts) [facility] ([facility] [place] % 8.6 % 0.0-5.0 Above high normal [...] on-numeric results) [facility] ([facility] [place] # 0.7 10 0.0-0.8 Normal (applies to non-numeric resul ts) [facility] ([facility] Eos # 0.2 10 0.0-0.5 Normal (applies to non-numeric resul ts) [facility] ([facility] Neutrophils # 4.6 10 1.5-8.5 Normal (applies to non-numeric re sults) [facility] ([facility] Lymph # 2.2 10 1.5-5.0 Normal (applies to non-numeric resul ts) [facility] ([facility] Baso # 0.1 10 0.0-0.2 Normal (applies to non-numeric resul ts) [facility] ([facility] ID Date Data Source [id number] 03/22/2020 11:21:24 AM EDT [facility] Name Value Range Interpretation Code Description Data Shannan rce(s) Supporting Document(s) Progress Note [facility] [id number] [file] [id number] ID Date Data Source [id number] 03/20/2020 03:11:00 PM EDT [facility] ([facility] Name Value Range Interpretation Code Description Data Shannan rce(s) Supporting Document(s) Glucose [Presence] in Urine Laboratory test result [facility] ([facility]) Protein [Presence] in Urine by Test strip Laboratory test result [facility] ([facility]) Ua Nitrite Laboratory test result ME DENT ([facility]) Ua Leuko Laboratory test result ME [facility] ([facility]) Blood [Presence] in Urine by Visual Laboratory test result [facility] ([facility]) Color of Urine Laboratory test result [facility] ([facility]) Ketones [Presence] in Urine by Test strip Laboratory test result [facility] ([facility]) Clarity of Urine Laboratory test result [facility] ([facility]) Ua Specific [place] 1.025 1.003-1.030 MEDE NT ([facility]) pH of Urine by Test strip 7.0 5.0-7.5 [facility] ([facility]) Bilirubin.total [Presence] in Urine by Test strip Laboratory test res ult [facility] ([facility]) Urobilinogen [Mass/volume] in Urine by Test strip 0.2 E.U./dL 0.0-1.0 [facility] ([facility]) ID Date Data Source [id number] 01/27/2020 12:00:00 AM EDT [facility] Ryan Rodriguez MD Patient Name: JUSTICE PATHAK [facility] Date of : [address] [address] Date of Exam: 01/27/2020#: Fax: [phone] EXAM: [...] findings as ryland cribed above.Accredited by the [employer] in [place].MAYA Gonzalez/Eleazar you for referring NICOLE PATHAK to our office. Electronically Signed - MARIA E WOLFE DO 01/27/20 16:25 Name Value Range Interpretation Code Description Data Shannan rce(s) Supporting Document(s) ID Date Data Source [id number] 01/26/2020 01:48:00 PM EDT [facility] ([facility] Name Value Range Interpretation Code Description Data Shannan rce(s) Supporting Document(s) Appearance of Urine Laboratory test result [facility] ([facility] Color Urine Laboratory test result M EDENT ([facility] Glucose Urine Laboratory test result [facility] ([facility] Specific [place] 1.015 1.00-1.03 [facility] Urobilinogen 0.2 EU/dl 0.2-1.0 [facility] Protein Urine Laboratory test result [facility] ([facility] Leukocytes Laboratory test result ME DENT ([facility] ID Date Data Source [id number] 01/04/2020 10:29:00 AM EDT [facility] ([facility] Name Value Range Interpretation Code Description Data Shannan rce(s) Supporting Document(s) [id number] [Mass/volume] in Serum or Plasma 1.8 mg/L 0.6-2.4 Normal (applies to non-numeric results) [facility] Siemens Immulite 2000 Immunochemiluminom etric assay (ICMA) . Values obtained with different assay methods or kits cannot be used interchangeably. Results cannot be interpreted as absolute evidence of the presence or absence of malignant disease. Performed at: [address] [id number] [address] Helper: Kevin Ascencio MD, Phone: [phone] ID Date Data Source [id number] 01/04/2020 10:29:00 AM EDT [facility] ([facility] Name Value Range Interpretation Code Description Data Shannan rce(s) Supporting Document(s) Immunoglobulin A 44.8 mg/dL 70-400 Below low normal ME [facility] ([facility] Immunoglobulin G 296 mg/dL [id number] Below low normal [facility] ([facility] Immunoglobulin M 15.3 mg/dL 40-230 Below low normal [facility] ([facility] ID Date Data Source [id number] 01/04/2020 10:29:00 AM EDT [facility] ([facility] Name Value Range Interpretation Code Description Data Shannan rce(s) Supporting Document(s) Lactate dehydrogenase [Enzymatic activity/volume] in Serum o r Plasma 128 U/L 84-246 Normal (applies to non-numeric results) [facility] ([facility] ID Date Data Source [id number] 01/04/2020 10:29:00 AM EDT [facility] ([facility] Name Value Range Interpretation Code Description Data Shannan rce(s) Supporting Document(s) Glucose, Fasting 196 mg/dL 70-100 Above high normal M EDENT ( [facility] Blood Urea Nitrogen 16 mg/dL 7-18 Normal (applies to non-nume ava results) [facility] ([facility] Creatinine For GFR 0.91 mg/dL 0.55-1.30 Normal (applies to non -numeric results) [facility] Glomerular Filtration Rate Laboratory test result Normal (applies to non- numeric results) [facility] ([facility] ) <content>Units are mL/min/1.73 m2</content>
<content></content>
<content>Chronic Kidney Disease Staging per NKF:</content>
<content></content>
<content>Stage I & II GFR >=60 Normal to Mildly Decreased</content>
<content>Stage III GFR 30-59 Moderately Decreased</content>
<content>Stage IV GFR 15-29 Severely Decreased</content>
<content>Stage V GFR <15 Very Little GFR Left</content>
<content>ESRD GFR <15 on WATCH [employer]ER</content>
<content></content> Potassium Serum 3.8 meq/L 3.5-5.1 Normal (applies to non-numeric results) [facility] Sodium Level 139 meq/L 136-145 Normal (applies to non-numeric res ults) [facility] ([facility] Chloride Level 109 meq/L 98-107 Above high normal [facility] ([facility] Carbon Dioxide Level 23 meq/L 21-32 Normal (applies to non-num crystal results) [facility] ([facility] Anion Gap 7 meq/L 8-16 Below low normal [facility] ( [facility] Calcium Level 9.2 mg/dL 8.5-10.1 Normal (applies to non-numeric re sults) [facility] Ast/Sgot 43 U/L 7-37 Above high normal [facility] ([facility] Alt/SGPT 78 U/L 12-78 Normal (applies to non-numeric resul ts) [facility] ([facility] Bilirubin,Total 0.5 mg/dL 0.2-1.0 Normal (applies to non-numeric results) [facility] ([facility] Alkaline Phosphatase 126 U/L 45-117 Above high normal [facility] ([facility] Total Protein 7.0 GM/DL 6.4-8.2 Normal (applies to non-numeric re sults) [facility] ([facility] Albumin 3.8 GM/DL 3.2-5.2 Normal (applies to non-numeric resul ts) [facility] ([facility] Albumin/Globulin Ratio 1.19 1.00-1.93 Normal (applies to non-numeric results) [facility] ([facility] ID Date Data Source [id number] 01/04/2020 10:29:00 AM EDT [facility] ([facility] Name Value Range Interpretation Code Description Data Shannan rce(s) Supporting Document(s) Neutrophils % 56.6 % 36.0-66.0 Normal (applies to non-numeric re sults) [facility] ([facility] Lymph % 31.3 % 24.0-44.0 Normal (applies to non-numeric resul ts) [facility] ([facility] [place] % 6.1 % 0.0-5.0 Above high normal [facility] ([facility] Baso % 0.6 % 0.0-1.0 Normal (applies to non-numeric resul ts) [facility] ([facility] Eos % 4.8 % 0.0-3.0 Above high normal [facility] ([facility] Neutrophils # 3.8 10 1.5-8.5 Normal (applies to non-numeric re sults) [facility] ([facility] Immature Granulocyte % 0.6 % 0-3.0 Normal (applies to non-n umeric results) [facility] ([facility] Lymph # 2.1 10 1.5-5.0 Normal (applies to non-numeric resul ts) [facility] ([facility] [place] # 0.4 10 0.0-0.8 Normal (applies to non-numeric resul ts) [facility] ([facility] Eos # 0.3 10 0.0-0.5 Normal (applies to non-numeric resul ts) [facility] ([facility] Baso # 0.0 10 0.0-0.2 Normal (applies to non-numeric resul ts) [facility] ([facility] ID Date Data Source [id number] 01/04/2020 10:29:00 AM EDT [facility] ([facility] Name Value Range Interpretation Code Description Data Shannan rce(s) Supporting Document(s) White Blood Count 6.7 10 4.0-10.0 Normal (applies to non-numeri c results) [facility] ([facility] Red Blood Count 4.89 10 4.00-5.40 Normal (applies to non-numeric results) [facility] ([facility] Hemoglobin 13.1 g/dL 12.0-15.5 Normal (applies to non-numeric resul ts) [facility] ([facility] Mean Corpuscular Volume 83.4 fl 80.0-96.0 Normal ( applies to non-numeric results) [facility] ([facility] Hematocrit 40.8 % 36.0-47.0 Normal (applies to non-numeric resul ts) [facility] ([facility] Mean Corpuscular Hemoglobin 26.8 pg 27.0-33.0 Below low normal [facility] ([facility] Mean Corpuscular HGB Conc 32.1 g/dL 32.0-36.5 Normal (applies to non-numeric results) [facility] ([facility] Red Cell Distribution Width 14.0 % 11.5-14.5 Norm al (applies to non-numeric results) [facility] ([facility] ) Platelet Count, Automated 273 10 150-450 Normal (applies to non-numeric results) [facility] ([facility] ) Nucleated Red Blood Cell % 0.0 % 0-0 Normal (applies to n on-numeric results) [facility] ([facility] ID Date Data Source [id number] 01/04/2020 09:35:00 AM EDT [facility] ([facility] Name Value Range Interpretation Code Description Data Shannan rce(s) Supporting Document(s) Alb 10 mg/L 1-30 [facility] Creatinine, Urine 100 mg/dL 10-300 [facility] ([facility] A/C Ratio Laboratory test result ME DENT ([facility] ID Date Data Source [id number] 01/04/2020 09:32:00 AM EDT [facility] ([facility] Name Value Range Interpretation Code Description Data Shannan rce(s) Supporting Document(s) Hemoglobin A1c/Hemoglobin.total in Blood 7.5 % 4.50-6.20 Above high normal [facility] ([facility] ID Date Data Source [id number] 01/04/2020 09:31:00 AM EDT [facility] ([facility] Name Value Range Interpretation Code Description Data Shannan rce(s) Supporting Document(s) Chol 174 mg/dL 0-200 [facility] CLASSIFICATION CHOLESTEROL FO [...] YEARS EXCLUSIVE. Cho/HDL Ratio 4.6 CALC [facility] CLASSIFICATION CHOLESTEROL FO R ADULTS [...] YEARS EXCLUSIVE. LDL_C 97 Calc 75-129 [facility] ([facility] CLASSIFICATION CHOLESTEROL FO R [...] 2-19 YEARS EXCLUSIVE. ID Date Data Source [id number] 12/20/2019 07:02:00 AM EDT [facility] ([facility] Name Value Range Interpretation Code Description Data Shannan rce(s) Supporting Document(s) Glucose [Mass/volume] in Capillary blood by Glucometer 158 mg/dL 70-105 Above high normal [facility] ([facility] ) ID Date Data Source [id number] 12/20/2019 07:02:00 AM EDT [facility] ([facility]) Name Value Range Interpretation Code Description Data Shannan rce(s) Supporting Document(s) Glucose [Mass/volume] in Capillary blood by Glucometer 158 mg/dL 70-105 Above high normal [facility] ([facility], ) ID Date Data Source [id number] 12/20/2019 06:09:00 AM EDT [facility] ([facility] Name Value Range Interpretation Code Description Data Shannan rce(s) Supporting Document(s) Glucose, Fasting 165 mg/dL 70-100 Above high normal M EDENT ([facility] Blood Urea Nitrogen 17 mg/dL 7-18 Normal (applies to non-nume ava results) [facility] ([facility] Creatinine For GFR 0.97 mg/dL 0.55-1.30 Normal (applies to non -numeric results) [facility] ([facility] Glomerular Filtration Rate Laboratory test result Normal (applies to non- numeric results) [facility] ([facility] ) <content>Units are mL/min/1.73 m2</content>
<content></content>
<content>Chronic Kidney Disease Staging per NKF:</content>
<content></content>
<content>Stage I & II GFR >=60 Normal to Mildly Decreased</content>
<content>Stage III GFR 30- 59 Moderately Decreased</content>
<content>Stage IV GFR 15-29 Severely Decreased</content>
<content>Stage V GFR <15 Very Little GFR Left</content>
<content>ESRD GFR <15 on [employer]</content>
<content></content> Potassium Serum 4.2 meq/L 3.5-5.1 Normal (applies to non-numeric results) [facility] ([facility] Sodium Level 139 meq/L 136-145 Normal (applies to non-numeric res ults) [facility] ([facility] Chloride Level 106 meq/L 98-107 Normal (applies to non-numeric r esults) [facility] Anion Gap 7 meq/L 8-16 Below low normal [facility] ( [facility] Carbon Dioxide Level 26 meq/L 21-32 Normal (applies to non-num crystal results) [facility] ([facility] Calcium Level 9.1 mg/dL 8.5-10.1 Normal (applies to non-numeric re sults) [facility] ID Date Data Source [id number] 12/20/2019 06:09:00 AM EDT [facility] ([facility] Name Value Range Interpretation Code Description Data Shannan rce(s) Supporting Document(s) White Blood Count 6.6 10 4.0-10.0 Normal (applies to non-numeri c results) [facility] ([facility] Hemoglobin 12.7 g/dL 12.0-15.5 Normal (applies to non-numeric resul ts) [facility] ([facility] Hematocrit 39.4 % 36.0-47.0 Normal (applies to non-numeric resul ts) [facility] Red Blood Count 4.76 10 4.00-5.40 Normal (applies to non-numeric results) [facility] ([facility] Mean Corpuscular HGB Conc 32.2 g/dL 32.0-36.5 Normal (applies to non-numeric results) [facility] ([facility] ) Mean Corpuscular Volume 82.8 fl 80.0-96.0 Normal ( applies to non-numeric results) [facility] ([facility] [place] ) Mean Corpuscular Hemoglobin 26.7 pg 27.0-33.0 Below low normal [facility] ([facility] [place] [place] Red Cell Distribution Width 13.5 % 11.5-14.5 Norm al (applies to non-numeric results) [facility] ([facility] [place] [place] ) Nucleated Red Blood Cell % 0.0 % 0-0 Normal (applies to n on-numeric results) [facility] ([facility] [place] [place] Platelet Count, Automated 301 10 150-450 Normal (applies to non-numeric results) [facility] ([facility] [place] [place] ) ID Date Data Source [id number] 12/20/2019 06:09:00 AM EDT [facility] ([facility]) Name Value Range Interpretation Code Description Data Shannan rce(s) Supporting Document(s) Blood Urea Nitrogen 17 mg/dL 7-18 Normal (applies to non-nume ava results) [facility] ([facility]) Glucose, Fasting 165 mg/dL 70-100 Above high normal [facility]) Sodium Level 139 meq/L 136-145 Normal (applies to non-numeric res ults) [facility] ([facility]) Glomerular Filtration Rate > 60.0 Normal (applies to n on-numeric results) [facility] ([facility]) <content>Units are mL/min/1.73 m2</content>
<content></content>
<content>Chronic Kidney Disease Staging per NKF:</content>
<content></content>
<content>Stage I & II GFR >=60 Normal to Mildly Decreased</content>
<content>Stage III GFR 30- 59 Moderately Decreased</content>
<content>Stage IV GFR 15-29 Severely Decreased</content>
<content>Stage V GFR <15 Very Little GFR Left</content>
<content>ESRD GFR <15 on [employer]</content>
<content></content> Creatinine For GFR 0.97 mg/dL 0.55-1.30 Normal (applies to non -numeric results) [facility]) Carbon Dioxide Level 26 meq/L 21-32 Normal (applies to non-num crystal results) [facility]) Chloride Level 106 meq/L 98-107 Normal (applies to non-numeric r esults) [facility]) Potassium Serum 4.2 meq/L 3.5-5.1 Normal (applies to non-numeric results) [facility]) Calcium Level 9.1 mg/dL 8.5-10.1 Normal (applies to non-numeric re sults) [facility]) Anion Gap 7 meq/L 8-[address] [facility]) ID Date Data Source [id number] 12/20/2019 06:09:00 AM EDT [facility]) Name Value Range Interpretation Code Description Data Shannan rce(s) Supporting Document(s) Hemoglobin 12.7 g/dL 12.0-15.5 Normal (applies to non-numeric resul ts) [facility]) Red Blood Count 4.76 10 4.00-5.40 Normal (applies to non-numeric results) [facility]) White Blood Count 6.6 10 4.0-10.0 Normal (applies to non-numeri c results) [facility]) Mean Corpuscular Hemoglobin 26.7 pg 27.0-33.0 Below low normal [facility]) Mean Corpuscular Volume 82.8 fl 80.0-96.0 Normal ( applies to non-numeric results) [facility]) Hematocrit 39.4 % 36.0-47.0 Normal (applies to non-numeric resul ts) [facility]) Mean Corpuscular HGB Conc 32.2 g/dL 32.0-36.5 Normal (applies to non-numeric results) [facility]) Platelet Count, Automated 301 10 150-450 Normal (applies to non-numeric results) [facility] ([facility]) Red Cell Distribution Width 13.5 % 11.5-14.5 Norm al (applies to non-numeric results) [facility] ([facility], ) Nucleated Red Blood Cell % 0.0 % 0-0 Normal (applies to n on-numeric results) [facility] ([facility]) ID Date Data Source [id number] 11/10/2019 01:08:00 PM EST [facility] ([facility] Name Value Range Interpretation Code Description Data Shannan rce(s) Supporting Document(s) Lactate dehydrogenase [Enzymatic activity/volume] in Serum o r Plasma 132 U/L 84-246 Normal (applies to non-numeric results) [facility] ([facility] ID Date Data Source [id number] 11/10/2019 01:08:00 PM EST [facility] Name Value Range Interpretation Code Description Data Shannan rce(s) Supporting Document(s) Glucose, Fasting 117 mg/dL 70-100 Above high normal [facility] Creatinine For GFR 1.02 mg/dL 0.55-1.30 Normal (applies to non -numeric results) [facility] ([facility] Blood Urea Nitrogen 17 mg/dL 7-18 Normal (applies to non-nume ava results) [facility] ([facility] Glomerular Filtration Rate Laboratory test result Normal (applies to non- numeric results) [facility] ([facility] ) <content>Units are mL/min/1.73 m2</content>
<content></content>
<content>Chronic Kidney Disease Staging per NKF:</content>
<content></content>
<content>Stage I & II GFR >=60 Normal to Mildly Decreased</content>
<content>Stage III GFR 30-59 Moderately Decreased</content>
<content>Stage IV GFR 15-29 Severely Decreased</content>
<content>Stage V GFR <15 Very Little GFR Left</content>
<content>ESRD GFR <15 on [employer]</content>
<content></content> Potassium Serum 4.1 meq/L 3.5-5.1 Normal (applies to non-numeric results) [facility] ([facility] Sodium Level 140 meq/L 136-145 Normal (applies to non-numeric res ults) [facility] ([facility] Chloride Level 107 meq/L 98-107 Normal (applies to non-numeric r esults) [facility] ([facility] Calcium Level 9.4 mg/dL 8.5-10.1 Normal (applies to non-numeric re sults) [facility] ([facility] Carbon Dioxide Level 25 meq/L 21-32 Normal (applies to non-num crystal results) [facility] ([facility] Anion Gap 8 meq/L 8-16 Normal (applies to non-numeric resul ts) [facility] ([facility] Ast/Sgot 30 U/L 7-37 Normal (applies to non-numeric resul ts) [facility] ([facility] Alt/SGPT 59 U/L 12-78 Normal (applies to non-numeric resul ts) [facility] ([facility] Alkaline Phosphatase 120 U/L 45-117 Above high normal [facility] Bilirubin,Total 0.6 mg/dL 0.2-1.0 Normal (applies to non-numeric results) [facility] ([facility] Total Protein 7.0 GM/DL 6.4-8.2 Normal (applies to non-numeric re sults) [facility] ([facility] Albumin 3.8 GM/DL 3.2-5.2 Normal (applies to non-numeric resul ts) [facility] ([facility] Albumin/Globulin Ratio 1.19 1.00-1.93 Normal (applies to non-numeric results) [facility] ([facility] ID Date Data Source [id number] 11/10/2019 01:08:00 PM EST [facility] Name Value Range Interpretation Code Description Data Shannan rce(s) Supporting Document(s) [place] % 8.5 % 0.0-5.0 Above high normal [...] re sults) [facility] ([facility] [place] # 0.8 10 0.0-0.8 Normal (applies to non-numeric resul ts) [facility] ([facility] [place] # 0.2 10 0.0-0.5 Normal (applies to non-numeric resul ts) [facility] ([facility] Baso # 0.0 10 0.0-0.2 Normal (applies to non-numeric resul ts) [facility] ([facility] ID Date Data Source [id number] 11/10/2019 01:08:00 PM EST [facility] ([facility] ID Date Data Source [id number] 09/14/2019 11:38:00 AM EST [facility] ([facility] Name Value Range Interpretation [...] mL/min Normal Cho/HDL Ratio 4.3 Calc [facility] ([facility] CLASSIFICATION CHOLESTEROL FO R [...] mL/min Normal LDL_C 96 Calc 75-129 [facility] ([facility] CLASSIFICATION CHOLESTEROL FO R [...] >32 mL/min Normal ID Date Data Source [id number] 09/14/2019 11:38:00 AM EST [place] ([facility] Name Value Range Interpretation Code Description Data Shannan rce(s) Supporting Document(s) BUN 15 mg/dL 8-23 [facility] [employer] [facility] CLASSIFICATION CHOLESTEROL FO R ADULTS [...] mL/min Normal BUN/Creatinine Ratio 17.4 CALC [facility] ([facility] CLASSIFICATION CHOLESTEROL FO R [...] mL/min Normal Na 138 mmol/L 136-145 [facility] ([facility] CLASSIFICATION CHOLESTEROL FO [...] >32 mL/min Normal CL 101.4 mmol/L 98.0-107.0 [facility] CLASSIFICATION CHOLESTEROL FO R ADULTS [...] Normal Co2 22.6 mmol/L 22.0-29.0 [facility] CLASSIFICATION CHOLESTEROL FO R ADULTS [...] mL/min Normal CA 9.4 mg/dL 8.6-10.2 [facility] CLASSIFICATION CHOLESTEROL FO R [...] Alt (SGPT) 36 U/L 0-41 [facility] ([facility] CLASSIFICATION CHOLESTEROL FO R [...] mL/min Normal Alp 125.8 U/L 35-129 [facility] CLASSIFICATION CHOLESTEROL FO [...] and above >32 mL/min Normal eGFR Non-Afr. [place] 87 # [facility] ([facility] [...] >32 mL/min Normal ID Date Data Source [id number] 09/14/2019 11:38:00 AM EST [facility] ([facility] Name Value Range Interpretation Code Description Data Shannan rce(s) Supporting Document(s) Hemoglobin A1c/Hemoglobin.total in Blood 7.1 % 4.50-6.20 Above high normal [facility] ([facility] Procedure Social History Code Duration Value Status Description Data Source(s ) Smoking 10/19/2020 12:00:00 AM EST Never Smoked Cigarettes com pleted Never Smoked Cigarettes [facility] ([facility] [employer] [facility] [place] Alcohol intake 03/22/2020 12:00:00 AM EDT Not Asked completed [facility] Smoking 03/22/2020 12:00:00 AM EDT Never smoker completed Never s [facility] Smoking 10/28/2019 12:00:00 AM EST Never smoker completed Never s janiya 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[facility]) Vital Signs ID Date Data Source [id number] Name Value Range Interpretation Code Description Data Source(s) Heart rate 76 /min 76 /min [facility] ([facility] [place] Diastolic blood pressure 83 mm[Hg] 83 mm[Hg] [facility] ([facility] [place]) Systolic blood pressure 119 mm[Hg] 119 mm[Hg] M ED[facility] ([facility] [place]) Body mass index (BMI) [Ratio] 35.9 kg/m2 35.9 k g/m2 [facility] ([facility] [place] Body weight 86.184 kg 86.184 kg [facility] ([facility] [place] Body weight 190.00 [lb_av] 190.00 [lb_av] MEDEN T ([facility] [place]) Body height 61 [in_i] 61 [in_i] [facility] ([facility] [place]) 5'1" Oxygen saturation in Arterial blood by Pulse oximetry 99 % 99 % [facility] ([facility] Body mass index (BMI) [Ratio] 37.6 kg/m2 37.6 k g/m2 [facility] ([facility] [place] body weight 105 [lb_av] 105 [lb_av] MEDEN T ([facility] Body weight 199.00 [lb_av] 199.00 [lb_av] MEDEN T ([facility] Body height 61 [in_i] 61 [in_i] [facility] ([facility] 5'1" Respiratory rate 16 /min 16 /min [facility] ( [facility] Heart rate 92 /min 92 /min [facility] ([facility] Body temperature 97.6 [degF] 97.6 [degF] [facility] ([facility] Diastolic blood pressure 76 mm[Hg] 76 mm[Hg] [facility] ([facility] Systolic blood pressure 124 mm[Hg] 124 mm[Hg] M EDENT ([facility] Body temperature 95.4 [degF] 95.4 [degF] [facility] ([facility] [place]) Heart rate 87 /min 87 /min [facility] ([facility] [place]) Diastolic blood pressure 72 mm[Hg] 72 mm[Hg] [facility] ([facility] [place]) Systolic blood pressure 105 mm[Hg] 105 mm[Hg] M EDENT ([facility] [place]) Body mass index (BMI) [Ratio] 36.8 kg/m2 36.8 k g/m2 [facility] ([facility]) Body weight 88.452 kg 88.452 kg [facility] ([facility]) Body weight 195.00 [lb_av] 195.00 [lb_av] MEDEN T ([facility]) Body height 61 [in_i] 61 [in_i] [facility] ([facility]) 5'1" Diastolic blood pressure 80 mm[Hg] 80 mm[Hg] [facility] ([facility] Systolic blood pressure 124 mm[Hg] 124 mm[Hg] M EDENT ([facility] Oxygen saturation in Arterial blood by Pulse oximetry 97 % 97 % [facility] ([facility] Body mass index (BMI) [Ratio] 36.5 kg/m2 36.5 k g/m2 [facility] ([facility] [place] body weight 105 [lb_av] 105 [lb_av] MEDEN T ([facility] Body weight 193.00 [lb_av] 193.00 [lb_av] MEDEN T ([facility] Body height 61 [in_i] 61 [in_i] [facility] ([facility] 5'1" Respiratory rate 14 /min 14 /min [facility] ( [facility] Heart rate 80 /min 80 /min [facility] ([facility] Body temperature 97.9 [degF] 97.9 [degF] [facility] ([facility] Body temperature 96.3 [degF] 96.3 [degF] [facility] ([facility]) Body mass index (BMI) [Ratio] 37.8 kg/m2 37.8 k g/m2 [facility] ([facility]) Body weight 90.720 kg 90.720 kg [facility] ([facility]) Body weight 200.00 [lb_av] 200.00 [lb_av] MEDEN T ([facility]) Body height 61 [in_i] 61 [in_i] [facility] ([facility]) 5'1" Oxygen saturation in Arterial blood by Pulse oximetry 98 % 98 % [facility] ([facility] [place] body weight 105 [lb_av] 105 [lb_av] MEDEN T ([facility] Body height 61 [in_i] 61 [in_i] [facility] ([facility] 5'1" Respiratory rate 14 [...] Body height 61 [in_i] 61 [in_i] [facility] ([facility] 5'1" Respiratory rate 18 [...] weight 197.31 [lb_av] 197.31 [lb_av] MEDEN T ([facility] Body height 61 [in_i] 61 [in_i] [facility] ([facility] 5'1" Respiratory rate 14 /min 14 /min [facility] ( [facility] Heart rate 84 /min 84 /min [facility] ([facility] Body temperature 97.7 [degF] 97.7 [degF] [facility] ([facility] Diastolic blood pressure 74 mm[Hg] 74 mm[Hg] [facility] ([facility] Systolic blood pressure 116 mm[Hg] 116 mm[Hg] M EDENT ([facility] Oxygen saturation in Arterial blood by Pulse oximetry 98 % 98 % [facility] ([facility] Body mass index (BMI) [Ratio] 37.4 kg/m2 37.4 k g/m2 [facility] ([facility] Body weight 198.00 [lb_av] 198.00 [lb_av] MEDEN T ([facility] Body height 61 [in_i] 61 [in_i] [facility] ([facility] 5'1" Respiratory rate 14 /min 14 /min [facility] ( [facility] Heart rate 90 /min 90 /min [facility] ([facility] [facility] Body temperature 98.3 [degF] 98.3 [degF] [facility] ([facility] Diastolic blood pressure 72 mm[Hg] 72 mm[Hg] [facility] ([facility] Systolic blood pressure 112 mm[Hg] 112 mm[Hg] M EDENT ([facility] Body weight 91.230 kg 91.230 kg [facility] ([facility], ) Body mass index (BMI) [Ratio] 38.0 kg/m2 38.0 k g/m2 [facility] ([facility], ) Body weight 201.12 [lb_av] 201.12 [lb_av] MEDEN T ([facility]) Body height 61 [in_i] 61 [in_i] [facility] ([facility]) 5'1" Body temperature 97.5 [degF] 97.5 [degF] [facility] ([facility]) Diastolic blood pressure 82 mm[Hg] 82 mm[Hg] [facility] ([facility]) Systolic blood pressure 122 mm[Hg] 122 mm[Hg] [facility] Oxygen saturation in Arterial blood by Pulse oximetry 98 % 98 % [facility] ([facility] Body mass index (BMI) [Ratio] 38.9 kg/m2 38.9 k g/m2 [facility] ([facility] Body weight 206.00 [lb_av] 206.00 [lb_av] MEDEN T ([facility] Body height 61 [in_i] 61 [in_i] [facility] 5'1" Respiratory rate 16 /min 16 /min [facility] ( [facility] Heart rate 86 /min 86 /min [facility] ([facility] Body temperature 98.3 [degF] 98.3 [degF] [facility] ([facility] Diastolic blood pressure 80 mm[Hg] 80 mm[Hg] [facility] ([facility] Systolic blood pressure 120 mm[Hg] 120 mm[Hg] [facility] Body weight 93.555 kg 93.555 kg [facility] ([facility]) Body mass index (BMI) [Ratio] 39.0 kg/m2 39.0 k g/m2 [facility] ([facility]) Body weight 206.25 [lb_av] 206.25 [lb_av] MED[facility] T ([facility]) Body height 61 [in_i] 61 [in_i] [facility] ([facility]) 5'1" Diastolic blood pressure 78 mm[Hg] 78 mm[Hg] [facility] ([facility]) Systolic blood pressure 118 mm[Hg] 118 mm[Hg] M EDSTEF ([facility], ) Oxygen saturation in Arterial blood by Pulse oximetry 98 % 98 % [facility] ([facility] Body mass index (BMI) [Ratio] 38.2 kg/m2 38.2 k g/m2 [facility] ([facility] Body weight 202.00 [lb_av] 202.00 [lb_av] MEDEN T ([facility] Body height 61 [in_i] 61 [in_i] [facility] ([facility] 5'1" Respiratory rate 14 /min 14 /min [facility] ( [facility] Heart rate 100 /min 100 /min [facility] ([facility] Body temperature 98.0 [degF] 98.0 [degF] [facility] ([facility] Diastolic blood pressure 84 mm[Hg] 84 mm[Hg] [facility] ([facility] Systolic blood pressure 118 mm[Hg] 118 mm[Hg] M EDENT ([facility] Inhaled oxygen concentration 21 % 21 % 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[facility]) Oxygen saturation in Arterial blood by Pulse oximetry 99 % 99 % 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[facility]) Body weight 203 [lb_av] 203 [lb_av] 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[facility]) Diastolic blood pressure 90 mm[Hg] 90 mm[Hg] 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[facility]) Systolic blood pressure 129 mm[Hg] 129 mm[Hg] C [facility] ([facility]) Heart rate 86 /min 86 /min 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[facility]) Body temperature 98.2 [degF] 98.2 [degF] SAEM BAUTISTA ([facility]) Heart rate 83 /min 83 /min [facility] ([facility] Diastolic blood pressure 76 mm[Hg] 76 mm[Hg] [facility] ([facility]) Systolic blood pressure 108 mm[Hg] 108 mm[Hg] M EDENT ([facility]) Body mass index (BMI) [Ratio] 37.8 kg/m2 37.8 k g/m2 [facility] ([facility] Body weight 90.720 kg 90.720 kg [facility] Body weight 200.00 [lb_av] 200.00 [lb_av] MEDEN T ([facility]) Body height 61 [in_i] 61 [in_i] [facility] ([facility] 5'1" Patient Treatment Plan of Care Planned Activity Planned Date Details Description Data Source (s) potassium citrate 10 MEQ Extended Release Oral Tablet 03/22/2020 12:00:00 AM [facility] Amiloride Hydrochloride 5 MG Oral Tablet 03/22/2020 12:00:[address] [facility] Potassium Chloride Hiral ER 10 MEQ Oral Tablet Extended Release (K-DUR) 03/22/2020 12:00:00 AM [facility] potassium citrate 10 MEQ Extended Release Oral Tablet 03/26/2019 12:00:00 AM [facility] Potassium Chloride 10 MEQ Extended Release Oral Tablet [Klor-Con] 03/26/2019 12:00:00 AM [facility] Amiloride Hydrochloride 5 MG Oral Tablet 03/26/2019 12:00:[address] [facility]
[2020-10-24 13:42] LABS: BASO % 0.4 % (0.0-1.0); EOS % 0.2 % (0.0-3.0); HEMATOCRIT 41.5 % (36.0-47.0); HEMOGLOBIN 13.3 g/dl (12.0-15.5); LYMPH # 1.2 10^3/uL (1.5-5.0); LYMPH % 11.3 % (24.0-44.0); MEAN CORPUSCULAR HEMOGLOBIN 26.5 pg (27.0-33.0); MEAN CORPUSCULAR VOLUME 82.8 fl (80.0-96.0); MONO # 0.4 10^3/uL (0.0-0.8); MONO % 4.3 % (0.0-5.0); NEUTROPHILS # 8.6 10^3/uL (1.5-8.5); NEUTROPHILS % 83.4 % (36.0-66.0); PLATELET COUNT, AUTOMATED 314 10^3/uL (150-450); RED BLOOD COUNT 5.01 10^6/uL (4.00-5.40); WHITE BLOOD COUNT 10.3 10^3/uL (4.0-10.0)
[2020-10-24 14:17] LABS: ALBUMIN 4.1 GM/DL (3.2-5.2); BILIRUBIN,DIRECT 0.2 MG/DL (0.0-0.2); BILIRUBIN,TOTAL 0.8 MG/DL (0.2-1.0); CALCIUM LEVEL 9.5 MG/DL (8.5-10.1); CREATININE FOR GFR 1.12 MG/DL (0.55-1.30); GLOMERULAR FILTRATION RATE 54.8 (>51); POTASSIUM SERUM 4.4 MEQ/L (3.5-5.1)
[2020-10-24] MEDS ORDERED: cefTRIAXone SOD 1 GM in D5W MINI-BAG PLUS 50 ML IV ONE (14:45)
--- NOTE | 2020-10-24 14:52 | REP ---
INDICATION: l flank pain, hx of renal stones. COMPARISON: 06/29/2020 the latest prior also without intravenous contrast TECHNIQUE: Noncontrast enhanced exam FINDINGS: The lung bases are clear and unchanged Once again, there is diffuse low density throughout the a patent parenchyma. Once again, there are bilateral nephroliths at the corticomedullary junction. There is left-sided hydronephrosis and hydroureter. The distal left ureter there is a 6 mm sized ureterolith responsible for the findings. This represents a change from the prior exam. The spleen, pancreas, and adrenal glands are unchanged. The abdominal aorta and para-aortic regions are unchanged. There is para-aortic and mesenteric adenopathy status quo. There is no change in appearance of the bowel loops. There is no free fluid or free air. There is no change in the osseous structures. IMPRESSION: 1. Left-sided obstructive uropathy as described above. 2. Bilateral nephroliths consistent with the patient's diagnosis of medullary sponge kidney. 3. Diffuse fatty infiltration of the liver unchanged. 4. Stable appearing mesenteric and para-aortic adenopathy. 5. Other findings as described above. <Electronically signed by Ander Horn > 10/24/20 [id number]
[2020-10-24 16:55] VITALS: BP 128/66
== END 2020-10-24 17:10 | disposition home or self-care (01) ==
LOC: M ED 12:43
DX: N13.2 Hydronephrosis with renal and ureteral calculous obstruction (principal); R11.2 Nausea with vomiting, unspecified; C85.94 Non-Hodgkin lymphoma, unspecified, lymph nodes of axilla and upper limb; Q61.5 Medullary cystic kidney; K76.0 Fatty (change of) liver, not elsewhere classified; E11.9 Type 2 diabetes mellitus without complications; I10 Essential (primary) hypertension; E78.5 Hyperlipidemia, unspecified; K21.9 Gastro-esophageal reflux disease without esophagitis; Z91.041 Radiographic dye allergy status; Z79.899 Other long term (current) drug therapy
CPT/HCPCS: 36415; 74176; 80048; 80076; 81001; 83605; 83690; 85025; 96361; 96365; 96375; 99284; J0696; J2270; J2765

== ENCOUNTER → 2021-06-04 | Outpatient (CLI) | payer BC ==
[~2021-06-04] MED LIST changes: -JANU100T; +JANU100T PO; +OMEP20TA2 PO; -OMEP20TA9 PO; +OMEP40CA4 PO; -OMEP40CA97 PO
--- NOTE | 2021-06-05 10:04 | REP ---
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 COMPARISON: Multiple the latest 12/28/2019 along with multiple prior CT examinations TECHNIQUE: After the intravenous administration of 8.51 mCi of FDG 18 triplane whole-body PET-CT was performed from the skull base to the mid thigh. FINDINGS: The patient has completed previous chemotherapeutic regimens the last maintenance regimen ending September 2013. In the submental region of the right neck there is a lymph node which measures 2 x 1.3 cm and having hypermetabolic activity with a maximal SUV value of 7.14. This represents a change from the latest prior PET-CT of 12/28/2019 when there was no adenopathy or hypermetabolic activity in that same region. There is hypermetabolic activity seen in a right supraclavicular lymph node having a maximal SUV value of 6.81 and measuring 1.6 x 2.1 cm. This represents a change from the prior 12/28/2019 PET-CT as well. Prior chest CT of 06/29/2020 did show this enlarged lymph node and at that time it measured 1.7 x 1.4 cm. The somewhat matted left infraclavicular/subpectoral adenopathy seen on the prior PET-CT has decreased in its hypermetabolic activity, however, the overall size of each of these individual enlarged lymph nodes has increased slightly compared to the latest prior CT of 06/29/2020 when measurements are taken as best as can be achieved in there matted appearance. Previously the largest of these lymph nodes at the maximal dimension of 2 cm and today the same lymph node has a maximal dimension of 2.5 cm. The left axillary adenopathy has also increased in size when on the prior CT scan the largest node measures approximately 1.9 x 1.8 cm today this lymph node measures 2.8 x 2.1 cm and is hypermetabolic with a maximal SUV value of 7.9. The hypermetabolic activity of this particular lymph node has increased from the latest prior PET-CT when it has maximal SUV value was 7.07. The central mesenteric lymphadenopathy seen on the latest prior CT examination of the abdomen and pelvis dated 12/22/2020 does not appear to have increased significantly in size when the CT component of today's examination is compared to that examination remembering that the CT component of a PET-CT is a nondiagnostic CT, however, it has significantly increased compared to the prior PET-CT of 12/28/2019 in size and degree of hypermetabolism when it previously had a maximal SUV value of 3.2 today the maximal SUV value is 5.06. The para-aortic adenopathy seen on the prior outside abdominal CT of 12/22/2020 has not changed significantly in size, however, this represents a significant change compared to the prior PET-CT of 12/28/2019 in both size and the fact that today's PET-CT shows hypermetabolic activity within those enlarged nodes and having a maximal SUV value of 6.25. There is extensive iliac chain lymphadenopathy bilaterally increased in size and hypermetabolism compared to the prior PET-CT when on the right this mat of lymph nodes had a maximal SUV value of 10.08 today this same region has a maximal SUV value of 10.27 and its spread of hypermetabolism and involvement in an increased number of nodes has also occurred. Overall, the size of the nodes has remained stable when compared to the latest prior outside CT of 12/22/2020. There is a persistent focus of hypermetabolic activity seen in the right piriformis muscle which is unchanged. No other areas of abnormal hypermetabolic activity are seen in the neck, chest, abdomen, or pelvis. There is no change in appearance of the bone marrow compared to the prior PET-CT of 12/28/2019. IMPRESSION: There has been an increase in the number, size, and hypermetabolism in multiple lymph node sites above and below the diaphragm as described above. <Electronically signed by Ander Horn > 06/05/21 1000
== END ==
LOC: M PLARAD 11:06
PROVIDERS: ATTEND Internal Medicine Medical Oncology
DX: R93.89 Abnormal findings on diagnostic imaging of other specified body structures (principal); C82.94 Follicular lymphoma, unspecified, lymph nodes of axilla and upper limb; R59.9 Enlarged lymph nodes, unspecified
CPT/HCPCS: 78815; A9552

== ENCOUNTER → 2022-01-09 | Outpatient (CLI) | payer BC ==
[~2022-01-09] MED LIST changes: -KLOR10TA76 PO; +POTA-136 PO
== END ==
LOC: M WHC 08:27
PROVIDERS: ATTEND Internal Medicine Medical Oncology
DX: Z12.31 Encounter for screening mammogram for malignant neoplasm of breast (principal); Z80.9 Family history of malignant neoplasm, unspecified; Z85.9 Personal history of malignant neoplasm, unspecified; Z92.21 Personal history of antineoplastic chemotherapy; Z78.0 Asymptomatic menopausal state; C85.90 Non-Hodgkin lymphoma, unspecified, unspecified site

== ENCOUNTER → 2022-06-03 | Outpatient (CLI) | payer BC | LOC: M PLARAD 13:55 | PROVIDERS: ATTEND Internal Medicine Medical Oncology | DX: C82.94 Follicular lymphoma, unspecified, lymph nodes of axilla and upper limb (principal) | CPT/HCPCS: 78815; A9552 ==

== ENCOUNTER → 2022-07-23 | Outpatient (CLI) | payer BC ==
[~2022-07-23] MED LIST changes: +**SFHN** LIDOCAINE 1% MDV 20ML VIAL ONE; +**SFHN** SODIUM BICARBONATE 8.4% 10MEQ 10ML VIAL ONE
[2022-07-23 12:48] VITALS: BP 112/70
== END ==
LOC: M WHCPRO 11:03
PROVIDERS: ATTEND Internal Medicine Medical Oncology
DX: C82.94 Follicular lymphoma, unspecified, lymph nodes of axilla and upper limb (principal)
CPT/HCPCS: 10005; 10035; 88305; A4648

== ENCOUNTER → 2022-08-14 | Outpatient (CLI) | payer BC ==
[~2022-08-14] MED LIST changes: -**SFHN** LIDOCAINE 1% MDV 20ML VIAL ONE; -**SFHN** SODIUM BICARBONATE 8.4% 10MEQ 10ML VIAL ONE
== END ==
LOC: M LABSMTC 11:38
PROVIDERS: ATTEND Anesthesiology
DX: Z01.812 Encounter for preprocedural laboratory examination (principal); Z11.52 Encounter for screening for COVID-19

== ENCOUNTER → 2022-08-19 | Outpatient (CLI) | payer BC ==
[~2022-08-19] MED LIST changes: +LEXA1TAB PO; +LIDOCAINE 1% MDV 20ML VIAL As Ordered ONE; +MIDAZOLAM INJ 2MG/2ML VIAL (J2250 PER 1MG) As Ordered ONE; +NS 1,000 ML IV SCH; +PROC10TA5 PO; +PROMETHAZINE 25MG/ML 1ML VIAL As Ordered ONE; +ceFAZolin 2 GM/D5W 50 ML IV BAG (J0690 PER 500MG) As Ordered ONE; +ceFAZolin SOD 2 GM in IV 1 EA IV ONE; +diphenhydrAMINE 50MG/ML VIAL As Ordered ONE; +fentaNYL 100 MCG/2 ML INJECTION As Ordered ONE
[2022-08-19 17:30] VITALS: BP 135/66
== END ==
LOC: M IRPRO 12:34
PROVIDERS: ATTEND Internal Medicine Medical Oncology
DX: C82.94 Follicular lymphoma, unspecified, lymph nodes of axilla and upper limb (principal)
CPT/HCPCS: 36561; 99152; 99153; C1769; C1788; C1894; J0690; J1200; J1642; J1644; J2250; J2550; J3010

== ENCOUNTER → 2022-09-03 | Outpatient (POV) | payer BC ==
[~2022-09-03] VITALS: Ht 154.9 cm; Wt 81.8 kg
[~2022-09-03] MED LIST changes: -LIDOCAINE 1% MDV 20ML VIAL As Ordered ONE; -MIDAZOLAM INJ 2MG/2ML VIAL (J2250 PER 1MG) As Ordered ONE; -NS 1,000 ML IV SCH; -PROMETHAZINE 25MG/ML 1ML VIAL As Ordered ONE; -ceFAZolin 2 GM/D5W 50 ML IV BAG (J0690 PER 500MG) As Ordered ONE; -ceFAZolin SOD 2 GM in IV 1 EA IV ONE; -diphenhydrAMINE 50MG/ML VIAL As Ordered ONE; -fentaNYL 100 MCG/2 ML INJECTION As Ordered ONE
[2022-09-03 14:25] VITALS: BP 103/56
== END ==
LOC: M IRPOV 14:03
PROVIDERS: ATTEND Radiology Diagnostic Radiology
DX: Z45.2 Encounter for adjustment and management of vascular access device (principal); Z91.041 Radiographic dye allergy status

== ENCOUNTER → 2022-11-05 | Outpatient (CLI) | payer BC ==
[~2022-11-05] MED LIST changes: +BENA25CA4 PO; +GASTROGRAFIN SOLUTION 30ML As Ordered ONE; +ISOVUE-370 76% 100ML VIAL As Ordered ONE; +PRED50TA PO
== END ==
LOC: M RAD 09:25
PROVIDERS: ATTEND Internal Medicine Medical Oncology
DX: C85.90 Non-Hodgkin lymphoma, unspecified, unspecified site (principal)
CPT/HCPCS: 71260; 74177; J1642

== ENCOUNTER → 2023-01-08 | Outpatient (REF) | payer BC ==
[~2023-01-08] MED LIST changes: +AMOX875T PO; -GASTROGRAFIN SOLUTION 30ML As Ordered ONE; +HYDR1CRE30 TOP; -ISOVUE-370 76% 100ML VIAL As Ordered ONE
[2023-01-08 08:47] LABS: CHOLESTEROL RISK RATIO 4.61 (<5); HDL CHOLESTEROL 43.6 MG/DL (>40); LDL CHOLESTEROL 121.6 MG/DL (<100); NON-HDL-C 157.4 MG/DL
[2023-01-08 10:03] LABS: HEMOGLOBIN A1c 7.3 % (4.0-6.0)
== END ==
LOC: M LAB REF 07:54
PROVIDERS: ATTEND Internal Medicine
DX: E11.9 Type 2 diabetes mellitus without complications (principal); E78.5 Hyperlipidemia, unspecified

== ENCOUNTER → 2023-02-04 | Outpatient (CLI) | payer BC | LOC: M RAD 15:12 | PROVIDERS: ATTEND Internal Medicine Medical Oncology | DX: C85.90 Non-Hodgkin lymphoma, unspecified, unspecified site (principal) ==

== ENCOUNTER → 2023-02-10 | Outpatient (CLI) | payer BC | LOC: M PLARAD 08:48 | PROVIDERS: ATTEND Internal Medicine Medical Oncology | DX: C82.94 Follicular lymphoma, unspecified, lymph nodes of axilla and upper limb (principal) | CPT/HCPCS: 78815; A9552 ==

== ENCOUNTER → 2023-07-24 | Outpatient (REF) | payer BC ==
[~2023-07-24] MED LIST changes: +IRON325T2 PO; -K-TA10TA2 PO; +POTA-165 PO
[2023-07-24 07:55] LABS: HEMATOCRIT 34.5 % (36.0-47.0); HEMOGLOBIN 11.4 g/dl (12.0-15.5); MEAN CORPUSCULAR HEMOGLOBIN 29.5 pg (27.0-33.0); MEAN CORPUSCULAR VOLUME 89.1 fl (80.0-96.0); PLATELET COUNT, AUTOMATED 236 10^3/uL (150-450); RED BLOOD COUNT 3.87 10^6/uL (4.00-5.40)
[2023-07-24 08:30] LABS: ALBUMIN 3.9 G/DL (3.2-5.2); BILIRUBIN,TOTAL 0.7 MG/DL (0.3-1.2); CALCIUM LEVEL 9.3 MG/DL (8.5-10.1); CHOLESTEROL RISK RATIO 3.91 (<5); CREATININE FOR GFR 1.12 MG/DL (0.55-1.30); GLOMERULAR FILTRATION RATE 54.4 (>51); HDL CHOLESTEROL 43.9 MG/DL (>40); LDL CHOLESTEROL 85.3 MG/DL (<100); NON-HDL-C 128.1 MG/DL; POTASSIUM SERUM 4.3 MMOL/L (3.5-5.1); TOTAL PROTEIN 6.4 G/DL (5.7-8.2)
[2023-07-24 08:41] LABS: HEMOGLOBIN A1c 6.7 % (4.0-6.0)
[2023-07-25 08:39] LABS: WHITE BLOOD COUNT 4.3 10^3/uL (4.0-10.0)
== END ==
LOC: M LAB REF 07:39
PROVIDERS: ATTEND Internal Medicine
DX: E11.9 Type 2 diabetes mellitus without complications (principal); E78.5 Hyperlipidemia, unspecified; I10 Essential (primary) hypertension

== ENCOUNTER → 2023-11-13 | Outpatient (REF) | payer BC ==
[2023-11-13 08:50] LABS: ALBUMIN 3.8 G/DL (3.2-5.2); ALKALINE PHOSPHATASE 138 U/L (46-116); ALT/SGPT 52 U/L (7.0-40); AST/SGOT 18 U/L (<34); BILIRUBIN,TOTAL 0.7 MG/DL (0.3-1.2); BLOOD UREA NITROGEN 12 MG/DL (9-23); CALCIUM LEVEL 8.6 MG/DL (8.5-10.1); CARBON DIOXIDE LEVEL 24 MMOL/L (20-31); CHLORIDE LEVEL 106 MMOL/L (98-107); CHOLESTEROL LEVEL 143 MG/DL (<200); CHOLESTEROL RISK RATIO 3.78 (<5); GLOMERULAR FILTRATION RATE > 60.0 (>51); HDL CHOLESTEROL 37.8 MG/DL (>40); NON-HDL-C 105.2 MG/DL; POTASSIUM SERUM 3.7 MMOL/L (3.5-5.1); SODIUM LEVEL 139 MMOL/L (136-145); TOTAL PROTEIN 6.5 G/DL (5.7-8.2); TRIGLYCERIDES LEVEL 216 MG/DL (<150)
[2023-11-13 09:29] LABS: HEMOGLOBIN A1c 7.1 % (4.0-6.0)
[2023-11-14 06:44] LABS: GLUCOSE, FASTING 125 MG/DL (60-100)
== END ==
LOC: M LAB REF 08:10
PROVIDERS: ATTEND Internal Medicine
DX: E78.5 Hyperlipidemia, unspecified (principal); E11.9 Type 2 diabetes mellitus without complications

== ENCOUNTER → 2024-01-16 | Outpatient (CLI) | payer BC | LOC: M WHC 13:24 | PROVIDERS: ATTEND Internal Medicine Medical Oncology | DX: Z12.31 Encounter for screening mammogram for malignant neoplasm of breast (principal) ==

== ENCOUNTER → 2024-02-02 | Outpatient (CLI) | payer BC | LOC: M PLARAD 11:11 | PROVIDERS: ATTEND Internal Medicine Medical Oncology | DX: C82.94 Follicular lymphoma, unspecified, lymph nodes of axilla and upper limb (principal) | CPT/HCPCS: 78815; A9552 ==

== ENCOUNTER → 2024-03-04 | Outpatient (REF) | payer BC ==
[2024-03-04 09:10] LABS: HEMOGLOBIN A1c 6.6 % (4.0-6.0)
[2024-03-04 09:19] LABS: ALBUMIN 4.1 G/DL (3.2-5.2); ALKALINE PHOSPHATASE 112 U/L (46-116); ALT/SGPT 43 U/L (7.0-40); AST/SGOT 18 U/L (<34); BILIRUBIN,TOTAL 0.9 MG/DL (0.3-1.2); BLOOD UREA NITROGEN 14 MG/DL (9-23); CALCIUM LEVEL 9.1 MG/DL (8.5-10.1); CARBON DIOXIDE LEVEL 26 MMOL/L (20-31); CHLORIDE LEVEL 105 MMOL/L (98-107); CHOLESTEROL LEVEL 146 MG/DL (<200); CHOLESTEROL RISK RATIO 3.82 (<5); CREATININE FOR GFR 0.98 MG/DL (0.55-1.30); GLOMERULAR FILTRATION RATE > 60.0 (>51); HDL CHOLESTEROL 38.2 MG/DL (>40); LDL CHOLESTEROL 70.8 MG/DL (<100); NON-HDL-C 107.8 MG/DL; SODIUM LEVEL 139 MMOL/L (136-145); TOTAL PROTEIN 6.1 G/DL (5.7-8.2); TRIGLYCERIDES LEVEL 185 MG/DL (<150)
[2024-03-10 07:44] LABS: GLUCOSE, FASTING 106 MG/DL (60-100)
== END ==
LOC: M LAB REF 08:34
PROVIDERS: ATTEND Internal Medicine
DX: E78.5 Hyperlipidemia, unspecified (principal); E11.9 Type 2 diabetes mellitus without complications

== ENCOUNTER → 2024-06-24 | Outpatient (REF) | payer BC ==
[~2024-06-24] MED LIST changes: +AUGM500T34 PO; +ONDA-282 PO; -ONDA4TAB6 PO
[2024-06-24 09:40] LABS: HEMOGLOBIN A1c 6.3 % (4.0-6.0)
== END ==
LOC: M LAB REF 08:50
PROVIDERS: ATTEND Internal Medicine
DX: E11.9 Type 2 diabetes mellitus without complications (principal)

== ENCOUNTER → 2024-08-05 | Outpatient (CLI) | payer BC ==
[~2024-08-05] MED LIST changes: +GASTROGRAFIN SOLUTION 30ML As Ordered ONE; +ISOVUE-370 76% 100ML VIAL As Ordered ONE
== END ==
LOC: M RAD 09:21
PROVIDERS: ATTEND Internal Medicine Medical Oncology
DX: C82.90 Follicular lymphoma, unspecified, unspecified site (principal)
CPT/HCPCS: 71260; 74177; Q9963; Q9967

== ENCOUNTER 2024-08-24 11:24 | Day surgery (SDC) | payer BC ==
[~2024-08-24] VITALS: Ht 154.9 cm; Wt 83.9 kg
[~2024-08-24 11:24] MED LIST changes: +ATOR40TA75 PO; +DEXL60CA13 PO; +FAMO1TAB11 PO; -GASTROGRAFIN SOLUTION 30ML As Ordered ONE; -ISOVUE-370 76% 100ML VIAL As Ordered ONE; +MIRA50TA2 PO; +NS 250 ML IV ONE; +ONDA-83 PO
[2024-08-24] MEDS ORDERED: propofoL 200 MG/20 ML VIAL As Ordered ONE (13:23)
[2024-08-24 13:54] VITALS: TEMP 97.8
[2024-08-24 14:07] VITALS: BP 127/59; O2SAT 97
== END 2024-08-24 14:15 | disposition home or self-care (01) ==
LOC: M OPP 11:24
PROVIDERS: ATTEND Internal Medicine Gastroenterology
DX: D50.9 Iron deficiency anemia, unspecified (principal); K64.8 Other hemorrhoids; K29.70 Gastritis, unspecified, without bleeding; E78.5 Hyperlipidemia, unspecified; E11.9 Type 2 diabetes mellitus without complications; K21.9 Gastro-esophageal reflux disease without esophagitis; F32.A Depression, unspecified; F41.9 Anxiety disorder, unspecified; Z85.72 Personal history of non-Hodgkin lymphomas; Z91.041 Radiographic dye allergy status; Z79.84 Long term (current) use of oral hypoglycemic drugs; Z79.899 Other long term (current) drug therapy

== ENCOUNTER → 2024-12-08 | Outpatient (REF) | payer BC ==
[~2024-12-08] MED LIST changes: -NS 250 ML IV ONE; +OMEP-611 PO; -OMEP20TA2 PO; -POTA10808 PO; +POTA10809 PO
[2024-12-08 12:41] LABS: HEMOGLOBIN A1c 6.8 % (4.0-6.0)
[2024-12-08 12:42] LABS: CHOLESTEROL RISK RATIO 4.3 (<5); HDL CHOLESTEROL 41.6 MG/DL (>40); LDL CHOLESTEROL 96.6 MG/DL (<100); NON-HDL-C 137.4 MG/DL
== END ==
LOC: M LAB REF 11:58
PROVIDERS: ATTEND Internal Medicine
DX: E11.9 Type 2 diabetes mellitus without complications (principal); E78.5 Hyperlipidemia, unspecified

== ENCOUNTER → 2025-02-04 | Outpatient (REF) | payer BC ==
[~2025-02-04] MED LIST changes: -FLOM0.4C39 PO; -PRED50TA PO; +PRED50TA57 PO; +TAMS-18 PO
[2025-02-04 18:45] LABS: BASO # 0.1 10^3/uL (0.0-0.2); BASO % 0.7 % (0.0-1.0); EOS # 0.4 10^3/uL (0.0-0.5); EOS % 4.5 % (0.0-3.0); HEMATOCRIT 43.7 % (36.0-47.0); LYMPH % 12.3 % (24.0-44.0); MEAN CORPUSCULAR HEMOGLOBIN 33.7 pg (27.0-33.0); MEAN CORPUSCULAR HGB CONC 34.3 g/dl (32.0-36.5); MEAN CORPUSCULAR VOLUME 98.2 fl (80.0-96.0); MONO % 12.6 % (2.0-8.0); NEUTROPHILS # 5.6 10^3/uL (1.5-8.5); NEUTROPHILS % 68.8 % (36.0-66.0); PLATELET COUNT, AUTOMATED 297 10^3/uL (150-450); RED BLOOD COUNT 4.45 10^6/uL (4.00-5.40); WHITE BLOOD COUNT 8.2 10^3/uL (4.0-10.0)
[2025-02-04 18:51] LABS: ALBUMIN 4.3 G/DL (3.2-5.2); BILIRUBIN,TOTAL 0.6 MG/DL (0.3-1.2); CALCIUM LEVEL 9.5 MG/DL (8.5-10.1); PERCENT SATURATION 27.4 % (13.2-45.0); POTASSIUM SERUM 4.3 MMOL/L (3.5-5.1); TOTAL PROTEIN 6.8 G/DL (5.7-8.2)
[2025-02-04 18:56] LABS: FERRITIN 173.7 NG/ML (7.3-270.7)
[2025-02-04 18:58] LABS: FOLATE 16.8 NG/ML (>5.4)
== END ==
LOC: M LABDRWAD 16:59
PROVIDERS: ATTEND Internal Medicine Medical Oncology
DX: C85.90 Non-Hodgkin lymphoma, unspecified, unspecified site (principal)

== ENCOUNTER 2025-02-10 19:51 | Emergency (ER) | payer BC ==
[~2025-02-10] VITALS: Ht 154.9 cm; Wt 90.7 kg
[2025-02-10 19:57] VITALS: BP 141/69; TEMP 96.9; O2SAT 100
[2025-02-10] MEDS ORDERED: NAPR-1405 PO (22:10)
[2025-02-10] MEDS ORDERED: METH-1164 PO (22:10)
[2025-02-10] MEDS: methocarbamoL 750 MG TAB PO ONE (22:16)
[2025-02-10] MEDS: NAPROXEN 250 MG TAB PO ONE (22:16)
[2025-02-10] MEDS: BOOSTRIX VACCINE (TETANUS/DIPHTH/ACEL. PERTUSSIS) 0.5ML SYR IM ONE (22:17)
== END 2025-02-10 22:23 | disposition home or self-care (01) ==
LOC: M ED 19:51
DX: S82.61XA Displaced fracture of lateral malleolus of right fibula, initial encounter for closed fracture (principal); S80.211A Abrasion, right knee, initial encounter; W01.0XXA Fall on same level from slipping, tripping and stumbling without subsequent striking against object, initial encounter; E78.5 Hyperlipidemia, unspecified; F32.A Depression, unspecified; E11.9 Type 2 diabetes mellitus without complications; K21.9 Gastro-esophageal reflux disease without esophagitis; Y92.009 Unspecified place in unspecified non-institutional (private) residence as the place of occurrence of the external cause; Y93.89 Activity, other specified; Y99.9 Unspecified external cause status; Z87.442 Personal history of urinary calculi; Z91.041 Radiographic dye allergy status; Z23 Encounter for immunization; Z79.83 Long term (current) use of bisphosphonates; Z79.52 Long term (current) use of systemic steroids; Z79.899 Other long term (current) drug therapy; Z79.4 Long term (current) use of insulin

== ENCOUNTER → 2025-02-11 | Outpatient (CLI) | payer BC ==
[~2025-02-11] MED LIST changes: +METH-1164 PO; +NAPR-1405 PO
== END ==
LOC: M SOG 13:53
PROVIDERS: ATTEND Orthopaedic Surgery
DX: M25.571 Pain in right ankle and joints of right foot (principal)

== ENCOUNTER → 2025-02-18 | Outpatient (CLI) | payer BC ==
[~2025-02-18] MED LIST changes: +ISOVUE-370 76% 100ML VIAL As Ordered ONE
== END ==
LOC: M RAD 02-07 08:40
PROVIDERS: ATTEND Internal Medicine Hematology & Oncology
DX: C82.90 Follicular lymphoma, unspecified, unspecified site (principal); Z53.9 Procedure and treatment not carried out, unspecified reason
CPT/HCPCS: 71260; 74177; Q9967

== ENCOUNTER → 2025-02-22 | Outpatient (CLI) | payer BC ==
[~2025-02-22] MED LIST changes: -ISOVUE-370 76% 100ML VIAL As Ordered ONE
== END ==
LOC: M SOG 07:10
PROVIDERS: ATTEND Orthopaedic Surgery
DX: S82.64XD Nondisplaced fracture of lateral malleolus of right fibula, subsequent encounter for closed fracture with routine healing (principal)

== ENCOUNTER → 2025-05-09 | Outpatient (CLI) | payer BC | LOC: M SOG 07:01 | PROVIDERS: ATTEND Orthopaedic Surgery | DX: S82.64XD Nondisplaced fracture of lateral malleolus of right fibula, subsequent encounter for closed fracture with routine healing (principal) ==

== ENCOUNTER → 2025-08-18 | Outpatient (CLI) | payer BC ==
[~2025-08-18] MED LIST changes: +JARD1TAB
== END ==
LOC: M RAD 11:59
PROVIDERS: ATTEND Internal Medicine Medical Oncology
DX: D50.9 Iron deficiency anemia, unspecified (principal); N20.0 Calculus of kidney; K76.0 Fatty (change of) liver, not elsewhere classified